=== PATIENT | female | born 1975 | race Caucasian/White ===

== ENCOUNTER → 2017-05-22 13:21 | Outpatient (CLI) | payer SELFPAY | PROVIDERS: Visit Provider Obstetrics & Gynecology | DX: N91.2 Amenorrhea, unspecified (principal) ==

== ENCOUNTER → 2018-07-11 13:57 | Outpatient (CLI) | payer BC, SELFPAY ==
[2018-07-16 12:19] LABS: HPV Reflexed? NOT INDICATED
== END ==
PROVIDERS: Visit Provider Obstetrics & Gynecology
DX: Z12.4 Encounter for screening for malignant neoplasm of cervix (principal)
CPT/HCPCS: 88175; G0145

== ENCOUNTER → 2019-11-27 14:37 | Outpatient (CLI) | payer OTHER, SELFPAY ==
[2019-09-09 10:29] VITALS: BMI 19.8
[2019-11-27 17:20] LABS: T4 Free Direct 0.91 ng/dL (0.76-1.46); Thyroid Stim Hormone (TSH) 1.92 uIU/mL (0.358-3.74)
[2019-12-02 16:33] LABS: HPV APTIMA, High Risk Negative (Negative); HPV Reflexed? YES, CHARGE PATIENT
== END ==
PROVIDERS: Visit Provider Student in an Organized Health Care Education/Training Program
DX: Z12.4 Encounter for screening for malignant neoplasm of cervix (principal); N95.1 Menopausal and female climacteric states
CPT/HCPCS: 36415; 84439; 84443; 87624; 88175; G0145

== ENCOUNTER → 2019-12-18 13:49 | Outpatient (CLI) | payer BC, SELFPAY ==
[2019-09-09 10:29] VITALS: BMI 19.8
--- NOTE | 2019-12-18 14:02 | BI_ITS ---
MAMMOGRAPHY - BILATERAL SCREENING REASON FOR EXAM: Female, 44 years old. Routine annual screening examination. PERTINENT HISTORY: Mother with breast cancer. Grandmother with breast cancer. TECHNIQUE: Digital bilateral breast yosvany (3D mammographic acquisition) in the CC and MLO projections. 2-D mediolateral oblique (MLO) and craniocaudad (CC) views of both breasts were obtained. CAD: Full Field Digital Mammography with Computer Added Detection was performed. COMPARISON: Comparison is made with prior study dated 12/17/2016. FINDINGS: Breast Composition: The breasts are heterogeneously dense, which may obscure small masses. There are no dominant masses or suspicious calcifications. No other significant abnormalities are identified. There has been no significant change since the prior study. BI/SCREEN MAMM (CAD) W/YOSVANY BILAT IMPRESSION: Stable bilateral screening mammogram. Yearly follow-up mammogram recommended. (A) ASSESSMENT CATEGORY: BIRADS Category 1: Negative. A letter regarding these results will be sent to the patient by the facility within 30 days. Approximately 10% of breast cancers are not detected by mammography. A normal mammogram should not delay biopsy of a clinically suspicious abnormality. [id number] Electronically Signed: Anurag Vazquez, at 14:54 EDT , Service support ,
== END ==
PROVIDERS: PCP Family Medicine; Referring Provider Student in an Organized Health Care Education/Training Program; Visit Provider Student in an Organized Health Care Education/Training Program
DX: Z12.31 Encounter for screening mammogram for malignant neoplasm of breast (principal)
CPT/HCPCS: 77063; 77067

== ENCOUNTER 2020-05-20 12:30 | Outpatient (RCR) | payer OTHER, SELFPAY ==
[2019-09-09 10:29] VITALS: BMI 19.8
== END 2020-08-02 23:59 ==
LOC: IMMUN 12:30
PROVIDERS: PCP Family Medicine; Visit Provider Family Medicine
DX: Z23 Encounter for immunization (principal)
CPT/HCPCS: 0001A; 0002A; 91300

== ENCOUNTER → 2020-06-24 09:20 | Outpatient (CLI) | payer OTHER, SELFPAY ==
[2020-06-24 08:57] VITALS: BMI 22.4
[2020-06-24 12:38] LABS: Absolute Lymphocyte Count 1.26 X10^3/uL (0.83-4.51); Absolute Neutrophil Count 2.6 X10^3/uL (2.0-7.7); Basophil# 0.03 X10^3/uL; Basophil% 0.7 % (0-1); Eosinophils% 2.3 % (0-5); Hematocrit 44.7 % (37-47); Hemoglobin 13.7 g/dL (12.0-15.0); Lymphocyte # 1.26 X10^3/ul (0.83-4.51); Lymphocyte % 29.2 % (19-41); Mean Corp Hgb Conc 30.6 g/dL (32-36); Mean Corpuscular Hgb 26.9 pg (27.0-32.0); Mean Corpuscular Volume 87.8 fL (81-99); Mean Platelet Vol. 10.2 fl (6.2-12.0); Monocyte# 0.33 X10^3/uL; Monocyte% 7.7 % (0-10); NRBC Flagged by Analyzer 0 % (0-5); Neutrophil # 2.57 X10^3/uL (2.7-7.7); Neutrophil % 59.6 % (47-70); Platelet Count 311 K/mm3 (150-450); RBC Distribution Width CV 13.1 % (11.6-14.6); RBC Distribution Width SD 42.1 fl (35.1-43.9); Red Blood Count 5.09 M/mm3 (4.2-5.4); White Blood Count 4.3 K/mm3 (4.4-11.0)
[2020-06-24 12:42] LABS: ALB/GLOB Ratio 1.1 RATIO (0.9-2.4); AST(SGOT) 15 U/L (15-37); Alanine Aminotransfer ALT/SGPT 21 U/L (13-56); Alkaline Phosphatase 84 U/L (45-117); Anion Gap 1 (5-15); BUN 20 mg/dL (7-18); Calcium,Total 9.3 mg/dL (8.5-10.1); Chloride 108 mmol/L (98-107); Creatinine, Serum 0.77 mg/dL (0.55-1.02); EST Glomerular Filtration Rate 86 mL/min (>60); Est Glom Filt Rate - Afr Amer 104 mL/min (>60); Globulin 3.5 g/dL (2.2-4.2); Glucose 80 mg/dL (74-106); Potassium 4.3 mmol/L (3.5-5.1); Protein, Total 7.5 g/dL (6.4-8.2); Sodium Level 140 mmol/L (136-145)
[2020-06-24 12:47] LABS: Vitamin D,25 Hydroxy 30.8 ng/mL
== END ==
PROVIDERS: PCP Internal Medicine; Referring Provider Internal Medicine; Visit Provider Internal Medicine
DX: E73.9 Lactose intolerance, unspecified (principal); K90.9 Intestinal malabsorption, unspecified
CPT/HCPCS: 36415; 80053; 82306; 85025

== ENCOUNTER → 2020-10-21 14:43 | Outpatient (CLI) | payer OTHER, SELFPAY ==
[2020-10-21 17:27] LABS: Cholesterol 189 mg/dL (200); High Density Lipoprotein 64 mg/dL; T4 Free Direct 0.89 ng/dL (0.76-1.46); Thyroid Stim Hormone (TSH) 1.38 uIU/mL (0.358-3.74); Triglycerides 87 mg/dL; Very Low Density Lipoprotein 17 mg/dL (5-40)
== END ==
PROVIDERS: PCP Internal Medicine; Referring Provider Internal Medicine; Visit Provider Internal Medicine
DX: Z00.00 Encounter for general adult medical examination without abnormal findings (principal); N93.9 Abnormal uterine and vaginal bleeding, unspecified
CPT/HCPCS: 36415; 80061; 84439; 84443

== ENCOUNTER → 2020-10-24 09:32 | Outpatient (CLI) | payer OTHER, SELFPAY ==
--- NOTE | 2020-10-24 09:35 | BI_ITS ---
MAMMOGRAPHY - BILATERAL DIAGNOSTIC REASON FOR EXAM: Female, 45 years old. Breast Pain. Family Hx of Breast Ca PERTINENT HISTORY: Non-contributory. TECHNIQUE: Digital examination. Mediolateral oblique (MLO) and craniocaudad (CC) views of both breasts were obtained. CAD: CAD was performed on this study. COMPARISON: 12/18/2019 FINDINGS: Breast Composition: The breasts are heterogeneously dense, which may obscure small masses. There are no dominant masses or suspicious calcifications. No other significant abnormalities are identified. BI/DIAG MAMM W/CAD, BILAT IMPRESSION: Stable bilateral diagnostic mammogram. ASSESSMENT CATEGORY: BIRADS Category 1: Negative. A letter regarding these results will be sent to the patient by the facility within 30 days. FOLLOW UP RECOMMENDATION: Yearly follow up mammogram recommended. (A) Approximately 10% of breast cancers are not detected by mammography. A normal mammogram should not delay biopsy of a clinically suspicious abnormality. Electronically Signed: Tejas Wang MD at 10:19 EDT Tel , Service support ,
== END ==
PROVIDERS: PCP Internal Medicine; Visit Provider Internal Medicine
DX: N64.4 Mastodynia (principal)
CPT/HCPCS: 77062; 77066; G0279

== ENCOUNTER → 2020-11-23 14:38 | Outpatient (CLI) | payer OTHER, SELFPAY ==
[2020-11-23 15:50] LABS: Follicle Stimulating Hormone 103.3 mIU/mL
== END ==
PROVIDERS: PCP Internal Medicine; Visit Provider Obstetrics & Gynecology
DX: N91.2 Amenorrhea, unspecified (principal); Z78.0 Asymptomatic menopausal state
CPT/HCPCS: 36415; 83001

== ENCOUNTER → 2021-01-17 10:52 | Outpatient (CLI) | payer OTHER, SELFPAY ==
--- NOTE | 2021-01-17 | EMB_PTH ---
PATIENT: DIANA FELIX LOC: [facility] #:[id number] AGE/SX: 49/F ROOM: RE01/17/[address]: Dr. Daniella Gonzalez MD : 1975 BED: DIS: SPEC #: [id number] RECD: 01/17/21 11:47 STATUS: MABEL CAMARA #: [id number] PRISCILLA: 01/17/21 00:[address]: Daniella Neely DEPT: SURGICAL PATHOLOGY RECD BY: Timmy Whitt ENTERED: 01/17/21 11:47 SP TYPE: ENDOM BX/C JANETTE DR: Dr. Bob Tristan MD Tissues: Endometrium, NOS Procedures: Surgery Specimen Level IV HEADER OPERATION: Endometrial biopsy PRE-OP DIAGNOSIS: Postmenopausal bleeding TISSUE SUBMITTED: Endometrial biopsy MICROSCOPIC DIAGNOSIS Endometrial biopsy: Strips of benign endometrial epithelium and scant fragments of superficial benign endometrial tissue, consistent with atrophic endometrium. Benign endocervical epithelial cells, blood and mucous. SJ 01/18/21 MICROSCOPIC DESCRIPTION Slides are reviewed. GROSS DESCRIPTION Received is one container labeled with the patient's name and not further designated. The specimen consists of multiple fragments of fontaine hemorrhagic soft tissue that in aggregate measure 1.5 x 0.1 x 0.1 cm. The specimen is totally submitted in one cassette. / PHU:marcelle 01/17/2021 TC:4 CPT: 64726
== END ==
PROVIDERS: PCP Internal Medicine; Visit Provider Obstetrics & Gynecology
DX: N95.0 Postmenopausal bleeding (principal)
CPT/HCPCS: 88305

== ENCOUNTER → 2021-09-22 | Outpatient (CLI) | payer OTHER, SELFPAY ==
[2021-09-22 14:50] LABS: Absolute Neutrophil Count 2.5 X10^3/uL (2.0-7.7); Basophil# 0.03 X10^3/uL; Basophil% 0.6 % (0-1); Eosinophil# 0.16 X10^3/uL; Eosinophils% 3.3 % (0-5); Hematocrit 43.9 % (37-47); Hemoglobin 13.5 g/dL (12.0-15.0); Lymphocyte % 33.4 % (19-41); Mean Corp Hgb Conc 30.8 g/dL (32-36); Mean Corpuscular Hgb 26.6 pg (27.0-32.0); Mean Corpuscular Volume 86.4 fL (81-99); Mean Platelet Vol. 9.5 fl (6.2-12.0); Monocyte# 0.46 X10^3/uL; Monocyte% 9.6 % (0-10); NRBC Flagged by Analyzer 0 % (0-5); Neutrophil # 2.52 X10^3/uL (2.7-7.7); Neutrophil % 52.7 % (47-70); Platelet Count 260 K/mm3 (150-450); RBC Distribution Width SD 40.7 fl (35.1-43.9); Red Blood Count 5.08 M/mm3 (4.2-5.4); White Blood Count 4.8 K/mm3 (4.4-11.0)
[2021-09-22 15:25] LABS: ALB/GLOB Ratio 1.2 RATIO (0.9-2.4); AST(SGOT) 19 U/L (15-37); Alanine Aminotransfer ALT/SGPT 32 U/L (13-56); Albumin, Serum 3.8 g/dL (3.2-5.0); Alkaline Phosphatase 90 U/L (45-117); Amylase 66 U/L (25-115); Anion Gap 2 (5-15); BUN 14 mg/dL (7-18); BUN/Creat Ratio 15.6 RATIO (10-20); Calcium,Total 9.1 mg/dL (8.5-10.1); Chloride 107 mmol/L (98-107); Cholesterol 198 mg/dL (200); EST Glomerular Filtration Rate 72 mL/min (>60); Est Glom Filt Rate - Afr Amer 87 mL/min (>60); Globulin 3.3 g/dL (2.2-4.2); Glucose 72 mg/dL (74-106); High Density Lipoprotein 46 mg/dL; Lipase 169 U/L (73-393); Potassium 4.1 mmol/L (3.5-5.1); Protein, Total 7.1 g/dL (6.4-8.2); Sodium Level 140 mmol/L (136-145); Triglycerides 82 mg/dL; Very Low Density Lipoprotein 16 mg/dL (5-40)
== END | disposition home or self-care (01) ==
LOC: LAB 13:47
PROVIDERS: PCP Internal Medicine; Visit Provider Physician Assistant
DX: R10.9 Unspecified abdominal pain (principal); M54.9 Dorsalgia, unspecified; E73.9 Lactose intolerance, unspecified
CPT/HCPCS: 36415; 80053; 80061; 82150; 83690; 84443; 85025

== ENCOUNTER → 2021-12-05 | Outpatient (CLI) | payer OTHER, SELFPAY ==
--- NOTE | 2021-12-05 16:17 | BI_ITS ---
MAMMOGRAPHY - BILATERAL SCREENING REASON FOR EXAM: Female, 46 years old. Routine annual screening examination. PERTINENT HISTORY: Mother with breast cancer. Grandmother with breast cancer. TECHNIQUE: Digital bilateral breast yosvany (3D mammographic acquisition) in the CC and MLO projections. 2-D mediolateral oblique (MLO) and craniocaudad (CC) views of both breasts were obtained. CAD: Full Field Digital Mammography with Computer Added Detection was performed. COMPARISON: Comparison is made with prior study 10/24/2020 and 12/18/2019. FINDINGS: Breast Composition: The breasts are heterogeneously dense, which may obscure small masses. There are no dominant masses or suspicious calcifications. No other significant abnormalities are identified. There has been no significant change since the prior study. BI/SCRN MAMM (CAD)W/YOSVANY BILAT IMPRESSION: Stable bilateral screening mammogram. Yearly follow-up mammogram recommended. (A) ASSESSMENT CATEGORY: BIRADS Category 1: Negative. A letter regarding these results will be sent to the patient by the facility within 30 days. Approximately 10% of breast cancers are not detected by mammography. A normal mammogram should not delay biopsy of a clinically suspicious abnormality. [id number] Electronically Signed: Anurag Vazquez MD at 8:45 EDT ,
== END | disposition home or self-care (01) ==
LOC: OPBI 16:24
PROVIDERS: PCP Internal Medicine; Visit Provider Internal Medicine
DX: Z12.31 Encounter for screening mammogram for malignant neoplasm of breast (principal); Z80.3 Family history of malignant neoplasm of breast
CPT/HCPCS: 77063; 77067

== ENCOUNTER → 2022-02-15 | Outpatient (CLI) | payer MEDICAID, SELFPAY ==
--- NOTE | 2022-02-15 07:56 | CT_ITS ---
STUDY: CT ABDOMEN AND PELVIS WITH CONTRAST REASON FOR EXAM: Female, 46 years old. LEFT LOWER ABDOMINAL MASS. Abdominal tenderness. RADIATION DOSAGE (If Supplied By Facility): CTDIvol = ( 12.89 ) mGy, DLP = ( 594.72 ) mGycm TECHNIQUE: Transaxial images were obtained from the dome of the diaphragm to the symphysis pubis with oral contrast. Oral and amp; IV Readi-CAT and amp; 100mL Isovue-370 was administered. Sagittal and coronal images were reconstructed. Individualized dose optimization techniques were used for this CT. COMPARISON: None. FINDINGS: The visualized lung bases are unremarkable. The visualized portions of the heart are within normal limits. Normal liver. Normal gallbladder and extrahepatic biliary system. Normal spleen. Normal pancreas. Normal bilateral adrenal glands. Normal right kidney. Normal left kidney. There is a small hiatal hernia. Normal small intestine. Normal colon. There are surgical clips in the region of the appendix consistent with a prior appendectomy. Normal abdominal aorta. Normal inferior vena cava. There is extensive retroperitoneal lymphadenopathy with enlarged nodes greater than 10-15mm in the short axis. Marked degree of lymphadenopathy is seen in the peripancreatic region as well as in the root of the mesentery. This extends down into the lower abdomen. Mild degree of pelvic lymphadenopathy. Normal urinary bladder. Small amount of free fluid is seen in the cul-de-sac. Normal abdominal wall. Normal osseous structures. CT/Abdomen/Pelvis WITH Contrast IMPRESSION: Extensive retroperitoneal and mesenteric lymphadenopathy. Lymphadenopathy is also seen in the peripancreatic and periportal region. Small amount of free fluid is seen in the cul-de-sac. Electronically Signed: Anurag Vazquez MD at 8:49 EST ,
== END | disposition home or self-care (01) ==
PROVIDERS: PCP Internal Medicine; Referring Provider Nurse Practitioner Family; Visit Provider Nurse Practitioner Family
DX: R19.00 Intra-abdominal and pelvic swelling, mass and lump, unspecified site (principal)
CPT/HCPCS: 74177; Q9967

== ENCOUNTER → 2022-02-16 | Outpatient (CLI) | payer MEDICAID, SELFPAY ==
[2022-02-16 13:00] LABS: Bacteria 0 SEEN /hpf (None Seen); Mucous, Urine 0 SEEN /hpf (<or=2+); Red Blood Cells-Urine 0 SEEN /hpf (0-5)
[2022-02-16 14:22] LABS: Color, Urine Yellow (Yellow); Glucose, Dipstick Normal (Normal); Ketone-Dipstick Negative (Negative); Leukocyte Esterase-Dipstick 100 /ul (Negative); Nitrite-Dipstick Negative (Negative); Occult Blood-Urine Negative /ul (Negative); Protein-Dipstick 15 mg/dl (Negative); Specific Gravity, Urine 1.015 (1.002-1.030); Urine Bilirubin Dipstick Negative (Negative); Urine Clarity Sl. Cloudy (Clear); Urine Urobilinogen Normal (Normal)
[2022-02-16 14:28] LABS: Erythrocyte Sedimentation Rate 4 mm/hr (0-30)
[2022-02-16 14:29] LABS: Squamous Epithelial Cells - UA 0-5 SEEN /hpf (5-10); White Blood Cells 10-25 SEEN /hpf (0-5)
[2022-02-16 14:30] LABS: Absolute Lymphocyte Count 1.22 X10^3/uL (0.83-4.51); Absolute Neutrophil Count 3.3 X10^3/uL (2.0-7.7); Basophil# 0.04 X10^3/uL; Basophil% 0.8 % (0-1); Eosinophil# 0.21 X10^3/uL; Hematocrit 46.1 % (37-47); Hemoglobin 14.3 g/dL (12.0-15.0); Lymphocyte # 1.22 X10^3/ul (0.83-4.51); Lymphocyte % 23.2 % (19-41); Mean Corpuscular Hgb 26.9 pg (27.0-32.0); Mean Corpuscular Volume 86.7 fL (81-99); Mean Platelet Vol. 10.1 fl (6.2-12.0); Monocyte# 0.44 X10^3/uL; Monocyte% 8.4 % (0-10); NRBC Flagged by Analyzer 0 % (0-5); Neutrophil # 3.33 X10^3/uL (2.7-7.7); Neutrophil % 63.2 % (47-70); Platelet Count 296 K/mm3 (150-450); RBC Distribution Width CV 13.4 % (11.6-14.6); RBC Distribution Width SD 42.3 fl (35.1-43.9); Red Blood Count 5.32 M/mm3 (4.2-5.4); White Blood Count 5.3 K/mm3 (4.4-11.0)
[2022-02-16 15:44] LABS: ALB/GLOB Ratio 1.3 RATIO (0.9-2.4); AST(SGOT) 18 U/L (15-37); Alanine Aminotransfer ALT/SGPT 26 U/L (13-56); Albumin, Serum 4.1 g/dL (3.2-5.0); Alkaline Phosphatase 91 U/L (45-117); Amylase 66 U/L (25-115); Anion Gap 1 (5-15); BUN 15 mg/dL (7-18); BUN/Creat Ratio 16.8 RATIO (10-20); CRP < 2.90 mg/L (0.0-3.0); Calcium,Total 9.4 mg/dL (8.5-10.1); Chloride 108 mmol/L (98-107); Creatinine, Serum 0.89 mg/dL (0.55-1.02); EST Glomerular Filtration Rate 72 mL/min (>60); Est Glom Filt Rate - Afr Amer 87 mL/min (>60); Globulin 3.1 g/dL (2.2-4.2); Glucose 81 mg/dL (74-106); LDH 208 U/L (84-246); Lipase 189 U/L (73-393); Potassium 4.2 mmol/L (3.5-5.1); Protein, Total 7.2 g/dL (6.4-8.2); Sodium Level 143 mmol/L (136-145)
== END | disposition home or self-care (01) ==
PROVIDERS: PCP Internal Medicine; Referring Provider Nurse Practitioner Family; Visit Provider Nurse Practitioner Family
DX: R59.0 Localized enlarged lymph nodes (principal); R19.00 Intra-abdominal and pelvic swelling, mass and lump, unspecified site
CPT/HCPCS: 36415; 80053; 81001; 82150; 83615; 83690; 85025; 85652; 86140

== ENCOUNTER 2022-03-08 08:45 | Outpatient (CLI) | payer MEDICAID, SELFPAY ==
[2022-03-08] VITALS (9 sets, daily range): BP systolic 96–108; BP diastolic 55–76; PULSE 62–80; RESP 14–30; TEMP 37.2; O2SAT 91–100; BMI 23.3
--- NOTE | 2022-03-08 | IMM_PTH ---
PATIENT: DIANA FELIX LOC: CT U#:[id number] AGE/SX: 46/F ROOM: RE03/08/[address]: Dr. West Christy MD : 1975 BED: DIS: 03/08/2022 SPEC #: [id number] RECD: 03/08/22 14:08 STATUS: MABEL REQ #: [id number] PRISCILLA: 03/08/22 00:[address]: West Christy DEPT: IMMUNOHISTOCHEMISTRY RECD BY: Mary Stinson ENTERED: 03/08/22 14:10 SP TYPE: IMMUNO OTHR DR: Dr. Bob Tristan MD Tissues: Abdomen, NOS Procedures: BCL-2 (add) BCL-6 (add) CD10 (add) CD20 (add) CD23 (add) CD3 (add) CD43 (add) CD45 (add) CD5 (add) CD79A (add) CK8 (add) CYCLIN (add) KI-67 (add) MUM1 (add) C-MYC (add) Pankeratin (initial) PHYSICIAN & [place] [id number] SPECIMEN INFORMATION: Tissue Source: Abdominal mass Clinical Info: Abdominal mass Specimen Number: [id number] CPT code: 19902, 41450 x15 METHODOLOGY: Deparaffinized sections of prefer/formalin-fixed tissue or PAP/DQ stained slides are incubated with monoclonal/polyclonal antibodies/oligonucleotide probes. Localization is made via biotin free immunoperoxidase method. Appropriate controls are performed and reacted as expected. Results on target cell population are indicated in the following table: RESULTS: ANTIBODY / CLONE RESULT AE1-3 (AE1/AE3/PCK26) negative CD3 (PS1) negative CD5 (SP10) negative CD10 (56C6) positive CD20 (L26) positive CD23 (1B12) negative CD43 (L60) negative CD45 (RP2/18) positive CD79a (11E3) positive BCL-2 (bcl-2/100/D5) positive BCL-6 (IB293T/A8) positive Cyclin D1/BCL-1 (SP4) negative MUM1 (MRQ-43) negative C-MYC (Y69) negative CK8 (45mrzhX48) negative Ki-67 (30-9) positive, low These tests were developed and their performance characteristics determined by [facility]. They may not have been cleared or approved by the U.S. Food and Drug Administration. The FDA has determined that such clearance or approval is not necessary. The above immunohistochemical/dualISH markers are ordered and reviewed by the Pathologist. INTERPRETATION: Abdominal mass, CT-guided core biopsy: Consistent with involvement by non-Hodgkin B-cell lymphoma, favor follicular lymphoma.
--- NOTE | 2022-03-08 | ASPIGT_PTH ---
PATIENT: DIANA FELIX LOC: [place] U#:[id number] AGE/SX: 46/F ROOM: RE03/08/[address]: Dr. West Christy MD : 1975 BED: DIS: 03/08/2022 SPEC #: [id number] RECD: 03/08/22 12:27 STATUS: MABEL REAmy #: [id number] PRISCILLA: 03/08/22 00:[address]: West Christy DEPT: SURGICAL PATHOLOGY RECD BY: Timmy Whitt ENTERED: 03/08/22 12:28 SP TYPE: ASP RAD OTHR DR: Dr. Bob Tristan MD Tissues: Abdomen, NOS Procedures: FNA Specimen Adequacy Special Stain Group II Surgery Specimen Level IV Imprint (control) HEADER OPERATION: CT-guided abdominal biopsy PRE-OP DIAGNOSIS: Abdominal mass TISSUE SUBMITTED: Anterior abdominal mass 18-gauge x5 MICROSCOPIC DIAGNOSIS Anterior abdominal mass, CT-guided core biopsy: Consistent with involvement by non-Hodgkin B-cell lymphoma, follicular lymphoma with predominantly diffuse pattern, grade 1/3. See microscopic description and comment. SJ:rg 03/12/2022 COMMENT The specimen is evaluated at the time of biopsy by Dr. Fu. Immediate Evaluation = Numerous lymphocytes are noted. Adequate for evaluation. The specimen predominantly is of diffuse pattern. Flow cytometry study from [facility] shows B-cell lymphoma, CD10 positive (the immunophenotype suggests B-cell lymphoma of follicle center cell origin). The complete report is viewable in patient?s EMR. Immunohistochemistry ([id number]) supports the above diagnosis. MICROSCOPIC DESCRIPTION Slides are reviewed. The specimen shows lymph node tissue with distortion of normal architecture into diffuse infiltration with small lymphocytes. Significant increased number of large lymphocytes are not seen. Follicular formation is also not seen. No evidence of necrosis or fibrosis. GROSS DESCRIPTION Received is one container labeled with the patient's name and not further designated. The specimen consists of multiple irregular and elongated fragments of fontaine tissue that in aggregate measure 2.2 x 0.5 x 0.1 cm. The specimen is totally submitted in one cassette. / AM:marcelle 03/08/2022 TC:0 CPT: 15741, 60072
--- NOTE | 2022-03-08 08:55 | CT_ITS ---
PROCEDURE: CT GUIDED biopsy of the left abdominal mass. DATE: 03/08/2022. INDICATION: Female, 46 years old. Abdominal and retroperitoneal lymphadenopathy. PHYSICIAN: Anurag Vazquez M.D. RADIATION DOSAGE (If Supplied By Facility): CTDIvol = ( 17 ) mGy, DLP = ( 279.89 ) mGycm. Individualized dose optimization techniques were utilized. PROCEDURE: The risks, benefits, and alternatives to the procedure were explained to the patient. The specific risk of hemorrhage requiring further treatment or intervention was detailed and accepted. Follow-up instructions were discussed with the patient as well. Written informed consent was obtained. The patient was brought into the CT suite and placed in the supine position. . An appropriate entry site was identified. The overlying skin was prepped and draped in the usual sterile fashion. 1% lidocaine was administered subcutaneously for local anesthesia. Conscious sedation was performed. The patient received 2 mg of VERSED and 75 mcg of FENTANYL intravenously. Conscious sedation was started at 10:00 AM and terminated at 10:20 AM. The patient was monitored independently by the department nurse. Under CT guidance, a total of 5 passes were performed utilizing an 18-gauge core biopsy needle system. The specimens were then placed in the appropriate fluid and transported to the laboratory for analysis. Hemostasis was obtained. The patient tolerated the procedure well without immediate complications. CT/Biopsy/Inj or Needle Placement IMPRESSION: Successful CT guided biopsy of the left abdominal mass utilizing an 18-gauge core biopsy needle system, as described above. Conscious sedation protocol was followed. Electronically Signed: Anurag Vazquez MD at 10:56 EST ,
[2022-03-08 09:00] LABS: Absolute Lymphocyte Count 1.13 X10^3/uL (0.83-4.51); Absolute Neutrophil Count 2.7 X10^3/uL (2.0-7.7); Basophil# 0.03 X10^3/uL; Basophil% 0.7 % (0-1); Eosinophil# 0.18 X10^3/uL; Eosinophils% 4.1 % (0-5); Hematocrit 43.1 % (37-47); Hemoglobin 13.8 g/dL (12.0-15.0); Lymphocyte # 1.13 X10^3/ul (0.83-4.51); Lymphocyte % 25.6 % (19-41); Mean Corpuscular Hgb 27.3 pg (27.0-32.0); Mean Corpuscular Volume 85.2 fL (81-99); Mean Platelet Vol. 9.2 fl (6.2-12.0); Monocyte# 0.34 X10^3/uL; Monocyte% 7.7 % (0-10); NRBC Flagged by Analyzer 0 % (0-5); Neutrophil # 2.72 X10^3/uL (2.7-7.7); Neutrophil % 61.4 % (47-70); Platelet Count 250 K/mm3 (150-450); RBC Distribution Width CV 13.2 % (11.6-14.6); RBC Distribution Width SD 40.6 fl (35.1-43.9); Red Blood Count 5.06 M/mm3 (4.2-5.4); White Blood Count 4.4 K/mm3 (4.4-11.0)
[2022-03-08 09:08] LABS: Prothrombin Time (Protime)PT. 12.8 SECONDS (11.7-14.9)
[2022-03-08 09:09] LABS: Partial Thromboplast Time 24.4 Seconds (24.1-36.2)
[2022-03-08] MEDS: Midazolam 2 MG/2 ML Syringe IV (10:00)
[2022-03-08] MEDS: fentaNYL 100 MCG/2 ML Ampul IV ×2 (10:03→10:16)
[2022-03-08] MEDS: Lidocaine 2% (5ml sdv) 5 ML VIAL.MPF INFILT (10:13)
== END 2022-03-08 23:59 | disposition home or self-care (01) ==
PROVIDERS: PCP Internal Medicine; Referring Provider Internal Medicine Hematology & Oncology; Visit Provider Internal Medicine Hematology & Oncology
DX: Z01.812 Encounter for preprocedural laboratory examination (principal); R59.0 Localized enlarged lymph nodes
CPT/HCPCS: 10009; 36415; 77012; 85025; 85610; 85730; 88172; 88305; 88313; 88341; 88342; 99156; J7050; A4216

== ENCOUNTER → 2022-03-21 | Outpatient (CLI) | payer MEDICAID, SELFPAY ==
[2022-03-21] MEDS: Pentamidine Isethionate 300 MG, Water For Injection,Sterile 6 ML INHALATION (10:29)
== END | disposition home or self-care (01) ==
PROVIDERS: PCP Internal Medicine; Referring Provider Nurse Practitioner Family; Visit Provider Nurse Practitioner Family
DX: C82.93 Follicular lymphoma, unspecified, intra-abdominal lymph nodes (principal)
CPT/HCPCS: 94642

== ENCOUNTER 2022-03-23 09:39 | Day surgery (SDC) | payer MEDICAID, SELFPAY ==
[2022-03-23] VITALS (8 sets, daily range): BP systolic 85–101; BP diastolic 51–71; PULSE 72–97; RESP 16–17; TEMP 36.2–36.7; O2SAT 95–99; BMI 22.3
--- NOTE | 2022-03-23 09:53 | PCM.HP.BLA ---
History and Physical Date of Admission: 03/23/22 Intake Vital Signs ? 03/14/2308:02 Height 5 ft 4 in Weight: 136 lb 2 oz BMI 23.3 BP 96/62 Blood Pressure Location Rt brachial Position Sitting Respiration 16 Pulse 76 Pulse Source Monitor Temp 97.3 F L Temp Source Temporal Pulse Oximetry (%) 98 Oxygen Delivery Method room air Intake Visit Reasons:?PORT PLACEMENT Chief Complaint: Port placement conslt Is patient in pain?: No Allergies Sulfa (Sulfonamide Antibiotics) Allergy (Verified 03/14/22 09:03) Unknownomeprazole Adverse Reaction (Intermediate, Verified 03/14/22 09:03) VOMITING Medications multivitamin 1 tab PO DAILY 06/24/20 [History Confirmed 03/14/22] vitamin B complex (B Complex-Vitamin B12 tablet) 1 tab PO DAILY 01/26/22 [History Confirmed 03/14/22] allopurinol 300 mg tablet 300 mg PO DAILY 14 days #14 tabs 03/13/22 [Rx Confirmed 03/14/22] PFSH Medical History?(Updated 03/14/22 @ 10:[address] Carlos Kolb MD) Abdominal lymphadenopathy Abnormal uterine bleeding Breast pain, left Encounter for adjustment and management of vascular access device Encounter for screening for COVID-19 Follicular lymphoma Generalized anxiety disorder Insomnia Lactose intolerance Malabsorption Preventative health care Surgical History? History of appendectomy History of wisdom tooth extraction Family History? Father Hypertension Skin cancerMother Breast cancer Social History? Smoking Status:? Never smoker alcohol intake:? never substance use type:? does not use what type of physical activity do you participate in:? running and yoga frequency:? 3-4 times per week HPI HPI HPI: Patient is a 46-year-old female here for port placement for lymphoma. ROS General General: Yes weight change and fatigue; No appetite, colon cancer, breast cancer or weakness HEENT HEENT: No difficulty swallowing, eye injury, eye surgery, swollen glands or hoarseness Endo Endocrine: No thyroid disease, diabetes mellitus, thyroid cancer, Hair loss, heat intolerance or cold intolerance Skin Skin: No rash or changing moles Breast Breast: No left breast lump, right breast lump, nipple discharge, breast pain, abnormal mammogram, abnormal US or breast enlargement Musc Musculoskeletal: No back problems, arthritis, rheumatoid arthritis, gout or joint pain Cardio Cardiovascular: No murmur, pacemaker, heart disease, atrial fibrillation, high blood pressure, heart attack, heart stent, palpitations, shortness of breat with exertion or chest pain Psych Psychiatric: No depression, anxiety or hearing voices Resp Respiratory: No shortness of breath, No sleep apnea, No cough, No COPD, No asthma, No emphysema and No wheezing Gastro Gastrointestinal: Yes abdominal pain, No nausea or vomiting, No diarrhea, No constipation, No blood in stool, No acid reflux, No hemorrhoids, No ulcers, No gallbladder problem and No black,tarry stools Cameron Hematologic: No blood thinners, No blood disorders, No bleeding, No anemia and No blood clots Neuro Neurologic: No system reviewed and no additional complaints, except as documented, No as per HPI, No abnormal gait, No abnormal hearing, No abnormal movements, No abnormal speech, No behavioral changes, No burning sensations, No confusion, No convulsions, No disequilibrium, No dizziness, No localized weakness, No frequent falls, No headache(s), No lack of coordination, No loss of vision, No memory loss, No numbness, No other visual disturbances, No radicular pain, No restless legs, No sensory deficit, No syncope, No tingling, No tremor(s), No weakness and No other Exam Const General: cooperative Orientation: alert and oriented x3 HENMT Head: normal to inspection Neck Neck: normal visual inspection and full ROM Chest Chest palpation & inspection: normal inspection of the chest Resp Effort & Inspection: normal respiratory effort Auscultation: clear to auscultation bilaterally Cardio Rate: regular rate Rhythm: regular rhythm GI Inspection: non-distended Palpation: soft and nontender Skin General: no rashes or lesions noted Neuro General: patient alert and patient oriented x3 Extrem General: full ROM Psych Appearance: grossly normal Mental Status: mental status grossly normal Assessment and Plan Assessment and Plan (1) Encounter for adjustment and management of vascular access device: ?Status:?Acute (2) Follicular lymphoma: ?Status:?Acute Plan Has lymphoma and requires port for treatment.? I discussed right chest port placement with the patient in detail.? I discussed the procedure as well as the risks including but not limited to bleeding, infection, pneumothorax or line infection or DVT.? Patient understands all the risks and is willing to proceed. Carlos Kolb MD Pager: [facility] [address] [place] [address], [address] [place] [address] Office: I have examined the patient and the H&P has been reviewed. There are no clinical changes since date of exam.
[2022-03-23] MEDS: Lactated Ringers 1,000 ML 15 ML IV (10:13)
[2022-03-23] MEDS: Bupiv/Epi 0.5% Mpf 30 ML Vial (10:45)
[2022-03-23] MEDS: Cefazolin 2 GM in 0.9% Normal Saline 100 ML IV (11:13)
--- NOTE | 2022-03-23 12:01 | RAD_ITS ---
STUDY: X-RAY CHEST REASON FOR EXAM: Female, 46 years old. Port placement TECHNIQUE: Single AP portable view of the chest. COMPARISON: None. FINDINGS: A right-sided port catheter has been placed. The tip is at the junction of the superior vena cava and right atrium. The lungs are clear and expanded. There is no demonstrated pleural abnormality. Normal size heart. Normal mediastinum and veronique. Normal visualized pulmonary arteries. Normal visualized aortic arch and descending thoracic aorta. Normal visualized thoracic spine. Normal visualized ribs, clavicles, and shoulders. There is no demonstrated abnormality of the visualized soft tissue structures of the upper abdomen. RAD/Chest 1 View (Portable) IMPRESSION: The tip of the right vijay catheter is at the junction of the superior vena cava and right atrium. Electronically Signed: Anurag Vazquez MD at 12:18 EST ,
--- NOTE | 2022-03-23 12:30 | OP.PCM_ITS ---
Report of Operation Date of Procedure: 03/23/22 Pre-Operative Diagnosis: Lymphoma need for vascular access for chemotherapy Post-Operative Diagnosis: Same Surgery/Procedure Performed:: Ultrasound and fluoroscopy guided right chest port placement utilizing right IJ Description of Procedure: After obtaining informed consent patient was brought back to the operating room MAC anesthesia was induced and the right chest and neck were prepped in normal sterile fashion. Ultrasound was used to evaluate both IJs and the right IJ was selected. Next, using a needle, the right IJ was accessed and a guidewire was passed on into the superior vena cava under fluoroscopy guidance. A small incision was made over the puncture site and the dilator introducer was placed over the guidewire. Next this was capped and the pocket was made for the port. 1% lidocaine with epinephrine was injected in the proposed port site. An incision was made with scalpel. Electrocautery was used to make a pocket under the skin and subcutaneous tissue. Hemostasis was obtained. Next, the catheter was tunneled up to the neck incision site and placed through the introducer. The peel-away introducer was removed and the position of the catheter was confirmed on fluoroscopy. Next, the catheter was trimmed and attached to the port with the locking device. Interrupted 2-0 Vicryl sutures were used to anchor the port to the chest wall and then the port was placed inside the pocket. The pocket was then flushed with saline and the port irrigated with saline. There was good blood return and the port flushed easily. Next, heparin was injected into the port. The skin was closed with subcutaneous interrupted 3-0 Vicryl sutures. A single 3-0 Vicryl sutures placed under the skin at the neck incision site. Steri-Strips were placed as well as op sites. Patient tolerated procedure well, was taken to PACU in stable condition. Chest x-ray will be obtained. Grafts/Implants Used: 8 [place] PowerPort Admit VTE Documentation VTE Mechan Device Prophylaxis: SCD's
--- NOTE | 2022-03-23 12:36 | DCINST_ITS ---
Discharge Instructions Procedure Gallbladder Diet Discharge Diet: Light diet - advance as tolerated Activity Discharge Activity: May Not Drive (for 2-3 days or while taking narcotic pain medications.) and - (Do not drive, work heavy equipment or sign legal documents for 24 hours.) May shower in (days): 1 Lifting Restrictions: 20 lbs for 2 weeks Additional Activity Instructions:: Pain medication may cause nausea. You should typically eat light foods as you take your pain medications. Pain medication may also cause constipation. If this is a problem for you, please discuss with your doctor. Dressing / Incision Call your doctor if your incision/area has: Continuous Slow Oozing, Sudden Increased Bleeding, Increased Pain/ Swelling, Increased Redness and Foul Smelling Discharge Call your doctor if you observe: Fever of 101 or Higher Suture Line Care: Avoid Pulling/Pushing and Avoid Pinching/Bending Remove Dressing in: 2 days Additional Dressing/Incision Instructions:: Leave operative bandaids on for 2 days. When you remove dressing, leave Steri-Strips on until your follow-up appointment, or until the Steri-Strips fall off on their own. Follow Up Care Please Follow Up With: Carlos Kolb MD When: Please call to schedule 2 week follow up appointment. [phone] Test Results: Test results from this visit will be discussed in further detail at your follow- up appointment, if applicable. Discharge Plan Admission Attending Provider: Carlos Kolb Primary Care Provider: Bob Tristan Instructions Additional Instructions / Restrictions: Alternating ibuprofen and Tylenol for pain control Discharge Orders/Prescriptions Prescriptions: No Action multivitamin Tablet 1 tab PO DAILY vitamin B complex [B Complex-Vitamin B12] Tablet 1 tab PO DAILY lidocaine-prilocaine 2.5-2.5 % cream 1 applic topical ONCE PRN (Reason: port acces) 30 Days Qty: 30 2RF ondansetron 8 mg tablet,disintegrating 8 mg PO Q8H PRN (Reason: nausea and vomiting) Qty: 30 2RF pentamidine 300 mg recon soln 300 mg inhalation Q4W 360 Days Qty: 1 11RF allopurinol 300 mg tablet 300 mg PO DAILY 14 Days Qty: 14 0RF Rx Instructions: Start within 1 week of scheduled chemotherapy Referrals / Follow Up: Bob Tristan MD [Primary Care Provider] - Disposition Disposition (needs filled in before D/C Order can be placed): Home, Self Care
== END 2022-03-23 13:13 | disposition home or self-care (01) ==
LOC: SDC 09:40 → AC 09:42
PROVIDERS: PCP Internal Medicine; Referring Provider Surgery; Visit Provider Surgery
PROC: (CPT 36561; principal; 2022-03-23 11:55)
DX: Z45.2 Encounter for adjustment and management of vascular access device (principal); C82.90 Follicular lymphoma, unspecified, unspecified site
CPT/HCPCS: 36561; 00532; 71045; 77001; J7120; C1788; J2405

== ENCOUNTER 2022-04-04 17:13 | Emergency (ER) | payer MEDICAID, SELFPAY ==
[2022-04-04 17:15] VITALS: BP 102/69; PULSE 92; RESP 15; TEMP 37.3; O2SAT 97; BMI 23.1
--- NOTE | 2022-04-04 17:32 | EX.ED.DYSGE1 ---
HPI History of Present Illness Chief Complaint: Fever Narrative Narrative: 46-year-old female, recently diagnosed with non-Hodgkin lymphoma, had chemotherapy and Saturday and of last week, approximately 7 and 8 days ago, presents with fever. She states over the last few days she has had runny nose and fatigue, not feeling well. She noticed a fever of 100.8 today. She was told to come to the emergency department by her oncologist, Dr. Christy. She denies any nausea or vomiting. No productive cough, no other symptoms. She has not taken Tylenol or an antipyretic as of yet. No dysuria or other symptoms. No nausea or vomiting. [facility] Medical History Abnormal uterine bleeding Anemia Anxiety Breast pain, left Cancer Dietary restriction Encounter for adjustment and management of vascular access device Encounter for education Encounter for screening for COVID-19 Follicular lymphoma Gastric reflux Generalized anxiety disorder Insomnia Lactose intolerance Malabsorption Non-smoker Preventative health residential Medications multivitamin 1 tab PO DAILY 06/24/20 [History Last Taken Unknown] vitamin B complex (B Complex-Vitamin B12 tablet) 1 tab PO DAILY 01/26/22 [History Last Taken Unknown] allopurinol 300 mg tablet 300 mg PO DAILY 14 days #14 tabs 03/14/22 [Rx Last Taken Unknown] lidocaine-prilocaine 2.5 %-2.5 % topical cream 1 applic topical ONCE PRN port acces 30 days #30 grams 03/15/22 [Rx Last Taken Unknown] ondansetron 8 mg disintegrating tablet 8 mg PO Q8H PRN nausea and vomiting #30 tabs 03/15/22 [Rx Last Taken Unknown] pentamidine 300 mg solution for inhalation 300 mg inhalation Q4W pcp prophylaxis 12 months #1 ea 03/19/22 [Rx Last Taken Unknown] valacyclovir 500 mg tablet 500 mg PO BID 30 days #60 tabs 03/27/22 [Rx Last Taken Unknown] levofloxacin 750 mg tablet 750 mg PO DAILY #7 tabs 04/04/22 [Rx Last Taken Unknown] Allergy/AdvReac Type Severity Reaction Status Date / Time Sulfa (Sulfonamide Allergy Unknown Verified 03/27/22 09:10 Antibiotics) omeprazole AdvReac Intermediate VOMITING Verified 03/27/22 09:10 Family History Father Hypertension Skin cancer Mother Breast cancer Surgical History History of appendectomy History of wisdom tooth extraction Social History Smoking Status: Never smoker alcohol intake: never substance use type: does not use what type of physical activity do you participate in: running and yoga frequency: 3-4 times per week ROS ROS ED ROS Narrative Constitutional: +100.8 ?F fever, no chills. Delays and fatigue. HEENT: No sore throat. No neck pain. No loss of vision. Positive rhinorrhea. Cardiovascular: No chest pain. No palpitations. No pedal edema. Respiratory: No cough, no shortness of breath. Abdominal: No abdominal pain. No nausea. No vomiting. Genitourinary: No dysuria. No hematuria. Musculoskeletal: No myalgias. No arthralgias. Neurologic: No headaches. No dizziness. No lightheadedness. Skin: No rash. No change in color. Psychiatric: No depression. No anxiety. EXAM Physical Exam Narrative Exam Narrative: Afebrile. Vital signs noted. Nontoxic-appearing. HEENT: Normocephalic. Atraumatic. PERRL, EOMI. Neck soft and supple. No point tenderness or step off. Cardiovascular: Regular rate and rhythm. No murmurs, rubs, or gallops appreciated. Respiratory: No tachypnea. Lungs clear to auscultation bilaterally. Gastrointestinal: Abdomen soft, nontender, with normoactive bowel sounds. No rebound or guarding. Neurological: Awake. Alert. Nonfocal, nonlateralizing. Skin: No rash. Normal color. No pallor. Musculoskeletal: No pedal edema. Full range of motion extremities. Const Vital Signs: 04/04/22 17:15 04/04/22 18:04 Temperature 99.1 F Temperature Source Temporal Pulse Rate 92 Respiratory Rate 15 Respiratory Effort Normal Non-Labored Respiratory Pattern Normal Blood Pressure 102/69 Blood Pressure Mean 80 Pulse Ox 97 Oxygen Delivery Method Room Air MDM MDM MDM Narrative Medical decision making narrative: Neutropenic fever work-up was obtained. I will obtain basic laboratory work including CBC, electrolyte panel, and lactic acid. She does have a medical port. She will be given IV fluids. Additionally, she was swabbed for COVID and influenza. She is afebrile here currently with a temperature of 99.1 degrees. I will also obtain a chest x-ray. I reviewed her laboratory work. She does not have neutropenia, but rather a leukocytosis of 30.4. Hemoglobin normal at 12.2, hematocrit 38.5. Platelet count normal at 193. Electrolyte panel is grossly unremarkable with normal sodium of 136 and sodium normal at 3.8. LFTs are normal at 17 and 15. Urinalysis is negative for infection after review. Chest x-ray interpreted by myself shows no evidence of pneumonia. Lactic acid normal at 0.8. I reviewed her respiratory swabs and she is negative for COVID and influenza. She had me look at her right eye because there is a gritty feeling in it she thinks she has pinkeye. She is not losing vision, but there is no evidence of exudate and she has minimal conjunctival injection if any. I do not feel that ophthalmic antibiotics are indicated. She will apply warm compress to her right eye as needed. I discussed the patient with Dr. Sutton with oncology. He states that the patient most likely receive growth factor which could cause a leukocytosis and febrile illness. Once again, she did not have a fever here and did not take any antipyretics. He stated that she could do nothing more she could be covered with empiric antibiotics in the form of Levaquin. Through shared decision making, patient will perform [id number] for her antibiotics. She was written a prescription for Levaquin, but she will call her oncologist tomorrow to see if she should start it or if she is feeling worse she will start it. She has a follow-up appointment next week. I feel she can be discharged safely home with follow-up. Return instructions to the emergency department were reviewed. Patient and her are agreeable to the plan. Disposition is discharged home in stable condition. Lab Data Attestation: I reviewed the patient's lab results. Labs: Laboratory Results - last 24 hr 04/04/22 04/04/22 04/04/22 17:50 18:05 18:05 WBC 30.4 H* RBC 4.51 Hgb 12.2 Hct 38.5 MCV 85.4 MCH 27.1 MCHC 31.7 L RDW Std Deviation 42.3 RDW Coeff of Francisco Javier 13.7 Plt Count 193 MPV 10.1 Neut % (Auto) Not Reportable Absolute Neuts (auto) 24.9 H Absolute Lymphs (auto) 2.43 Total Counted 100 Neutrophils % (Manual) 75 H Band Neutrophils % 7 H Lymphocytes % (Manual) 8 L Monocytes % (Manual) 6 Eosinophils % (Manual) 4 Diff Path Review May foll Sodium 136 Potassium 3.8 Chloride 102 Carbon Dioxide 28.0 Anion Gap 6 BUN 10 Creatinine 0.62 Estim Creat Clear Calc 96.86 Est GFR (MDRD) Af Amer 132 Est GFR (MDRD) Non-Af 109 BUN/Creatinine Ratio 16.1 Glucose 89 Lactic Acid Calcium 8.7 Total Bilirubin 0.30 AST 17 ALT 15 Alkaline Phosphatase 164 H Total Protein 6.8 Albumin 3.6 Globulin 3.2 Albumin/Globulin Ratio 1.1 Urine Color Yellow Urine Clarity Clear Urine pH 7.0 Ur Specific Moro 1.005 Urine Protein Negative Urine Glucose (UA) Normal Urine Ketones Negative Urine Occult Blood Negative Urine Nitrite Negative Urine Bilirubin Negative Urine Urobilinogen Normal Ur Leukocyte Esterase 25 H Urine RBC 0 SEEN Urine WBC 0-5 SEEN Ur Squamous Epith Cells 0-5 SEEN Urine Bacteria 0 SEEN Urine Mucus 0 SEEN 04/04/22 18:05 WBC RBC Hgb Hct MCV MCH MCHC RDW Std Deviation RDW Coeff of Francisco Javier Plt Count MPV Neut % (Auto) Absolute Neuts (auto) Absolute Lymphs (auto) Total Counted Neutrophils % (Manual) Band Neutrophils % Lymphocytes % (Manual) Monocytes % (Manual) Eosinophils % (Manual) Diff Path Review Sodium Potassium Chloride Carbon Dioxide Anion Gap BUN Creatinine Estim Creat Clear Calc Est GFR (MDRD) Af Amer Est GFR (MDRD) Non-Af BUN/Creatinine Ratio Glucose Lactic Acid 0.8 Calcium Total Bilirubin AST ALT Alkaline Phosphatase Total Protein Albumin Globulin Albumin/Globulin Ratio Urine Color Urine Clarity Urine pH Ur Specific Moro Urine Protein Urine Glucose (UA) Urine Ketones Urine Occult Blood Urine Nitrite Urine Bilirubin Urine Urobilinogen Ur Leukocyte Esterase Urine RBC Urine WBC Ur Squamous Epith Cells Urine Bacteria Urine Mucus Discharge Plan Triage Chief Complaint: Fever ED Provider: Ricardo Hernandez Dx/Rx/DC Orders Clinical Impression: Fever, Leukocytosis, Non-Hodgkin lymphoma, URI (upper respiratory infection), Conjunctivitis Instructions: ED Upper Resp Infec Abx Tx, ED Conjunctivitis, Viral, ED Fever Control (Adult) Prescriptions: New levofloxacin 750 mg tablet 750 mg PO DAILY Qty: 7 0RF No Action multivitamin Tablet 1 tab PO DAILY vitamin B complex [B Complex-Vitamin B12] Tablet 1 tab PO DAILY lidocaine-prilocaine 2.5-2.5 % cream 1 applic topical ONCE PRN (Reason: port acces) 30 Days Qty: 30 2RF ondansetron 8 mg tablet,disintegrating 8 mg PO Q8H PRN (Reason: nausea and vomiting) Qty: 30 2RF pentamidine 300 mg recon soln 300 mg inhalation Q4W 360 Days Qty: 1 11RF allopurinol 300 mg tablet 300 mg PO DAILY 14 Days Qty: 14 0RF Rx Instructions: Start within 1 week of scheduled chemotherapy valacyclovir 500 mg Tablet 500 mg PO BID 30 Days Qty: 60 12RF Primary Care Provider: Bob Tristan Referrals: Bob Tristan MD [Primary Care Provider] - [place] Christy MD [Med Staff - Active Staff] - 1-2 Days if not improving Activity Restrictions/Additional Instructions: Call your oncologist tomorrow to see if they want you to start the antibiotic. Return with sustained high fever, new or worsening symptoms. Disposition Disposition: Home, Self Care
[2022-04-04 17:57] LABS: Bacteria 0 SEEN /hpf (None Seen); Mucous, Urine 0 SEEN /hpf (<or=2+); Red Blood Cells-Urine 0 SEEN /hpf (0-5)
[2022-04-04 18:09] LABS: Color, Urine Yellow (Yellow); Glucose, Dipstick Normal (Normal); Ketone-Dipstick Negative (Negative); Leukocyte Esterase-Dipstick 25 /ul (Negative); Nitrite-Dipstick Negative (Negative); Occult Blood-Urine Negative /ul (Negative); Protein-Dipstick Negative (Negative); Specific Gravity, Urine 1.005 (1.002-1.030); Urine Bilirubin Dipstick Negative (Negative); Urine Clarity Clear (Clear); Urine Urobilinogen Normal (Normal)
--- NOTE | 2022-04-04 18:12 | RAD_ITS ---
INDICATION: Neutropenic Fever EXAMINATION/TECHNIQUE: X-RAY - XR Chest 1 View COMPARISON: 03/23/2022. FINDINGS: The lungs are clear. The cardiomediastinal silhouette is unremarkable. Right-sided chest port. No pleural effusion or pneumothorax. No acute osseous abnormalities. RAD/Chest 1 View (Portable) IMPRESSION: No acute radiographic abnormalities. Electronically Signed: Prabhu Caldera MD at 19:46 EST ,
[2022-04-04 18:15] LABS: Squamous Epithelial Cells - UA 0-5 SEEN /hpf (5-10); White Blood Cells 0-5 SEEN /hpf (0-5)
[2022-04-04 18:31] LABS: Hematocrit 38.5 % (37-47); Hemoglobin 12.2 g/dL (12.0-15.0); Mean Corp Hgb Conc 31.7 g/dL (32-36); Mean Corpuscular Hgb 27.1 pg (27.0-32.0); Mean Corpuscular Volume 85.4 fL (81-99); Mean Platelet Vol. 10.1 fl (6.2-12.0); POSITIVE COUNT YES; POSITIVE DIFFERENTIAL YES; POSITIVE MORPHOLOGY YES; Platelet Count 193 K/mm3 (150-450); RBC Distribution Width CV 13.7 % (11.6-14.6); RBC Distribution Width SD 42.3 fl (35.1-43.9); Red Blood Count 4.51 M/mm3 (4.2-5.4)
[2022-04-04 18:36] LABS: ALB/GLOB Ratio 1.1 RATIO (0.9-2.4); AST(SGOT) 17 U/L (15-37); Alanine Aminotransfer ALT/SGPT 15 U/L (13-56); Albumin, Serum 3.6 g/dL (3.2-5.0); Alkaline Phosphatase 164 U/L (45-117); Anion Gap 6 (5-15); BUN 10 mg/dL (7-18); BUN/Creat Ratio 16.1 RATIO (10-20); Calcium,Total 8.7 mg/dL (8.5-10.1); Chloride 102 mmol/L (98-107); Creatinine, Serum 0.62 mg/dL (0.55-1.02); EST Glomerular Filtration Rate 109 mL/min (>60); Est Glom Filt Rate - Afr Amer 132 mL/min (>60); Estimated Creatinine Clearance 96.86 ml/min; Globulin 3.2 g/dL (2.2-4.2); Glucose 89 mg/dL (74-106); Potassium 3.8 mmol/L (3.5-5.1); Protein, Total 6.8 g/dL (6.4-8.2); Sodium Level 136 mmol/L (136-145)
[2022-04-04 18:47] LABS: Differential Indicated MANUAL DIFF; Lactic Acid 0.8 mmol/L (0.4-1.9); White Blood Count 30.4 K/mm3 (4.4-11.0)
[2022-04-04 19:13] LABS: Eosinophil 4 % (0-5); Lymphocyte 8 % (19-41); Monocyte 6 % (0-10); Neutrophil-Band 7 % (0-5); Neutrophil-Segmented 75 % (47-70); Total Cells Counted 100 (MANUAL DIFF)
[2022-04-04 19:15] LABS: Absolute Lymphocyte Count 2.43 X10^3/uL (0.83-4.51); Absolute Neutrophil Count 24.9 X10^3/uL (2.0-7.7)
[2022-04-04] MEDS: 0.9% Normal Saline 1,000 ML 150 ML IV (19:18)
[2022-04-05 00:17] LABS: Platelet Estimate ADEQUATE (ADEQ); Red Cell Morphology NORM C+C NORMAL (NORM C&C)
[2022-04-05 14:08] LABS: Pathologist Review Reviewed
== END 2022-04-04 20:27 | disposition home or self-care (01) ==
PROVIDERS: Emergency Provider Emergency Medicine; PCP Internal Medicine; Visit Provider Emergency Medicine
DX: C85.90 Non-Hodgkin lymphoma, unspecified, unspecified site (principal); J06.9 Acute upper respiratory infection, unspecified; H10.9 Unspecified conjunctivitis; R50.9 Fever, unspecified
CPT/HCPCS: 36591; 71045; 80053; 81001; 83605; 85025; 87040; 87428; 99285; J7030; A4216

== ENCOUNTER 2022-04-18 08:10 | Outpatient (CLI) | payer MEDICAID, SELFPAY ==
[2022-04-18] MEDS: Pentamidine Isethionate 300 MG, Water For Injection,Sterile 6 ML INHALATION (08:42)
== END 2022-04-18 23:59 | disposition home or self-care (01) ==
PROVIDERS: PCP Internal Medicine; Visit Provider Nurse Practitioner Family
DX: C82.90 Follicular lymphoma, unspecified, unspecified site (principal)
CPT/HCPCS: 94642

== ENCOUNTER → 2022-05-16 | Outpatient (CLI) | payer MEDICAID, SELFPAY ==
[2022-05-16] MEDS: Pentamidine Isethionate 300 MG, Water For Injection,Sterile 6 ML INHALATION (07:34)
== END | disposition home or self-care (01) ==
LOC: PSN 07:10
PROVIDERS: PCP Internal Medicine; Referring Provider Internal Medicine Medical Oncology; Visit Provider Internal Medicine Medical Oncology
DX: C82.90 Follicular lymphoma, unspecified, unspecified site (principal)
CPT/HCPCS: 94642

== ENCOUNTER → 2022-06-13 | Outpatient (CLI) | payer MEDICAID, SELFPAY ==
--- NOTE | 2022-06-13 08:03 | CT_ITS ---
STUDY: CT CHEST, ABDOMEN T PELVIS WITH CONTRAST REASON FOR EXAM: Female, 46 years old. Assess response to treatment; IV contrast only. Non-Hodgkin''s lymphoma. RADIATION DOSAGE (If Supplied By Facility): CTDIvol = ( 10.84 ) mGy, DLP = ( 1090.59 ) mGycm TECHNIQUE: Transaxial imaging was performed following intravenous administration of IV 100mL Isovue-300. Multiplanar coronal and sagittal images were reformatted. Individualized dose optimization techniques were used for this CT. COMPARISON: Comparison is made with prior study dated February 15, 2022. FINDINGS: CHEST A right-sided vijay catheter seen with the tip in the superior vena cava. The lungs are normal. There is no demonstrated pleural abnormality. Normal heart and pericardium. Normal mediastinum. Normal hilar regions. Normal unenhanced pulmonary arteries. Normal aorta arch and descending thoracic aorta. Normal osseous structures. There is no demonstrated abnormality of the visualized upper abdomen. ABDOMEN The visualized lung bases are unremarkable. The visualized portions of the heart are within normal limits. Normal liver. Normal gallbladder and extrahepatic biliary system. Normal spleen. Normal pancreas. Normal bilateral adrenal glands. Normal right kidney. Normal left kidney. Normal visualized stomach. Normal small intestine. Normal colon. The appendix is visualized and appears normal. Surgical clips are seen in the right lower quadrant. Normal abdominal aorta. Normal inferior vena cava. Since prior study, there is mild residual soft tissue density in the root of the mesenteric fat. This has markedly improved as compared to prior study. Normal abdominal wall. Normal osseous structures. PELVIS Normal urinary bladder. Normal visualized small intestine. Normal visualized colon. There is no pelvic fluid. There is no pelvic lymphadenopathy or mass lesion. Normal visualized pelvic arteries. Normal abdominal wall. Normal osseous structures. CT/CT Chest, Abd, Pel w/Contrast IMPRESSION: Marked degree of improvement of the previously seen extensive retroperitoneal lymphadenopathy as well as lymphadenopathy in the peripancreatic region as well as in the root of the mesentery. Residual soft tissue density is seen and within the mesentery. Electronically Signed: Anurag Vazquez MD at 14:52 EDT ,
--- NOTE | 2022-06-13 08:03 | CT_ITS ---
STUDY: CT SOFT TISSUE NECK WITH CONTRAST REASON FOR EXAM: Female, 46 years old. Assess response to treatment. History of non-Hodgkin''s lymphoma. RADIATION DOSAGE (If Supplied By Facility): CTDIvol = ( 10.84 ) mGy, DLP = ( 1090.59 ) mGycm TECHNIQUE: The patient was scanned in a multi-detector CT scanner. High resolution transaxial imaging was performed following intravenous administration of IV 100mL Isovue-300. Sagittal and coronal images were reconstructed. Individualized dose optimization techniques were used for this CT. COMPARISON: None. FINDINGS: A right-sided vijay catheter is seen with the tip in the superior vena cava. Normal bilateral parotid glands. Normal bilateral customer relations specialist spaces. Normal bilateral parapharyngeal spaces. Normal bilateral carotid spaces. Normal bilateral sublingual and submandibular glands and spaces. Normal visualized nasopharynx. Normal retropharyngeal space. Normal perivertebral space. Normal visualized bilateral faucial tonsils. The visualized tongue, tongue base and oropharynx are normal. The visualized cervical lymph nodes (levels I-) are within normal size limits, and maintain normal morphology. There is no demonstrated solid or cystic mass lesion. There is no abnormal contrast enhancement. Normal epiglottis, bilateral vallecula and hypopharynx. The pre-epiglottic and paraglottic adipose spaces are normal. Normal visualized bilateral piriform sinuses, aryepiglottic folds, vocal cords, and arytenoid-cricoid articulations. Normal subglottic trachea. Normal bilateral lobes of the thyroid gland. Normal visualized pulmonary apices. Normal visualized paranasal sinuses. Normal visualized cervical spine. CT/Soft Tissue Neck WITH Contrast IMPRESSION: Normal enhanced CT examination of the soft tissues of the neck. Electronically Signed: Anurag Vazquez MD at 14:48 EDT ,
[2022-06-13] MEDS: 0.9 % NaCl (Sterile) Posiflush 10 mL IV ×2 (08:05→08:18)
== END | disposition home or self-care (01) ==
LOC: CT 08:01
PROVIDERS: PCP Internal Medicine; Visit Provider Internal Medicine Hematology & Oncology
DX: C82.90 Follicular lymphoma, unspecified, unspecified site (principal)
CPT/HCPCS: 70491; 71260; 74177; Q9967; A4216

== ENCOUNTER → 2022-06-14 | Outpatient (CLI) | payer MEDICAID, SELFPAY ==
[2022-06-14] MEDS: Pentamidine Isethionate 300 MG, Water For Injection,Sterile 6 ML INHALATION (07:15)
== END | disposition home or self-care (01) ==
PROVIDERS: PCP Internal Medicine; Referring Provider Internal Medicine Medical Oncology; Visit Provider Internal Medicine Medical Oncology
DX: Z79.899 Other long term (current) drug therapy (principal)
CPT/HCPCS: 94642

== ENCOUNTER → 2022-07-11 | Outpatient (CLI) | payer MEDICAID, SELFPAY ==
[2022-07-11] MEDS: Pentamidine Isethionate 300 MG, Water For Injection,Sterile 6 ML INHALATION (07:24)
== END | disposition home or self-care (01) ==
LOC: PSN 06:59
PROVIDERS: PCP Internal Medicine; Visit Provider Internal Medicine Medical Oncology
DX: Z79.899 Other long term (current) drug therapy (principal)
CPT/HCPCS: 94642

== ENCOUNTER → 2022-08-09 | Outpatient (CLI) | payer MEDICAID, SELFPAY ==
[2022-08-09] MEDS: Pentamidine Isethionate 300 MG, Water For Injection,Sterile 6 ML INHALATION (08:36)
== END | disposition home or self-care (01) ==
PROVIDERS: PCP Internal Medicine; Referring Provider Nurse Practitioner Family; Visit Provider Nurse Practitioner Family
DX: C82.90 Follicular lymphoma, unspecified, unspecified site (principal)
CPT/HCPCS: 94642

== ENCOUNTER → 2022-09-05 | Outpatient (CLI) | payer MEDICAID, SELFPAY ==
[2022-09-05] MEDS: Pentamidine Isethionate 300 MG, Water For Injection,Sterile 6 ML INHALATION (07:18)
== END | disposition home or self-care (01) ==
LOC: PSN 06:58
PROVIDERS: PCP Internal Medicine; Referring Provider Internal Medicine Medical Oncology; Visit Provider Internal Medicine Medical Oncology
DX: C82.90 Follicular lymphoma, unspecified, unspecified site (principal)
CPT/HCPCS: 94642

== ENCOUNTER 2022-10-01 08:47 | Day surgery (SDC) | payer MEDICAID, SELFPAY ==
[2022-10-01] VITALS (7 sets, daily range): BP systolic 77–106; BP diastolic 47–78; PULSE 75–86; RESP 16; TEMP 36.4–37.1; O2SAT 95–100; BMI 22.6
--- NOTE | 2022-10-01 09:16 | H&P.OPEN ---
[facility] - General General Date of Service: 10/01/22 HPI Narrative DIANA FELIX, is a 47 F who presents for once for colonoscopy. Patient had previous colonoscopy [address] Will noted poor prep recommended to do a prep prior to the next 1 however no polyps. Patient [place] any family history of colon cancer. Patient is currently scheduled for maintenance therapy for non-Hodgkin's lymphoma and just finished chemotherapy in July of this year. Patient denies any chronic abdominal pain nausea or vomiting. Patient does have reflux was on omeprazole states she is allergic to get nausea vomiting diarrhea she does take Pepcid AC during chemo as needed does not take it regularly currently but does complain of some abdominal bloating. [facility] Medical History (Updated 09/27/22 @ 08:47 by Natalee Krueger) Abnormal uterine bleeding Anemia Anxiety Breast pain, left Cancer Dietary restriction Encounter for adjustment and management of vascular access device Encounter for chemotherapy management Encounter for education Encounter for screening for COVID-19 Follicular lymphoma Gastric reflux Generalized anxiety disorder Headache Hemorrhoid History of chemotherapy Insomnia Lactose intolerance Malabsorption Non-smoker Pharyngitis Post-menopausal Preventative health shelter Medications pentamidine 300 mg solution for inhalation 300 mg inhalation Q4W pcp prophylaxis 12 months #1 ea 03/19/22 [Rx Last Taken Unknown] Allergy/AdvReac Type Severity Reaction Status Date / Time Sulfa (Sulfonamide Allergy Hives Verified 10/01/22 09:14 Antibiotics) omeprazole AdvReac Intermediate VOMITING Verified 10/01/22 09:14 Family History Father Hypertension Skin cancer Mother Breast cancer Surgical History History of appendectomy History of wisdom tooth extraction Hx of colonoscopy Social History Smoking Status: Never smoker alcohol intake: never substance use type: does not use what type of physical activity do you participate in: running and yoga frequency: 3-4 times per week Past Medical/Surgical History Planned Operation Planned Operative Procedure/s: CSCOPE Previous Hospitalizations/Surgeries HX Hospitalizations: No Any Problems With Anesthesia: No You/Your Family Experience Fever (Hyperthermia) With Anes: No Cholinesterase deficiency: No Cardiovascular Hx Hypertension: No Respiratory Hx Sleep Apnea: No Hx Respiratory Tract Infection/Cold (presently): No Do You Snore Loudly (louder than talking or can be heard): No Do You Often Feel Tired/ Fatigued/ Sleepy Dring Daytime?: No Has Anyone Observed You Stop Breathing During Sleep?: No Result (for STOP score): Negative Smoking Status: Never smoker Neurological Does patient have nerve stimulator: No Reproduction : No Psycho/Social Hx Substance Use: No Miscellaneous Recent Exposure to Contagious Disease: No Allergies Sulfa (Sulfonamide Antibiotics) Allergy (Verified 10/01/22 09:14) Hives omeprazole Adverse Reaction (Intermediate, Verified 10/01/22 09:14) VOMITING Discharge Is Pt Admitted From a Jail, or a Intermediate: No After D/C, Where Do you Plan to Go: Return Home Physical Exam Const alert, oriented x3 and no apparent distress HEENT normocephalic and head/scalp atraumatic Resp normal respiratory effort Cardio regular rate GI soft to palpation and non-tender; Negative for non-distended Palpation: Negative for guarding Extremity no clubbing, cyanosis or edema Neuro CN's II-XII intact bilaterally Psych mental status grossly normal Assessment & Plan Assessment/Plan (1) Encounter for screening for malignant neoplasm of colon: (2) Follicular lymphoma: Surgery Risks - Colonoscopy I discussed with the patient the risks of the procedure: Yes Risks Include but are not Limited To: Risks include but are not limited to: Bleeding, perforation requiring further surgery, inability to complete colonoscopy requiring barium enema.
[2022-10-01] MEDS: Lactated Ringers 1,000 ML 15 ML IV (09:22)
--- NOTE | 2022-10-01 10:09 | OP.COLON_ITS ---
Patient Name: Ruthy Grimes Procedure Date: 10/01/2022 9:09 AM Date of : 1975 Age: 47 Procedure: Colonoscopy Indications: Screening for colorectal malignant neoplasm Providers: Irma Boggs MD Referring MD: Irma Bgogs MD Medicines: Monitored Anesthesia Care Patient Profile: This is a 47 year old female. Last Colonoscopy: 8 years ago. Complications: No immediate complications. Procedure: Pre-Anesthesia Assessment: - Prior to the procedure, a History and Physical was performed, and patient medications and allergies were reviewed. The patient's tolerance of previous anesthesia was also reviewed. The risks and benefits of the procedure and the sedation options and risks were discussed with the patient. All questions were answered, and informed consent was obtained. Prior Anticoagulants: The patient has taken no previous anticoagulant or antiplatelet agents. ASA Grade Assessment: Per anesthesia. After reviewing the risks and benefits, the patient was deemed in satisfactory condition to undergo the procedure. After I obtained informed consent, the scope was passed under direct vision. Throughout the procedure, the patient's blood pressure, pulse, and oxygen saturations were monitored continuously. The Colonoscope was introduced through the anus and advanced to the cecum, identified by appendiceal orifice and ileocecal valve. The colonoscopy was performed without difficulty. The patient tolerated the procedure well. The quality of the bowel preparation was good. Scope In: 9:39:10 AM Scope Withdrawal Time 0 hours 9 minutes 49 seconds Scope Out: 9:58:22 AM Total Procedure Duration Time 0 hours 19 minutes 12 seconds Findings: Hemorrhoids were found on perianal exam. Non-bleeding internal hemorrhoids were found. The hemorrhoids were Grade I (internal hemorrhoids that do not prolapse). The entire examined colon appeared normal. Impression: - Hemorrhoids found on perianal exam. - Non-bleeding internal hemorrhoids. - The entire examined colon is normal. - No specimens collected. Recommendation: - Discharge patient to home. - Resume previous diet. - Continue present medications. - Repeat colonoscopy in 10 years for screening purposes. Procedure Code(s): --- Professional --- G0121, PT, Colorectal cancer screening; colonoscopy on individual not meeting criteria for high risk Diagnosis Code(s): --- Professional --- Z12.11, Encounter for screening for malignant neoplasm of colon K64.0, First degree hemorrhoids CPT copyright 2017 [employer]. All rights reserved. The codes documented in this report are preliminary and upon ice skating instructor review may be revised to meet current compliance requirements. MD Irma Arnold MD 10/01/2022 10:08:49 AM This report has been signed electronically. Number of Addenda: 0 Note Initiated On: 10/01/2022 9:09 AM
--- NOTE | 2022-10-01 10:09 | OP.CCLET_ITS ---
10/01/2022 Bob Tristan MD [address] [place] [address] [place] [address] Re : Colonoscopy procedure for Ruthy Grimes Dear Dr. Tristan This procedure was performed on Saturday, October 01, 2022. My impressions and recommendations are as follows: Impressions : - Hemorrhoids found on perianal exam. - Non-bleeding internal hemorrhoids. - The entire examined colon is normal. - No specimens collected. Recommendations : - Discharge patient to home. - Resume previous diet. - Continue present medications. - Repeat colonoscopy in 10 years for screening purposes. My findings are described in the full procedure note, which is enclosed. If I can be of further assistance, please feel free to contact me at Doctor phone number(s): , Work: . Sincerely, MD Irma Arnold MD 10/01/2022 10:08:49 AM This report has been signed electronically.
[2022-10-01] MEDS: 0.9 % NaCl (Sterile) Posiflush 10 mL IV (10:49)
== END 2022-10-01 11:00 | disposition home or self-care (01) ==
LOC: EN 08:48 → AC 08:49
PROVIDERS: PCP Internal Medicine; Referring Provider Surgery; Visit Provider Surgery
PROC: 0DJD8ZZ Inspection of Lower Intestinal Tract, Via Natural or Artificial Opening Endoscopic (ICD-10-PCS; CPT 45378; principal; 2022-10-01 10:10)
DX: Z12.11 Encounter for screening for malignant neoplasm of colon (principal); C82.90 Follicular lymphoma, unspecified, unspecified site; K64.0 First degree hemorrhoids
CPT/HCPCS: 45378; J7120; A4216; J2405

== ENCOUNTER → 2022-10-03 | Outpatient (CLI) | payer MEDICAID, SELFPAY ==
[2022-10-03] MEDS: Pentamidine Isethionate 300 MG, Water For Injection,Sterile 6 ML INHALATION (07:12)
== END | disposition home or self-care (01) ==
LOC: PSN 07:04
PROVIDERS: PCP Internal Medicine; Referring Provider Internal Medicine Medical Oncology; Visit Provider Internal Medicine Medical Oncology
DX: C82.90 Follicular lymphoma, unspecified, unspecified site (principal)
CPT/HCPCS: 94642

== ENCOUNTER → 2022-11-09 | Outpatient (CLI) | payer MEDICAID, SELFPAY ==
[2022-11-09] MEDS: Pentamidine Isethionate 300 MG, Water For Injection,Sterile 6 ML INHALATION (08:27)
== END | disposition home or self-care (01) ==
LOC: PSN 08:12
PROVIDERS: PCP Internal Medicine; Referring Provider Internal Medicine Medical Oncology; Visit Provider Internal Medicine Medical Oncology
DX: C82.90 Follicular lymphoma, unspecified, unspecified site (principal)
CPT/HCPCS: 94642

== ENCOUNTER → 2022-12-12 | Outpatient (CLI) | payer MEDICAID, SELFPAY ==
[2022-12-12] MEDS: Pentamidine Isethionate 300 MG, Water For Injection,Sterile 6 ML INHALATION (07:14)
== END | disposition home or self-care (01) ==
LOC: PSN 07:02
PROVIDERS: PCP Internal Medicine; Referring Provider Internal Medicine Medical Oncology; Visit Provider Internal Medicine Medical Oncology
DX: C82.90 Follicular lymphoma, unspecified, unspecified site (principal)
CPT/HCPCS: 94642

== ENCOUNTER → 2022-12-14 | Outpatient (CLI) | payer MEDICAID, SELFPAY ==
--- NOTE | 2022-12-14 09:10 | BI_ITS ---
MAMMOGRAPHY - BILATERAL SCREENING REASON FOR EXAM: Female, 47 years old. Routine annual screening examination. PERTINENT HISTORY: Mother with breast cancer. Grandmother with breast cancer. Personal history of recent diagnosis of non-Hodgkin''s lymphoma. TECHNIQUE: Digital bilateral breast yosvany (3D mammographic acquisition) in the CC and MLO projections. 2-D mediolateral oblique (MLO) and craniocaudad (CC) views of both breasts were obtained. CAD: Full Field Digital Mammography with Computer Added Detection was performed. COMPARISON: Comparison is made with prior examination December 05, 2021 and October 24, 2020. FINDINGS: Breast Composition: The breasts are heterogeneously dense, which may obscure small masses. There are no dominant masses or suspicious calcifications. No other significant abnormalities are identified. There has been no significant change since the prior study. BI/SCRN MAMM (CAD)W/YOSVANY BILAT IMPRESSION: Stable bilateral screening mammogram. Yearly follow-up mammogram recommended. (A) ASSESSMENT CATEGORY: BIRADS Category 1: Negative. A letter regarding these results will be sent to the patient by the facility within 30 days. Approximately 10% of breast cancers are not detected by mammography. A normal mammogram should not delay biopsy of a clinically suspicious abnormality. [id number] Electronically Signed: Anurag Vazquez MD at 10:54 EDT ,
== END | disposition home or self-care (01) ==
LOC: OPBI 09:10
PROVIDERS: PCP Internal Medicine; Referring Provider Internal Medicine Hematology & Oncology; Visit Provider Internal Medicine Hematology & Oncology
DX: Z12.31 Encounter for screening mammogram for malignant neoplasm of breast (principal)
CPT/HCPCS: 77063; 77067

== ENCOUNTER → 2023-01-09 | Outpatient (CLI) | payer MEDICAID, SELFPAY ==
[2023-01-09] MEDS: Pentamidine Isethionate 300 MG, Water For Injection,Sterile 6 ML INHALATION (07:21)
== END | disposition home or self-care (01) ==
LOC: PSN 07:06
PROVIDERS: PCP Internal Medicine; Referring Provider Internal Medicine Medical Oncology; Visit Provider Internal Medicine Medical Oncology
DX: C82.90 Follicular lymphoma, unspecified, unspecified site (principal)
CPT/HCPCS: 94642

== ENCOUNTER → 2023-01-10 | Outpatient (CLI) | payer MEDICAID, SELFPAY ==
--- NOTE | 2023-01-10 16:00 | RAD_ITS ---
STUDY: X-RAY CHEST REASON FOR EXAM: Female, 47 years old. Cough, rib pain TECHNIQUE: PA and lateral views of the chest. COMPARISON: Comparison is made with prior study of March 2022. FINDINGS: A right-sided Port-A-Cath is seen with the tip at the junction of the superior vena cava and right atrium. The lungs are clear and expanded. There is no demonstrated pleural abnormality. Normal size heart. Normal mediastinum and veronique. Normal visualized pulmonary arteries. Normal visualized aortic arch and descending thoracic aorta. Normal visualized thoracic spine. Normal visualized ribs, clavicles, and shoulders. There is no demonstrated abnormality of the visualized soft tissue structures of the upper abdomen. RAD/Chest PA and Lateral IMPRESSION: Normal x-ray examination of the chest. Electronically Signed: Anurag Vazquez MD at 9:21 EST ,
== END | disposition home or self-care (01) ==
LOC: RAD 15:56
PROVIDERS: PCP Internal Medicine; Referring Provider Nurse Practitioner Family; Visit Provider Nurse Practitioner Family
DX: R07.81 Pleurodynia (principal); R05.9 Cough, unspecified
CPT/HCPCS: 71046

== ENCOUNTER → 2023-04-03 | Outpatient (CLI) | payer MEDICAID, SELFPAY ==
--- OUTSIDE RECORDS SUMMARY | 2023-04-03 07:05 | XMS RPT_ITS | CCD ---
Author Name Unknown Address [address] [place] [address] Organization [facility] Results Test Name Value Interpretation Reference Range Facil ity Clinical Note 02-01-2021 Note Date & Type Note Facility 02-01-2021 Note Patient Outreach ([facility]) DIANA FELIX ([id number]) 1975 F Date Time Provider Department 02/01/21 JAKE SIMMS During your visit today, we recorded the following information about you: Allergies As of Date: 02/01/2021 Noted Allergy Reaction NORETHINDRONE-E.ESTRADIOL-IRON 09/24/2017 5 - Intolerance Comments: Abdominal discomfort, possible issues with sleeping. SULFA (SULFONAMIDE ANTIBIOTICS) 04/13/2010 4 - Hives Comments: fever Date Reviewed: 06/04/2018 Reviewed by: Isabelle Seals Ma - Fully Assessed Visit Diagnosis:Encounter for screening mammogram for breast cancer [Z12.31] Order(s):[facility] SCREENING [[id number]] Order #: [id number] FUTURE Prescriptions as of 02/06/2021 - FLUoxetine (PROZAC) 10 mg capsule Take 1 capsule by mouth once daily. - Biotin 800 mcg tab Take 1 tablet by mouth once daily. - multivitamin (DAILY MULTI-VITAMIN) tablet Take 1 tablet by mouth once daily. Meds Comments as of 09/24/2017: Local Pharmacy - [facility]. Problem List As Of Date: 02/01/2021 (None) Encounter Status:Closed by MANA ROJAS on 02/06/21 [facility] Summary Purpose Family History No Family History Records FoundNo Family History Records Found Advance Directives No Advanced Directives Records FoundNo Advanced Directives Records Found Additional Source Comments INFORMATION SOURCE (unrecogn ized section and content) DATE CREATED AUTHOR AUTHOR'S ORGANIZ ATION 03/15/2021 [facility] FOR RECORDS PERTAINING TO PATIENTS WHO ARE OR HAVE BEEN ENROLLED IN A CHEMICAL DEPENDENCY/SUBSTANCEABUSE PROGRAM, SOME INFORMATION MAY BE OMITTED. This clinical summary was aggregated from multiple sources. Caution should be exercised in using it in the provision of clinical care. This summary normalizes information from multiple sources, and as a consequence, information in this document may materially change the coding, format and clinical context of patient data. In addition, data may be omitted in some cases. CLINICAL DECISIONS SHOULD BE BASED ON THE PRIMARY CLINICAL RECORDS. [employer] [facility]. provides no warranty or guarantee of the accuracy or completeness of information in this document.
[2023-04-03] MEDS: Pentamidine Isethionate 300 MG, Water For Injection,Sterile 6 ML INHALATION (07:31)
== END | disposition home or self-care (01) ==
LOC: PSN 07:03
PROVIDERS: PCP Internal Medicine; Referring Provider Nurse Practitioner Family; Visit Provider Nurse Practitioner Family
DX: Z79.899 Other long term (current) drug therapy (principal)
CPT/HCPCS: 94642

== ENCOUNTER → 2023-04-12 | Outpatient (CLI) | payer MEDICAID, SELFPAY ==
--- NOTE | 2023-04-12 08:25 | CT_ITS ---
STUDY: CT CHEST, ABDOMEN T PELVIS WITH CONTRAST REASON FOR EXAM: Female, 47 years old. Follicular lymphoma surveillance RADIATION DOSAGE (If Supplied By Facility): CTDIvol = ( 11.61 ) mGy, DLP = ( 869.16 ) mGy TECHNIQUE: Transaxial imaging was performed following intravenous administration of IV 100mL Isovue-370. Multiplanar coronal and sagittal images were reformatted. Individualized dose optimization techniques were used for this CT. COMPARISON: Comparison is made with prior study dated June 13, 2022. FINDINGS: CHEST A right-sided vijay catheter seen with the tip in the superior vena cava. Minimal scarring at the right lung apex. There is no demonstrated pleural abnormality. Normal heart and pericardium. Normal mediastinum. Normal hilar regions. Normal unenhanced pulmonary arteries. Normal aorta arch and descending thoracic aorta. Normal osseous structures. There is no demonstrated abnormality of the visualized upper abdomen. ABDOMEN The visualized lung bases are unremarkable. The visualized portions of the heart are within normal limits. Normal liver. Normal gallbladder and extrahepatic biliary system. Normal spleen. Normal pancreas. Normal bilateral adrenal glands. Normal right kidney. Normal left kidney. Normal visualized stomach. Normal small intestine. Normal colon. There are surgical clips in the region of the appendix consistent with a prior appendectomy. Normal abdominal aorta. Normal inferior vena cava. There is a small retroperitoneal lymphadenopathy with enlarged nodes no greater than 10mm in the short axis diameter. Stable mild residual soft tissue density in the root of the stent. Normal abdominal wall. Normal osseous structures. PELVIS Normal urinary bladder. Normal visualized small intestine. Normal visualized colon. There is no pelvic fluid. There is no pelvic lymphadenopathy or mass lesion. Normal visualized pelvic arteries. Normal abdominal wall. Normal osseous structures. CT/CT Chest, Abd, Pel w/Contrast IMPRESSION: Stable examination. Electronically Signed: Anurag Vazquez MD at 13:46 EST ,
[2023-04-12] MEDS: 0.9% Saline Lock 10 ML Syringe IV (08:58)
== END | disposition home or self-care (01) ==
LOC: CT 08:23
PROVIDERS: PCP Internal Medicine; Referring Provider Nurse Practitioner Family; Visit Provider Nurse Practitioner Family
DX: C82.90 Follicular lymphoma, unspecified, unspecified site (principal)
CPT/HCPCS: 71260; 74177; Q9967; A4216

== ENCOUNTER → 2023-06-05 | Outpatient (CLI) | payer MEDICAID, SELFPAY | END | disposition home or self-care (01) | LOC: PSN 06:57 | PROVIDERS: PCP Internal Medicine; Referring Provider Nurse Practitioner Family; Visit Provider Nurse Practitioner Family | DX: Z79.899 Other long term (current) drug therapy (principal) | CPT/HCPCS: 94642 ==

== ENCOUNTER 2023-07-03 06:54 | Outpatient (CLI) | payer MEDICAID, SELFPAY | END 2023-07-03 23:59 | disposition home or self-care (01) | LOC: PSN 06:55 | PROVIDERS: PCP Internal Medicine; Referring Provider Nurse Practitioner Family; Visit Provider Nurse Practitioner Family | DX: C82.90 Follicular lymphoma, unspecified, unspecified site (principal) | CPT/HCPCS: 94642 ==

== ENCOUNTER → 2023-07-12 | Outpatient (CLI) | payer MEDICAID, SELFPAY ==
[2023-07-12 15:35] LABS: Erythrocyte Sedimentation Rate 4 mm/hr (0-30)
[2023-07-12 15:37] LABS: Absolute Lymphocyte Count 0.74 X10^3/uL (0.83-4.51); Absolute Neutrophil Count 2.4 X10^3/uL (2.0-7.7); Basophil# 0.04 X10^3/uL; Basophil% 1.1 % (0-1); Eosinophils% 2.8 % (0-5); Hematocrit 43.9 % (37-47); Hemoglobin 14.2 g/dL (12.0-15.0); Lymphocyte # 0.74 X10^3/ul (0.83-4.51); Lymphocyte % 20.5 % (19-41); Mean Corp Hgb Conc 32.3 g/dL (32-36); Mean Corpuscular Hgb 28.5 pg (27.0-32.0); Mean Platelet Vol. 9.5 fl (6.2-12.0); Monocyte# 0.34 X10^3/uL; Monocyte% 9.4 % (0-10); NRBC Flagged by Analyzer 0 % (0-5); Neutrophil # 2.38 X10^3/uL (2.7-7.7); Neutrophil % 65.9 % (47-70); Platelet Count 254 K/mm3 (150-450); RBC Distribution Width CV 13.3 % (11.6-14.6); RBC Distribution Width SD 43.6 fl (35.1-43.9); Red Blood Count 4.99 M/mm3 (4.2-5.4); White Blood Count 3.6 K/mm3 (4.4-11.0)
[2023-07-12 15:45] LABS: ALB/GLOB Ratio 1.3 RATIO (0.9-2.4); AST(SGOT) 19 U/L (15-37); Alanine Aminotransfer ALT/SGPT 24 U/L (13-56); Albumin, Serum 4.2 g/dL (3.2-5.0); Alkaline Phosphatase 91 U/L (45-117); Anion Gap 6 (5-15); BUN 12 mg/dL (7-18); BUN/Creat Ratio 15.3 RATIO (10-20); Calcium,Total 9.6 mg/dL (8.5-10.1); Chloride 106 mmol/L (98-107); Creatinine, Serum 0.79 mg/dL (0.55-1.02); EST Glomerular Filtration Rate 83 mL/min (>60); Est Glom Filt Rate - Afr Amer 100 mL/min (>60); Globulin 3.3 g/dL (2.2-4.2); Glucose 84 mg/dL (74-106); Magnesium 2.5 mg/dL (1.6-2.6); Protein, Total 7.5 g/dL (6.4-8.2); Sodium Level 140 mmol/L (136-145)
[2023-07-12 15:49] LABS: Vitamin B12 316 pg/mL (211-911); Vitamin D,25 Hydroxy 27.9 ng/mL
== END | disposition home or self-care (01) ==
LOC: BIMLAB 13:46
PROVIDERS: PCP Internal Medicine; Visit Provider Physician Assistant
DX: R42 Dizziness and giddiness (principal)
CPT/HCPCS: 36415; 80053; 82306; 82607; 83735; 85025; 85652

== ENCOUNTER → 2023-12-27 | Outpatient (CLI) | payer MEDICAID, SELFPAY ==
--- NOTE | 2023-12-27 09:05 | BI_ITS ---
MAMMOGRAPHY - BILATERAL DIAGNOSTIC REASON FOR EXAM: Female, 48 years old. 2 week history of left breast lump. PERTINENT HISTORY: Mother with breast cancer. Grandmother with breast cancer. History of non-Hodgkin''s lymphoma. TECHNIQUE: Digital bilateral breast jason (3D mammographic acquisition) in the CC and MLO projections. 2-D mediolateral oblique (MLO) and craniocaudad (CC) views of both breasts were obtained. CAD: Full Field Digital Mammography with Computer Added Detection was performed. COMPARISON: Comparison is made with prior study December 14, 2022 and December 05, 2021. FINDINGS: Breast Composition: The breasts are heterogeneously dense, which may obscure small masses. There are no dominant masses or suspicious calcifications. No other significant abnormalities are identified. There has been no significant change since the prior study. BI/DIAG MAMM W/CAD, BILAT IMPRESSION: Stable bilateral diagnostic mammogram. With the patient''s history of a left breast lump, correlation with targeted ultrasound is recommended. ASSESSMENT CATEGORY: BIRADS Category 0: Incomplete. Need additional imaging evaluation. A letter regarding these results will be sent to the patient by the facility within 30 days. Approximately 10% of breast cancers are not detected by mammography. A normal mammogram should not delay biopsy of a clinically suspicious abnormality. Electronically Signed: Anurag Vazquez MD at 9:46 EDT ,
--- NOTE | 2023-12-27 09:07 | US_ITS ---
STUDY: ULTRASOUND BREAST - LEFT REASON FOR EXAM: Female, 48 years old. Recently palpable left breast lump. TECHNIQUE: Axial and longitudinal images of the LEFT breast were performed with a high resolution ultrasound transducer. # OF IMAGES: [id number] COMPARISON: Comparison is made with prior mammogram done earlier today. FINDINGS: LEFT Breast: The lower outer quadrant of the left breast was examined with ultrasound. There is heterogeneous fibroglandular tissue. No sonographic abnormality is seen. US/Breast Limited Unilateral IMPRESSION: No sonographic abnormality is seen. Routine annual mammographic follow-up recommended. ASSESSMENT CATEGORY: BIRADS Category 2: Benign. A letter regarding these results will be sent to the patient by the facility within 30 days. Electronically Signed: Anurag Vazquez MD at 13:02 EDT ,
== END | disposition home or self-care (01) ==
LOC: OPBI 08:58
PROVIDERS: PCP Internal Medicine
DX: N63.10 Unspecified lump in the right breast, unspecified quadrant (principal); N64.4 Mastodynia; R92.30 Dense breasts, unspecified; Z85.3 Personal history of malignant neoplasm of breast
CPT/HCPCS: 76641; 76642; 77062; 77066; G0279

== ENCOUNTER → 2024-01-01 | Outpatient (CLI) | payer MEDICAID, SELFPAY | END | disposition home or self-care (01) | LOC: PSN 07:07 | PROVIDERS: PCP Internal Medicine; Referring Provider Nurse Practitioner Family; Visit Provider Nurse Practitioner Family | DX: C82.90 Follicular lymphoma, unspecified, unspecified site (principal) | CPT/HCPCS: 94642 ==

== ENCOUNTER → 2024-05-08 | Outpatient (CLI) | payer MEDICAID, SELFPAY ==
--- NOTE | 2024-05-08 08:08 | CT_ITS ---
PROCEDURE: SOFT TISSUE NECK WITH CONTRAST REASON FOR EXAM: F/U LYMPHOMA TECHNIQUE: CT of the soft tissues of the neck from the orbits to the upper mediastinum with intravenous contrast. CONTRAST: 96 cc of Isovue 370. COMPARISON: Comparison is made with prior study dated June 13, 2022. FINDINGS: A right-sided port a catheter is seen with the tip in the superior vena cava. Airway: Midline and patent. Salivary glands: Unremarkable. Lymph nodes: No cervical lymphadenopathy. Thyroid: Unremarkable. Vasculature: Carotid arteries and internal jugular veins are unremarkable. Orbits: Unremarkable at visualized levels. Paranasal sinuses and mastoids: Grossly clear at visualized levels. Lung apices: Clear. Upper mediastinum: Visualized mediastinum is unremarkable. Bones: Unremarkable. CT/Soft Tissue Neck WITH Contrast IMPRESSION: NO ACUTE FINDINGS. Stable examination. One or more dose reduction techniques were used (e.g., Automated exposure contr ol, adjustment of the mA and/or kV according to patient size, use of iterative reconstruction technique). Reading Location: [place] [id number]
--- NOTE | 2024-05-08 08:20 | CT_ITS ---
PROCEDURE: CT CHEST, ABD, PEL W/CONTRAST REASON FOR EXAM: F/U NHL TECHNIQUE: Chest, abdomen and pelvis CT with intravenous contrast. No oral contrast. CONTRAST: 100 cc of Isovue-300. COMPARISON: Comparison is made with prior study dated April 12, 2023. FINDINGS: CT CHEST: Hardware: A right-sided port a catheter is seen with the tip in the superior vena cava. Lymph nodes: No mediastinal hilar or axillary lymphadenopathy. Heart and Vasculature: Normal heart size. No pericardial effusion. Thoracic aorta and pulmonary arteries are unremarkable. Lungs and Airways: The lungs are normally expanded and clear. Pleura: No pleural effusion. No pneumothorax. Bones: Unremarkable. CT ABDOMEN/PELVIS: Liver: Unremarkable. Gallbladder: Unremarkable. Spleen: Unremarkable. Pancreas: Unremarkable. Adrenals: Unremarkable. Kidneys: Unremarkable. Bladder: Unremarkable. Reproductive Organs: Small follicles are seen in the left ovary. Minimal amount of free fluid is seen in the cul-de-sac most likely related to the patient's menstrual cycle. Bowel: Unremarkable. Appendix: Status post appendectomy. Lymph nodes: No suspicious lymph node enlargement. Vasculature: Major vascular structures are unremarkable. Peritoneum / Retroperitoneum: No ascites. No free air. Bones: Unremarkable. CT/CT Chest, Abd, Pel w/Contrast IMPRESSION: Stable examination. No acute abnormality is seen. One or more dose reduction techniques were used (e.g., Automated exposure contr ol, adjustment of the mA and/or kV according to patient size, use of iterative reconstruction technique). Reading Location: [place] [id number]
[2024-05-08] MEDS: 0.9% Saline Lock 10 ML Syringe IV (08:32)
== END | disposition home or self-care (01) ==
PROVIDERS: PCP Internal Medicine; Referring Provider Internal Medicine Hematology & Oncology; Visit Provider Internal Medicine Hematology & Oncology
DX: C82.08 Follicular lymphoma grade I, lymph nodes of multiple sites (principal)
CPT/HCPCS: 70491; 71260; 74177; Q9967

== ENCOUNTER → 2024-08-12 | Outpatient (CLI) | payer MEDICAID, SELFPAY ==
[2024-08-12 16:36] LABS: ALB/GLOB Ratio 1.9 RATIO (0.9-2.4); AST(SGOT) 25 U/L (<=31); Alanine Aminotransfer ALT/SGPT 24 U/L (<=34); Albumin, Serum 4.7 g/dL (3.5-5.0); Alkaline Phosphatase 102 U/L (35-104); Anion Gap 12 (5-15); BUN 15 mg/dL (4-19); BUN/Creat Ratio 18.2 RATIO (10-20); Calcium,Total 10.2 mg/dL (7.6-11.0); Chloride 104 mmol/L (98-108); Cholesterol 226 mg/dL (<=200); EST Glomerular Filtration Rate 89 (>60); Globulin 2.4 g/dL (2.2-4.2); Glucose 87 mg/dL (70-99); High Density Lipoprotein 74 mg/dL; Low Density Lipoprotein Calc. 135 mg/dL; Protein, Total 7.1 g/dL (5.9-8.4); Sodium Level 141 mmol/L (133-145); Total Bilirubin 0.29 mg/dL (0.00-1.30); Triglycerides 83 mg/dL; Very Low Density Lipoprotein 17 mg/dL (5-40); cholesterol:hdl ratio screen 3.06
[2024-08-12 16:50] LABS: Amphetamine Urine NEGATIVE (<1000 ng/mL); Barbiturate Urine NEGATIVE (< 200 ng/mL); Benzodiazepine Urine NEGATIVE (< 200 ng/mL); Buprenorphine Urine NEGATIVE (< 200 ng/mL); Cocaine Urine NEGATIVE (< 300 ng/mL); Fentanyl, Urine NEGATIVE; Methadone Urine NEGATIVE (< 300 ng/mL); Opiates Urine NEGATIVE (< 300 ng/mL); Oxycodone, Urine NEGATIVE (< 100 ng/mL); PCP Urine NEGATIVE (< 25 ng/mL); THC Urine NEGATIVE (< 50 ng/mL)
== END | disposition home or self-care (01) ==
LOC: BIMLAB 13:57
PROVIDERS: PCP Internal Medicine; Referring Provider Internal Medicine; Visit Provider Internal Medicine
DX: Z00.00 Encounter for general adult medical examination without abnormal findings (principal); Z51.81 Encounter for therapeutic drug level monitoring
CPT/HCPCS: 36415; 80053; 80061; 80307

== ENCOUNTER → 2025-01-01 | Outpatient (CLI) | payer OTHER, SELFPAY ==
--- NOTE | 2025-01-01 07:15 | BI_ITS ---
EXAM: SCRN MAMM (CAD)W/YOSVANY BILAT DATE: 01/01/2025 CLINICAL HISTORY: F, Age 49 y/o , ANNUAL SCREENING TECHNIQUE: Procedure Code: [id number] Modality: MG Procedure: SCRN MAMM (CAD)W/YOSVANY BILAT COMPARISON: Prior exam(s) dated 12/27/2023, 12/14/2022, 12/05/2021. FINDINGS: TISSUE DENSITY: There are scattered areas of fibroglandular density. Bilateral Breast Mammographic Findings: No significant masses, calcifications or other abnormalities are identified. BI/SCRN MAMM (CAD)W/YOSVANY BILAT IMPRESSION: There is no mammographic evidence of malignancy. OVERALL FINAL ASSESSMENT BI-RADS 1: NEGATIVE. RECOMMENDATION: Routine annual follow-up in 1 Year Additional Recommendation none A letter with findings and recommendations will be mailed to the patient. Reading Location: [id number]
--- OUTSIDE RECORDS SUMMARY | 2025-01-01 07:34 | XMS RPT_ITS | CCD ---
Author Organization [facility] Care Team Providers Care Body Maker Name Role Phone Dr. Bob Tristan Primary Care Provider [phone] Dr. Bob Tristan Referring Provider [phone] JOANIE Bruce Attending Provider [facility] Dr. Bob Aldana Primary Care Provider [phone] Dr. Bob Tristan Referring Provider [phone] Monreal HOOP FLARING MACHINE OPERATOR HELPER, HOOP FLARING MACHINE OPERATOR HELPER-C Jake Attending Provider [phone] Dr. West Christy Attending Provider Monreal HOOP FLARING MACHINE OPERATOR HELPER, HOOP FLARING MACHINE OPERATOR HELPER-C Jake Referring Provider [phone] Dr. Carlos Kolb Attending Provider Gayle HOOP FLARING MACHINE OPERATOR HELPER, HOOP FLARING MACHINE OPERATOR HELPER-C Zuly Attending Provider Dr. Carlos Kolb Referring Provider Dr. Carlos Kolb Other Provider Dr. Bob Tristan Primary Care Provider [phone] Dr. West Christy Attending Provider Monreal HOOP FLARING MACHINE OPERATOR HELPER, HOOP FLARING MACHINE OPERATOR HELPER-C Jake Referring Provider [phone] Dr. Bob Tristan Referring Provider [phone] Dr. Carlos Kolb Attending Provider Gayle HOOP FLARING MACHINE OPERATOR HELPER, HOOP FLARING MACHINE OPERATOR HELPER-C Zuly Attending Provider Dr. Carlos Kolb Referring Provider Dr. Carlos Kolb Other Provider Dr. Bob Tristan Primary Care Provider [phone] Dr. Bob Tristan Referring Provider [phone] Dr. West Christy Attending Provider Gayle HOOP FLARING MACHINE OPERATOR HELPER, HOOP FLARING MACHINE OPERATOR HELPER-C Zuly Attending Provider Dr. Bob Tristan Primary Care Provider Dr. Bob Tristan Referring Provider Dr. West Christy Attending Provider Gayle HOOP FLARING MACHINE OPERATOR HELPER, HOOP FLARING MACHINE OPERATOR HELPER-C Zuly Attending Provider Mag Aldridge Attending Provider Unavailable Dr. Bob Tristan Primary Care Provider [phone] Dr. Bob Tristan Referring Provider [phone] Dr. West Christy Attending Provider Dr. Irma Boggs Attending Provider Dr. Irma Boggs Referring Provider [phone] Dr. Irma Boggs Other Provider Dr. Bob Tristan Primary Care Provider [phone] Dr. Bob Tristan Referring Provider [phone] Dr. Bob Tristan Primary Care Provider [phone] Dr. Irma Boggs Attending Provider Dr. Irma Boggs Referring Provider Dr. Irma Boggs Other Provider Dr. Bob Tristan Referring Provider [phone] West Christy Attending Provider Dr. West Christy Referring Provider Gayle HOOP FLARING MACHINE OPERATOR HELPER, HOOP FLARING MACHINE OPERATOR HELPER-C Zuly Attending Provider Dr. Bob Tristan Primary Care Provider Dr. West Christy Attending Provider Dr. Bob Tristan Referring Provider [phone] [facility] HOOP FLARING MACHINE OPERATOR HELPER, HOOP FLARING MACHINE OPERATOR HELPER-C Malik Clifford Attending Provider Dr. Bob Tristan Primary Care Provider Dr. Bob Tristan Referring Provider [phone] Gayle HOOP FLARING MACHINE OPERATOR HELPER, HOOP FLARING MACHINE OPERATOR HELPER-Jacqueline Caruso Attending Provider Dr. West Christy Attending Provider Azalea BAEZA, Dr. Rojas Primary Care Provider Azalea BAEZA, Dr. Rojas Referring Provider Blade Rowland Attending Provider Westley BAEZA, Dr. Dodson Attending Provider Dr. West Christy MD Referring Provider Azalea BAEZA, Dr. Rojas Primary Care Provider Azalea BAEZA, Dr. Rojas Referring Provider Dr. West Christy MD Referring Provider Azalea BAEAZ, Dr. Rojas Primary Care Provider Dr. West Christy MD Attending Provider Azalea BAEZA, Dr. Rojas Referring Provider Azalea BAEZA, Dr. Rojas Attending Provider West Christy Attending Unavailable Oleghe, Efewongbe Referring Unavailable Oleghe, Efewongbe Primary Care Unavailable Oleghe, Efewongbe Primary Care Unavailable HAYDEN HOLLY Attending Unavailable HAYDEN HOLLY Referring Unavailable Oleghe, Efewongbe Primary Care Unavailable Gayle HOOP FLARING MACHINE OPERATOR HELPER, Zuly Attending Unavailable Gayle HOOP FLARING MACHINE OPERATOR HELPER, Zuly Referring Unavailable IsckarWest curry Attending Unavailable Isckarus, Mansour Referring Unavailable Oleghe, Efewongbe Primary Care Unavailable Gayle HOOP FLARING MACHINE OPERATOR HELPER, Zuly Attending Unavailable Gayle HOOP FLARING MACHINE OPERATOR HELPER, Zuly Referring Unavailable Oleghe, Efewongbe Primary Care Unavailable Isckarus, Bladeour Attending Unavailable Isckarus, Mansour Referring Unavailable Oleghe, Efewongbe Primary Care Unavailable Oleghe, Efewongbe Attending Unavailable Oleghe, Efewongbe Referring Unavailable Oleghe, Efewongbe Primary Care Unavailable Oleghe, Efewongbe Attending Unavailable Oleghe, Efewongbe Referring Unavailable Oleghe, Efewongbe Primary Care Unavailable Oleghe, Efewongbe Primary Care Unavailable Gayle HOOP FLARING MACHINE OPERATOR HELPER, Zuly Attending Unavailable Gayle HOOP FLARING MACHINE OPERATOR HELPER, Zuly Referring Unavailable Blade Rowland Attending Unavailable Oleghe, Efewongbe Referring Unavailable Oleghe, Efewongbe Primary Care Unavailable Isckarus, Bladeour Attending Unavailable Oleghe, Efewongbe Referring Unavailable Oleghe, Efewongbe Primary Care Unavailable IsckarusWest Attending Unavailable Oleghe, Efewongbe Referring Unavailable Oleghe, Efewongbe Primary Care Unavailable Allergies Allergy Classification Reported Allergen(s) Allergy Type Date of Onset Reaction(s) Facility (20 sources) Sulfonamides (Antibiotic) [facility] ([facility] sources) Omeprazole Drug Allergy 2 [facility] (1 source) Omeprazole Drug Allergy [address] [place] [address] Repository (1 source) Sulfonamides (Antibiotic) Drug allergy (disorder) 5 [facility] Repository Medications Current Medications Medication Drug Class(es) Dates Sig (Normalized) Sig (Original) famotidine 20 mg oral tablet (1 source) Histamine-2 Receptor Antagonist Start: 08-21-2022 take 1 tablet by mouth once daily before mealtime Famotidine (Pepcid Ac) 20 mg tablet Active 20 MG PO DAILY August 21, 2022 12:00am ferrous sulfate 325 mg oral tablet (2 sources) Start: 01-26-2022 take 1 tablet by mouth once daily Ferrous Sulfate (Feosol) 325 mg (65 mg iron) tablet Active 325 MG PO DAILY January 26, 2022 12:00am lidocaine 25 mg/ml / prilocaine 25 mg/ml topical cream (8 sources) Antiarrhythmic, Amide Local Anesthetic Start: 03-15-2022 Lidocaine-Prilocain e Active 1 APPLIC TOPICAL ONCE 30 March 15, 2022 1:00am Magic Mouth Wash (Bmx) (3 sources) Start: 04-26-2022 Magic Mouth Wash (Bmx) Active 15 ML PO .Q6HR 180 April 26, 2022 1:00am diphenhydramine 12.5 mg/5 mL oral liquid 60 mL; aluminum-mag hydroxide-simethico ne 400 mg-400 mg-40 mg/5 mL oral susp 60 mL; Lidocaine Viscous 2 % mucosal solution 60 mL; Per 180 mL [place] (Nk) (1 source) Start: 07-13-2024 [place] (Nk) Active July 13, 2024 12:00am ondansetron 8 mg disintegrating oral tablet (8 sources) Serotonin-3 Receptor Antagonist Start: 03-15-2022 take 8 mg by mouth every eight hours Ondansetron Active 8 MG PO Q8H March 15, 2022 1:00am phentermine hydrochloride 37.5 mg oral tablet (1 source) Sympathomimetic Amine Anorectic Start: 08-12-2024 Phentermine (Adipex-P) 37.5 mg tablet Active 18.75 mg PO daily August 12, 2024 12:00am must administer 30 minutes before or 1-2 hours after breakfast traZODone hydrochloride 50 mg oral tablet (2 sources) Serotonin Reuptake Inhibitor Start: 08-12-2024 take 1 tablet by mouth at bedtime as needed Trazodone 50 mg tablet Active 50 mg PO AT BEDTIME as needed for insomnia August 12, 2024 12:00am valACYclovir 500 mg oral tablet (6 sources) Herpesvirus Nucleoside Analog DNA Polymerase Inhibitor, Herpes Simplex Virus Nucleoside Analog DNA Polymerase Inhibitor, Herpes Zoster Virus Nucleoside Analog DNA Polymerase Inhibitor Start: 03-27-2022 take 500 mg by mouth twice daily Valacyclovir Active 500 MG PO TWICE A DAY 60 March 27, 2022 1:00am Completed/Discontinued Medications Medication Drug Class(es) Dates Sig (Normalized) Sig (Original) allopurinol 300 mg oral tablet (20 sources) Xanthine Oxidase Inhibitor Start: 03-13-2022 End: 06-19-2022 take 1 tablet by mouth once daily Allopurinol 300 mg tablet Discontinued 300 mg PO DAILY March 14, 2022 1:00am June 19, 2022 9:03am Start within 1 week of scheduled chemotherapy amoxicillin 500 mg oral capsule (20 sources) Penicillin-class Antibacterial Start: 05-11-2021 End: 05-21-2021 take 1 capsule by mouth three times daily Amoxicillin 500 mg capsule Discontinued 500 mg PO THREE TIMES A DAY 24 12May 11, 2021 12:00am May 20, 2021 12:00am May 21, 2021 12:04am amoxicillin 875 mg / clavulanate 125 mg oral tablet (20 sources) Penicillin-class Antibacterial Start: 01-16-2023 End: 02-14-2023 Amoxicillin-Pot Clavulanate 875-125 mg tablet Discontinued 1 {tbl} PO TWICE A DAY January 16, 2023 9:36am February 14, 2023 2:00pm Start: 01-16-2023 End: 02-14-2023 take 1 tablet by mouth twice daily Amoxicillin-Pot Clavulanate Discontinued 1 TABLET PO TWICE A DAY January 16, 2023 9:36am February 14, 2023 2:00pm Start: 02-20-2022 take 1 tablet by bautista th twice daily Amoxicillin-Pot Clavulanate Active 1 TABLET PO TWICE A DAY February 20, 2022 12:00am Start: 09-09-2019 End: 06-24-2020 Amoxicillin-Pot Clavulanate 875-125 mg tablet Discontinued 1 {tbl} PO TWICE A DAY September 09, 2019 12:00am June 24, 2020 8:48am Start: 09-09-2019 End: 06-24-2020 take 1 tablet by mouth twice daily Amoxicillin-Pot Clavulanate Discontinued 1 TABLET PO TWICE A DAY September 09, 2019 12:00am June 24, 2020 8:48am azithromycin 250 mg oral tablet (20 sources) Macrolide Antimicrobial Start: 04-17-2019 End: 05-04-2019 take 2-5 tablets by mouth once daily Azithromycin 250 mg tablet Discontinued 0 PO .COMPLEX 6 April 17, 2019 1:00am May 04, 2019 5:44pm take 500 mg today (day 1), then 250 mg for 4 days (days 2-5) PO benzonatate 200 mg oral capsule (4 sources) Non-narcotic Antitussive Start: 03-02-2024 End: 03-16-2024 take 1 capsule by mouth three times daily as needed for cough Benzonatate 200 mg capsule Discontinued 200 mg PO THREE TIMES A DAY as needed for cough March 02, 2024 1:00am March 16, 2024 10:00am FLUoxetine 10 mg oral capsule (20 sources) Serotonin Reuptake Inhibitor Start: 04-17-2019 End: 06-24-2020 take 1 capsule by mouth once daily Fluoxetine 10 mg capsule Discontinued 10 mg PO DAILY April 17, 2019 1:00am June 24, 2020 8:48am levoFLOXacin 750 mg oral tablet (17 sources) Quinolone Antimicrobial Start: 04-04-2022 End: 04-10-2022 take 1 tablet by mouth once daily Levofloxacin 750 mg tablet Discontinued 750 mg PO DAILY April 04, 2022 1:00am April 10, 2022 9:27am meclizine hydrochloride 25 mg oral tablet (4 sources) Antiemetic Start: 07-12-2023 End: 03-16-2024 take 1 tablet by mouth three times daily Meclizine 25 mg tablet Discontinued 25 mg PO THREE TIMES A DAY July 12, 2023 12:00am March 16, 2024 10:00am methylPREDNISolone 4 mg oral tablet (20 sources) Corticosteroid Start: 03-02-2024 End: 03-16-2024 take 1 tablet by mouth once Methylprednisolone (Medrol (Nathanael)) 4 mg tablets,dose pack Discontinued 0 PO per package directions March 02, 2024 1:00am March 16, 2024 10:00am PO PER PKG DIR Start: 05-04-2019 End: 09-09-2019 Methylprednisolone 4 mg tabl ets,dose pack Discontinued 0 PO per package directions May 04, 2019 12:00am September 09, 2019 10:29am PO PER PKG DIR Start: 05-04-2019 End: 09-09-2019 Methylprednisolone Discontin ued 0 PO per package directions May 03, 2019 11:00pm September 09, 2019 9:29am PO PER PKG DIR Start: 05-04-2019 End: 09-09-2019 Methylprednisolone Discontin ued 0 PO per package directions May 04, 2019 12:00am September 09, 2019 10:29am PO PER PKG DIR Multivitamin preparation (19 sources) Start: 06-24-2020 End: 06-19-2022 take 1 tablet by mouth once daily Multivitamin Discontinued 1 TABLET PO DAILY June 23, 2020 11:00pm June 19, 2022 8:03am Start: 06-24-2020 End: 06-19-2022 take 1 tablet by mouth once daily Multivitamin Discontinued 1 TABLET PO DAILY June 24, 2020 12:00am June 19, 2022 9:03am Start: 06-24-2020 take 1 tablet by bautista th once daily Multivitamin Active 1 TABLET PO DAILY June 23, 2020 11:00pm Start: 06-24-2020 take 1 tablet by bautista th once daily Multivitamin Active 1 TABLET PO DAILY June 24, 2020 12:00am Multivitamin tablet (4 sources) Start: 06-24-2020 End: 06-19-2022 Multivitamin tablet Discontinued 1 {tbl} PO DAILY June 24, 2020 12:00am June 19, 2022 9:03am omeprazole 20 mg delayed release oral capsule (20 sources) Proton Pump Inhibitor Start: 09-22-2021 End: 01-26-2022 take 1 capsule by mouth once daily Omeprazole 20 mg capsule,delayed release(DR/EC) Discontinued 20 mg PO DAILY September 22, 2021 12:00am January 26, 2022 4:36pm pentamidine isethionate 50 mg/ml inhalation solution (20 sources) Antiprotozoal Start: 03-15-2022 End: 05-18-2024 Pentamidine 300 mg recon soln Discontinued 300 mg INHALATION every 4 weeks 1 360 November 13, 2023 1:32pm May 18, 2024 1:02pm Vitamin B Complex (B Complex-Vitamin B12) tablet (20 sources) Start: 01-26-2022 End: 08-30-2022 Vitamin B Complex (B Complex-Vitamin B12) tablet Discontinued 1 {tbl} PO DAILY January 26, 2022 1:00am August 30, 2022 9:10am Start: 01-26-2022 End: 08-30-2022 take 1 tablet by mouth once daily Vitamin B Complex (B Complex-Vitamin B12) tablet Discontinued 1 TABLET PO DAILY January 26, 2022 12:00am August 30, 2022 8:10am Start: 01-26-2022 End: 08-30-2022 take 1 tablet by mouth once daily Vitamin B Complex (B Complex-Vitamin B12) tablet Discontinued 1 TABLET PO DAILY January 26, 2022 1:00am August 30, 2022 9:10am Start: 01-26-2022 take 1 tablet by bautista th once daily Vitamin B Complex (B Complex-Vitamin B12) tablet Active 1 TABLET PO DAILY January 26, 2022 1:00am Start: 01-26-2022 take 1 tablet by bautista th once daily Vitamin B Complex (B Complex-Vitamin B12) tablet Active 1 TABLET PO DAILY January 26, 2022 12:00am Problems Active Problems Problem Classification Problem Date Documented Da te Episodic/Chronic Abdominal pain (1 source) Unspecified abdominal pain; Translations: [Abdominal pain, unspecified site] Episodic Acute bronchitis (20 sources) Acute bronchitis; Translations: [Acute bronchitis, unspecified] 04-17-2019 Episodic Administrative/social admission (6 sources) Counseling, unspecified; Translations: [Counseling NOS] 03-15-2022 Episodic Anxiety disorders (20 sources) Generalized anxiety disorder; Translations: [Generalized anxiety disorder] 06-24-2020 Chronic Conditions associated with dizziness or vertigo (4 sources) Dizziness; Translations: [Dizziness and giddiness] 07-12-2023 Episodic Diseases of white blood cells (17 sources) Leukocytosis; Translations: [Elevated white blood cell count, unspecified] 04-04-2022 Chronic Fever of unknown origin (17 sources) Fever; Translations: [Fever, unspecified] 04-04-2022 Episodic Headache; including migraine (20 sources) Headache; Translations: [Headache] 04-10-2022 Episodic Hemorrhoids (18 sources) Hemorrhoids; Translations: [Unspecified hemorrhoids] 04-10-2022 Episodic Inflammation; infection of eye (except that caused by tuberculosis or sexually transmitteddisease) (17 sources) Conjunctivitis; Translations: [Unspecified conjunctivitis] 04-04-2022 Episodic Lymphadenitis (10 sources) Mesenteric lymphadenopathy; Translations: [Localized enlarged lymph nodes] 02-28-2022 Episodic Maintenance chemotherapy; radiotherapy (20 sources) Patient encounter status; Translations: [Encounter for antineoplastic chemotherapy] 06-19-2022 Chronic Non-Hodgkin`s lymphoma (20 sources) Follicular non-Hodgkin's lymphoma; Translations: [Follicular lymphoma, unspecified, unspecified site] Onset: 05-29-2023 03-13-2022 Chronic Nonspecific chest pain (1 source) Chest pain, unspecified; Translations: [Chest pain, unspecified] Episodic Other aftercare (6 sources) Encounter for adjustment and management of vascular access device; Translations: [Fitting and adjustment, other device] 03-14-2022 Episodic Other bone disease and musculoskeletal deformities (9 sources) Costal chondritis; Translations: [Chondrocostal junction syndrome [Tietze]] 01-10-2023 Episodic Other bone disease and musculoskeletal deformities (4 sources) Chondrocostal junction syndrome [Tietze]; Translations: [Tietze's disease] 01-10-2023 Episodic Other female genital disorders (20 sources) Abnormal uterine bleeding; Translations: [Abnormal uterine and vaginal bleeding, unspecified] 10-21-2020 Chronic Other gastrointestinal disorders (20 sources) Intestinal malabsorption; Translations: [Intestinal malabsorption, unspecified] 06-24-2020 Chronic Other gastrointestinal disorders (2 sources) Abdominal mass; Translations: [Intra-abdominal and pelvic swelling, mass and lump, unspecified site] Episodic Other gastrointestinal disorders (2 sources) Intra-abdominal and pelvic swelling, mass and lump, unspecified site; Translations: [Abdominal or pelvic swelling, mass, or lump, unspecified site] Episodic Other gastrointestinal disorders (4 sources) Abdominal bloating; Translations: [Abdominal distension (gaseous)] 07-12-2023 Episodic Other gastrointestinal disorders (4 sources) Constipation; Translations: [Constipation, unspecified] 07-12-2023 Episodic Other lower respiratory disease (9 sources) Cough; Translations: [Cough] 01-10-2023 Episodic Other lower respiratory disease (9 sources) Rib pain; Translations: [Pleurodynia] 01-10-2023 Episodic Other nutritional; endocrine; and metabolic disorders (20 sources) Intolerance to lactose; Translations: [Lactose intolerance, unspecified] 06-24-2020 Chronic Other nutritional; endocrine; and metabolic disorders (2 sources) Body mass index 25-29 - overweight; Translations: [Overweight] 08-12-2024 Episodic Other skin disorders (20 sources) Sebaceous cyst of skin; Translations: [Sebaceous cyst] 09-09-2019 Episodic Other upper respiratory infections (20 sources) Acute maxillary sinusitis; Translations: [Acute maxillary sinusitis, unspecified] 09-09-2019 Episodic Residual codes; unclassified (20 sources) Insomnia; Translations: [Insomnia, unspecified] 06-24-2020 Episodic Past or Other Problems Problem Classification Problem Date Documented Da te Episodic/Chronic Immunizations and screening for infectious disease (20 sources) Patient encounter status; Translations: [Encounter for screening for COVID-19] Onset: 02-03-2024 05-11-2021 Episodic Malaise and fatigue (1 source) Other fatigue; Translations: [Other fatigue] Onset: 05-29-2023 Episodic Nonmalignant breast conditions (20 sources) Mastodynia; Translations: [Pain of left breast] Onset: 01-16-2024 10-21-2020 Episodic Other aftercare (1 source) Encounter for therapeutic drug level monitoring; Translations: [Encounter for therapeutic drug level monitoring] Onset: 08-12-2024 Episodic Other screening for suspected conditions (not mental disorders or infectious disease) (6 sources) Encounter for screening for malignant neoplasm of colon; Translations: [Special screening for malignant neoplasms of colon] Onset: 07-13-2024 10-01-2022 Episodic Results Test Name Value Interpretation Reference Range Facility Amphetamine detection with 1 000 ng/mL as cutoffOrdered By: Bob Tristan on 08-12-2024 Amphetamines Screen method >1000 ng/mL Ql (U) Negative < 200 ng/mL [facility] Anion gap in Serum or Plasma Ordered By: Bob Tristan on 08-12-2024 Anion gap [Moles/Vol] 12 mmol/L 07-09 [facility] BUN/creatinine ratioOrdered By: Bob Tristan on 08-12-2024 Urea nitrogen/Creatinine [Mass ratio] 18.2 mg/mg 12-14 [facility] Bilirubin, totalOrdered By: Bob Tristan on 08-12-2024 Bilirubin [Mass/Vol] 0.29 mg/dL 0.00-1.30 [facility] Calculated very low density lipoprotein (VLDL) cholesterol measurementOrdered By: Bob Tristan on 08-12-2024 Calculated very low density lipoprotein (VLDL) cholesterol measurement 17 mg/dL 5-40 [facility] Carbon dioxide, total [Moles /volume] in Central venous bloodOrdered By: Bob Tristan on 08-12-2024 CO2 [Moles/Vol] 24.0 mmol/L 21.0-32.0 [facility] Chloride assayOrdered By: Ef olvin Tristan on 08-12-2024 Chloride [Moles/Vol] 104 mmol/L 98-108 [facility] Comprehensive Metabolic Prof ilon 08-12-2024 Albumin [Mass/Vol] 4.7 g/dL Normal 3.5-5.0 [facility] Comment on above: Performed By: #### L 500.4050, L500.4100 ####[facility] [address] [place], [address] Albumin/Globulin [Mass ratio] 1.9 {ratio} Normal 0.9-2.4 [facility] Comment on above: Performed By: #### L [id number], L500.4100 ####[facility] [address] [place], [address] ALK PHOS 102 U/L Normal 35-104 [facility] Comment on above: Performed By: #### L [id number], [id number] ####[facility] [address] [place], [address] ALT [Catalytic activity/Vol] 24 U/L Normal <=34 [facility] Comment on above: Performed By: #### L 500.4050, L500.4100 ####[facility] [address] [place], [address] AST [Catalytic activity/Vol] 25 U/L Normal <=31 [facility] Comment on above: Performed By: #### L [id number], [id number] ####[facility] [address] [place], [address] Bilirubin [Mass/Vol] 0.29 mg/dL Normal 0.00-1.30 [facility] Comment on above: Performed By: #### L [id number], [id number] ####[facility] [address] [place], [address] BUN/CRE 18.2 RATIO Normal 10-20 [facility] Comment on above: Performed By: #### L [id number], [id number] ####[facility] [address] [place], [address] Calcium [Mass/Vol] 10.2 mg/dL Normal 7.6-11.0 [facility] Comment on above: Performed By: #### L [id number], [id number] ####[facility] [address] [place], [address] Chloride [Moles/Vol] 104 mmol/L Normal 98-108 [facility] Comment on above: Performed By: #### L [id number], [id number] ####[facility] [address] [place], [address] CO2 [Moles/Vol] 24.0 mmol/L Normal 21.0-32.0 [facility] Comment on above: Performed By: #### L [id number], [id number] ####[facility] [address] [place], [address] Creatinine [Mass/Vol] 0.80 mg/dL Normal 0.70-1.20 [facility] Comment on above: Performed By: #### L 500.4050, [id number] ####[facility] [address] [place], [address] GAP 12 Normal 5-15 [facility] Comment on above: Performed By: #### L 500.4050, [id number] ####[facility] [address] [place], [address] GFR/1.73 sq M.predicted among non-blacks MDRD (S/P/Bld) [Vol rate/Area] 89 mL/min/{1.73_m2} Normal >60 [facility] Comment on above: Result Comment: mL/m in/1.73m2 CKD-EPI Creatinine Equation (2020) Performed By: #### L 500.4050, [id number] ####[facility] [address] [place], [address] Globulin (S) [Mass/Vol] 2.4 g/dL Normal 2.2-4.2 [facility] Comment on above: Performed By: #### L [id number], [id number] ####[facility] [address] [place], [address] Glucose [Mass/Vol] 87 mg/dL Normal 70-99 [facility] Comment on above: Performed By: #### L 500.4050, [id number] ####[facility] [address] [place], [address] Potassium [Moles/Vol] 4.0 mmol/L Normal 3.3-5.1 [facility] Comment on above: Performed By: #### L [id number], [id number] ####[facility] [address] [place], [address] Sodium [Moles/Vol] 141 mmol/L Normal 133-145 [facility] Comment on above: Performed By: #### L 500.4050, [id number] ####[facility] [address] [place], [address] T PROT 7.1 g/dL Normal 5.9-8.4 [facility] Comment on above: Performed By: #### L 500.4050, L500.4100 ####[facility] [address] [place], [place], [address] Urea nitrogen [Mass/Vol] 15 mg/dL Normal 4-19 [facility] Comment on above: Performed By: #### L 500.4050, L500.4100 ####[facility] [address] [place], [place], [address] Glomerular filtration rate ( GFR) estimation/1.73 sq m using serum, plasma, or whole bOrdered By: Bob Tristan on 08-12-2024 GFR/1.73 sq M.predicted among non-blacks MDRD (S/P/Bld) [Vol rate/Area] 89 mL/min/{1.73_m2} >60 [facility] Comment on above: mL/min/1.73m2 CKD-EP I Creatinine Equation (2020) Internal Medicine Office Vis itomoiz 08-12-2024 Internal Medicine Office Visit [facility] [address] [place], [place] [address] OFFICE VISIT Date of Service: 08/12/24 MR#: [id number] Acct: [id number] Name: RUTHY FELIX Rep #: [id number] : 1975 Provider: Dr. Bob ulloa MD Age/Sex: 49/F Location: [facility] Status: Signed Intake Vital Signs 05/18/24 13:02 07/13/24 13:29 08/12/24 13:09 Height 5 ft 4 in 5 ft 4 in 5 ft 4 in Weight: 150 lb 8 oz BMI 25.8 BP 105/71 98/68 Blood Pressure Location Rt brachial Rt brachial Position Sitting Sitting Respiration 16 16 Pulse 68 83 Pulse Source Monitor Monitor Temp 97.5 F L 97.8 F Temp Source Temporal Pulse Oximetry (%) 99 95 Oxygen Delivery Method room air room air Intake Visit Reasons: YEARLY Chief Complaint: yearly Leacher Required: No Accompanied by: Self Is patient in pain?: No Allergies Sulfa (Sulfonamide Antibiotics) Allergy (Verified 08/12/24 13:05) Hives omeprazole Adverse Reaction (Intermediate, Verified 08/12/24 13:05) VOMITING Medications ???Medication ???Instructions ???Recorded ???Confirmed ???Type phentermine 37.5 mg tablet 18.75 mg (1/2 x 37.5 mg) PO QDAY 0 08/12/24 Rx (Adipex-P) #30 tabs trazodone 50 mg tablet 50 mg PO QHS PRN insomnia #30 tabs 08/12/24 08/12/24 Rx Nurse's Note: weight gain and not sleeping well PFSH Medical History (Updated 08/12/24 @ 20:[address] Bob Tristan MD) Overweight (BMI 25.0-29.9) Medication monitoring encounter Encounter for immunotherapy Costochondritis Cough Rib pain Post-menopausal History of chemotherapy Encounter for chemotherapy management Pharyngitis Hemorrhoid Headache Encounter for education Cancer Anxiety Anemia Dietary restriction Gastric reflux Non-smoker Encounter for adjustment and management of vascular access device Follicular lymphoma Encounter for screening for COVID-19 Abnormal uterine bleeding Breast pain, left Preventative health care Generalized anxiety disorder Insomnia Malabsorption Lactose intolerance Surgical History Hx of colonoscopy History of wisdom tooth extraction History of appendectomy Family History Father Hypertension Skin cancer Mother Breast cancer Social History Smoking Status: Never smoker alcohol intake: never substance use type: does not use what type of physical activity do you participate in: running and yoga frequency: 3-4 times per week HPI HPI Chief Complaint: yearly Details: Ruthy Sanchez is a 49-year-old female presenting for her yearly visit with concerns about weight gain. The weight gain has been gradual over the past two years despite maintaining a healthy diet and regular physical activity, including walking and running. The patient has attempted calorie restriction to 1500 calories per day without success in losing weight. She also reports sleep disturbances, for which she has tried magnesium, melatonin, and occasionally NyQuil, with varying success. The patient has not been formally diagnosed with anxiety but acknowledges experiencing some anxiety symptoms. History of non-Hodgkin's lymphoma, continues to follow-up closely with oncology. No new concerns in that regard. Other chronic medical conditions are stable. Attestation: Documentation on this patient encounter was supported using ambient scribe technology/ voice AI technology. The patient consented to recording for the purpose of documenting the encounter. Provider reviewed content of the generated note prior to signature. ROS Const Constitutional: No body ache, excessive sweating, fatigue, fever(s), frequent falls, headache(s), snoring, weakness, weight change, sleep problems or change in appetite Eyes Eyes: No blurry vision, change in vision, eye pain or Light sensitivity ENT ENT: No abnormal hearing, ear or mastoid pain, tinnitus, dizziness/vertigo, nasal congestion, headache(s), neck pain or sore throat Resp Respiratory: No cough, excessive phlegm production, hemoptysis, shortness of breath, snoring or wheezing Cardio Cardiology: No chest pain at rest, chest pain with exertion, excessive sweating, shortness of breath, dyspnea on exertion, lightheadedness, orthopnea or palpitations Gastro GI: No abdominal pain, change in bowel habits, constipation, cramping, diarrhea, nausea/dyspepsia or vomiting Genitourinary-Female: No burning urination, painful urination, urinary incontinence, urinary frequency, blood in urine, abnormal periods or pelvic pain Musc Musculoskeletal: No abnormal gait, joint pain, back pain, limited range of motion, neck pain, numbness, stiffness, tingling or Arthritis Ski (more content not included)... Normal [facility] LDL calc ser/plasOrdered By: Bob Tristan on 08-12-2024 Cholesterol in LDL [Mass/Vol] 135 mg/dL [facility] Comment on above: Dwrclppkky=515-677 m g/dL & Higher Ktmo=260 mg/dL or greater Laboratory - Chemistry and C hemistry - challengeOrdered By: Bob Tristan on 08-12-2024 AST [Catalytic activity/Vol] 25 U/L <32 [facility] Lipid Profileon 08-12-2024 CHOL:HDL 3.06 Normal [facility] Comment on above: Performed By: #### L 500.4050, L500.4100 ####[facility] [address] [place], [place], [address] Cholesterol [Mass/Vol] 226 mg/dL High <=200 [facility] Comment on above: Result Comment: Chol esterol level, Desirable <200 mg/dL Borderline high cholesterol 200-239 mg/dL High cholesterol >=240 mg/dL Recommendations of the NCEP Adult Treatment Panel for the following risk-cutoff thresholds for the [place] population. Performed By: #### L 500.4050, L500.4100 ####[facility] [address] [place], [address] Cholesterol in HDL [Mass/Vol] 74 mg/dL Normal [facility] Comment on above: Result Comment: Shaunna onal Cholesterol Education Program (NCEP) guidelines: <40 mg/dL: Low HDL-cholesterol (major risk factor for CHD) >= 60 mg/dL: High HDL-cholesterol (negative risk factor for CHD) HDL-cholesterol is affected by a number of factors, e.g. smoking, exercise, hormones, sex and age. Performed By: #### L 500.4050, L500.4100 ####[facility] [address] [place], [address] Cholesterol in LDL [Mass/Vol] 135 mg/dL Normal [facility] Comment on above: Result Comment: Bord hbyftw=202-228 mg/dL Higher Cesp=616 mg/dL or greater Performed By: #### L 500.4050, L500.4100 ####[facility] [address] [place], [address] Cholesterol in VLDL [Mass/Vol] 17 mg/dL Normal 5-40 [facility] Comment on above: Performed By: #### L 500.4050, L500.4100 ####[facility] [address] [place], [address] Triglyceride [Mass/Vol] 83 mg/dL Normal [facility] Comment on above: Result Comment: The drugs N-Acetylcysteine and Metamizole may falsely depress this assay. Normal range: <150 mg/dL Borderline High: 150-199 mg/dL High: 200-499 mg/dL Very High: >500 mg/dL Performed By: #### L 500.4050, L500.4100 ####[facility] [address] [place], [address] No Panel InformationOrdered By: Bob Tristan on 08-12-2024 Urine Buprenorphine Qualitative Negative < 200 ng/mL [facility] Urine Oxycodone Screen Negative < 100 ng/mL [facility] Potassium measurement (mass/ volume)Ordered By: Bob Tristan on 08-12-2024 Potassium (Unsp spec) [Mass/Vol] 4.0 mmol/L 3.3-5.1 [facility] Quantitative urine opiates m easurementOrdered By: Bob Tristan on 08-12-2024 Opiates Ql (U) Negative < 300 ng/mL [facility] Screening total cholesterol/ high density lipoprotein (HDL) cholesterol ratioOrdered By: Bob Tristan on 08-12-2024 Cholesterol.total/Choles terol in HDL [Mass ratio] 3.06 {ratio} [facility] Screening urine fentanyl indigo surementOrdered By: Bob Tristan on 08-12-2024 fentaNYL Screen Ql (U) Negative [facility] Serum creatinine measurement (mass/volume)Ordered By: Bob Tristan on 08-12-2024 Creatinine [Mass/Vol] 0.80 mg/dL 0.70-1.20 [facility] Serum globulin measurementOr dered By: Bob Tristan on 08-12-2024 Globulin (S) [Mass/Vol] 2.4 g/dL 2.2-4.2 [facility] Serum glucose measurement (m ass/volume)Ordered By: Bob Tristan on 08-12-2024 Glucose [Mass/Vol] 87 mg/dL 70-99 [facility] Serum or plasma alanine brunner otransferase (ALT) measurementOrdered By: Bob Tristan on 08-12-2024 ALT [Catalytic activity/Vol] 24 U/L <35 [facility] Serum or plasma albumin elaina urement (mass/volume)Ordered By: Bob Tristan on 08-12-2024 Albumin [Mass/Vol] 4.7 g/dL 3.5-5.0 [facility] Serum or plasma albumin/glob ulin mass ratioOrdered By: Bob Tristan on 08-12-2024 Albumin/Globulin [Mass ratio] 1.9 {ratio} 0.9-2.4 [facility] Serum or plasma alkaline mouna sphatase measurementOrdered By: olvin Tristan 08-12-2024 ALP [Catalytic activity/Vol] 102 U/L 35-104 [facility] Serum or plasma calcium elaina urement (mass/volume)Ordered By: Bob Tristan 08-12-2024 Calcium [Mass/Vol] 10.2 mg/dL 7.6-11.0 [facility] Serum or plasma cholesterol in HDL measurement (mass/volume)Ordered By: Bob Tristan 08-12-2024 Cholesterol in HDL [Mass/Vol] 74 mg/dL >40 [facility] Comment on above: National Cholesterol Education Program (NCEP) guidelines:<40 mg/dL: Low HDL-cholesterol (major risk factor for CHD)>= 60 mg/dL: High HDL-cholesterol (negative risk factor for CHD)HDL-cholesterol is affected by a number of factors, e.g. smoking, exercise, hormones, sex and age. Serum or plasma cholesterol measurement (mass/volume)Ordered By: Bob Tristan 08-12-2024 Cholesterol [Mass/Vol] 226 mg/dL High <201 [facility] Comment on above: Cholesterol level, D esirable <200 mg/dLBorderline high cholesterol 200-239 mg/dLHigh cholesterol >=240 mg/dLRecommendations of the NCEP Adult Treatment Panel for the following risk-cutoff thresholds for the [place] population. Serum or plasma urea nitroge n measurement (mass/volume)Ordered By: Bob Tristan 08-12-2024 Urea nitrogen [Mass/Vol] 15 mg/dL 4-19 [facility] Sodium levelOrdered By: Marbella cruzheydi Azalea 08-12-2024 Sodium [Moles/Vol] 141 mmol/L 133-145 [facility] Total proteinOrdered By: Meir valentinjune Tristan 08-12-2024 Protein [Mass/Vol] 7.1 g/dL 5.9-8.4 [facility] Triglycerides measurementOrd ered By: Anabelajune Tristan on 08-12-2024 Triglyceride [Mass/Vol] 83 mg/dL <199 [facility] Comment on above: The drugs N-Acetylcy steine and Metamizole may falsely depress this assay. Normal range: <150 mg/dLBorderline High: 150-199 mg/dLHigh: 200-499 mg/dLVery High: >500 mg/dL Urine Drug Screen (VISTA)on 08-12-2024 AMPHETAMINES Negative Normal <1000 ng/mL [facility] Comment on above: Order Comment: UNK Performed By: #### L 505.5000 ####[facility] [address] [place] [address] BARBITIURATES Negative Normal < 200 ng/mL [facility] Comment on above: Order Comment: UNK Performed By: #### L 505.5000 ####[facility] [address] [place] [address] BENZODIAZIPINE Negative Normal < 200 ng/mL [facility] Comment on above: Order Comment: UNK Performed By: #### L 505.5000 ####[facility] [address] [place] [address] BUP Ur Drug Scr Negative Normal < 200 ng/mL [facility] Comment on above: Order Comment: UNK Performed By: #### L 505.5000 ####[facility] [address] [place] [address] COCAINE Negative Normal < 300 ng/mL [facility] Comment on above: Order Comment: UNK Performed By: #### L 505.5000 ####[facility] [address] [place] [address] Fentanyl Negative Normal [facility] Comment on above: Order Comment: UNK Performed By: #### L 505.5000 ####[facility] [address] [place] [address] METHADONE Negative Normal < 300 ng/mL [facility] Comment on above: Order Comment: UNK Performed By: #### L 505.5000 ####[facility] [address] [place] [address] OPIATES Negative Normal < 300 ng/mL [facility] Comment on above: Order Comment: UNK Performed By: #### L 505.5000 ####[facility] [address] [place] [address] OXYCODONE Negative Normal < 100 ng/mL [facility] Comment on above: Order Comment: UNK Performed By: #### L 505.5000 ####[facility] [address] [place] [address] PCP Negative Normal < 25 ng/mL [facility] Comment on above: Order Comment: UNK Performed By: #### L 505.5000 ####[facility] [address] [place] [address] THC Negative Normal < 50 ng/mL [facility] Comment on above: Order Comment: UNK Performed By: #### L 505.5000 ####[facility] [address] [place], [place], [phone] Urine benzodiazepine levelOr dered By: Efewongbe Loksehe on 08-12-2024 Benzodiazepines Ql (U) Negative < 200 ng/mL [facility] Urine cocaine levelOrdered B y: Efewongbe Oleghe on 08-12-2024 Cocaine Ql (U) Negative < 300 ng/mL [facility] Urine qqckv-0-bmdtdqaebhqovs abinol (THC) measurementOrdered By: Efewongbe Azalea on 08-12-2024 Cannabinoids Screen Ql (U) Negative < 50 ng/mL [facility] Urine phencyclidine (PCP) de tectionOrdered By: Efewongbe Oleghe on 08-12-2024 Phencyclidine Ql (U) Negative < 25 ng/mL [facility] Absolute lymphocyte countOrd ered By: West Christy on 07-13-2024 Lymphocytes Auto (Unsp spec) [#/Vol] 1.12 10*3/uL 0.83-4.51 [facility] Absolute neutrophil countOrd ered By: West Westley on 07-13-2024 Neutrophils (Bld) [#/Vol] 4.4 10*3/uL 2.0-7.7 [facility] Anion gap in Serum or Plasma Ordered By: West Christy on 07-13-2024 Anion gap [Moles/Vol] 11 mmol/L 5- [facility] Automated lymphocyte count a s percentage of total leukocytesOrdered By: [facility] on 07-13-2024 Lymphocytes/100 WBC Auto (Unsp spec) 18.5 % Low [facility] BUN/creatinine ratioOrdered By: [facility] Christ[facility] on 07-13-2024 Urea nitrogen/Creatinine [Mass ratio] 17.2 mg/mg - [facility] Basophil percentageOrdered B y: West Christy on 07-13-2024 Basophils/100 WBC (Bld) 0.7 % 0-1 [facility] Bilirubin, totalOrdered By: Bladeligia Christy on 07-13-2024 Bilirubin [Mass/Vol] 0.28 mg/dL 0.00-1.30 [facility] CBC W/Diff, Automatedon 06-25 Absolute Lymph 1.12 X10 3/uL Normal 0.83-4.51 [facility] Comment on above: Performed By: #### L 100.0100, L500.4050, L504.2610 ####[facility] [address] [place], [address] Absolute Neut 4.4 X10 3/uL Normal 2.0-7.7 [facility] Comment on above: Performed By: #### L 100.0100, L500.4050, L504.2610 ####[facility] [address] [place], [address] Basophils/100 WBC (Bld) 0.7 % Normal 0-1 [facility] Comment on above: Performed By: #### L 100.0100, L500.4050, L504.2610 ####[facility] [address] [place], [address] Eosinophils/100 WBC (Bld) 1.0 % Normal 0-5 [facility] Comment on above: Performed By: #### L 100.0100, L500.4050, L504.2610 ####[facility] [address] [place], [address] Erythrocyte distribution width (RBC) [Ratio] 13.3 % Normal 11.6-14.6 [facility] Comment on above: Performed By: #### L 100.0100, L500.4050, L504.2610 ####[facility] [address] [place], [address] Hematocrit (Bld) [Volume fraction] 40.5 % Normal 37-47 [facility] Comment on above: Performed By: #### L 100.0100, L500.4050, L504.2610 ####[facility] [address] [place], [address] Hemoglobin (Bld) [Mass/Vol] 13.5 g/dL Normal 12.0-15.0 [facility] Comment on above: Performed By: #### L 100.0100, L500.4050, L504.2610 ####[facility] [address] [place], [address] IG% 0.300 Normal 0.0-0.9 [facility] Comment on above: Result Comment: IG% - Immature Granulocytes (promyelocytes, myelocytes and metamyelocytes) > 1% indicates that a LEFT SHIFT is Present. Performed By: #### L 100.0100, L500.4050, L504.2610 ####[facility] [address] [place], [address] Lymphocytes/100 WBC (Bld) 18.5 % Low 19-41 [facility] Comment on above: Performed By: #### L 100.0100, L500.4050, L504.2610 ####[facility] [address] [place], [address] MCH (RBC) [Entitic mass] 28.8 pg Normal 27.0-32.0 [facility] Comment on above: Performed By: #### L 100.0100, L500.4050, L504.2610 ####[facility] [address] [place], [address] MCHC (RBC) [Mass/Vol] 33.3 g/dL Normal 32-36 [facility] Comment on above: Performed By: #### L 100.0100, L500.4050, L504.2610 ####[facility] [address] [place], [address] MCV (RBC) [Entitic vol] 86.4 fL Normal 81-99 [facility] Comment on above: Performed By: #### L 100.0100, L500.4050, L504.2610 ####[facility] [address] [place], [address] Monocytes/100 WBC (Bld) 6.8 % Normal 0-10 [facility] Comment on above: Performed By: #### L 100.0100, L500.4050, L504.2610 ####[facility] [address] [place], [address] Neutrophils/100 WBC (Bld) 72.7 % High 47-70 [facility] Comment on above: Performed By: #### L 100.0100, L500.4050, L504.2610 ####[facility] [address] [place], [address] Nucleated RBC (Bld) [#/Vol] 0 10*3/uL Normal 0-5 [facility] Comment on above: Performed By: #### L 100.0100, L500.4050, L504.2610 ####[facility] [address] [place], [address] Platelet mean volume (Bld) [Entitic vol] 9.2 fL Normal 6.2-12.0 [facility] Comment on above: Performed By: #### L 100.0100, L500.4050, L504.2610 ####[facility] [address] [place], [address] Platelets (Bld) [#/Vol] 246 10*3/uL Normal 150-450 [facility] Comment on above: Performed By: #### L 100.0100, L500.4050, L504.2610 ####[facility] [address] [place], [address] RBC (Bld) [#/Vol] 4.69 10*6/uL Normal 4.2-5.4 [facility] Comment on above: Performed By: #### L 100.0100, L500.4050, L504.2610 ####[facility] [address] [place], [address] RDW SD 41.6 fl Normal 35.1-43.9 [facility] Comment on above: Performed By: #### L 100.0100, L500.4050, L504.2610 ####[facility] [address] [place], [address] WBC (Bld) [#/Vol] 6.0 10*3/uL Normal 4.4-11.0 [facility] Comment on above: Performed By: #### L 100.0100, L500.4050, L504.2610 ####[facility] [address] [place], [address] Carbon dioxide, total [Moles /volume] in Central venous bloodOrdered By: Bladeligia Christy on 07-13-2024 CO2 [Moles/Vol] 23.3 mmol/L 21.0-32.0 [facility] Chloride assayOrdered By: Rima amelie Westley on 07-13-2024 Chloride [Moles/Vol] 106 mmol/L 98-108 [facility] Comprehensive Metabolic Prof ilon 07-13-2024 Albumin [Mass/Vol] 4.5 g/dL Normal 3.5-5.0 [facility] Comment on above: Performed By: #### L 100.0100, L500.4050, L504.2610 ####[facility] [address] [place], [address] Albumin/Globulin [Mass ratio] 2.0 {ratio} Normal 0.9-2.4 [facility] Comment on above: Performed By: #### L 100.0100, L500.4050, L504.2610 ####[facility] [address] [place], [address] ALK PHOS 97 U/L Normal 35-104 [facility] Comment on above: Performed By: #### L 100.0100, L500.4050, L504.2610 ####[facility] [address] [place], [address] ALT [Catalytic activity/Vol] 22 U/L Normal <=34 [facility] Comment on above: Performed By: #### L 100.0100, L500.4050, L504.2610 ####[facility] [address] [place], [address] AST [Catalytic activity/Vol] 24 U/L Normal <=31 [facility] Comment on above: Performed By: #### L 100.0100, L500.4050, L504.2610 ####[facility] [address] [place], [address] Bilirubin [Mass/Vol] 0.28 mg/dL Normal 0.00-1.30 [facility] Comment on above: Performed By: #### L 100.0100, L500.4050, L504.2610 ####[facility] [address] [place], [address] BUN/CRE 17.2 RATIO Normal 10-20 [facility] Comment on above: Performed By: #### L 100.0100, L500.4050, L504.2610 ####[facility] [address] [place], [address] Calcium [Mass/Vol] 9.3 mg/dL Normal 7.6-11.0 [facility] Comment on above: Performed By: #### L 100.0100, L500.4050, L504.2610 ####[facility] [address] [place], [address] Chloride [Moles/Vol] 106 mmol/L Normal 98-108 [facility] Comment on above: Performed By: #### L 100.0100, L500.4050, L504.2610 ####[facility] [address] [place], [address] CO2 [Moles/Vol] 23.3 mmol/L Normal 21.0-32.0 [facility] Comment on above: Performed By: #### L 100.0100, L500.4050, L504.2610 ####[facility] [address] [place], [address] Creatinine [Mass/Vol] 0.67 mg/dL Low 0.70-1.20 [facility] Comment on above: Performed By: #### L 100.0100, L500.4050, L504.2610 ####[facility] [address] [place], [address] ECRCL 95.79 ml/min Normal 50-250 [facility] Comment on above: Performed By: #### L 100.0100, L500.4050, L504.2610 ####[facility] [address] [place], [address] GAP 11 Normal 5-15 [facility] Comment on above: Performed By: #### L 100.0100, L500.4050, L504.2610 ####[facility] [address] [place], [address] GFR/1.73 sq M.predicted among non-blacks MDRD (S/P/Bld) [Vol rate/Area] 107 mL/min/{1.73_m2} Normal >60 [facility] Comment on above: Result Comment: mL/m in/1.73m2 CKD-EPI Creatinine Equation (2020) Performed By: #### L 100.0100, L500.4050, L504.2610 ####[facility] [address] [place], [address] Globulin (S) [Mass/Vol] 2.3 g/dL Normal 2.2-4.2 [facility] Comment on above: Performed By: #### L 100.0100, L500.4050, L504.2610 ####[facility] [address] [place], [address] Glucose [Mass/Vol] 90 mg/dL Normal 70-99 [facility] Comment on above: Performed By: #### L 100.0100, L500.4050, L504.2610 ####[facility] [address] [place], [address] Potassium [Moles/Vol] 4.2 mmol/L Normal 3.3-5.1 [facility] Comment on above: Performed By: #### L 100.0100, L500.4050, L504.2610 ####[facility] [address] [place], [address] Sodium [Moles/Vol] 140 mmol/L Normal 133-145 [facility] Comment on above: Performed By: #### L 100.0100, L500.4050, L504.2610 ####[facility] [address] [place], [address] T PROT 6.8 g/dL Normal 5.9-8.4 [facility] Comment on above: Performed By: #### L 100.0100, L500.4050, L504.2610 ####[facility] [address] [place], [address] Urea nitrogen [Mass/Vol] 12 mg/dL Normal 4-19 [facility] Comment on above: Performed By: #### L 100.0100, L500.4050, L504.2610 ####[facility] [address] [place], [address] Eosinophil percentageOrdered By: West Christy on 07-13-2024 Eosinophils/100 WBC (Bld) 1.0 % 0-5 [facility] Erythrocyte distribution wid th ratioOrdered By: [facility] on 07-13-2024 Erythrocyte distribution width (RBC) [Ratio] 13.3 % 11.6-14.6 [facility] Erythrocyte distribution wid th standard deviationOrdered By: [facility] on 07-13-2024 Erythrocyte distribution width (RBC) [Ratio] 41.6 fl 35.1-43.9 [facility] Glomerular filtration rate ( GFR) estimation/1.73 sq m using serum, plasma, or whole bOrdered By: West Christy on 07-13-2024 GFR/1.73 sq M.predicted among non-blacks MDRD (S/P/Bld) [Vol rate/Area] 107 mL/min/{1.73_m2} >60 [facility] Comment on above: mL/min/1.73m2 CKD-EP I Creatinine Equation (2020) Hematocrit Auto (Bld) [Volum e fraction]Ordered By: West Christy on 07-13-2024 Hematocrit (Bld) [Volume fraction] 40.5 % 37-47 [facility] Hemoglobin measurementOrdere d By: West Christy on 07-13-2024 Hemoglobin (Bld) [Mass/Vol] 13.5 g/dL 12.0-15.0 [facility] Immature granulocytes/100 WB C Auto (Bld)Ordered By: West Christy on 07-13-2024 Immature granulocytes/100 WBC (Bld) 0.300 % 0.0-0.9 [facility] Comment on above: IG% - Immature Granu locytes (promyelocytes, myelocytes and metamyelocytes) > 1% indicates that a LEFT SHIFT is Present. LDHon 07-13-2024 LDH 187 U/L Normal 84-246 [facility] Comment on above: Order Comment: 1 Performed By: #### L 100.0100, L500.4050, L504.2610 ####[facility] [address] [place], [address] Laboratory - Chemistry and C hemistry - challengeOrdered By: West Christy on 07-13-2024 AST [Catalytic activity/Vol] 24 U/L <32 [facility] Lactate dehydrogenase (LDH) measurementOrdered By: West Christy on 07-13-2024 LDH [Catalytic activity/Vol] 187 U/L 84-246 [facility] MCV (mean corpuscular volume ) determinationOrdered By: West Christy on 07-13-2024 MCV (RBC) [Entitic vol] 86.4 fL 81-99 [facility] Mean corpuscular hemoglobin (MCH) determinationOrdered By: West Christy on 07-13-2024 MCH (RBC) [Entitic mass] 28.8 pg 27.0-32.0 [facility] Mean corpuscular hemoglobin concentration (MCHC) determinationOrdered By: West Christy on 07-13-2024 MCHC (RBC) [Mass/Vol] 33.3 g/dL 32-36 [facility] Mean platelet volume determi nationOrdered By: West Christy on 07-13-2024 Platelet mean volume (Bld) [Entitic vol] 9.2 fL 6.2-12.0 [facility] Monocyte percentageOrdered B y: West Christy on 07-13-2024 Monocytes/100 WBC (Bld) 6.8 % 0-10 [facility] Neutrophil percentageOrdered By: West Christy on 07-13-2024 Neutrophils/100 WBC (Bld) 72.7 % High 47-70 [facility] Nucleated red blood cell per centageOrdered By: West Christy on 07-13-2024 Nucleated RBC/100 WBC (Bld) [Ratio] 0 % 0-5 [facility] Oncology Visit Reporton 06-25 Oncology Visit Report [facility] [place] [facility] [address] [place] [address] OFFICE VISIT Date of Service: 07/13/24 1325 MR#: [id number] Acct: [id number] Name: RUTHY FELIX Rep #: [id number] : 1975 From: West Christy MD Age/Sex: 48/F Location: [facility] [place] Status: Signed HPI Subjective Date of Service 07/13/24 Chief Complaint Lymphoma on treatment History of Present Illness 47-year-old female postmenopausal who self palpated a left-sided abdominal mass, painless but with a sense of bloating. February 15, 2022 CT abdomen and pelvis: IMPRESSION: Extensive retroperitoneal and mesenteric lymphadenopathy.??? Lymphadenopathy is also seen in the peripancreatic and periportal region. Small amount of free fluid is seen in the cul-de-sac. March 08, 2022 Anterior abdominal mass, CT-guided core biopsy: Consistent with involvement by non-Hodgkin B-cell lymphoma, follicular lymphoma with predominantly diffuse pattern, grade 1/3. ANTIBODY / CLONE RESULT AE1-3 (AE1/AE3/PCK26) negative CD3 (PS1) negative CD5 (SP10) negative CD10 (56C6) positive CD20 (L26) positive CD23 (1B12) negative CD43 (L60) negative CD45 (RP2/18) positive CD79a (11E3) positive BCL-2 (bcl-2/100/D5) positive BCL-6 (PR998W/A8) positive Cyclin D1/BCL-1 (SP4) negative MUM1 (MRQ-43) negative C-MYC (Y69) negative CK8 ([id number]) negative Ki-67 (30-9) positive, low PET/CT March 21, 2022 initial staging: IMPRESSION: 1. ABNORMAL EXAMINATION INDICATIVE OF MALIGNANT-VIABLE NEOPLASM. 2. Increased radiopharmaceutical concentration defined in the anterior mediastinum fulfill quantitative criteria for viable neoplasm. 3. The increase in tracer uptake noted in the right anterior neck involving Level and bilateral axilla soft tissue primarily without fatty hilus formation fulfills quantitative criteria for malignant transformation. 4. Abdominal and pelvic retroperitoneal and mesenteric mass formation, nodular foci demonstrated in the right retrocrural, cardiophrenic border and right external iliac lymph node basins fulfill quantitative criteria for viable neoplasm. 5.??? There is visualized in the thoracic infiltration noted in a normal sized spleen. October 16, 2022 PET/CT restaging at the conclusion of treatment: IMPRESSION: 1. NEGATIVE EXAMINATION. There is no definitive quantitative scintigraphic evidence of recurrent/viable neoplasm. 2. There is interim metabolic resolution of all prior defined quantitatively significant hypermetabolic foci. 3. Overall, compared to the prior FDG PET study dated 03/21/22, there is current absence of defined viable neoplastic disease. April 12, 2023 CT chest abdomen and pelvis: IMPRESSION: Stable examination. May 08, 2024 CT chest abdomen and pelvis: IMPRESSION: Stable examination. No acute abnormality is seen. Treatment summary and response: Bendamustine Rituxan March 27-August 21, 2022 (6 cycles). CR Rituxan 2 years maintenance September 2022???June 2024 (12 cycles) [facility] Medical History Encounter for immunotherapy Costochondritis Cough Rib pain Post-menopausal History of chemotherapy Encounter for chemotherapy management Pharyngitis Hemorrhoid Headache Encounter for education Cancer Anxiety Anemia Dietary restriction Gastric reflux Non-smoker Encounter for adjustment and management of vascular access device Follicular lymphoma Encounter for screening for COVID-19 Abnormal uterine bleeding Breast pain, left Preventative health care Generalized anxiety disorder Insomnia Malabsorption Lactose intolerance Surgical History Hx of colonoscopy History of wisdom tooth extraction History of appendectomy Family History Father Hypertension Skin cancer Mother Breast cancer Social History Smoking Status: Never smoker alcohol intake: never substance use type: does not use what type of physical activity do you participate in: running and yoga frequency: 3-4 times per week ROS Constitutional Constitutional: Reports systems reviewed and no addt'l complaints, except as documented; Denies fatigue, fever(s), night sweats or weight loss Eyes Eyes: Reports systems reviewed and no addt'l complaints, except as documented ENT HEENT: Reports systems reviewed and no addt'l complaints, except as documented Cardiovascular Cardiovascular: Reports systems reviewed and no addt'l complaints, except as documented; Denies chest pain with activity or edema Respiratory/Chest Respiratory/Chest: Reports systems reviewed and no addt'l complaints, except as documented; Denies cough or dyspnea on exertion Gastrointestinal (more content not included)... Normal [facility] Platelet countOrdered By: Rima Christy on 07-13-2024 Platelets (Bld) [#/Vol] 246 10*3/uL 150-450 [facility] Potassium measurement (mass/ volume)Ordered By: West Christy on 07-13-2024 Potassium (Unsp spec) [Mass/Vol] 4.2 mmol/L 3.3-5.1 [facility] RBC Auto (Bld) [#/Vol]Ordere d By: West Christy on 07-13-2024 RBC (Bld) [#/Vol] 4.69 10*6/uL 4.2-5.4 [facility] Serum creatinine measurement (mass/volume)Ordered By: West Christy on 07-13-2024 Creatinine [Mass/Vol] 0.67 mg/dL Low 0.70-1.20 [facility] Serum globulin measurementOr dered By: West Christy on 07-13-2024 Globulin (S) [Mass/Vol] 2.3 g/dL 2.2-4.2 [facility] Serum glucose measurement (m ass/volume)Ordered By: West Christy on 07-13-2024 Glucose [Mass/Vol] 90 mg/dL 70-99 [facility] Serum or plasma alanine brunner otransferase (ALT) measurementOrdered By: West Christy on 07-13-2024 ALT [Catalytic activity/Vol] 22 U/L <35 [facility] Serum or plasma albumin elaina urement (mass/volume)Ordered By: West Christy on 07-13-2024 Albumin [Mass/Vol] 4.5 g/dL 3.5-5.0 [facility] Serum or plasma albumin/glob ulin mass ratioOrdered By: West Christy on 07-13-2024 Albumin/Globulin [Mass ratio] 2.0 {ratio} 0.9-2.4 [facility] Serum or plasma alkaline mouna sphatase measurementOrdered By: West Christy on 07-13-2024 ALP [Catalytic activity/Vol] 97 U/L 35-104 [facility] Serum or plasma calcium elaina urement (mass/volume)Ordered By: West Christy on 07-13-2024 Calcium [Mass/Vol] 9.3 mg/dL 7.6-11.0 [facility] Serum or plasma urea nitroge n measurement (mass/volume)Ordered By: West Christy on 07-13-2024 Urea nitrogen [Mass/Vol] 12 mg/dL - [facility] Sodium levelOrdered By: Blade Christy on 07-13-2024 Sodium [Moles/Vol] 140 mmol/L 133-145 [facility] Total proteinOrdered By: Mushtaq Christy on 07-13-2024 Protein [Mass/Vol] 6.8 g/dL 5.9-8.4 [facility] White blood cell (WBC) count Ordered By: West Christy on 07-13-2024 WBC (Bld) [#/Vol] 6.0 10*3/uL 4.4-11.0 [facility] CBC W/Diff, Automatedon 03-2 Absolute Lymph 1.12 X10 3/uL Normal 0.83-4.51 [facility] Comment on above: Performed By: #### L 500.4050, L504.2610, L100.0100 #### [facility] [address] [place], [place] [address], [address] Absolute Neut 2.7 X10 3/uL Normal 2.0-7.7 [facility] Comment on above: Performed By: #### L 500.4050, L504.2610, L100.0100 #### [facility] [address] [place], [address] Basophils/100 WBC (Bld) 0.9 % Normal 0-1 [facility] Comment on above: Performed By: #### L 500.4050, L504.2610, L100.0100 #### [facility] [address] [place], [address] Eosinophils/100 WBC (Bld) 2.3 % Normal 0-5 [facility] Comment on above: Performed By: #### L 500.4050, L504.2610, L100.0100 #### [facility] [address] [place], [address] Erythrocyte distribution width (RBC) [Ratio] 13.4 % Normal 11.6-14.6 [facility] Comment on above: Performed By: #### L 500.4050, L504.2610, L100.0100 #### [facility] [address] [place], [address] Hematocrit (Bld) [Volume fraction] 40.8 % Normal 37-47 [facility] Comment on above: Performed By: #### L 500.4050, L504.2610, L100.0100 #### [facility] [address] [place], [address] Hemoglobin (Bld) [Mass/Vol] 13.2 g/dL Normal 12.0-15.0 [facility] Comment on above: Performed By: #### L 500.4050, L504.2610, L100.0100 #### [facility] [address] [place], [address] IG% 0.200 Normal 0.0-0.9 [facility] Comment on above: Result Comment: IG% - Immature Granulocytes (promyelocytes, myelocytes and metamyelocytes) > 1% indicates that a LEFT SHIFT is Present. Performed By: #### L 500.4050, L504.2610, L100.0100 #### [facility] [address] [place], [address] Lymphocytes/100 WBC (Bld) 25.9 % Normal 19-41 [facility] Comment on above: Performed By: #### L 500.4050, L504.2610, L100.0100 #### [facility] [address] [place], [address] MCH (RBC) [Entitic mass] 28.6 pg Normal 27.0-32.0 [facility] Comment on above: Performed By: #### L 500.4050, L504.2610, L100.0100 #### [facility] [address] [place], [address] MCHC (RBC) [Mass/Vol] 32.4 g/dL Normal 32-36 [facility] Comment on above: Performed By: #### L 500.4050, L504.2610, L100.0100 #### [facility] [address] [place], [address] MCV (RBC) [Entitic vol] 88.5 fL Normal 81-99 [facility] Comment on above: Performed By: #### L 500.4050, L504.2610, L100.0100 #### [facility] [address] [place], [address] Monocytes/100 WBC (Bld) 8.6 % Normal 0-10 [facility] Comment on above: Performed By: #### L 500.4050, L504.2610, L100.0100 #### [facility] [address] [place], [address] Neutrophils/100 WBC (Bld) 62.1 % Normal 47-70 [facility] Comment on above: Performed By: #### L 500.4050, L504.2610, L100.0100 #### [facility] [address] [place], [address] Nucleated RBC (Bld) [#/Vol] 0 10*3/uL Normal 0-5 [facility] Comment on above: Performed By: #### L 500.4050, L504.2610, L100.0100 #### [facility] [address] [place], [address] Platelet mean volume (Bld) [Entitic vol] 9.0 fL Normal 6.2-12.0 [facility] Comment on above: Performed By: #### L 500.4050, L504.2610, L100.0100 #### [facility] [address] [place], [address] Platelets (Bld) [#/Vol] 265 10*3/uL Normal 150-450 [facility] Comment on above: Performed By: #### L 500.4050, L504.2610, L100.0100 #### [facility] [address] [place], [address] RBC (Bld) [#/Vol] 4.61 10*6/uL Normal 4.2-5.4 [facility] Comment on above: Performed By: #### L 500.4050, L504.2610, L100.0100 #### [facility] [address] [place], [address] RDW SD 43.8 fl Normal 35.1-43.9 [facility] Comment on above: Performed By: #### L 500.4050, L504.2610, L100.0100 #### [facility] [address] [place], [address] WBC (Bld) [#/Vol] 4.3 10*3/uL Low 4.4-11.0 [facility] Comment on above: Performed By: #### L 500.4050, L504.2610, L100.0100 #### [facility] [address] [place], [address] Comprehensive Metabolic Prof ilon 05-18-2024 Albumin [Mass/Vol] 4.4 g/dL Normal 3.5-5.0 [facility] Comment on above: Performed By: #### L 500.4050, L504.2610, L100.0100 ####[facility] [address] [place], [address] Albumin/Globulin [Mass ratio] 1.9 {ratio} Normal 0.9-2.4 [facility] Comment on above: Performed By: #### L 500.4050, L504.2610, L100.0100 ####[facility] [address] [place], [address] ALK PHOS 93 U/L Normal 35-104 [facility] Comment on above: Performed By: #### L 500.4050, L504.2610, L100.0100 ####[facility] [address] [place], [address] ALT [Catalytic activity/Vol] 19 U/L Normal <=34 [facility] Comment on above: Performed By: #### L 500.4050, L504.2610, L100.0100 ####[facility] [address] [place], [address] AST [Catalytic activity/Vol] 20 U/L Normal <=31 [facility] Comment on above: Performed By: #### L 500.4050, L504.2610, L100.0100 ####[facility] [address] [place], [address] Bilirubin [Mass/Vol] 0.20 mg/dL Normal 0.00-1.30 [facility] Comment on above: Performed By: #### L 500.4050, L504.2610, L100.0100 ####[facility] [address] [place], [address] BUN/CRE 20.4 RATIO High 10-20 [facility] Comment on above: Performed By: #### L 500.4050, L504.2610, L100.0100 ####[facility] [address] [place], [address] Calcium [Mass/Vol] 9.3 mg/dL Normal 7.6-11.0 [facility] Comment on above: Performed By: #### L 500.4050, L504.2610, L100.0100 ####[facility] [address] [place], [address] Chloride [Moles/Vol] 106 mmol/L Normal 98-108 [facility] Comment on above: Performed By: #### L 500.4050, L504.2610, L100.0100 ####[facility] [address] [place], [address] CO2 [Moles/Vol] 25.3 mmol/L Normal 21.0-32.0 [facility] Comment on above: Performed By: #### L 500.4050, L504.2610, L100.0100 ####[facility] [address] [place], [address] Creatinine [Mass/Vol] 0.71 mg/dL Normal 0.70-1.20 [facility] Comment on above: Performed By: #### L 500.4050, L504.2610, L100.0100 ####[facility] [address] [place], [address] ECRCL 90.39 ml/min Normal 50-250 [facility] Comment on above: Performed By: #### L 500.4050, L504.2610, L100.0100 ####[facility] [address] [place], [address] GAP 10 Normal 5-15 [facility] Comment on above: Performed By: #### L 500.4050, L504.2610, L100.0100 ####[facility] [address] [place], [address] GFR/1.73 sq M.predicted among non-blacks MDRD (S/P/Bld) [Vol rate/Area] 105 mL/min/{1.73_m2} Normal >60 [facility] Comment on above: Result Comment: mL/m in/1.73m2 CKD-EPI Creatinine Equation (2020) Performed By: #### L 500.4050, L504.2610, L100.0100 ####[facility] [address] [place], [address] Globulin (S) [Mass/Vol] 2.3 g/dL Normal 2.2-4.2 [facility] Comment on above: Performed By: #### L 500.4050, L504.2610, L100.0100 ####[facility] [address] [place], [address] Glucose [Mass/Vol] 94 mg/dL Normal 70-99 [facility] Comment on above: Performed By: #### L 500.4050, L504.2610, L100.0100 ####[facility] [address] [place], [address] Potassium [Moles/Vol] 4.1 mmol/L Normal 3.3-5.1 [facility] Comment on above: Performed By: #### L 500.4050, L504.2610, L100.0100 ####[facility] [address] [place], [address] Sodium [Moles/Vol] 141 mmol/L Normal 133-145 [facility] Comment on above: Performed By: #### L 500.4050, L504.2610, L100.0100 ####[facility] [address] [place], [address] T PROT 6.7 g/dL Normal 5.9-8.4 [facility] Comment on above: Performed By: #### L 500.4050, L504.2610, L100.0100 ####[facility] [address] [place], [address] Urea nitrogen [Mass/Vol] 14 mg/dL Normal 4-19 [facility] Comment on above: Performed By: #### L 500.4050, L504.2610, L100.0100 ####[facility] [address] [place], [address] LDHon 05-18-2024 LDH 170 U/L Normal 84-246 [facility] Comment on above: Order Comment: 1 Performed By: #### L 500.4050, L504.2610, L100.0100 #### [facility] [address] [place], [address] Oncology Visit Reporton 04-26 Oncology Visit Report [facility] [place] [facility] [address] [place] [address] OFFICE VISIT Date of Service: 05/18/24 1259 MR#: [id number] Acct: [id number] Name: ELVIRARUTHY Rep #: [id number] : 1975 From: West Christy MD Age/Sex: 48/F [place] [facility] [place]: Signed HPI Subjective Date of Service 05/18/24 Chief Complaint Lymphoma on treatment History of Present Illness 47-year-old female postmenopausal who self palpated a left-sided abdominal mass, painless but with a sense of bloating. February 15, 2022 CT abdomen and pelvis: IMPRESSION: Extensive retroperitoneal and mesenteric lymphadenopathy.??? Lymphadenopathy is also seen in the peripancreatic and periportal region. Small amount of free fluid is seen in the cul-de-sac. March 08, 2022 Anterior abdominal mass, CT-guided core biopsy: Consistent with involvement by non-Hodgkin B-cell lymphoma, follicular lymphoma with predominantly diffuse pattern, grade 1/3. ANTIBODY / CLONE RESULT AE1-3 (AE1/AE3/PCK26) negative CD3 (PS1) negative CD5 (SP10) negative CD10 (56C6) positive CD20 (L26) positive CD23 (1B12) negative CD43 (L60) negative CD45 (RP2/18) positive CD79a (11E3) positive BCL-2 (bcl-2/100/D5) positive BCL-6 (QN907G/A8) positive Cyclin D1/BCL-1 (SP4) negative MUM1 (MRQ-43) negative C-MYC (Y69) negative CK8 (19nvtpM82) negative Ki-67 (30-9) positive, low PET/CT March 21, 2022 initial staging: IMPRESSION: 1. ABNORMAL EXAMINATION INDICATIVE OF MALIGNANT-VIABLE NEOPLASM. 2. Increased radiopharmaceutical concentration defined in the anterior mediastinum fulfill quantitative criteria for viable neoplasm. 3. The increase in tracer uptake noted in the right anterior neck involving Level and bilateral axilla soft tissue primarily without fatty hilus formation fulfills quantitative criteria for malignant transformation. 4. Abdominal and pelvic retroperitoneal and mesenteric mass formation, nodular foci demonstrated in the right retrocrural, cardiophrenic border and right external iliac lymph node basins fulfill quantitative criteria for viable neoplasm. 5.??? There is visualized in the thoracic infiltration noted in a normal sized spleen. October 16, 2022 PET/CT restaging at the conclusion of treatment: IMPRESSION: 1. NEGATIVE EXAMINATION. There is no definitive quantitative scintigraphic evidence of recurrent/viable neoplasm. 2. There is interim metabolic resolution of all prior defined quantitatively significant hypermetabolic foci. 3. Overall, compared to the prior FDG PET study dated 03/21/22, there is current absence of defined viable neoplastic disease. April 12, 2023 CT chest abdomen and pelvis: IMPRESSION: Stable examination. May 08, 2024 CT chest abdomen and pelvis: IMPRESSION: Stable examination. No acute abnormality is seen. Treatment summary and response: Bendamustine Rituxan March 27-August 21, 2022 (6 cycles). CR Rituxan 2 years maintenance September 2022??? PFSH Medical History Encounter for immunotherapy Costochondritis Cough Rib pain Post-menopausal History of chemotherapy Encounter for chemotherapy management Pharyngitis Hemorrhoid Headache Encounter for education Cancer Anxiety Anemia Dietary restriction Gastric reflux Non-smoker Encounter for adjustment and management of vascular access device Follicular lymphoma Encounter for screening for COVID-19 Abnormal uterine bleeding Breast pain, left Preventative health care Generalized anxiety disorder Insomnia Malabsorption Lactose intolerance Surgical History Hx of colonoscopy History of wisdom tooth extraction History of appendectomy Family History Father Hypertension Skin cancer Mother Breast cancer Social History Smoking Status: Never smoker alcohol intake: never substance use type: does not use what type of physical activity do you participate in: running and yoga frequency: 3-4 times per week ROS Constitutional Constitutional: Reports systems reviewed and no addt'l complaints, except as documented; Denies fatigue, fever(s), night sweats or weight loss Eyes Eyes: Reports systems reviewed and no addt'l complaints, except as documented ENT HEENT: Reports systems reviewed and no addt'l complaints, except as documented Cardiovascular Cardiovascular: Reports systems reviewed and no addt'l complaints, except as documented; Denies chest pain with activity or edema Respiratory/Chest Respiratory/Chest: Reports systems reviewed and no addt'l complaints, except as documented; Denies cough or dyspnea on exertion Gastrointestinal Gastrointestinal: (more content not included)... Normal [facility] CT Chest, Abd, Pel w/Contras ton 05-08-2024 CT Chest, Abd, Pel w/Contrast [facility] Imaging Services [address] [address] CT Chest, Abd, Pel w/Contrast MR#: [id number] Acct: [id number] Name: RUTHY FELIX Rep #: [id number] : 1975 F 48 From: Anurag huggins MD PCP: Dr. Bob Tristan MD Status: REG CLI Study: CT Chest, Abd, Pel w/Contrast Date of Exam: Exam# [id number] Ordering Dr: West Christy MD PROCEDURE: CT CHEST, ABD, PEL W/CONTRAST REASON FOR EXAM: F/U NHL TECHNIQUE: Chest, abdomen and pelvis CT with intravenous contrast. No oral contrast. CONTRAST: 100 cc of Isovue-300. COMPARISON: Comparison is made with prior study dated April 12, 2023. FINDINGS: CT CHEST: Hardware: A right-sided port a catheter is seen with the tip in the superior vena cava. Lymph nodes: No mediastinal hilar or axillary lymphadenopathy. Heart and Vasculature: Normal heart size. No pericardial effusion. Thoracic aorta and pulmonary arteries are unremarkable. Lungs and Airways: The lungs are normally expanded and clear. Pleura: No pleural effusion. No pneumothorax. Bones: Unremarkable. CT ABDOMEN/PELVIS: Liver: Unremarkable. Gallbladder: Unremarkable. Spleen: Unremarkable. Pancreas: Unremarkable. Adrenals: Unremarkable. Kidneys: Unremarkable. Bladder: Unremarkable. Reproductive Organs: Small follicles are seen in the left ovary. Minimal amount of free fluid is seen in the cul-de-sac most likely related to the patient's menstrual cycle. Bowel: Unremarkable. Appendix: Status post appendectomy. Lymph nodes: No suspicious lymph node enlargement. Vasculature: Major vascular structures are unremarkable. Peritoneum / Retroperitoneum: No ascites. No free air. Bones: Unremarkable. CT/CT Chest, Abd, Pel w/Contrast IMPRESSION: Stable examination. No acute abnormality is seen. One or more dose reduction techniques were used (e.g., Automated exposure control, adjustment of the mA and/or kV according to patient size, use of iterative reconstruction technique). Reading Location: [facility] CC: Dr. Bob Tristan MD; Dr. West Christy MD Telecommunications Repairer: Signed Normal [facility] Soft Tissue Neck WITH Contra ston 05-08-2024 Soft Tissue Neck WITH Contrast [facility] Imaging Services [address] [place] [id number] Soft Tissue Neck WITH Contrast MR#: [id number] Acct: [id number] Name: RUTHY FELIX Rep #: [id number] : 1975 F 48 From: Anurag huggins MD PCP: Dr. Bob Tristan MD Status: REG CLI Study: Soft Tissue Neck WITH Contrast Date of Exam: 0 05/08/24 Exam# [id number] Ordering Dr: West Christy MD PROCEDURE: SOFT TISSUE NECK WITH CONTRAST REASON FOR EXAM: F/U LYMPHOMA TECHNIQUE: CT of the soft tissues of the neck from the orbits to the upper mediastinum with intravenous contrast. CONTRAST: 96 cc of Isovue 370. COMPARISON: Comparison is made with prior study dated June 13, 2022. FINDINGS: A right-sided port a catheter is seen with the tip in the superior vena cava. Airway: Midline and patent. Salivary glands: Unremarkable. Lymph nodes: No cervical lymphadenopathy. Thyroid: Unremarkable. Vasculature: Carotid arteries and internal jugular veins are unremarkable. Orbits: Unremarkable at visualized levels. Paranasal sinuses and mastoids: Grossly clear at visualized levels. Lung apices: Clear. Upper mediastinum: Visualized mediastinum is unremarkable. Bones: Unremarkable. CT/Soft Tissue Neck WITH Contrast IMPRESSION: NO ACUTE FINDINGS. Stable examination. One or more dose reduction techniques were used (e.g., Automated exposure control, adjustment of the mA and/or kV according to patient size, use of iterative reconstruction technique). Reading Location: [place] [address] CC: Dr. Bob Tristan MD; Dr. West Christy MD Telecommunications Repairer: Signed Normal [facility] Absolute neutrophil countOrd ered By: West Christy on 03-16-2024 Neutrophils (Bld) [#/Vol] 2.2 10*3/uL 2.0-7.7 [facility] Albumin to globulin ratioOrd ered By: West Christy on 03-16-2024 Albumin/Globulin [Mass ratio] 1.2 {ratio} 0.9-2.4 [facility] Basophil percentageOrdered B y: West [place] on 03-16-2024 Basophils/100 WBC (Bld) 0.8 % 0-1 [facility] Bilirubin, totalOrdered By: West Brownlibertad on 03-16-2024 Bilirubin [Mass/Vol] 0.40 mg/dL 0.20-1.00 [facility] Comment on above: For patients on eltr ombopag therapy, use of Dimension Orwell TBIL is not recommended. Blood urea nitrogen (BUN)/cr eatinine ratioOrdered By: West [place]ley on 03-16-2024 Urea nitrogen/Creatinine [Mass ratio] 12.6 mg/mg - [facility] CBC W/Diff, Automatedon 02-26 Absolute Lymph 0.89 X10 3/uL Normal 0.83-4.51 [facility] Comment on above: Performed By: #### L 500.4050, L504.2610, L100.0100 #### [facility] [address] [place], [address] Absolute Neut 2.2 X10 3/uL Normal 2.0-7.7 [facility] Comment on above: Performed By: #### L 500.4050, L504.2610, L100.0100 #### [facility] [address] [place], [address] Basophils/100 WBC (Bld) 0.8 % Normal 0-1 [facility] Comment on above: Performed By: #### L 500.4050, L504.2610, L100.0100 #### [facility] [address] [place], [address] Eosinophils/100 WBC (Bld) 2.0 % Normal 0-5 [facility] Comment on above: Performed By: #### L 500.4050, L504.2610, L100.0100 #### [facility] [address] [place], [address] Erythrocyte distribution width (RBC) [Ratio] 13.2 % Normal 11.6-14.6 [facility] Comment on above: Performed By: #### L 500.4050, L504.2610, L100.0100 #### [facility] [address] [place], [address] Hematocrit (Bld) [Volume fraction] 41.0 % Normal 37-47 [facility] Comment on above: Performed By: #### L 500.4050, L504.2610, L100.0100 #### [facility] [address] [place], [address] Hemoglobin (Bld) [Mass/Vol] 13.3 g/dL Normal 12.0-15.0 [facility] Comment on above: Performed By: #### L 500.4050, L504.2610, L100.0100 #### [facility] [address] [place], [address] IG% 0.300 Normal 0.0-0.9 [facility] Comment on above: Result Comment: IG% - Immature Granulocytes (promyelocytes, myelocytes and metamyelocytes) > 1% indicates that a LEFT SHIFT is Present. Performed By: #### L 500.4050, L504.2610, L100.0100 #### [facility] [address] [place], [address] Lymphocytes/100 WBC (Bld) 25.2 % Normal 19-41 [facility] Comment on above: Performed By: #### L 500.4050, L504.2610, L100.0100 #### [facility] [address] [place], [address] MCH (RBC) [Entitic mass] 28.2 pg Normal 27.0-32.0 [facility] Comment on above: Performed By: #### L 500.4050, L504.2610, L100.0100 #### [facility] [address] [place], [address] MCHC (RBC) [Mass/Vol] 32.4 g/dL Normal 32-36 [facility] Comment on above: Performed By: #### L 500.4050, L504.2610, L100.0100 #### [facility] [address] [place], [address] MCV (RBC) [Entitic vol] 86.9 fL Normal 81-99 [facility] Comment on above: Performed By: #### L 500.4050, L504.2610, L100.0100 #### [facility] [address] [place], [address] Monocytes/100 WBC (Bld) 8.2 % Normal 0-10 [facility] Comment on above: Performed By: #### L 500.4050, L504.2610, L100.0100 #### [facility] [address] [place], [address] Neutrophils/100 WBC (Bld) 63.5 % Normal 47-70 [facility] Comment on above: Performed By: #### L 500.4050, L504.2610, L100.0100 #### [facility] [address] [place], [address] Nucleated RBC (Bld) [#/Vol] 0 10*3/uL Normal 0-5 [facility] Comment on above: Performed By: #### L 500.4050, L504.2610, L100.0100 #### [facility] [address] [place], [address] Platelet mean volume (Bld) [Entitic vol] 9.3 fL Normal 6.2-12.0 [facility] Comment on above: Performed By: #### L 500.4050, L504.2610, L100.0100 #### [facility] [address] [place], [address] Platelets (Bld) [#/Vol] 269 10*3/uL Normal 150-450 [facility] Comment on above: Performed By: #### L 500.4050, L504.2610, L100.0100 #### [facility] [address] [place], [address] RBC (Bld) [#/Vol] 4.72 10*6/uL Normal 4.2-5.4 [facility] Comment on above: Performed By: #### L 500.4050, L504.2610, L100.0100 #### [facility] [address] [place], [address] RDW SD 41.6 fl Normal 35.1-43.9 [facility] Comment on above: Performed By: #### L 500.4050, L504.2610, L100.0100 #### [facility] [address] [place], [address] WBC (Bld) [#/Vol] 3.5 10*3/uL Low 4.4-11.0 [facility] Comment on above: Performed By: #### L 500.4050, L504.2610, L100.0100 #### [facility] [address] [place], [address] Carbon dioxide measurementOr dered By: West Christy on 03-16-2024 CO2 [Moles/Vol] 30.0 mmol/L 21.0-32.0 [facility] Chloride measurementOrdered By: West Christy on 03-16-2024 Chloride [Moles/Vol] 111 mmol/L High 98-107 [facility] Comprehensive Metabolic Prof ilon 03-16-2024 Albumin [Mass/Vol] 3.7 g/dL Normal 3.2-5.0 [facility] Comment on above: Order Comment: 1 Performed By: #### L 500.4050, L504.2610, L100.0100 #### [facility] [address] [place], [address] Albumin/Globulin [Mass ratio] 1.2 {ratio} Normal 0.9-2.4 [facility] Comment on above: Order Comment: 1 Performed By: #### L 500.4050, L504.2610, L100.0100 #### [facility] [address] [place], [address] ALK P 99 U/L Normal 45-117 [facility] Comment on above: Order Comment: 1 Performed By: #### L 500.4050, L504.2610, L100.0100 #### [facility] [address] [place], [address] ALT [Catalytic activity/Vol] 24 U/L Normal 13-56 [facility] Comment on above: Order Comment: 1 Performed By: #### L 500.4050, L504.2610, L100.0100 #### [facility] [address] [place], [address] AST [Catalytic activity/Vol] 16 U/L Normal 15-37 [facility] Comment on above: Order Comment: 1 Performed By: #### L 500.4050, L504.2610, L100.0100 #### [facility] [address] [place], [address] Bilirubin [Mass/Vol] 0.40 mg/dL Normal 0.20-1.00 [facility] Comment on above: Order Comment: 1 Result Comment: For patients on eltrombopag therapy, use of Dimension Orwell TBIL is not recommended. Performed By: #### L 500.4050, L504.2610, L100.0100 #### [facility] [address] [place], [address] BUN/CRE 12.6 RATIO Normal 10-20 [facility] Comment on above: Order Comment: 1 Performed By: #### L 500.4050, L504.2610, L100.0100 #### [facility] [address] [place], [address] CA,Total 9.4 mg/dL Normal 8.5-10.1 [facility] Comment on above: Order Comment: 1 Performed By: #### L 500.4050, L504.2610, L100.0100 #### [facility] [address] [place], [address] Chloride [Moles/Vol] 111 mmol/L High 98-107 [facility] Comment on above: Order Comment: 1 Performed By: #### L 500.4050, L504.2610, L100.0100 #### [facility] [address] [place], [address] CO2 [Moles/Vol] 30.0 mmol/L Normal 21.0-32.0 [facility] Comment on above: Order Comment: 1 Performed By: #### L 500.4050, L504.2610, L100.0100 #### [facility] [address] [place], [address] Creatinine [Mass/Vol] 0.72 mg/dL Normal 0.55-1.02 [facility] Comment on above: Order Comment: 1 Result Comment: The validity of the calculated GFR GFRAA in patients over 70 years has not been determined. Clinical correlation is essential. Performed By: #### L 500.4050, L504.2610, L100.0100 #### [facility] [address] [place], [address] ECRCL 89.58 ml/min Normal [facility] Comment on above: Order Comment: 1 Performed By: #### L 500.4050, L504.2610, L100.0100 #### [facility] [address] [place], [address] EST GFR - AA 111 mL/min Normal >60 [facility] Comment on above: Order Comment: 1 Result Comment: Afri can Peruvian GFR Calc Performed By: #### L 500.4050, L504.2610, L100.0100 #### [facility] [address] [place], [address] GAP 3 Low 5-15 [facility] Comment on above: Order Comment: 1 Performed By: #### L 500.4050, L504.2610, L100.0100 #### [facility] [address] [place], [address] GFR/1.73 sq M.predicted among non-blacks MDRD (S/P/Bld) [Vol rate/Area] 92 mL/min/{1.73_m2} Normal >60 [facility] Comment on above: Order Comment: 1 Result Comment: Non- GFR Calc Performed By: #### L 500.4050, L504.2610, L100.0100 #### [facility] [address] [place], [address] Globulin (S) [Mass/Vol] 3.2 g/dL Normal 2.2-4.2 [facility] Comment on above: Order Comment: 1 Performed By: #### L 500.4050, L504.2610, L100.0100 #### [facility] [address] [place], [address] Glucose [Mass/Vol] 87 mg/dL Normal 74-106 [facility] Comment on above: Order Comment: 1 Performed By: #### L 500.4050, L504.2610, L100.0100 #### [facility] [address] [place], [address] Potassium [Moles/Vol] 3.9 mmol/L Normal 3.5-5.1 [facility] Comment on above: Order Comment: 1 Performed By: #### L 500.4050, L504.2610, L100.0100 #### [facility] [address] [place], [address] Sodium [Moles/Vol] 143 mmol/L Normal 136-145 [facility] Comment on above: Order Comment: 1 Performed By: #### L 500.4050, L504.2610, L100.0100 #### [facility] [address] [place], [address] T PROT 6.9 g/dL Normal 6.4-8.2 [facility] Comment on above: Order Comment: 1 Performed By: #### L 500.4050, L504.2610, L100.0100 #### [facility] [address] [place], [address] Urea nitrogen [Mass/Vol] 9 mg/dL Normal 7-18 [facility] Comment on above: Order Comment: 1 Performed By: #### L 500.4050, L504.2610, L100.0100 #### [facility] [address] [place], [address] Eosinophil percentageOrdered By: West Christy on 03-16-2024 Eosinophils/100 WBC (Bld) 2.0 % 0-5 [facility] Erythrocyte distribution wid th ratioOrdered By: West Christy on 03-16-2024 Erythrocyte distribution width (RBC) [Ratio] 13.2 % 11.6-14.6 [facility] Erythrocyte distribution wid th standard deviationOrdered By: West Christy on 03-16-2024 Erythrocyte distribution width (RBC) [Entitic vol] 41.6 fL 35.1-43.9 [facility] Estimated glomerular filtrat ion rate (GFR) AmericanOrdered By: West Christy on 03-16-2024 Estimated GFR (MDRD) Amer 111 mL/min >60 [facility] Comment on above: GFR Calc Estimation of creatinine kathia aranceOrdered By: West Christy on 03-16-2024 Estimated Creatinine Clearance Calc 89.58 ml/min [facility] Glomerular filtration rate ( GFR) estimationOrdered By: West Christy on 03-16-2024 Estimated GFR (MDRD) Non-Af Amer 92 mL/min >60 [facility] Comment on above: Non- GFR Calc Glucose measurementOrdered B y: West Christy on 03-16-2024 Glucose [Mass/Vol] 87 mg/dL 74-106 [facility] Hematocrit Auto (Bld) [Volum e fraction]Ordered By: West Christy on 03-16-2024 Hematocrit (Bld) [Volume fraction] 41.0 % 37-47 [facility] Hemoglobin measurementOrdere d By: West Christy on 03-16-2024 Hemoglobin (Bld) [Mass/Vol] 13.3 g/dL 12.0-15.0 [facility] Immature granulocytes/100 WB C Auto (Bld)Ordered [facility]: [facility] on 03-16-2024 Immature granulocytes/100 WBC (Bld) 0.300 % 0.0-0.9 [facility] Comment on above: IG% - Immature Granu locytes (promyelocytes, myelocytes and metamyelocytes) > 1% indicates that a LEFT SHIFT is Present. LDHon 03-16-2024 LDH 158 U/L Normal 84-246 [facility] Comment on above: Order Comment: 1 Performed By: #### L 500.4050, L504.2610, L100.0100 #### [facility] [address] [place] [address], [address] Laboratory - Chemistry and C hemistry - challengeOrdered By: West Christy on 03-16-2024 AST [Catalytic activity/Vol] 16 U/L 15-37 [facility] Lactate dehydrogenase (LDH) measurementOrdered By: [facility] on 03-16-2024 LDH [Catalytic activity/Vol] 158 U/L 84-246 [facility] Lymphocytes Auto (Unsp spec) [#/Vol]Ordered By: West Christy on 03-16-2024 Lymphocytes (Bld) [#/Vol] 0.89 10*3/uL 0.83-4.51 [facility] Lymphocytes/100 WBC Auto (Un sp spec)Ordered By: West Christy on 03-16-2024 Lymphocytes/100 WBC (Bld) 25.2 % 19-41 [facility] MCV (mean corpuscular volume ) determinationOrdered By: West Christy on 03-16-2024 MCV (RBC) [Entitic vol] 86.9 fL 81-99 [facility] Mean corpuscular hemoglobin (MCH) determinationOrdered By: West Christy on 03-16-2024 MCH (RBC) [Entitic mass] 28.2 pg 27.0-32.0 [facility] Mean corpuscular hemoglobin concentration (MCHC) determinationOrdered By: West Christy on 03-16-2024 MCHC (RBC) [Mass/Vol] 32.4 g/dL 32-36 [facility] Mean platelet volume determi nationOrdered By: West Christy on 03-16-2024 Platelet mean volume (Bld) [Entitic vol] 9.3 fL 6.2-12.0 [facility] Monocyte percentageOrdered B y: West Christy on 03-16-2024 Monocytes/100 WBC (Bld) 8.2 % 0-10 [facility] Neutrophil percentageOrdered By: West Christy on 03-16-2024 Neutrophils/100 WBC (Bld) 63.5 % 47-70 [facility] Nucleated red blood cell per centageOrdered By: West Christy on 03-16-2024 Nucleated RBC/100 WBC (Bld) [Ratio] 0 % 0-5 [facility] Oncology Visit Reporton 02-26 Oncology Visit Report [facility] [place] [facility] [address] [place] [address] OFFICE VISIT Date of Service: 03/16/24 0856 MR#: [id number] Acct: [id number] Name: RUTHY FELIX Pili Rep #: [id number] : 1975 From: West Christy MD Age/Sex: 48/F [place] [facility] [place]: Signed HPI Subjective Date of Service 03/16/24 Chief Complaint Lymphoma on treatment History of Present Illness 47-year-old female postmenopausal who self palpated a left-sided abdominal mass, painless but with a sense of bloating. February 15, 2022 CT abdomen and pelvis: IMPRESSION: Extensive retroperitoneal and mesenteric lymphadenopathy.??? Lymphadenopathy is also seen in the peripancreatic and periportal region. Small amount of free fluid is seen in the cul-de-sac. March 08, 2022 Anterior abdominal mass, CT-guided core biopsy: Consistent with involvement by non-Hodgkin B-cell lymphoma, follicular lymphoma with predominantly diffuse pattern, grade 1/3. ANTIBODY / CLONE RESULT AE1-3 (AE1/AE3/PCK26) negative CD3 (PS1) negative CD5 (SP10) negative CD10 (56C6) positive CD20 (L26) positive CD23 (1B12) negative CD43 (L60) negative CD45 (RP2/18) positive CD79a (11E3) positive BCL-2 (bcl-2/100/D5) positive BCL-6 (QW039A/A8) positive Cyclin D1/BCL-1 (SP4) negative MUM1 (MRQ-43) negative C-MYC (Y69) negative CK8 (47spbbC81) negative Ki-67 (30-9) positive, low PET/CT March 21, 2022 initial staging: IMPRESSION: 1. ABNORMAL EXAMINATION INDICATIVE OF MALIGNANT-VIABLE NEOPLASM. 2. Increased radiopharmaceutical concentration defined in the anterior mediastinum fulfill quantitative criteria for viable neoplasm. 3. The increase in tracer uptake noted in the right anterior neck involving Level and bilateral axilla soft tissue primarily without fatty hilus formation fulfills quantitative criteria for malignant transformation. 4. Abdominal and pelvic retroperitoneal and mesenteric mass formation, nodular foci demonstrated in the right retrocrural, cardiophrenic border and right external iliac lymph node basins fulfill quantitative criteria for viable neoplasm. 5.??? There is visualized in the thoracic infiltration noted in a normal sized spleen. October 16, 2022 PET/CT restaging at the conclusion of treatment: IMPRESSION: 1. NEGATIVE EXAMINATION. There is no definitive quantitative scintigraphic evidence of recurrent/viable neoplasm. 2. There is interim metabolic resolution of all prior defined quantitatively significant hypermetabolic foci. 3. Overall, compared to the prior FDG PET study dated 03/21/22, there is current absence of defined viable neoplastic disease. April 12, 2023 CT chest abdomen and pelvis: IMPRESSION: Stable examination. Treatment summary and response: Bendamustine Rituxan March 27-August 21, 2022 (6 cycles). CR Rituxan 2 years maintenance September 2022??? PFSH Medical History Encounter for immunotherapy Costochondritis Cough Rib pain Post-menopausal History of chemotherapy Encounter for chemotherapy management Pharyngitis Hemorrhoid Headache Encounter for education Cancer Anxiety Anemia Dietary restriction Gastric reflux Non-smoker Encounter for adjustment and management of vascular access device Follicular lymphoma Encounter for screening for COVID-19 Abnormal uterine bleeding Breast pain, left Preventative health care Generalized anxiety disorder Insomnia Malabsorption Lactose intolerance Surgical History Hx of colonoscopy History of wisdom tooth extraction History of appendectomy Family History Father Hypertension Skin cancer Mother Breast cancer Social History Smoking Status: Never smoker alcohol intake: never substance use type: does not use what type of physical activity do you participate in: running and yoga frequency: 3-4 times per week ROS Constitutional Constitutional: Reports systems reviewed and no addt'l complaints, except as documented; Denies fatigue, fever(s), night sweats or weight loss Eyes Eyes: Reports systems reviewed and no addt'l complaints, except as documented ENT HEENT: Reports systems reviewed and no addt'l complaints, except as documented Cardiovascular Cardiovascular: Reports systems reviewed and no addt'l complaints, except as documented; Denies chest pain with activity or edema Respiratory/Chest Respiratory/Chest: Reports systems reviewed and no addt'l complaints, except as documented; Denies cough or dyspnea on exertion Gastrointestinal Gastrointestinal: Reports systems reviewed and no addt'l complaints, except as documented; Denies abdominal pain, bloating, change i (more content not included)... Normal [facility] Platelet countOrdered By: Rima Christy on 03-16-2024 Platelets (Bld) [#/Vol] 269 10*3/uL 150-450 [facility] Potassium measurementOrdered By: West Christy on 03-16-2024 Potassium [Moles/Vol] 3.9 mmol/L 3.5-5.1 [facility] RBC Auto (Bld) [#/Vol]Ordere d By: West Christy on 03-16-2024 RBC (Bld) [#/Vol] 4.72 10*6/uL 4.2-5.4 [facility] Serum anion gap measurementO rdered By: West Christy on 03-16-2024 Anion gap [Moles/Vol] 3 mmol/L Low 5-15 [facility] Serum globulin measurementOr dered By: West Christy on 03-16-2024 Globulin (S) [Mass/Vol] 3.2 g/dL 2.2-4.2 [facility] Serum or plasma alanine brunner otransferase (ALT) measurementOrdered By: West Christy on 03-16-2024 ALT [Catalytic activity/Vol] 24 U/L 13-56 [facility] Serum or plasma albumin elaina urement (mass/volume)Ordered By: West Christy on 03-16-2024 Albumin [Mass/Vol] 3.7 g/dL 3.2-5.0 [facility] Serum or plasma alkaline mouna sphatase measurementOrdered By: West Christy on 03-16-2024 ALP [Catalytic activity/Vol] 99 U/L 45-117 [facility] Serum or plasma calcium elaina urement (mass/volume)Ordered By: West Christy on 03-16-2024 Calcium [Mass/Vol] 9.4 mg/dL 8.5-10.1 [facility] Serum or plasma creatinine m easurement (mass/volume)Ordered By: West Christy on 03-16-2024 Creatinine [Mass/Vol] 0.72 mg/dL 0.55-1.02 [facility] Comment on above: The validity of the calculated GFR & GFRAA in patients over 70 years has not been determined. Clinical correlation is essential. Serum or plasma urea nitroge n measurement (mass/volume)Ordered By: West Christy on 03-16-2024 Urea nitrogen [Mass/Vol] 9 mg/dL 7-18 [facility] Sodium levelOrdered By: Blade Christy on 03-16-2024 Sodium [Moles/Vol] 143 mmol/L 136-145 [facility] Total proteinOrdered By: Mushtaq Christy on 03-16-2024 Protein [Mass/Vol] 6.9 g/dL 6.4-8.2 [facility] White blood cell (WBC) count Ordered By: West Christy on 03-16-2024 WBC (Bld) [#/Vol] 3.5 10*3/uL Low 4.4-11.0 [facility] S. pyogenes Ag IA.rapid Ql ( Throat)on 03-02-2024 S. pyogenes Ag IA Ql (Unsp spec) Negative [facility] Urgent Care Visit Reporton 0 03-02-2024 Urgent Care Visit Report [facility] [address], [address] [place] [address] OFFICE VISIT Date of Service: 03/02/24 MR#: [id number] Acct: [id number] Name: RTUHY FELIX Pili Rep #: [id number] : 1975 Provider: JOANIE Nichole Age/Sex: 48/F Location: [facility] Status: Signed Intake Vital Signs 01/15/24 13:08 03/02/24 10:24 Height 5 ft 4 in Weight: 150 lb BMI 25.7 BP 106/72 112/72 Blood Pressure Location Rt brachial Lt brachial Position Sitting Sitting Respiration 18 12 Pulse 80 82 Pulse Source Monitor NIBP Temp 97.7 F L 98.4 F Temp Source Oral Pulse Oximetry (%) 98 96 Oxygen Delivery Method room air room air Intake Visit Reasons: ST, LISA. Chief Complaint: st, congestion, runny nose x4 days Leacher Required: No Is patient in pain?: No Allergies Sulfa (Sulfonamide Antibiotics) Allergy (Verified 03/02/24 10:25) Hives omeprazole Adverse Reaction (Intermediate, Verified 03/02/24 10:25) VOMITING Medications ???Medication ???Instructions ???Recorded ???Confirmed ???Type meclizine 25 mg tablet 25 mg PO TID #30 tabs 07/12/23 03/02/24 Rx pentamidine 300 mg solution for 300 mg inhalation Q4W pcp 11/13/23 03/02/24 Rx inhalation prophylaxis 12 months #1 ea benzonatate 200 mg capsule 200 mg PO TID PRN cough #20 caps 03/02/24 03/02/24 Rx methylprednisolone 4 mg tablets in See Rx Instructions PO PER PKG DIR 03/02/24 03/02/24 Rx a dose pack (Medrol (Nathanael)) #21 tabs Is last menstrual period known: No Post menopausal: No Patient : No Have you fallen in the past year?: No Nurse's Note: patient here for ST, Congestion, runny nose x4 days. [facility] Medical History Encounter for immunotherapy Costochondritis Cough Rib pain Post-menopausal History of chemotherapy Encounter for chemotherapy management Pharyngitis Hemorrhoid Headache Encounter for education Cancer Anxiety Anemia Dietary restriction Gastric reflux Non-smoker Encounter for adjustment and management of vascular access device Follicular lymphoma Encounter for screening for COVID-19 Abnormal uterine bleeding Breast pain, left Preventative health care Generalized anxiety disorder Insomnia Malabsorption Lactose intolerance Surgical History Hx of colonoscopy History of wisdom tooth extraction History of appendectomy Family History Father Hypertension Skin cancer Mother Breast cancer Social History Smoking Status: Never smoker alcohol intake: never substance use type: does not use what type of physical activity do you participate in: running and yoga frequency: 3-4 times per week HPI HPI Chief Complaint: st, congestion, runny nose x4 days Details: RUTHY FELIX, is a 48 F who presents to the office today for [facility] for approximately 4 day history of persistent sore throat, cough, congestion/ runny nose. Patient notes no complaints of chest pain or shortness of breath or dyspnea on exertion. Several close contacts recently dx???d w/ similar URI complaints. Home COVID-19 test last evening was negative; requesting streptococcal pharyngitis screening today. No [id number] taken to assist. No other associated symptoms and no other alleviating/aggravatin g factors. ROS Const Constitutional: No other (As above) Exam Const General: cooperative, healthy appearing and no acute distress Orientation: alert, awake and oriented x3 HENMT Head: normal to inspection Ears: hearing grossly normal bilaterally, external ears normal, TM's normal bilaterally and EAC's normal Nose: external nose normal, nares normal, septum normal and clear nasal discharge Face and sinus: normal facial exam, sinuses nontender and face symmetric Mouth: oral mucosae normal, lip normal, tongue normal and oropharynx normal Throat: posterior oropharynx normal, tonsils erythematous without exudate or hypertrophy, uvula midline and no postnasal drainage Eyes General: appearance normal, both eyes and all related structures Neck Neck: normal visual inspection, full ROM, no lymphadenopathy, no meningeal signs and supple Neck mass: No Thyroid: thyroid normal Lymphatic: no lymphadenopathy noted Chest Chest palpation inspection: normal inspection of the chest Resp Effort Inspection: normal respiratory effort, able to speak in complete sentences and cough Quality of cough: wet (nonproductive in office today) Auscultation: Bilateral: Clear to Auscultation Cardio Palpation: normal PMI Rate: tachycardic Rhythm: regular rhythm Heart Sounds: S1 normal, S2 normal, no gallops, no mur (more content not included)... Normal [facility] CBC W/Diff, Automatedon 11-2 0-2023 Absolute Lymph 0.91 X10 3/uL Normal 0.83-4.51 [facility] Comment on above: Performed By: #### L 100.0100, L504.2610, L500.4050 #### [facility] [address] [place], [address] Absolute Neut 3.0 X10 3/uL Normal 2.0-7.7 [facility] Comment on above: Performed By: #### L 100.0100, L504.2610, [id number] #### [facility] [address] [place], [address] Basophils/100 WBC (Bld) 1.1 % High 0-1 [facility] Comment on above: Performed By: #### L 100.0100, L504.2610, [id number] #### [facility] [address] [place], [address] Eosinophils/100 WBC (Bld) 2.3 % Normal 0-5 [facility] Comment on above: Performed By: #### L 100.0100, L504.2610, [id number] #### [facility] [address] [place], [address] Erythrocyte distribution width (RBC) [Ratio] 13.2 % Normal 11.6-14.6 [facility] Comment on above: Performed By: #### L 100.0100, L504.2610, [id number] #### [facility] [address] [place], [address] Hematocrit (Bld) [Volume fraction] 41.2 % Normal 37-47 [facility] Comment on above: Performed By: #### L 100.0100, L504.2610, [id number] #### [facility] [address] [place], [address] Hemoglobin (Bld) [Mass/Vol] 13.6 g/dL Normal 12.0-15.0 [facility] Comment on above: Performed By: #### L 100.0100, L504.2610, L500.4050 #### [facility] [address] [place], [address] IG% 0.200 Normal 0.0-0.9 [facility] Comment on above: Result Comment: IG% - Immature Granulocytes (promyelocytes, myelocytes and metamyelocytes) > 1% indicates that a LEFT SHIFT is Present. Performed By: #### L 100.0100, L504.2610, L500.4050 #### [facility] [address] [place], [address] Lymphocytes/100 WBC (Bld) 20.6 % Normal 19-41 [facility] Comment on above: Performed By: #### L 100.0100, L504.2610, [id number] #### [facility] [address] [place], [address] MCH (RBC) [Entitic mass] 28.5 pg Normal 27.0-32.0 [facility] Comment on above: Performed By: #### L 100.0100, L504.2610, L500.4050 #### [facility] [address] [place], [address] MCHC (RBC) [Mass/Vol] 33.0 g/dL Normal 32-36 [facility] Comment on above: Performed By: #### L 100.0100, L504.2610, [id number] #### [facility] [address] [place], [address] MCV (RBC) [Entitic vol] 86.4 fL Normal 81-99 [facility] Comment on above: Performed By: #### L 100.0100, L504.2610, [id number] #### [facility] [address] [place], [address] Monocytes/100 WBC (Bld) 8.4 % Normal 0-10 [facility] Comment on above: Performed By: #### L 100.0100, L504.2610, [id number] #### [facility] [address] [place], [address] Neutrophils/100 WBC (Bld) 67.4 % Normal 47-70 [facility] Comment on above: Performed By: #### L 100.0100, L504.2610, [id number] #### [facility] [address] [place], [address] Nucleated RBC (Bld) [#/Vol] 0 10*3/uL Normal 0-5 [facility] Comment on above: Performed By: #### L 100.0100, L504.2610, [id number] #### [facility] [address] [place], [address] Platelet mean volume (Bld) [Entitic vol] 9.6 fL Normal 6.2-12.0 [facility] Comment on above: Performed By: #### L 100.0100, L504.2610, L500.4050 #### [facility] [address] [place], [address] Platelets (Bld) [#/Vol] 230 10*3/uL Normal 150-450 [facility] Comment on above: Performed By: #### L 100.0100, L504.2610, [id number] #### [facility] [address] [place], [address] RBC (Bld) [#/Vol] 4.77 10*6/uL Normal 4.2-5.4 [facility] Comment on above: Performed By: #### L 100.0100, L504.2610, [id number] #### [facility] [address] [place], [address] RDW SD 41.3 fl Normal 35.1-43.9 [facility] Comment on above: Performed By: #### L 100.0100, L504.2610, [id number] #### [facility] [address] [place], [address] WBC (Bld) [#/Vol] 4.4 10*3/uL Normal 4.4-11.0 [facility] Comment on above: Performed By: #### L 100.0100, L504.2610, L500.4050 #### [facility] [address] [place], [address] Comprehensive Metabolic Prof ilon 01-15-2024 Albumin [Mass/Vol] 4.0 g/dL Normal 3.2-5.0 [facility] Comment on above: Order Comment: 1 Performed By: #### L 100.0100, L504.2610, [id number] #### [facility] [address] [place], [address] Albumin/Globulin [Mass ratio] 1.3 {ratio} Normal 0.9-2.4 [facility] Comment on above: Order Comment: 1 Performed By: #### L 100.0100, L504.2610, L500.4050 #### [facility] [address] [place], [address] ALK P 94 U/L Normal 45-117 [facility] Comment on above: Order Comment: 1 Performed By: #### L 100.0100, L504.2610, [id number] #### [facility] [address] [place], [address] ALT [Catalytic activity/Vol] 24 U/L Normal 13-56 [facility] Comment on above: Order Comment: 1 Performed By: #### L 100.0100, L504.2610, [id number] #### [facility] [address] [place], [address] AST [Catalytic activity/Vol] 20 U/L Normal 15-37 [facility] Comment on above: Order Comment: 1 Performed By: #### L 100.0100, L504.2610, [id number] #### [facility] [address] [place], [address] Bilirubin [Mass/Vol] 0.60 mg/dL Normal 0.20-1.00 [facility] Comment on above: Order Comment: 1 Result Comment: For patients on eltrombopag therapy, use of Dimension Orwell TBIL is not recommended. Performed By: #### L 100.0100, L504.2610, L500.4050 #### [facility] [address] [place], [address] BUN/CRE 15.6 RATIO Normal 10-20 [facility] Comment on above: Order Comment: 1 Performed By: #### L 100.0100, L504.2610, L500.4050 #### [facility] [address] [place], [address] CA,Total 9.3 mg/dL Normal 8.5-10.1 [facility] Comment on above: Order Comment: 1 Performed By: #### L 100.0100, L504.2610, L500.4050 #### [facility] [address] [place], [address] Chloride [Moles/Vol] 109 mmol/L High 98-107 [facility] Comment on above: Order Comment: 1 Performed By: #### L 100.0100, L504.2610, L500.4050 #### [facility] [address] [place], [address] CO2 [Moles/Vol] 27.0 mmol/L Normal 21.0-32.0 [facility] Comment on above: Order Comment: 1 Performed By: #### L 100.0100, L504.2610, L500.4050 #### [facility] [address] [place], [address] Creatinine [Mass/Vol] 0.77 mg/dL Normal 0.55-1.02 [facility] Comment on above: Order Comment: 1 Result Comment: The validity of the calculated GFR GFRAA in patients over 70 years has not been determined. Clinical correlation is essential. Performed By: #### L 100.0100, L504.2610, L500.4050 #### [facility] [address] [place], [address] ECRCL 84.13 ml/min Normal [facility] Comment on above: Order Comment: 1 Performed By: #### L 100.0100, L504.2610, L500.4050 #### [facility] [address] [place], [address] EST GFR - AA 102 mL/min Normal >60 [facility] Comment on above: Order Comment: 1 Result Comment: Afri can Peruvian GFR Calc Performed By: #### L 100.0100, L504.2610, L500.4050 #### [facility] [address] [place], [address] GAP 5 Normal 5-15 [facility] Comment on above: Order Comment: 1 Performed By: #### L 100.0100, L504.2610, L500.4050 #### [facility] [address] [place], [address] GFR/1.73 sq M.predicted among non-blacks MDRD (S/P/Bld) [Vol rate/Area] 85 mL/min/{1.73_m2} Normal >60 [facility] Comment on above: Order Comment: 1 Result Comment: Non- GFR Calc Performed By: #### L 100.0100, L504.2610, L500.4050 #### [facility] [address] [place], [address] Globulin (S) [Mass/Vol] 3.1 g/dL Normal 2.2-4.2 [facility] Comment on above: Order Comment: 1 Performed By: #### L 100.0100, L504.2610, L500.4050 #### [facility] [address] [place], [address] Glucose [Mass/Vol] 127 mg/dL High 74-106 [facility] Comment on above: Order Comment: 1 Result Comment: Fast ing Glucose result greater than or equal to 126 mg/dL suggests DIABETES MELLITUS per A.D.A. criteria. Performed By: #### L 100.0100, L504.2610, L500.4050 #### [facility] [address] [place], [address] Potassium [Moles/Vol] 3.6 mmol/L Normal 3.5-5.1 [facility] Comment on above: Order Comment: 1 Performed By: #### L 100.0100, L504.2610, L500.4050 #### [facility] [address] [place], [address] Sodium [Moles/Vol] 141 mmol/L Normal 136-145 [facility] Comment on above: Order Comment: 1 Performed By: #### L 100.0100, L504.2610, L500.4050 #### [facility] [address] [place], [address] T PROT 7.1 g/dL Normal 6.4-8.2 [facility] Comment on above: Order Comment: 1 Performed By: #### L 100.0100, L504.2610, L500.4050 #### [facility] [address] [place], [address] Urea nitrogen [Mass/Vol] 12 mg/dL Normal 7-18 [facility] Comment on above: Order Comment: 1 Performed By: #### L 100.0100, L504.2610, L500.4050 #### [facility] [address] [place], [address] LDHon 01-15-2024 LDH 167 U/L Normal 84-246 [facility] Comment on above: Order Comment: 1 Performed By: #### L 100.0100, L504.2610, L500.4050 #### [facility] [address] [place], [address] Oncology Visit Reporton 12-27 Oncology Visit Report [facility] [address] [place] [address] OFFICE VISIT Date of Service: 01/15/24 1302 MR#: [id number] Acct: [id number] Name: RUTHY FELIX Rep #: [id number] : 1975 From: Zuly Cruz Age/Sex: 48/F Location: [facility] Status: Signed with Addenda ADDENDUM by Mague Melgoza on 01/15/24 at 1349 Office Procedure Documentation entered by Mague Melgoza 01/15/24 13:49: Immunizations Flucelvax Triv [id number] (PF) 45 mcg (15 mcg x 3)/0.5 mL IM syringe Performing Provider: TROY Arguelles NP Performing Location: [place] [facility] Administered by: Mague Melgoza on 01/15/24 13:48 Dose Route Admin Location Dispensed Lot Number Expiration Date [facility] Man ufacturer 0.5 mL IM Right Deltoid 0.5 mL [id number] 07/22/24 88519-229-64 [employer]. VIS Given Date VIS Provided VIS Publication Date 01/15/24 Single Vaccine 20 Eligibility Eligibility Date Funding Source Not Applicable Date cc: * Signed HPI Subjective Date of Service 01/15/24 Chief Complaint Lymphoma on treatment History of Present Illness 48-year-old female postmenopausal who self palpated a left-sided abdominal mass, painless but with a sense of bloating. February 15, 2022 CT abdomen and pelvis: IMPRESSION: Extensive retroperitoneal and mesenteric lymphadenopathy.??? Lymphadenopathy is also seen in the peripancreatic and periportal region. Small amount of free fluid is seen in the cul-de-sac. March 08, 2022 Anterior abdominal mass, CT-guided core biopsy: Consistent with involvement by non-Hodgkin B-cell lymphoma, follicular lymphoma with predominantly diffuse pattern, grade 1/3. ANTIBODY / CLONE RESULT AE1-3 (AE1/AE3/PCK26) negative CD3 (PS1) negative CD5 (SP10) negative CD10 (56C6) positive CD20 (L26) positive CD23 (1B12) negative CD43 (L60) negative CD45 (RP2/18) positive CD79a (11E3) positive BCL-2 (bcl-2/100/D5) positive BCL-6 ([id number]/A8) positive Cyclin D1/BCL-1 (SP4) negative MUM1 (MRQ-43) negative C-MYC (Y69) negative CK8 (60vkayL52) negative Ki-67 (30-9) positive, low PET/CT March 21, 2022 initial staging: IMPRESSION: 1. ABNORMAL EXAMINATION INDICATIVE OF MALIGNANT-VIABLE NEOPLASM. 2. Increased radiopharmaceutical concentration defined in the anterior mediastinum fulfill quantitative criteria for viable neoplasm. 3. The increase in tracer uptake noted in the right anterior neck involving Level and bilateral axilla soft tissue primarily without fatty hilus formation fulfills quantitative criteria for malignant transformation. 4. Abdominal and pelvic retroperitoneal and mesenteric mass formation, nodular foci demonstrated in the right retrocrural, cardiophrenic border and right external iliac lymph node basins fulfill quantitative criteria for viable neoplasm. 5.??? There is visualized in the thoracic infiltration noted in a normal sized spleen. October 16, 2022 PET/CT restaging at the conclusion of treatment: IMPRESSION: 1. NEGATIVE EXAMINATION. There is no definitive quantitative scintigraphic evidence of recurrent/viable neoplasm. 2. There is interim metabolic resolution of all prior defined quantitatively significant hypermetabolic foci. 3. Overall, compared to the prior FDG PET study dated 03/21/22, there is current absence of defined viable neoplastic disease. April 12, 2023 CT chest abdomen and pelvis: IMPRESSION: Stable examination. Treatment summary and response: Bendamustine Rituxan March 27-August 21, 2022 (6 cycles). CR Rituxan 2 years maintenance September 2022??? Interval History The patient is presenting to clinic for an evaluation anticipating she received cycle 9 maintenance rituximab. C/o bilat low back pain x 1 week. Unable to recall a time of injury. Pain achy, tight. No urinary complaints. Yoga/stretching alleviates pain. Otherwise she denies any concerns related to today's visit. Specifically denies fever/chills, night sweats, headaches, weight loss, dysphagia, abd pain nausea, enlarged lymph nodes and swelling or pain of her extremities. [facility] Medical History Encounter for immunotherapy Costochondritis Cough Rib pain Post-menopausal History of chemotherapy Encounter for chemotherapy management Pharyngitis Hemorrhoid Headache Encounter for education Cancer Anxiety Anemia Dietary restriction Gastric reflux Non-smoker Encounter for adjustment and management of vascular access device Follicular lymphoma Encounter for screening for COVID-19 Abnormal uterine bleeding Breast pain, left Preventative health care Generalized anxiety disorder Insomnia Malabsorption Lactose intolerance Surgical History (Reviewed 01/15/24 (more content not included)... Normal [facility] Breast Limited Unilateralon 12-27-2023 Breast Limited Unilateral [facility] Services [address] [place], [place] [address] Breast Limited Unilateral MR#: [id number] Acct: [id number] Name: RUTHY FELIX Rep #: [id number] : 1975 F 48 From: Anurag huggins MD PCP: Dr. Bob Tristan MD Status: REG CLI Study: Breast Limited Unilateral Date of Exam: Exam# [id number] Ordering Dr: MARCOS ENGLAND [id number] STUDY: ULTRASOUND BREAST - LEFT REASON FOR EXAM: Female, 48 years old. Recently palpable left breast lump. TECHNIQUE: Axial and longitudinal images of the LEFT breast were performed with a high resolution ultrasound transducer. # OF IMAGES: [id number] COMPARISON: Comparison is made with prior mammogram done earlier today. FINDINGS: LEFT Breast: The lower outer quadrant of the left breast was examined with ultrasound. There is heterogeneous fibroglandular tissue. No sonographic abnormality is seen. US/Breast Limited Unilateral IMPRESSION: No sonographic abnormality is seen. Routine annual mammographic follow-up recommended. ASSESSMENT CATEGORY: BIRADS Category 2: Benign. A letter regarding these results will be sent to the patient by the facility within 30 days. Electronically Signed: Anurag Vaqzuez MD at 13:02 EDT , CC: Dr. Bob Tristan MD; MARC[facility] [place] Telecommunications Repairer: Signed Normal [facility] DIAG MAMM W/CAD, BILATon DIAG MAMM W/CAD, BILAT [facility] Imaging Services [address] [place] [address] DIAG MAMM W/CAD, BILAT MR#: [id number] Acct: [id number] Name: RUTHY FELIX Rep #: [id number] : 1975 F 48 From: Anurag huggins MD PCP: Dr. Bob Tristan MD Status: REG CLI Study: DIAG MAMM W/CAD, BILAT Date of Exam: 12/27/23 Exam# [id number] Ordering Dr: MARCOS ENGLAND [id number] MAMMOGRAPHY - BILATERAL DIAGNOSTIC REASON FOR EXAM: Female, 48 years old. 2 week history of left breast lump. PERTINENT HISTORY: Mother with breast cancer. Grandmother with breast cancer. History of non-Hodgkin''s lymphoma. TECHNIQUE: Digital bilateral breast jason (3D mammographic acquisition) in the CC and MLO projections. 2-D mediolateral oblique (MLO) and craniocaudad (CC) views of both breasts were obtained. CAD: Full Field Digital Mammography with Computer Added Detection was performed. COMPARISON: Comparison is made with prior study December 14, 2022 and December 05, 2021. FINDINGS: Breast Composition: The breasts are heterogeneously dense, which may obscure small masses. There are no dominant masses or suspicious calcifications. No other significant abnormalities are identified. There has been no significant change since the prior study. BI/DIAG MAMM W/CAD, BILAT IMPRESSION: Stable bilateral diagnostic mammogram. With the patient''s history of a left breast lump, correlation with targeted ultrasound is recommended. ASSESSMENT CATEGORY: BIRADS Category 0: Incomplete. Need additional imaging evaluation. A letter regarding these results will be sent to the patient by the facility within 30 days. Approximately 10% of breast cancers are not detected by mammography. A normal mammogram should not delay biopsy of a clinically suspicious abnormality. Electronically Signed: Anurag Vazquez MD at 9:46 EDT Reading Location ID and State: [facility] / [place] , Service support , CC: Dr. Bob Tristan MD; [facility] Telecommunications Repairer: Signed Normal [facility] Blood manual differential co mment interpretation (narrative result)Ordered By: West Christy on 07-24-2023 Manual differential comment David (Bld) [Interp] SCANNED [facility] Manual differential comment David (Bld) [Interp]Ordered By: West Christy on 07-24-2023 Differential Comment SCANNED [facility] Pathologist review David (Unsp spec) [Interp]Ordered By: West Christy on 07-24-2023 Differential Pathologist's Review Reviewed [facility] Comment on above: Previous reported re sult: May foll Edited by: STEPHEN on 07/25/23:09MILD LEUKOPENIAClinical correlation suggested.Henri Gallagher D.O. 07/25/23 AMENDED REPORT 07/25/23917 PATH REV previously reported as: Mindy silva Review by pathologistOrdered By: West Christy on 07-24-2023 Pathologist review David (Unsp spec) [Interp] Reviewed [facility] Comment on above: Previous reported re sult: May foll Edited by: STEPHEN on 07/25/23:0918MILD LEUKOPENIAClinical correlation suggested.Henri Gallagher D.O. 07/25/23 AMENDED REPORT 07/25/23 0918 PATH REV previously reported as: June Absolute lymphocyte countOrd ered By: Bladeligia Christy on 05-29-2023 Lymphocytes Auto (Unsp spec) [#/Vol] 0.68 10*3/uL 0.83-4.51 [facility] Automated lymphocyte count a s percentage of total leukocytesOrdered By: West Christy on 05-29-2023 Lymphocytes/100 WBC Auto (Unsp spec) 15.5 % 19-41 [facility] Basophil percentageOrdered B y: West Christy on 05-29-2023 Basophils/100 WBC (Bld) 0.7 % 0-1 [facility] Bilirubin [Mass/Vol] 0.30 mg/dL 0.20-1.00 [facility] Comment on above: For patients on eltr ombopag therapy, use of Dimension [place] TBIL is not recommended. Chloride [Moles/Vol] 109 mmol/L 98-107 [facility] Eosinophils/100 WBC (Bld) 2.7 % 0-5 [facility] Glucose [Mass/Vol] 99 mg/dL 74-106 [facility] Hemoglobin (Bld) [Mass/Vol] 13.3 g/dL 12.0-15.0 [facility] LDH [Catalytic activity/Vol] 175 U/L 84-246 [facility] Monocytes/100 WBC (Bld) 10.2 % 0-10 [facility] Neutrophils (Bld) [#/Vol] 3.1 10*3/uL 2.0-7.7 [facility] Neutrophils/100 WBC (Bld) 70.7 % 47-70 [facility] Potassium [Moles/Vol] 4.2 mmol/L 3.5-5.1 [facility] Protein [Mass/Vol] 7.1 g/dL 6.4-8.2 [facility] Sodium [Moles/Vol] 142 mmol/L 136-145 [facility] WBC (Bld) [#/Vol] 4.4 10*3/uL 4.4-11.0 [facility] Determination of erythrocyte mean corpuscular volume (MCV)Ordered By: West Christy on 05-29-2023 MCV (RBC) [Entitic vol] 86.7 fL 81-99 [facility] Erythrocyte distribution wid th ratioOrdered By: West Christy on 05-29-2023 Erythrocyte distribution width (RBC) [Ratio] 13.1 % 11.6-14.6 [facility] Erythrocyte distribution wid th standard deviationOrdered By: West Christy on 05-29-2023 Erythrocyte distribution width (RBC) [Entitic vol] 40.9 fL 35.1-43.9 [facility] Hematocrit Auto (Bld) [Volum e fraction]Ordered By: [facility] on 05-29-2023 Hematocrit (Bld) [Volume fraction] 41.2 % 37-47 [facility] Immature granulocytes/100 WB C Auto (Bld)Ordered By: [facility] on 05-29-2023 Immature granulocytes/100 WBC (Bld) 0.200 % 0.0-0.9 [facility] Comment on above: IG% - Immature Granu locytes (promyelocytes, myelocytes and metamyelocytes) > 1% indicates that a LEFT SHIFT is Present. Laboratory - Chemistry and C hemistry - challengeOrdered By: [facility] on 05-29-2023 Albumin/Globulin [Mass ratio] 1.2 {ratio} 0.9-2.4 [facility] ALP [Catalytic activity/Vol] 92 U/L 45-117 [facility] ALT [Catalytic activity/Vol] 29 U/L 13-56 [facility] CO2 [Moles/Vol] 30.0 mmol/L 21.0-32.0 [facility] Globulin (S) [Mass/Vol] 3.3 g/dL 2.2-4.2 [facility] Urea nitrogen/Creatinine [Mass ratio] 19.1 mg/mg 10-20 [facility] Laboratory - Hematology and Cell countsOrdered By: West Christy on 05-29-2023 MCH (RBC) [Entitic mass] 28.0 pg 27.0-32.0 [facility] MCHC (RBC) [Mass/Vol] 32.3 g/dL 32-36 [facility] Nucleated RBC/100 WBC (Bld) [Ratio] 0 % 0-5 [facility] Platelet mean volume (Bld) [Entitic vol] 9.5 fL 6.2-12.0 [facility] Platelets (Bld) [#/Vol] 216 10*3/uL 150-450 [facility] No Panel InformationOrdered By: West Christy on 05-29-2023 Estimated Creatinine Clearance Calc 83.60 ml/min [facility] Estimated GFR (MDRD) Amer 100 mL/min >60 [facility] Comment on above: GFR Calc Estimated GFR (MDRD) Non-Af Amer 83 mL/min >60 [facility] Comment on above: Non- GFR Calc RBC Auto (Bld) [#/Vol]Ordere d By: West Christy on 05-29-2023 RBC (Bld) [#/Vol] 4.75 10*6/uL 4.2-5.4 [facility] Serum or plasma calcium elaina urement (mass/volume)Ordered By: West Christy on 05-29-2023 Calcium [Mass/Vol] 9.3 mg/dL 8.5-10.1 [facility] Serum or plasma creatinine m easurement (mass/volume)Ordered By: West Christy on 05-29-2023 Creatinine [Mass/Vol] 0.78 mg/dL 0.55-1.02 [facility] Comment on above: The validity of the calculated GFR & GFRAA in patients over 70 years has not been determined. Clinical correlation is essential. Serum or plasma urea nitroge n measurement (mass/volume)Ordered By: West Christy on 05-29-2023 Urea nitrogen [Mass/Vol] 15 mg/dL 7-18 [facility] Thin prep Papanicolaou smear with manual screeningOrdered By: West Christy on 05-29-2023 Thin prep Papanicolaou smear with manual screening 3.8 g/dL 3.2-5.0 [facility] Thin prep Papanicolaou smear with manual screening 22 U/L 15-37 [facility] Thin prep Papanicolaou smear with manual screening 3 5-15 [facility] Absolute lymphocyte countOrd ered By: West Christy on 04-11-2023 Lymphocytes Auto (Unsp spec) [#/Vol] 0.48 10*3/uL 0.83-4.51 [facility] Automated lymphocyte count a s percentage of total leukocytesOrdered By: West Christy on 04-11-2023 Lymphocytes/100 WBC Auto (Unsp spec) 14.0 % 19-41 [facility] Basophil percentageOrdered B y: West Christy on 04-11-2023 Basophils/100 WBC (Bld) 1.2 % 0-1 [facility] Bilirubin [Mass/Vol] 0.50 mg/dL 0.20-1.00 [facility] Comment on above: For patients on eltr ombopag therapy, use of Dimension [place] TBIL is not recommended. Chloride [Moles/Vol] 110 mmol/L 98-107 [facility] Eosinophils/100 WBC (Bld) 2.3 % 0-5 [facility] Glucose [Mass/Vol] 112 mg/dL 74-106 [facility] Comment on above: Fasting Glucose resu lt from 100 to 125 mg/dL suggests IMPAIRED HOMEOSTASIS per A.D.A. criteria. Hemoglobin (Bld) [Mass/Vol] 13.2 g/dL 12.0-15.0 [facility] LDH [Catalytic activity/Vol] 174 U/L 84-246 [facility] Monocytes/100 WBC (Bld) 9.4 % 0-10 [facility] Neutrophils (Bld) [#/Vol] 2.5 10*3/uL 2.0-7.7 [facility] Neutrophils/100 WBC (Bld) 72.5 % 47-70 [facility] Potassium [Moles/Vol] 3.9 mmol/L 3.5-5.1 [facility] Protein [Mass/Vol] 7.0 g/dL 6.4-8.2 [facility] Sodium [Moles/Vol] 141 mmol/L 136-145 [facility] WBC (Bld) [#/Vol] 3.4 10*3/uL 4.4-11.0 [facility] Determination of erythrocyte mean corpuscular volume (MCV)Ordered By: West Christy on 04-11-2023 MCV (RBC) [Entitic vol] 87.6 fL 81-99 [facility] Erythrocyte distribution wid th ratioOrdered By: West Christy on 04-11-2023 Erythrocyte distribution width (RBC) [Ratio] 12.9 % 11.6-14.6 [facility] Erythrocyte distribution wid th standard deviationOrdered By: [facility] on 04-11-2023 Erythrocyte distribution width (RBC) [Entitic vol] 41.3 fL 35.1-43.9 [facility] [employer] mix RAST testO rdered By: West Christy on 04-11-2023 Free T4 [Mass/Vol] 0.85 ng/dL 0.76-1.46 [facility] Hematocrit Auto (Bld) [Volum e fraction][facility] 04-11-[facility]23 Hematocrit (Bld) [Volume fraction] 41.5 % 37-47 [facility] Immature granulocytes/100 WB C Auto (Bld)Ordered By: [facility] on 04-11-2023 Immature granulocytes/100 WBC (Bld) 0.600 % 0.0-0.9 [facility] Comment on above: IG% - Immature Granu locytes (promyelocytes, myelocytes and metamyelocytes) > 1% indicates that a LEFT SHIFT is Present. Laboratory - Chemistry and C hemistry - challengeOrdered By: [facility] on 04-11-2023 Albumin/Globulin [Mass ratio] 1.3 {ratio} 0.9-2.4 [facility] ALP [Catalytic activity/Vol] 94 U/L 45-117 [facility] ALT [Catalytic activity/Vol] 25 U/L 13-56 [facility] CO2 [Moles/Vol] 28.0 mmol/L 21.0-32.0 [facility] Globulin (S) [Mass/Vol] 3.1 g/dL 2.2-4.2 [facility] Urea nitrogen/Creatinine [Mass ratio] 15.9 mg/mg 10-20 [facility] Laboratory - Hematology and Cell countsOrdered By: [facility] on 04-11-2023 MCH (RBC) [Entitic mass] 27.8 pg 27.0-32.0 [facility] MCHC (RBC) [Mass/Vol] 31.8 g/dL 32-36 [facility] Nucleated RBC/100 WBC (Bld) [Ratio] 0 % 0-5 [facility] Platelet mean volume (Bld) [Entitic vol] 9.4 fL 6.2-12.0 [facility] Platelets (Bld) [#/Vol] 212 10*3/uL 150-450 [facility] No Panel InformationOrdered By: West Christy on 04-11-2023 Estimated Creatinine Clearance Calc 85.28 ml/min [facility] Estimated GFR (MDRD) Amer 105 mL/min >60 [facility] Comment on above: GFR Calc Estimated GFR (MDRD) Non-Af Amer 87 mL/min >60 [facility] Comment on above: Non- GFR Calc RBC Auto (Bld) [#/Vol]Ordere d By: West Christy on 04-11-2023 RBC (Bld) [#/Vol] 4.74 10*6/uL 4.2-5.4 [facility] Serum or plasma calcium elaina urement (mass/volume)Ordered By: West Christy on 04-11-2023 Calcium [Mass/Vol] 9.8 mg/dL 8.5-10.1 [facility] Serum or plasma creatinine m easurement (mass/volume)Ordered By: West Christy on 04-11-2023 Creatinine [Mass/Vol] 0.76 mg/dL 0.55-1.02 [facility] Comment on above: The validity of the calculated GFR & GFRAA in patients over 70 years has not been determined. Clinical correlation is essential. Serum or plasma thyroid stim ulating hormone (TSH) measurement (units/volume)Ordered By: West Christy on 04-11-2023 TSH Qn 1.60 uIU/mL 0.358-3.74 [facility] Serum or plasma urea nitroge n measurement (mass/volume)Ordered By: West Christy on 04-11-2023 Urea nitrogen [Mass/Vol] 12 mg/dL 7-18 [facility] TSH QnOrdered By: West kruger on 04-11-2023 Thyroid Stimulating Hormone (TSH) 1.60 uIU/mL 0.358-3.74 [facility] Thin prep Papanicolaou smear with manual screeningOrdered By: West Brownnabor on 04-11-2023 Thin prep Papanicolaou smear with manual screening 3.9 g/dL 3.2-5.0 [facility] Thin prep Papanicolaou smear with manual screening 18 U/L 15-37 [facility] Thin prep Papanicolaou smear with manual screening 3 5-15 [facility] Thin prep Papanicolaou smear with manual screening 0.85 ng/dL 0.76-1.46 [facility] Absolute lymphocyte countOrd ered By: West Brownlibertad on 02-14-2023 Lymphocytes Auto (Unsp spec) [#/Vol] 0.32 10*3/uL 0.83-4.51 [facility] Basophil percentageOrdered B y: West Brownlibertad on 02-14-2023 Basophils/100 WBC (Bld) 1.0 % 0-1 [facility] Bilirubin [Mass/Vol] 0.40 mg/dL 0.20-1.00 [facility] Comment on above: For patients on eltr ombopag therapy, use of Dimension [place] TBIL is not recommended. Chloride [Moles/Vol] 108 mmol/L 98-107 [facility] Eosinophils/100 WBC (Bld) 3.4 % 0-5 [facility] Glucose [Mass/Vol] 112 mg/dL 74-106 [facility] Comment on above: Fasting Glucose resu lt from 100 to 125 mg/dL suggests IMPAIRED HOMEOSTASIS per A.D.A. criteria. LDH [Catalytic activity/Vol] 163 U/L 84-246 [facility] Neutrophils (Bld) [#/Vol] 2.2 10*3/uL 2.0-7.7 [facility] Neutrophils/100 WBC (Bld) 74.3 % 47-70 [facility] Potassium [Moles/Vol] 3.7 mmol/L 3.5-5.1 [facility] Protein [Mass/Vol] 6.7 g/dL 6.4-8.2 [facility] Sodium [Moles/Vol] 142 mmol/L 136-145 [facility] WBC (Bld) [#/Vol] 2.9 10*3/uL 4.4-11.0 [facility] Blood erythrocytes count (nu mber/volume)Ordered By: West Christy on 02-14-2023 RBC (Bld) [#/Vol] 4.39 10*6/uL 4.2-5.4 [facility] Blood hemoglobin measurement (mass/volume)Ordered By: West Christy on 02-14-2023 Hemoglobin (Bld) [Mass/Vol] 12.5 g/dL 12.0-15.0 [facility] Blood lymphocytes/100 leukoc ytesOrdered By: West Christy on 02-14-2023 Lymphocytes/100 WBC (Bld) 11.0 % 19-41 [facility] Blood manual differential co mment interpretation (narrative result)Ordered By: West Christy on 02-14-2023 Manual differential comment David (Bld) [Interp] SCANNED [facility] Blood monocytes/100 leukocyt esOrdered By: [facility] on 02-14-2023 Monocytes/100 WBC (Bld) 9.3 % 0-10 [facility] Blood platelet mean volumeOr dered By: [facility] on 02-14-2023 Platelet mean volume (Bld) [Entitic vol] 9.3 fL 6.2-12.0 [facility] Determination of erythrocyte mean corpuscular volume (MCV)Ordered By: West Christy on 02-14-2023 MCV (RBC) [Entitic vol] 88.2 fL 81-99 [facility] Hematocrit Auto (Bld) [Volum e fraction]Ordered By: West Christy on 02-14-2023 Hematocrit (Bld) [Volume fraction] 38.7 % 37-47 [facility] Laboratory - Chemistry and C hemistry - challengeOrdered By: [facility] on 02-14-2023 ALP [Catalytic activity/Vol] 94 U/L 45-117 [facility] ALT [Catalytic activity/Vol] 27 U/L 13-56 [facility] CO2 [Moles/Vol] 26.0 mmol/L 21.0-32.0 [facility] Globulin (S) [Mass/Vol] 3.1 g/dL 2.2-4.2 [facility] Urea nitrogen/Creatinine [Mass ratio] 16.4 mg/mg 10-20 [facility] Laboratory - Hematology and Cell countsOrdered By: West Christy on 02-14-2023 Erythrocyte distribution width (RBC) [Entitic vol] 41.7 fL 35.1-43.9 [facility] Erythrocyte distribution width (RBC) [Ratio] 12.8 % 11.6-14.6 [facility] Immature granulocytes/100 WBC (Bld) 1.000 % 0.0-0.9 [facility] Comment on above: IG% - Immature Granu locytes (promyelocytes, myelocytes and metamyelocytes) > 1% indicates that a LEFT SHIFT is Present. MCH (RBC) [Entitic mass] 28.5 pg 27.0-32.0 [facility] Nucleated RBC/100 WBC (Bld) [Ratio] 0 % 0-5 [facility] MCHC Auto (RBC) [Mass/Vol]Or dered By: West Christy on 02-14-2023 MCHC (RBC) [Mass/Vol] 32.3 g/dL 32-36 [facility] No Panel InformationOrdered By: West Christy on 02-14-2023 Estimated Creatinine Clearance Calc 81.38 ml/min [facility] Estimated GFR (MDRD) Amer 109 mL/min >60 [facility] Comment on above: GFR Calc Estimated GFR (MDRD) Non-Af Amer 90 mL/min >60 [facility] Comment on above: Non- GFR Calc Platelets bldOrdered By: Mushtaq Christy on 02-14-2023 Platelets (Bld) [#/Vol] 218 10*3/uL 150-450 [facility] Review by pathologistOrdered By: West Christy on 02-14-2023 Pathologist review David (Unsp spec) [Interp] Reviewed [facility] Comment on above: Previous reported re sult: Mindy silva Edited by: THA on 02/15/23:1315Leukopenia.Clinical correlation necessary.Wai Fu M.D. 02/15/23 AMENDED REPORT 02/15/23 1315 PATH REV previously reported as: Mindy silva Serum or plasma albumin elaina urement (mass/volume)Ordered By: West Christy on 02-14-2023 Albumin [Mass/Vol] 3.6 g/dL 3.2-5.0 [facility] Serum or plasma albumin/glob ulin mass ratioOrdered By: [facility] on 02-14-2023 Albumin/Globulin [Mass ratio] 1.2 {ratio} 0.9-2.4 [facility] Serum or plasma calcium elaina urement (mass/volume)Ordered By: West Christy on 02-14-2023 Calcium [Mass/Vol] 9.1 mg/dL 8.5-10.1 [facility] Serum or plasma creatinine m easurement (mass/volume)Ordered By: [facility] on 02-14-2023 Creatinine [Mass/Vol] 0.73 mg/dL 0.55-1.02 [facility] Comment on above: The validity of the calculated GFR & GFRAA in patients over 70 years has not been determined. Clinical correlation is essential. Serum or plasma urea nitroge n measurement (mass/volume)Ordered By: [facility] on 02-14-2023 Urea nitrogen [Mass/Vol] 12 mg/dL 7-18 [facility] Thin prep Papanicolaou smear with manual screeningOrdered By: [facility] on 02-14-2023 Thin prep Papanicolaou smear with manual screening 22 U/L 15-37 [facility] Thin prep Papanicolaou smear with manual screening 8 5-15 [facility] Laboratory - Microbiology an d Antimicrobial susceptibilityon 01-16-2023 SARS-CoV-2 (COVID-19) RNA KRYS+probe Ql (Unsp spec) Not detected [facility] S. pyogenes Ag IA Ql (Unsp spec) Negative [facility] No Panel Informationon 01-16 Influenza Types A,B Rapid (Clinic) Not detected [facility] Absolute lymphocyte countOrd ered By: West Christy on 12-18-2022 Lymphocytes Auto (Unsp spec) [#/Vol] 0.26 10*3/uL 0.83-4.51 [facility] Basophil percentageOrdered B y: West Christy on 12-18-2022 Basophils/100 WBC (Bld) 1.2 % 0-1 [facility] Bilirubin [Mass/Vol] 0.30 mg/dL 0.20-1.00 [facility] Comment on above: For patients on eltr ombopag therapy, use of Dimension [place] TBIL is not recommended. Chloride [Moles/Vol] 108 mmol/L 98-107 [facility] Eosinophils/100 WBC (Bld) 3.9 % 0-5 [facility] Glucose [Mass/Vol] 108 mg/dL 74-106 [facility] Comment on above: Fasting Glucose resu lt from 100 to 125 mg/dL suggests IMPAIRED HOMEOSTASIS per A.D.A. criteria. LDH [Catalytic activity/Vol] 170 U/L 84-246 [facility] Neutrophils (Bld) [#/Vol] 1.9 10*3/uL 2.0-7.7 [facility] Neutrophils/100 WBC (Bld) 73.3 % 47-70 [facility] Potassium [Moles/Vol] 3.5 mmol/L 3.5-5.1 [facility] Protein [Mass/Vol] 6.8 g/dL 6.4-8.2 [facility] Sodium [Moles/Vol] 140 mmol/L 136-145 [facility] WBC (Bld) [#/Vol] 2.6 10*3/uL 4.4-11.0 [facility] Blood erythrocytes count (nu mber/volume)Ordered By: West Christy on 12-18-2022 RBC (Bld) [#/Vol] 4.21 10*6/uL 4.2-5.4 [facility] Blood hemoglobin measurement (mass/volume)Ordered By: West Christy on 12-18-2022 Hemoglobin (Bld) [Mass/Vol] 12.1 g/dL 12.0-15.0 [facility] Blood lymphocytes/100 leukoc ytesOrdered By: West Christy on 12-18-2022 Lymphocytes/100 WBC (Bld) 10.0 % 19-41 [facility] Blood manual differential co mment interpretation (narrative result)Ordered By: West Christy on 12-18-2022 Manual differential comment David (Bld) [Interp] SCANNED [facility] Blood monocytes/100 leukocyt esOrdered By: West Christy on 12-18-2022 Monocytes/100 WBC (Bld) 11.2 % 0-10 [facility] Blood platelet mean volumeOr dered By: West Christy on 12-18-2022 Platelet mean volume (Bld) [Entitic vol] 8.9 fL 6.2-12.0 [facility] Determination of erythrocyte mean corpuscular volume (MCV)Ordered By: West Christy on 12-18-2022 MCV (RBC) [Entitic vol] 88.6 fL 81-99 [facility] Hematocrit Auto (Bld) [Volum e fraction]Ordered By: West Christy on 12-18-2022 Hematocrit (Bld) [Volume fraction] 37.3 % 37-47 [facility] Laboratory - Chemistry and C hemistry - challengeOrdered By: West Christy on 12-18-2022 ALP [Catalytic activity/Vol] 98 U/L 45-117 [facility] ALT [Catalytic activity/Vol] 36 U/L 13-56 [facility] CO2 [Moles/Vol] 28.0 mmol/L 21.0-32.0 [facility] Globulin (S) [Mass/Vol] 3.3 g/dL 2.2-4.2 [facility] Urea nitrogen/Creatinine [Mass ratio] 21.3 mg/mg 10-20 [facility] Laboratory - Hematology and Cell countsOrdered By: West Christy on 12-18-2022 Erythrocyte distribution width (RBC) [Entitic vol] 41.5 fL 35.1-43.9 [facility] Erythrocyte distribution width (RBC) [Ratio] 12.8 % 11.6-14.6 [facility] Immature granulocytes/100 WBC (Bld) 0.400 % 0.0-0.9 [facility] Comment on above: IG% - Immature Granu locytes (promyelocytes, myelocytes and metamyelocytes) > 1% indicates that a LEFT SHIFT is Present. MCH (RBC) [Entitic mass] 28.7 pg 27.0-32.0 [facility] Nucleated RBC/100 WBC (Bld) [Ratio] 0 % 0-5 [facility] MCHC Auto (RBC) [Mass/Vol]Or dered By: West Christy on 12-18-2022 MCHC (RBC) [Mass/Vol] 32.4 g/dL 32-36 [facility] No Panel InformationOrdered By: West Christy on 12-18-2022 Estimated Creatinine Clearance Calc 79.21 ml/min [facility] Estimated GFR (MDRD) Amer 106 mL/min >60 [facility] Comment on above: GFR Calc Estimated GFR (MDRD) Non-Af Amer 87 mL/min >60 [facility] Comment on above: Non- GFR Calc Platelets bldOrdered By: Mushtaq Christy on 12-18-2022 Platelets (Bld) [#/Vol] 219 10*3/uL 150-450 [facility] Review by pathologistOrdered By: West Christy on 12-18-2022 Pathologist review David (Unsp spec) [Interp] Mindy silva [facility] Pathologist review David (Unsp spec) [Interp] Reviewed [facility] Comment on above: Previous reported re sult: Mindy silva Edited by: RGOLEONARDO on 12/20/22:0921Leukopenia and neutropenia.Clinical correlation necessary.Wai Fu M.D. 12/20/22 AMENDED REPORT 12/20/22 0921 PATH REV previously reported as: Mindy silva Serum or plasma albumin elaina urement (mass/volume)Ordered By: West Christy on 12-18-2022 Albumin [Mass/Vol] 3.5 g/dL 3.2-5.0 [facility] Serum or plasma albumin/glob ulin mass ratioOrdered By: West Christy on 12-18-2022 Albumin/Globulin [Mass ratio] 1.1 {ratio} 0.9-2.4 [facility] Serum or plasma calcium elaina urement (mass/volume)Ordered By: West Christy on 12-18-2022 Calcium [Mass/Vol] 9.0 mg/dL 8.5-10.1 [facility] Serum or plasma creatinine m easurement (mass/volume)Ordered By: West Christy on 12-18-2022 Creatinine [Mass/Vol] 0.75 mg/dL 0.55-1.02 [facility] Comment on above: The validity of the calculated GFR & GFRAA in patients over 70 years has not been determined. Clinical correlation is essential. Serum or plasma urea nitroge n measurement (mass/volume)Ordered By: West Christy on 12-18-2022 Urea nitrogen [Mass/Vol] 16 mg/dL 7-18 [facility] Thin prep Papanicolaou smear with manual screeningOrdered By: West Christy on 12-18-2022 Thin prep Papanicolaou smear with manual screening 20 U/L 15-37 [facility] Thin prep Papanicolaou smear with manual screening 4 5-15 [facility] Absolute lymphocyte countOrd ered By: West Christy on 10-23-2022 Lymphocytes Auto (Unsp spec) [#/Vol] 0.17 10*3/uL 0.83-4.51 [facility] Basophil percentageOrdered B y: West Christy on 10-23-2022 Basophils/100 WBC (Bld) 1.2 % 0-1 [facility] Bilirubin [Mass/Vol] 0.50 mg/dL 0.20-1.00 [facility] Comment on above: For patients on eltr ombopag therapy, use of Dimension [place] TBIL is not recommended. Chloride [Moles/Vol] 106 mmol/L 98-107 [facility] Eosinophils/100 WBC (Bld) 1.2 % 0-5 [facility] Glucose [Mass/Vol] 93 mg/dL 74-106 [facility] LDH [Catalytic activity/Vol] 182 U/L 84-246 [facility] Neutrophils (Bld) [#/Vol] 2.0 10*3/uL 2.0-7.7 [facility] Neutrophils/100 WBC (Bld) 79.5 % 47-70 [facility] Potassium [Moles/Vol] 4.2 mmol/L 3.5-5.1 [facility] Protein [Mass/Vol] 7.2 g/dL 6.4-8.2 [facility] Sodium [Moles/Vol] 141 mmol/L 136-145 [facility] WBC (Bld) [#/Vol] 2.6 10*3/uL 4.4-11.0 [facility] Blood erythrocytes count (nu mber/volume)Ordered By: West Christy on 10-23-2022 RBC (Bld) [#/Vol] 4.60 10*6/uL 4.2-5.4 [facility] Blood hemoglobin measurement (mass/volume)Ordered By: West Christy on 10-23-2022 Hemoglobin (Bld) [Mass/Vol] 13.4 g/dL 12.0-15.0 [facility] Blood lymphocytes/100 leukoc ytesOrdered By: [facility] on 10-23-2022 Lymphocytes/100 WBC (Bld) 6.7 % 19-41 [facility] Blood manual differential co mment interpretation (narrative result)Or[facility] By: [facility] on 10-23-2022 Manual differential comment David (Bld) [Interp] COMMENT [facility] Comment on above: LYMPHOPENIA. Blood monocytes/100 leukocyt esOrdered By: [facility] on 10-23-2022 Monocytes/100 WBC (Bld) 11.0 % 0-10 [facility] Blood platelet mean volumeOr dered By: [facility] on 10-23-2022 Platelet mean volume (Bld) [Entitic vol] 9.1 fL 6.2-12.0 [facility] Determination of erythrocyte mean corpuscular volume (MCV)Ordered By: [facility] on 10-23-2022 MCV (RBC) [Entitic vol] 90.2 fL 81-99 [facility] Hematocrit Auto (Bld) [Volum e fraction]Ordered By: [facility] on 10-23-2022 Hematocrit (Bld) [Volume fraction] 41.5 % 37-47 [facility] Laboratory - Chemistry and C hemistry - challengeOrdered By: [facility] on 10-23-2022 ALP [Catalytic activity/Vol] 112 U/L 45-117 [facility] ALT [Catalytic activity/Vol] 38 U/L 13-56 [facility] CO2 [Moles/Vol] 27.0 mmol/L 21.0-32.0 [facility] Globulin (S) [Mass/Vol] 3.3 g/dL 2.2-4.2 [facility] Urea nitrogen/Creatinine [Mass ratio] 16.6 mg/mg 10-20 [facility] Laboratory - Hematology and Cell countsOrdered By: West Christy on 10-23-2022 Erythrocyte distribution width (RBC) [Entitic vol] 40.8 fL 35.1-43.9 [facility] Erythrocyte distribution width (RBC) [Ratio] 12.5 % 11.6-14.6 [facility] Immature granulocytes/100 WBC (Bld) 0.400 % 0.0-0.9 [facility] Comment on above: IG% - Immature Granu locytes (promyelocytes, myelocytes and metamyelocytes) > 1% indicates that a LEFT SHIFT is Present. MCH (RBC) [Entitic mass] 29.1 pg 27.0-32.0 [facility] Nucleated RBC/100 WBC (Bld) [Ratio] 0 % 0-5 [facility] MCHC Auto (RBC) [Mass/Vol]Or dered By: West Christy on 10-23-2022 MCHC (RBC) [Mass/Vol] 32.3 g/dL 32-36 [facility] No Panel InformationOrdered By: West Christy on 10-23-2022 Estimated Creatinine Clearance Calc 70.73 ml/min [facility] Estimated GFR (MDRD) Amer 93 mL/min >60 [facility] Comment on above: GFR Calc Estimated GFR (MDRD) Non-Af Amer 76 mL/min >60 [facility] Comment on above: Non- GFR Calc Platelets bldOrdered By: Mushtaq Christy on 10-23-2022 Platelets (Bld) [#/Vol] 208 10*3/uL 150-450 [facility] Review by pathologistOrdered By: West Christy on 10-23-2022 Pathologist review David (Unsp spec) [Interp] Reviewed [facility] Comment on above: Previous reported re sult: Mindy silva Edited by: THA on 10/24/22:1249LeukopeniaClinical correlation necessary.Wai Fu M.D. 10/24/22 AMENDED REPORT 10/24/22 1249 PATH REV previously reported as: Mindy silva Serum or plasma albumin elaina urement (mass/volume)Ordered By: West Christy on 10-23-2022 Albumin [Mass/Vol] 3.9 g/dL 3.2-5.0 [facility] Serum or plasma albumin/glob ulin mass ratioOrdered By: West Christy on 10-23-2022 Albumin/Globulin [Mass ratio] 1.2 {ratio} 0.9-2.4 [facility] Serum or plasma calcium elaina urement (mass/volume)Ordered By: West Christy on 10-23-2022 Calcium [Mass/Vol] 9.4 mg/dL 8.5-10.1 [facility] Serum or plasma creatinine m easurement (mass/volume)Ordered By: [facility] on 10-23-2022 Creatinine [Mass/Vol] 0.84 mg/dL 0.55-1.02 [facility] Comment on above: The validity of the calculated GFR & GFRAA in patients over 70 years has not been determined. Clinical correlation is essential. Serum or plasma urea nitroge n measurement (mass/volume)Ordered By: West Christy on 10-23-2022 Urea nitrogen [Mass/Vol] 14 mg/dL 7-18 [facility] Thin prep Papanicolaou smear with manual screeningOrdered By: [facility] on 10-23-2022 Thin prep Papanicolaou smear with manual screening 24 U/L 15-37 [facility] Thin prep Papanicolaou smear with manual screening 8 5-15 [facility] Absolute lymphocyte countOrd ered By: [facility] on 08-21-2022 Lymphocytes Auto (Unsp spec) [#/Vol] 0.14 10*3/uL 0.83-4.51 [facility] Basophil percentageOrdered B y: [facility] on 08-21-2022 Basophils/100 WBC (Bld) 0.9 % 0-1 [facility] Bilirubin [Mass/Vol] 0.30 mg/dL 0.20-1.00 [facility] Comment on above: For patients on eltr ombopag therapy, use of Dimension [place] TBIL is not recommended. Chloride [Moles/Vol] 110 mmol/L 98-107 [facility] Eosinophils/100 WBC (Bld) 2.8 % 0-5 [facility] Glucose [Mass/Vol] 84 mg/dL 74-106 [facility] LDH [Catalytic activity/Vol] 147 U/L 84-246 [facility] Neutrophils (Bld) [#/Vol] 1.6 10*3/uL 2.0-7.7 [facility] Neutrophils/100 WBC (Bld) 75.2 % 47-70 [facility] Potassium [Moles/Vol] 3.9 mmol/L 3.5-5.1 [facility] Protein [Mass/Vol] 6.6 g/dL 6.4-8.2 [facility] Sodium [Moles/Vol] 141 mmol/L 136-145 [facility] WBC (Bld) [#/Vol] 2.2 10*3/uL 4.4-11.0 [facility] Blood erythrocytes count (nu mber/volume)Ordered By: West Christy on 08-21-2022 RBC (Bld) [#/Vol] 4.48 10*6/uL 4.2-5.4 [facility] Blood hemoglobin measurement (mass/volume)Ordered By: West Christy on 08-21-2022 Hemoglobin (Bld) [Mass/Vol] 13.2 g/dL 12.0-15.0 [facility] Blood lymphocytes/100 leukoc ytesOrdered By: West Christy on 08-21-2022 Lymphocytes/100 WBC (Bld) 6.4 % 19-41 [facility] Blood monocytes/100 leukocyt esOrdered By: West Christy on 08-21-2022 Monocytes/100 WBC (Bld) 14.7 % 0-10 [facility] Blood platelet mean volumeOr dered By: West Christy on 08-21-2022 Platelet mean volume (Bld) [Entitic vol] 8.9 fL 6.2-12.0 [facility] Determination of erythrocyte mean corpuscular volume (MCV)Ordered By: West Christy on 08-21-2022 MCV (RBC) [Entitic vol] 89.7 fL 81-99 [facility] Hematocrit Auto (Bld) [Volum e fraction]Ordered By: West Christy on 08-21-2022 Hematocrit (Bld) [Volume fraction] 40.2 % 37-47 [facility] Laboratory - Chemistry and C hemistry - challengeOrdered By: West Christy on 08-21-2022 ALP [Catalytic activity/Vol] 105 U/L 45-117 [facility] ALT [Catalytic activity/Vol] 55 U/L 13-56 [facility] CO2 [Moles/Vol] 28.0 mmol/L 21.0-32.0 [facility] Globulin (S) [Mass/Vol] 3.0 g/dL 2.2-4.2 [facility] Urea nitrogen/Creatinine [Mass ratio] 24.8 mg/mg 10-20 [facility] Laboratory - Hematology and Cell countsOrdered By: West Christy on 08-21-2022 Erythrocyte distribution width (RBC) [Entitic vol] 41.3 fL 35.1-43.9 [facility] Erythrocyte distribution width (RBC) [Ratio] 12.5 % 11.6-14.6 [facility] Immature granulocytes/100 WBC (Bld) 0.000 % 0.0-0.9 [facility] Comment on above: IG% - Immature Granu locytes (promyelocytes, myelocytes and metamyelocytes) > 1% indicates that a LEFT SHIFT is Present. MCH (RBC) [Entitic mass] 29.5 pg 27.0-32.0 [facility] Nucleated RBC/100 WBC (Bld) [Ratio] 0 % 0-5 [facility] MCHC Auto (RBC) [Mass/Vol]Or dered By: West Christy on 08-21-2022 MCHC (RBC) [Mass/Vol] 32.8 g/dL 32-36 [facility] No Panel InformationOrdered By: West Christy on 08-21-2022 Estimated Creatinine Clearance Calc 92.83 ml/min [facility] Estimated GFR (MDRD) Amer 126 mL/min >60 [facility] Comment on above: GFR Calc Estimated GFR (MDRD) Non-Af Amer 104 mL/min >60 [facility] Comment on above: Non- GFR Calc Platelets bldOrdered By: Mushtaq Chritsy on 08-21-2022 Platelets (Bld) [#/Vol] 198 10*3/uL 150-450 [facility] Review by pathologistOrdered By: West Christy on 08-21-2022 Pathologist review David (Unsp spec) [Interp] Reviewed [facility] Comment on above: Previous reported re sult: Mindy silva Edited by: RGOLEONARDO on 08/23/22:822Leukopenia and neutropenia. Clinical correlation necessary.Wai Fu M.D. 08/23/22 AMENDED REPORT 08/23/22822 PATH REV previously reported as: Mindy silva Serum or plasma albumin elaina urement (mass/volume)Ordered By: West Christy on 08-21-2022 Albumin [Mass/Vol] 3.6 g/dL 3.2-5.0 [facility] Serum or plasma albumin/glob ulin mass ratioOrdered By: West Christy on 08-21-2022 Albumin/Globulin [Mass ratio] 1.2 {ratio} 0.9-2.4 [facility] Serum or plasma calcium elaina urement (mass/volume)Ordered By: West Christy on 08-21-2022 Calcium [Mass/Vol] 9.1 mg/dL 8.5-10.1 [facility] Serum or plasma creatinine m easurement (mass/volume)Ordered By: West Christy on 08-21-2022 Creatinine [Mass/Vol] 0.64 mg/dL 0.55-1.02 [facility] Comment on above: The validity of the calculated GFR & GFRAA in patients over 70 years has not been determined. Clinical correlation is essential. Serum or plasma urea nitroge n measurement (mass/volume)Ordered By: West Christy on 08-21-2022 Urea nitrogen [Mass/Vol] 16 mg/dL 7-18 [facility] Thin prep Papanicolaou smear with manual screeningOrdered By: West Christy on 08-21-2022 Thin prep Papanicolaou smear with manual screening 30 U/L 15-37 [facility] Thin prep Papanicolaou smear with manual screening 3 5-15 [facility] Absolute lymphocyte countOrd ered By: Dr. Christy on 07-24-2022 Lymphocytes Auto (Unsp spec) [#/Vol] 0.12 10*3/uL 0.83-4.51 [facility] Basophil percentageOrdered B y: Dr. Christy on 07-24-2022 Basophils/100 WBC (Bld) 0.9 % 0-1 [facility] Bilirubin [Mass/Vol] 0.30 mg/dL 0.20-1.00 [facility] Comment on above: For patients on eltr ombopag therapy, use of Dimension [place] TBIL is not recommended. Chloride [Moles/Vol] 108 mmol/L 98-107 [facility] Eosinophils/100 WBC (Bld) 2.8 % 0-5 [facility] Glucose [Mass/Vol] 79 mg/dL 74-106 [facility] LDH [Catalytic activity/Vol] 153 U/L 84-246 [facility] Neutrophils (Bld) [#/Vol] 1.7 10*3/uL 2.0-7.7 [facility] Neutrophils/100 WBC (Bld) 77.5 % 47-70 [facility] Potassium [Moles/Vol] 3.8 mmol/L 3.5-5.1 [facility] Protein [Mass/Vol] 6.7 g/dL 6.4-8.2 [facility] Sodium [Moles/Vol] 141 mmol/L 136-145 [facility] WBC (Bld) [#/Vol] 2.2 10*3/uL 4.4-11.0 [facility] Blood erythrocytes count (nu mber/volume)Ordered By: Dr. Christy on 07-24-2022 RBC (Bld) [#/Vol] 4.31 10*6/uL 4.2-5.4 [facility] Blood hemoglobin measurement (mass/volume)Ordered By: Dr. Christy on 07-24-2022 Hemoglobin (Bld) [Mass/Vol] 12.5 g/dL 12.0-15.0 [facility] Blood lymphocytes/100 leukoc ytesOrdered By: Dr. Christy on 07-24-2022 Lymphocytes/100 WBC (Bld) 5.5 % 19-41 [facility] Blood manual differential co mment interpretation (narrative result)Ordered By: Dr. Christy on 07-24-2022 Manual differential comment David (Bld) [Interp] SCANNED [facility] Blood monocytes/100 leukocyt esOrdered By: Dr. Christy on 07-24-2022 Monocytes/100 WBC (Bld) 12.8 % 0-10 [facility] Blood platelet mean volumeOr dered By: Dr. Christy on 07-24-2022 Platelet mean volume (Bld) [Entitic vol] 9.1 fL 6.2-12.0 [facility] Determination of erythrocyte mean corpuscular volume (MCV)Ordered By: Dr. Christy on 07-24-2022 MCV (RBC) [Entitic vol] 91.9 fL 81-99 [facility] Hematocrit Auto (Bld) [Volum e fraction]Ordered By: Dr. Christy on 07-24-2022 Hematocrit (Bld) [Volume fraction] 39.6 % 37-47 [facility] Laboratory - Chemistry and C hemistry - challengeOrdered By: Dr. Christy on 07-24-2022 ALP [Catalytic activity/Vol] 96 U/L 45-117 [facility] ALT [Catalytic activity/Vol] 38 U/L 13-56 [facility] CO2 [Moles/Vol] 28.0 mmol/L 21.0-32.0 [facility] Globulin (S) [Mass/Vol] 3.0 g/dL 2.2-4.2 [facility] Urea nitrogen/Creatinine [Mass ratio] 23.5 mg/mg 10-20 [facility] Laboratory - Hematology and Cell countsOrdered By: Dr. Christy on 07-24-2022 Erythrocyte distribution width (RBC) [Entitic vol] 42.9 fL 35.1-43.9 [facility] Erythrocyte distribution width (RBC) [Ratio] 12.7 % 11.6-14.6 [facility] Immature granulocytes/100 WBC (Bld) 0.500 % 0.0-0.9 [facility] Comment on above: IG% - Immature Granu locytes (promyelocytes, myelocytes and metamyelocytes) > 1% indicates that a LEFT SHIFT is Present. MCH (RBC) [Entitic mass] 29.0 pg 27.0-32.0 [facility] Nucleated RBC/100 [facility] (Bld) [[facility]] 0 % [facility] [[facility]/Vol]Or dered By: Dr. Christy on 07-24-2022 MCHC (RBC) [Mass/Vol] 31.6 g/dL 32-36 [facility] No Panel InformationOrdered By: Dr. Christy on 07-24-2022 Estimated Creatinine Clearance Calc 93.84 ml/min [facility] Estimated GFR (MDRD) Amer 128 mL/min >60 [facility] Comment on above: GFR Calc Estimated GFR (MDRD) Non-Af Amer 106 mL/min >60 [facility] Comment on above: Non- GFR Calc Platelets bldOrdered By: Dr. Christy on 07-24-2022 Platelets (Bld) [#/Vol] 208 10*3/uL 150-450 [facility] Review by pathologistOrdered By: Dr. Christy on 07-24-2022 Pathologist review David (Unsp spec) [Interp] Reviewed [facility] Comment on above: Previous reported re sult: Mindy silva Edited by: RGOOD on 07/24/22:1427LeukopeniaClinical correlation suggested.Henri Gallagher D.O. 07/24/22 AMENDED REPORT 07/24/22 1427 PATH REV previously reported as: Mindy silva Serum or plasma albumin elaina urement (mass/volume)Ordered By: Dr. Christy on 07-24-2022 Albumin [Mass/Vol] 3.7 g/dL 3.2-5.0 [facility] Serum or plasma albumin/glob ulin mass ratioOrdered By: Dr. Christy on 07-24-2022 Albumin/Globulin [Mass ratio] 1.2 {ratio} 0.9-2.4 [facility] Serum or plasma calcium elaina urement (mass/volume)Ordered By: Dr. Christy on 07-24-2022 Calcium [Mass/Vol] 9.1 mg/dL 8.5-10.1 [facility] Serum or plasma creatinine m easurement (mass/volume)Ordered By: Dr. Christy on 07-24-2022 Creatinine [Mass/Vol] 0.64 mg/dL 0.55-1.02 [facility] Comment on above: The validity of the calculated GFR & GFRAA in patients over 70 years has not been determined. Clinical correlation is essential. Serum or plasma urea nitroge n measurement (mass/volume)Ordered By: Dr. Christy on 07-24-2022 Urea nitrogen [Mass/Vol] 15 mg/dL 7-18 [facility] Thin prep Papanicolaou smear with manual screeningOrdered By: Dr. Christy on 07-24-2022 Thin prep Papanicolaou smear with manual screening 20 U/L 15-37 [facility] Thin prep Papanicolaou smear with manual screening 5 5-15 [facility] Absolute lymphocyte countOrd ered By: Dr. Christy on 06-19-2022 Lymphocytes Auto (Unsp spec) [#/Vol] 0.16 10*3/uL 0.83-4.51 [facility] Basophil percentageOrdered B y: Dr. Christy on 06-19-2022 Basophils/100 WBC (Bld) 1.0 % 0-1 [facility] Bilirubin [Mass/Vol] 0.30 mg/dL 0.20-1.00 [facility] Comment on above: For patients on eltr ombopag therapy, use of Dimension [place] TBIL is not recommended. Chloride [Moles/Vol] 109 mmol/L 98-107 [facility] Eosinophils/100 WBC (Bld) 3.0 % 0-5 [facility] Glucose [Mass/Vol] 87 mg/dL 74-106 [facility] LDH [Catalytic activity/Vol] 150 U/L 84-246 [facility] Neutrophils (Bld) [#/Vol] 1.5 10*3/uL 2.0-7.7 [facility] Neutrophils/100 WBC (Bld) 73.9 % 47-70 [facility] Potassium [Moles/Vol] 3.8 mmol/L 3.5-5.1 [facility] Protein [Mass/Vol] 6.7 g/dL 6.4-8.2 [facility] Sodium [Moles/Vol] 138 mmol/L 136-145 [facility] WBC (Bld) [#/Vol] 2.0 10*3/uL 4.4-11.0 [facility] Blood erythrocytes count (nu mber/volume)Ordered By: Dr. Christy on 06-19-2022 RBC (Bld) [#/Vol] 4.47 10*6/uL 4.2-5.4 [facility] Blood hemoglobin measurement (mass/volume)Ordered By: Dr. Christy on 06-19-2022 Hemoglobin (Bld) [Mass/Vol] 12.8 g/dL 12.0-15.0 [facility] Blood lymphocytes/100 leukoc ytesOrdered By: Dr. Christy on 06-19-2022 Lymphocytes/100 WBC (Bld) 8.0 % 19-41 [facility] Blood manual differential co mment interpretation (narrative result)Ordered By: Dr. Christy on 06-19-2022 Manual differential comment David (Bld) [Interp] SCANNED [facility] Blood monocytes/100 leukocyt esOrdered By: Dr. Christy on 06-19-2022 Monocytes/100 WBC (Bld) 13.6 % 0-10 [facility] Blood platelet adequacy dete ction by light microscopyOrdered By: Dr. Christy on 06-19-2022 Platelets LM Ql (Bld) ADEQUATE ADEQ [facility] Blood platelet mean volumeOr dered By: Dr. Christy on 06-19-2022 Platelet mean volume (Bld) [Entitic vol] 9.5 fL 6.2-12.0 [facility] Determination of erythrocyte mean corpuscular volume (MCV)Ordered By: Dr. Christy on 06-19-2022 MCV (RBC) [Entitic vol] 91.3 fL 81-99 [facility] Hematocrit Auto (Bld) [Volum e fraction]Ordered By: Dr. Christy on 06-19-2022 Hematocrit (Bld) [Volume fraction] 40.8 % 37-47 [facility] Laboratory - Chemistry and C hemistry - challengeOrdered By: Dr. Christy on 06-19-2022 ALP [Catalytic activity/Vol] 89 U/L 45-117 [facility] ALT [Catalytic activity/Vol] 40 U/L 13-56 [facility] CO2 [Moles/Vol] 26.0 mmol/L 21.0-32.0 [facility] Globulin (S) [Mass/Vol] 2.9 g/dL 2.2-4.2 [facility] Urea nitrogen/Creatinine [Mass ratio] 18.0 mg/mg 10-20 [facility] Laboratory - Hematology and Cell countsOrdered By: Dr. Christy on 06-19-2022 Erythrocyte distribution width (RBC) [Entitic vol] 49.3 fL 35.1-43.9 [facility] Erythrocyte distribution width (RBC) [Ratio] 14.7 % 11.6-14.6 [facility] Immature granulocytes/100 WBC (Bld) 0.500 % 0.0-0.9 [facility] Comment on above: IG% - Immature Granu locytes (promyelocytes, myelocytes and metamyelocytes) > 1% indicates that a LEFT SHIFT is Present. MCH (RBC) [Entitic mass] 28.6 pg 27.0-32.0 [facility] Nucleated RBC/100 WBC (Bld) [Ratio] 0 % 0-5 [facility] MCHC Auto (RBC) [Mass/Vol]Or dered By: Dr. Christy on 06-19-2022 MCHC (RBC) [Mass/Vol] 31.4 g/dL 32-36 [facility] No Panel InformationOrdered By: Dr. Christy on 06-19-2022 Estimated Creatinine Clearance Calc 107.24 ml/min [facility] Estimated GFR (MDRD) Amer 150 mL/min >60 [facility] Comment on above: GFR Calc Estimated GFR (MDRD) Non-Af Amer 124 mL/min >60 [facility] Comment on above: Non- GFR Calc Platelets LM Ql (Bld)Ordered By: [place] Christy on 06-19-2022 Platelet Estimate ADEQUATE ADEQ [facility] Platelets bldOrdered By: Dr. Christy on 06-19-2022 Platelets (Bld) [#/Vol] 167 10*3/uL 150-450 [facility] Review by pathologistOrdered By: Dr. Christy on 06-19-2022 Pathologist review David (Unsp spec) [Interp] May foll [facility] Serum or plasma albumin elaina urement (mass/volume)Ordered By: Dr. Christy on 06-19-2022 Albumin [Mass/Vol] 3.8 g/dL 3.2-5.0 [facility] Serum or plasma albumin/glob ulin mass ratioOrdered By: Dr. Christy on 06-19-2022 Albumin/Globulin [Mass ratio] 1.3 {ratio} 0.9-2.4 [facility] Serum or plasma calcium elaina urement (mass/volume)Ordered By: Dr. Christy on 06-19-2022 Calcium [Mass/Vol] 9.1 mg/dL 8.5-10.1 [facility] Serum or plasma creatinine m easurement (mass/volume)Ordered By: Dr. Christy on 06-19-2022 Creatinine [Mass/Vol] 0.56 mg/dL 0.55-1.02 [facility] Comment on above: The validity of the calculated GFR & GFRAA in patients over 70 years has not been determined. Clinical correlation is essential. Serum or plasma urea nitroge n measurement (mass/volume)Ordered By: Dr. Christy on 06-19-2022 Urea nitrogen [Mass/Vol] 10 mg/dL 7-18 [facility] Thin prep Papanicolaou smear with manual screeningOrdered By: Dr. hCristy on 06-19-2022 Thin prep Papanicolaou smear with manual screening 21 U/L 15-37 [facility] Thin prep Papanicolaou smear with manual screening 3 5-15 [facility] Absolute lymphocyte countOrd ered By: Dr. Christy on 04-24-2022 Lymphocytes Auto (Unsp spec) [#/Vol] 1.29 10*3/uL 0.83-4.51 [facility] Basophil percentageOrdered B y: Dr. Christy on 04-24-2022 Basophils/100 WBC (Bld) 2.0 % 0-1 [facility] Bilirubin [Mass/Vol] 0.50 mg/dL 0.20-1.00 [facility] Comment on above: For patients on eltr ombopag therapy, use of Dimension [place] TBIL is not recommended. Chloride [Moles/Vol] 108 mmol/L 98-107 [facility] Eosinophils/100 WBC (Bld) 4.5 % 0-5 [facility] Glucose [Mass/Vol] 86 mg/dL 74-106 [facility] LDH [Catalytic activity/Vol] 180 U/L 84-246 [facility] Neutrophils (Bld) [#/Vol] 2.0 10*3/uL 2.0-7.7 [facility] Neutrophils/100 WBC (Bld) 50.7 % 47-70 [facility] Potassium [Moles/Vol] 3.9 mmol/L 3.5-5.1 [facility] Protein [Mass/Vol] 6.8 g/dL 6.4-8.2 [facility] Sodium [Moles/Vol] 142 mmol/L 136-145 [facility] WBC (Bld) [#/Vol] 4.0 10*3/uL 4.4-11.0 [facility] Blood erythrocytes count (nu mber/volume)Ordered By: Dr. Christy on 04-24-2022 RBC (Bld) [#/Vol] 4.72 10*6/uL 4.2-5.4 [facility] Blood hemoglobin measurement (mass/volume)Ordered By: Dr. Christy on 04-24-2022 Hemoglobin (Bld) [Mass/Vol] 12.8 g/dL 12.0-15.0 [facility] Blood lymphocytes/100 leukoc ytesOrdered By: Dr. Christy on 04-24-2022 Lymphocytes/100 WBC (Bld) 32.5 % 19-41 [facility] Blood monocytes/100 leukocyt esOrdered By: Dr. Christy on 04-24-2022 Monocytes/100 WBC (Bld) 9.8 % 0-10 [facility] Blood platelet mean volumeOr dered By: Dr. Christy on 04-24-2022 Platelet mean volume (Bld) [Entitic vol] 9.8 fL 6.2-12.0 [facility] Determination of erythrocyte mean corpuscular volume (MCV)Ordered By: Dr. Christy on 04-24-2022 MCV (RBC) [Entitic vol] 86.4 fL 81-99 [facility] Hematocrit Auto (Bld) [Volum e fraction]Ordered By: Dr. Christy on 04-24-2022 Hematocrit (Bld) [Volume fraction] 40.8 % 37-47 [facility] Laboratory - Chemistry and C hemistry - challengeOrdered By: Dr. Christy on 04-24-2022 ALP [Catalytic activity/Vol] 66 U/L 45-117 [facility] ALT [Catalytic activity/Vol] 47 U/L 13-56 [facility] CO2 [Moles/Vol] 28.0 mmol/L 21.0-32.0 [facility] Globulin (S) [Mass/Vol] 3.0 g/dL 2.2-4.2 [facility] Urea nitrogen/Creatinine [Mass ratio] 23.9 mg/mg 10-20 [facility] Laboratory - Hematology and Cell countsOrdered By: Dr. Christy on 04-24-2022 Erythrocyte distribution width (RBC) [Entitic vol] 45.3 fL 35.1-43.9 [facility] Erythrocyte distribution width (RBC) [Ratio] 14.6 % 11.6-14.6 [facility] Immature granulocytes/100 WBC (Bld) 0.500 % 0.0-0.9 [facility] Comment on above: IG% - Immature Granu locytes (promyelocytes, myelocytes and metamyelocytes) > 1% indicates that a LEFT SHIFT is Present. MCH (RBC) [Entitic mass] 27.1 pg 27.0-32.0 [facility] Nucleated RBC/100 WBC (Bld) [Ratio] 0 % 0-5 [facility] MCHC Auto (RBC) [Mass/Vol]Or dered By: Dr. Christy on 04-24-2022 MCHC (RBC) [Mass/Vol] 31.4 g/dL 32-36 [facility] No Panel InformationOrdered By: Dr. Christy on 04-24-2022 Estimated Creatinine Clearance Calc 95.33 ml/min [facility] Estimated GFR (MDRD) Amer 131 mL/min >60 [facility] Comment on above: GFR Calc Estimated GFR (MDRD) Non-Af Amer 108 mL/min >60 [facility] Comment on above: Non- GFR Calc Platelets bldOrdered By: Dr. Christy on 04-24-2022 Platelets (Bld) [#/Vol] 183 10*3/uL 150-450 [facility] Serum or plasma albumin elaina urement (mass/volume)Ordered By: Dr. Christy on 04-24-2022 Albumin [Mass/Vol] 3.8 g/dL 3.2-5.0 [facility] Serum or plasma albumin/glob ulin mass ratioOrdered By: Dr. Christy on 04-24-2022 Albumin/Globulin [Mass ratio] 1.3 {ratio} 0.9-2.4 [facility] Serum or plasma calcium elaina urement (mass/volume)Ordered By: Dr. Christy on 04-24-2022 Calcium [Mass/Vol] 9.2 mg/dL 8.5-10.1 [facility] Serum or plasma creatinine m easurement (mass/volume)Ordered By: Dr. Christy on 04-24-2022 Creatinine [Mass/Vol] 0.63 mg/dL 0.55-1.02 [facility] Comment on above: The validity of the calculated GFR & GFRAA in patients over 70 years has not been determined. Clinical correlation is essential. Serum or plasma urea nitroge n measurement (mass/volume)Ordered By: Dr. Christy on 04-24-2022 Urea nitrogen [Mass/Vol] 15 mg/dL 7-18 [facility] Thin prep Papanicolaou smear with manual screeningOrdered By: Dr. Christy on 04-24-2022 Thin prep Papanicolaou smear with manual screening 29 U/L 15-37 [facility] Thin prep Papanicolaou smear with manual screening 6 5-15 [facility] Laboratory - Microbiology an d Antimicrobial susceptibilityOrdered By: Dr. Hernandez on 04-10-2022 Bacteria identified Cx Nom (Bld) No growth in 5 days. [facility] Absolute lymphocyte countOrd ered By: Dr. Hernandez on 04-04-2022 Lymphocytes Auto (Unsp spec) [#/Vol] 2.43 10*3/uL 0.83-4.51 [facility] Basophil percentageOrdered B y: Dr. Hernandez on 04-04-2022 Basophil percentage Not Reportable [facility] Bilirubin [Mass/Vol] 0.30 mg/dL 0.20-1.00 [facility] Comment on above: For patients on eltr ombopag therapy, use of Dimension [place] TBIL is not recommended. Chloride [Moles/Vol] 102 mmol/L 98-107 [facility] Glucose [Mass/Vol] 89 mg/dL 74-106 [facility] Lactate [Moles/Vol] 0.8 mmol/L 0.4-2.0 [facility] Neutrophils (Bld) [#/Vol] 24.9 10*3/uL 2.0-7.7 [facility] Potassium [Moles/Vol] 3.8 mmol/L 3.5-5.1 [facility] Protein [Mass/Vol] 6.8 g/dL 6.4-8.2 [facility] Sodium [Moles/Vol] 136 mmol/L 136-145 [facility] WBC (Bld) [#/Vol] 30.4 10*3/uL 4.4-11.0 [facility] Comment on above: CRITICAL VALUE VERIF IED. CALLED TO [id number] Masha Watkins.RESULTS READ BACK BY SAME . Basophil percentage 0-5 SEEN /hpf 0-5 [facility] Bilirubin Test strip Ql (U)O rdered By: Dr. Hernandez on 04-04-2022 Bilirubin Ql (U) Negative Negative [facility] Blood band neutrophil count as percentage of total leukocytesOrdered By: Dr. Hernandez on 04-04-2022 Band form neutrophils/100 WBC (Bld) 7 % 0-5 [facility] Blood eosinophils/100 leukoc ytesOrdered By: Dr. Hernandez on 04-04-2022 Eosinophils/100 WBC (Bld) 4 % 0-5 [facility] Blood erythrocytes count (nu mber/volume)Ordered By: Dr. Hernandez on 04-04-2022 RBC (Bld) [#/Vol] 4.51 10*6/uL 4.2-5.4 [facility] Blood hemoglobin measurement (mass/volume)Ordered By: Dr. Hernandez on 04-04-2022 Hemoglobin (Bld) [Mass/Vol] 12.2 g/dL 12.0-15.0 [facility] Blood lymphocytes/100 leukoc ytesOrdered By: Dr. Hernandez on 04-04-2022 Lymphocytes/100 WBC (Bld) 8 % 19-41 [facility] Blood monocytes/100 leukocyt esOrdered By: Dr. Hernandez on 04-04-2022 Monocytes/100 WBC (Bld) 6 % 0-10 [facility] Blood platelet adequacy dete ction by light microscopyOrdered By: Dr. Hernandez on 04-04-2022 Platelets LM Ql (Bld) ADEQUATE ADEQ [facility] Blood platelet mean volumeOr dered By: Dr. Hernandez on 04-04-2022 Platelet mean volume (Bld) [Entitic vol] 10.1 fL 6.2-12.0 [facility] Blood segmented neutrophils/ [address]: [address] Hernandez on 04-04-2022 Segmented neutrophils/100 WBC (Bld) 75 % 47-70 [facility] Determination of erythrocyte mean corpuscular volume (MCV)Ordered By: Dr. Hernandez on 04-04-2022 MCV (RBC) [Entitic vol] 85.4 fL 81-99 [facility] Hematocrit Auto (Bld) [Volum e fraction]Ordered By: Dr. Hernandez on 04-04-2022 Hematocrit (Bld) [Volume fraction] 38.5 % 37-47 [facility] Influenza virus A and B and SARS-CoV-2 (COVID-19) Ag panel - Upper respiratory specimOrdered By: Dr. Hernandez on 04-04-2022 SARS-CoV-2 (COVID-19) RNA KRYS+probe Ql (Resp) [facility] Ketones Test strip Ql (U)Ord ered By: Dr. Hernandez on 04-04-2022 Ketones Ql (U) Negative Negative [facility] Laboratory - Chemistry and C hemistry - challengeOrdered By: Dr. Hernandez on 04-04-2022 ALP [Catalytic activity/Vol] 164 U/L 45-117 [facility] ALT [Catalytic activity/Vol] 15 U/L 13-56 [facility] CO2 [Moles/Vol] 28.0 mmol/L 21.0-32.0 [facility] Globulin (S) [Mass/Vol] 3.2 g/dL 2.2-4.2 [facility] Urea nitrogen/Creatinine [Mass ratio] 16.1 mg/mg 10-20 [facility] Laboratory - Hematology and Cell countsOrdered By: Dr. Hernandez on 04-04-2022 Erythrocyte distribution width (RBC) [Entitic vol] 42.3 fL 35.1-43.9 [facility] Erythrocyte distribution width (RBC) [Ratio] 13.7 % 11.6-14.6 [facility] MCH (RBC) [Entitic mass] 27.1 pg 27.0-32.0 [facility] MCHC Auto (RBC) [Mass/Vol]Or dered By: Dr. Hernandez on 04-04-2022 MCHC (RBC) [Mass/Vol] 31.7 g/dL 32-36 [facility] Mucus LM Ql (Urine sed)Order ed By: Dr. Hernandez on 04-04-2022 Mucus Ql (Urine sed) 0 SEEN /hpf [facility] Nitrite Test strip Ql (U)Ord ered By: Dr. Hernandez on 04-04-2022 Nitrite Ql (U) Negative Negative [facility] No Panel InformationOrdered By: Dr. Hernandez on 04-04-2022 Estimated Creatinine Clearance Calc 96.86 ml/min [facility] Estimated GFR (MDRD) Amer 132 mL/min >60 [facility] Comment on above: GFR Calc Estimated GFR (MDRD) Non-Af Amer 109 mL/min >60 [facility] Comment on above: Non- GFR Calc Platelets bldOrdered By: Dr. Hernandez on 04-04-2022 Platelets (Bld) [#/Vol] 193 10*3/uL 150-450 [facility] Protein Test strip Ql (U)Ord ered By: Dr. Hernandez on 04-04-2022 Protein Ql (U) Negative Negative [facility] RBC morphologyOrdered By: Dr Alex Hernandez on 04-04-2022 RBC morphology finding Nom (Bld) NORM C+C NORMAL NORM C&C [facility] Review by pathologistOrdered By: Dr. Hernandez on 04-04-2022 Pathologist review David (Unsp spec) [Interp] May foll [facility] Pathologist review David (Unsp spec) [Interp] Reviewed [facility] Comment on above: Previous reported re sult: June ricardo Edited by: RGOLEONARDO on 04/05/22:1408Neutrophilic leukocytosis with left shift. Clinical correlation necessary.Wai Fu M.D. 04/05/22 AMENDED REPORT 04/05/22 1408 PATH REV previously reported as: June ricardo Serum or plasma albumin elaina urement (mass/volume)Ordered By: Dr. Hernandez on 04-04-2022 Albumin [Mass/Vol] 3.6 g/dL 3.2-5.0 [facility] Serum or plasma albumin/glob ulin mass ratioOrdered By: Dr. Hernandez on 04-04-2022 Albumin/Globulin [Mass ratio] 1.1 {ratio} 0.9-2.4 [facility] Serum or plasma calcium elaina urement (mass/volume)Ordered By: Dr. Hernandez on 04-04-2022 Calcium [Mass/Vol] 8.7 mg/dL 8.5-10.1 [facility] Serum or plasma creatinine m easurement (mass/volume)Ordered By: Dr. Hernandez on 04-04-2022 Creatinine [Mass/Vol] 0.62 mg/dL 0.55-1.02 [facility] Comment on above: The validity of the calculated GFR & GFRAA in patients over 70 years has not been determined. Clinical correlation is essential. Serum or plasma urea nitroge n measurement (mass/volume)Ordered By: Dr. Hernandez on 04-04-2022 Urea nitrogen [Mass/Vol] 10 mg/dL 7-18 [facility] Squamous epithelial cells de tection in urine sediment by light microscopyOrdered By: Dr. Hernandez on 04-04-2022 Epithelial cells.squamous LM Ql (Urine sed) 0-5 SEEN /hpf 5-10 [facility] Thin prep Papanicolaou smear with manual screeningOrdered By: Dr. Hernandez on 04-04-2022 Thin prep Papanicolaou smear with manual screening 17 U/L 15-37 [facility] Thin prep Papanicolaou smear with manual screening 6 5-15 [facility] Total cell countOrdered By: Dr. Hernandez on 04-04-2022 Cells counted Molgen (Bld/Tiss) [#] 100 MANUAL DIFF [facility] Urine blood detectionOrdered By: Dr. Hernandez on 04-04-2022 RBC Ql (U) Negative Negative [facility] RBC Ql (U) 0 SEEN /hpf 0-5 [facility] Urine clarityOrdered By: Dr. Hernandez on 04-04-2022 Clarity (U) Clear Clear [facility] Urine color determinationOrd ered By: Dr. Hernandez on 04-04-2022 Color (U) Yellow Yellow [facility] Urine glucose detectionOrder ed By: Dr. Hernandez on 04-04-2022 Glucose Ql (U) Normal mg/dl Normal [facility] Urine leukocyte esterase det ection by dipstickOrdered By: Dr. Hernandez on 04-04-2022 Leukocyte esterase Test strip Ql (U) 25 /ul Negative [facility] Urine pHOrdered By: Dr. Renny phillpis on 04-04-2022 pH (U) 7.0 [pH] 5.0 - 8.0 [facility] Urine sediment bacteria coun t by microscopy (number/high power field)Ordered By: Dr. Hernandez on 04-04-2022 Bacteria LM.HPF (Urine sed) [#/Area] 0 /[HPF] None Seen [facility] Urine specific gravity measu rementOrdered By: Dr. Hernandez on 04-04-2022 Specific gravity (U) [Rel density] 1.005 1.002-1.030 [facility] Urobilinogen Auto test strip Ql (U)Ordered By: Dr. Hernandez on 04-04-2022 Urobilinogen Ql (U) Normal mg/dl Normal [facility] Absolute lymphocyte countOrd ered By: Dr. Christy on 03-27-2022 Lymphocytes Auto (Unsp spec) [#/Vol] 1.00 10*3/uL 0.83-4.51 [facility] Basophil percentageOrdered B y: Dr. Christy on 03-27-2022 Basophils/100 WBC (Bld) 0.7 % 0-1 [facility] Bilirubin [Mass/Vol] 0.20 mg/dL 0.20-1.00 [facility] Comment on above: For patients on eltr ombopag therapy, use of Dimension [place] TBIL is not recommended. Chloride [Moles/Vol] 110 mmol/L 98-107 [facility] Eosinophils/100 WBC (Bld) 4.9 % 0-5 [facility] Glucose [Mass/Vol] 104 mg/dL 74-106 [facility] Comment on above: Fasting Glucose resu lt from 100 to 125 mg/dL suggests IMPAIRED HOMEOSTASIS per A.D.A. criteria. LDH [Catalytic activity/Vol] 211 U/L 84-246 [facility] Neutrophils (Bld) [#/Vol] 2.5 10*3/uL 2.0-7.7 [facility] Neutrophils/100 WBC (Bld) 60.8 % 47-70 [facility] Potassium [Moles/Vol] 4.0 mmol/L 3.5-5.1 [facility] Protein [Mass/Vol] 6.8 g/dL 6.4-8.2 [facility] Sodium [Moles/Vol] 144 mmol/L 136-145 [facility] WBC (Bld) [#/Vol] 4.1 10*3/uL 4.4-11.0 [facility] Blood erythrocytes count (nu mber/volume)Ordered By: Dr. Christy on 03-27-2022 RBC (Bld) [#/Vol] 4.68 10*6/uL 4.2-5.4 [facility] Blood hemoglobin measurement (mass/volume)Ordered By: Dr. Christy on 03-27-2022 Hemoglobin (Bld) [Mass/Vol] 12.6 g/dL 12.0-15.0 [facility] Blood lymphocytes/100 leukoc ytesOrdered By: Dr. Christy on 03-27-2022 Lymphocytes/100 WBC (Bld) 24.3 % 19-41 [facility] Blood monocytes/100 leukocyt esOrdered By: Dr. Christy on 03-27-2022 Monocytes/100 WBC (Bld) 8.8 % 0-10 [facility] Blood platelet mean volumeOr dered By: Dr. Christy on 03-27-2022 Platelet mean volume (Bld) [Entitic vol] 9.1 fL 6.2-12.0 [facility] Determination of erythrocyte mean corpuscular volume (MCV)Ordered By: Dr. Christy on 03-27-2022 MCV (RBC) [Entitic vol] 84.4 fL 81-99 [facility] Hematocrit Auto (Bld) [Volum e fraction]Ordered By: Dr. Christy on 03-27-2022 Hematocrit (Bld) [Volume fraction] 39.5 % 37-47 [facility] Laboratory - Chemistry and C hemistry - challengeOrdered By: Dr. Christy on 03-27-2022 ALP [Catalytic activity/Vol] 79 U/L 45-117 [facility] ALT [Catalytic activity/Vol] 27 U/L 13-56 [facility] CO2 [Moles/Vol] 26.0 mmol/L 21.0-32.0 [facility] Globulin (S) [Mass/Vol] 3.2 g/dL 2.2-4.2 [facility] Urea nitrogen/Creatinine [Mass ratio] 17.5 mg/mg 10-20 [facility] Laboratory - Hematology and Cell countsOrdered By: Dr. Christy on 03-27-2022 Erythrocyte distribution width (RBC) [Entitic vol] 41.8 fL 35.1-43.9 [facility] Erythrocyte distribution width (RBC) [Ratio] 13.6 % 11.6-14.6 [facility] Immature granulocytes/100 WBC (Bld) 0.500 % 0.0-0.9 [facility] Comment on above: IG% - Immature Granu locytes (promyelocytes, myelocytes and metamyelocytes) > 1% indicates that a LEFT SHIFT is Present. MCH (RBC) [Entitic mass] 26.9 pg 27.0-32.0 [facility] Nucleated RBC/100 WBC (Bld) [Ratio] 0 % 0-5 [facility] MCHC Auto (RBC) [Mass/Vol]Or dered By: Dr. Christy on 03-27-2022 MCHC (RBC) [Mass/Vol] 31.9 g/dL 32-36 [facility] No Panel InformationOrdered By: Dr. Christy on 03-27-2022 Estimated GFR (MDRD) Amer 118 mL/min >60 [facility] Comment on above: GFR Calc Estimated GFR (MDRD) Non-Af Amer 98 mL/min >60 [facility] Comment on above: Non- GFR Calc Platelets bldOrdered By: Dr. Christy on 03-27-2022 Platelets (Bld) [#/Vol] 196 10*3/uL 150-450 [facility] Serum or plasma albumin elaina urement (mass/volume)Ordered By: Dr. Christy on 03-27-2022 Albumin [Mass/Vol] 3.6 g/dL 3.2-5.0 [facility] Serum or plasma albumin/glob ulin mass ratioOrdered By: Dr. Christy on 03-27-2022 Albumin/Globulin [Mass ratio] 1.1 {ratio} 0.9-2.4 [facility] Serum or plasma calcium elaina urement (mass/volume)Ordered By: Dr. Christy on 03-27-2022 Calcium [Mass/Vol] 9.0 mg/dL 8.5-10.1 [facility] Serum or plasma creatinine m easurement (mass/volume)Ordered By: Dr. Christy on 03-27-2022 Creatinine [Mass/Vol] 0.68 mg/dL 0.55-1.02 [facility] Comment on above: The validity of the calculated GFR & GFRAA in patients over 70 years has not been determined. Clinical correlation is essential. Serum or plasma urea nitroge n measurement (mass/volume)Ordered By: Dr. Christy on 03-27-2022 Urea nitrogen [Mass/Vol] 12 mg/dL 7-18 [facility] Serum or plasma uric acid me asurement (mass/volume)Ordered By: Dr. Christy on 03-27-2022 Urate [Mass/Vol] 2.8 mg/dL 2.6-6.0 [facility] Comment on above: The drugs N-Acetylcy steine and Metamizole may falsely depress this assay. Thin prep Papanicolaou smear with manual screeningOrdered By: Dr. Christy on 03-27-2022 Thin prep Papanicolaou smear with manual screening 30 U/L 15-37 [facility] Thin prep Papanicolaou smear with manual screening 8 5-15 [facility] Absolute lymphocyte countOrd ered By: Dr. Christy on 03-08-2022 Lymphocytes Auto (Unsp spec) [#/Vol] 1.13 10*3/uL 0.83-4.51 [facility] Basophil percentageOrdered B y: Dr. Christy on 03-08-2022 Basophils/100 WBC (Bld) 0.7 % 0-1 [facility] Eosinophils/100 WBC (Bld) 4.1 % 0-5 [facility] Neutrophils (Bld) [#/Vol] 2.7 10*3/uL 2.0-7.7 [facility] Neutrophils/100 WBC (Bld) 61.4 % 47-70 [facility] WBC (Bld) [#/Vol] 4.4 10*3/uL 4.4-11.0 [facility] Blood erythrocytes count (nu mber/volume)Ordered By: Dr. Christy on 03-08-2022 RBC (Bld) [#/Vol] 5.06 10*6/uL 4.2-5.4 [facility] Blood hemoglobin measurement (mass/volume)Ordered By: Dr. Christy on 03-08-2022 Hemoglobin (Bld) [Mass/Vol] 13.8 g/dL 12.0-15.0 [facility] Blood lymphocytes/100 leukoc ytesOrdered By: Dr. Christy on 03-08-2022 Lymphocytes/100 WBC (Bld) 25.6 % 19-41 [facility] Blood monocytes/100 leukocyt esOrdered By: Dr. Christy on 03-08-2022 Monocytes/100 WBC (Bld) 7.7 % 0-10 [facility] Blood platelet mean volumeOr dered By: Dr. Christy on 03-08-2022 Platelet mean volume (Bld) [Entitic vol] 9.2 fL 6.2-12.0 [facility] Determination of erythrocyte mean corpuscular volume (MCV)Ordered By: Dr. Christy on 03-08-2022 MCV (RBC) [Entitic vol] 85.2 fL 81-99 [facility] Hematocrit Auto (Bld) [Volum e fraction]Ordered By: Dr. Christy on 03-08-2022 Hematocrit (Bld) [Volume fraction] 43.1 % 37-47 [facility] INR in Blood by Coagulation assayOrdered By: Dr. Christy on 03-08-2022 INR Coag (Bld) [Relative time] 1.0 {INR} [facility] Laboratory - CoagulationOrde red By: Dr. Christy on 03-08-2022 aPTT Coag (Bld) [Time] 24.4 s 24.1-36.2 [facility] PT Coag (PPP) [Time] 12.8 s 11.7-14.9 [facility] Laboratory - Hematology and Cell countsOrdered By: Dr. Christy on 03-08-2022 Erythrocyte distribution width (RBC) [Entitic vol] 40.6 fL 35.1-43.9 [facility] Erythrocyte distribution width (RBC) [Ratio] 13.2 % 11.6-14.6 [facility] Immature granulocytes/100 WBC (Bld) 0.500 % 0.0-0.9 [facility] Comment on above: IG% - Immature Granu locytes (promyelocytes, myelocytes and metamyelocytes) > 1% indicates that a LEFT SHIFT is Present. MCH (RBC) [Entitic mass] 27.3 pg 27.0-32.0 [facility] Nucleated RBC/100 WBC (Bld) [Ratio] 0 % 0-5 [facility] MCHC Auto (RBC) [Mass/Vol]Or dered By: Dr. Christy on 03-08-2022 MCHC (RBC) [Mass/Vol] 32.0 g/dL 32-36 [facility] Platelets bldOrdered By: Dr. Christy on 03-08-2022 Platelets (Bld) [#/Vol] 250 10*3/uL 150-450 [facility] Absolute lymphocyte countOrd ered By: Dr. Christy on 02-28-2022 Lymphocytes Auto (Unsp spec) [#/Vol] 1.07 10*3/uL 0.83-4.51 [facility] Basophil percentageOrdered B y: Dr. Christy on 02-28-2022 Basophils/100 WBC (Bld) 0.6 % 0-1 [facility] Bilirubin [Mass/Vol] 0.50 mg/dL 0.20-1.00 [facility] Comment on above: For patients on eltr ombopag therapy, use of Dimension [place] TBIL is not recommended. Chloride [Moles/Vol] 107 mmol/L 98-107 [facility] Eosinophils/100 WBC (Bld) 4.2 % 0-5 [facility] Glucose [Mass/Vol] 85 mg/dL 74-106 [facility] LDH [Catalytic activity/Vol] 209 U/L 84-246 [facility] Neutrophils (Bld) [#/Vol] 3.3 10*3/uL 2.0-7.7 [facility] Neutrophils/100 WBC (Bld) 65.3 % 47-70 [facility] Potassium [Moles/Vol] 3.9 mmol/L 3.5-5.1 [facility] Protein [Mass/Vol] 7.1 g/dL 6.4-8.2 [facility] Sodium [Moles/Vol] 140 mmol/L 136-145 [facility] WBC (Bld) [#/Vol] 5.0 10*3/uL 4.4-11.0 [facility] Blood erythrocytes count (nu mber/volume)Ordered By: Dr. Christy on 02-28-2022 RBC (Bld) [#/Vol] 4.86 10*6/uL 4.2-5.4 [facility] Blood hemoglobin measurement (mass/volume)Ordered By: Dr. Christy on 02-28-2022 Hemoglobin (Bld) [Mass/Vol] 13.1 g/dL 12.0-15.0 [facility] Blood lymphocytes/100 leukoc ytesOrdered By: Dr. Christy on 02-28-2022 Lymphocytes/100 WBC (Bld) 21.3 % 19-41 [facility] Blood monocytes/100 leukocyt esOrdered By: Dr. Christy on 02-28-2022 Monocytes/100 WBC (Bld) 8.2 % 0-10 [facility] Blood platelet mean volumeOr dered By: Dr. Christy on 02-28-2022 Platelet mean volume (Bld) [Entitic vol] 9.2 fL 6.2-12.0 [facility] Determination of erythrocyte mean corpuscular volume (MCV)Ordered By: Dr. Christy on 02-28-2022 MCV (RBC) [Entitic vol] 85.0 fL 81-99 [facility] HBV core Ab Ql (S)Ordered By : [place] Christy on 02-28-2022 Hepatitis B Core Total Antibody Negative Negative [facility] HBV surface Ag IA QlOrdered By: [place] Christy on 02-28-2022 Hepatitis B Surface Antigen Negative Negative [facility] Hematocrit Auto (Bld) [Volum e fraction]Ordered By: Dr. Christy on 02-28-2022 Hematocrit (Bld) [Volume fraction] 41.3 % 37-47 [facility] Iron (Unsp spec) [Mass/Mass] Ordered By: [place] Christy on 02-28-2022 Iron [Mass/Vol] 76 ug/dL 50-170 [facility] Iron measurement (mass/mass) Ordered By: Dr. Christy on 02-28-2022 Iron (Unsp spec) [Mass/Mass] 76 ug/dL 50-170 [facility] Iron saturation [Mass fracti on]Ordered By: [place] Christy on 02-28-2022 Iron Saturation 23.0 % 15.0-55.0 [facility] Laboratory - Chemistry and C hemistry - challengeOrdered By: Dr. Christy on 02-28-2022 ALP [Catalytic activity/Vol] 87 U/L 45-117 [facility] ALT [Catalytic activity/Vol] 33 U/L 13-56 [facility] CO2 [Moles/Vol] 26.0 mmol/L 21.0-32.0 [facility] Globulin (S) [Mass/Vol] 3.2 g/dL 2.2-4.2 [facility] Urea nitrogen/Creatinine [Mass ratio] 18.8 mg/mg 10-20 [facility] Laboratory - Hematology and Cell countsOrdered By: Dr. Christy on 02-28-2022 Erythrocyte distribution width (RBC) [Entitic vol] 40.6 fL 35.1-43.9 [facility] Erythrocyte distribution width (RBC) [Ratio] 13.2 % 11.6-14.6 [facility] Immature granulocytes/100 WBC (Bld) 0.400 % 0.0-0.9 [facility] Comment on above: IG% - Immature Granu locytes (promyelocytes, myelocytes and metamyelocytes) > 1% indicates that a LEFT SHIFT is Present. MCH (RBC) [Entitic mass] 27.0 pg 27.0-32.0 [facility] Nucleated RBC/100 WBC (Bld) [Ratio] 0 % 0-5 [facility] MCHC Auto (RBC) [Mass/Vol]Or dered By: Dr. Christy on 02-28-2022 MCHC (RBC) [Mass/Vol] 31.7 g/dL 32-36 [facility] No Panel InformationOrdered By: Dr. Christy on 02-28-2022 Estimated GFR (MDRD) Amer 116 mL/min >60 [facility] Comment on above: GFR Calc Estimated GFR (MDRD) Non-Af Amer 96 mL/min >60 [facility] Comment on above: Non- GFR Calc Hepatitis B Surface Antibody Non-Reactive . [facility] Comment on above: Non Reactive: Incons istent with immunity, less than 10 mIU/mL Reactive: Consistent with immunity, greater than 9.9 mIU/mL Hepatitis C Antibody <0.1 s/co ratio 0.0-0.9 [facility] Hepatitis C Antibody Comment Comment . [facility] Comment on above: NegativeNot infected with HCV, unless recent infection issuspected or other evidence exists to indicate HCVinfection.Performed at: [facility] [address] [id number] Director: Jian Gill PhD, Phone: [phone] Total Iron Binding Capacity 331 ug/dL 250-450 [facility] Platelets bldOrdered By: Dr. Christy on 02-28-2022 Platelets (Bld) [#/Vol] 247 10*3/uL 150-450 [facility] Serum hepatitis B virus core antibody detectionOrdered By: Dr. Crhisty on 02-28-2022 HBV core Ab Ql (S) Negative Negative [facility] Serum or plasma albumin elaina urement (mass/volume)Ordered By: Dr. Christy on 02-28-2022 Albumin [Mass/Vol] 3.9 g/dL 3.2-5.0 [facility] Serum or plasma albumin/glob ulin mass ratioOrdered By: Dr. Christy on 02-28-2022 Albumin/Globulin [Mass ratio] 1.2 {ratio} 0.9-2.4 [facility] Serum or plasma calcium elaina urement (mass/volume)Ordered By: Dr. Christy on 02-28-2022 Calcium [Mass/Vol] 9.1 mg/dL 8.5-10.1 [facility] Serum or plasma creatinine m easurement (mass/volume)Ordered By: Dr. Christy on 02-28-2022 Creatinine [Mass/Vol] 0.69 mg/dL 0.55-1.02 [facility] Comment on above: The validity of the calculated GFR & GFRAA in patients over 70 years has not been determined. Clinical correlation is essential. Serum or plasma ferritin indigo surement (mass/volume)Ordered By: Dr. Christy on 02-28-2022 Ferritin [Mass/Vol] 45 ng/mL 8-252 [facility] Serum or plasma hepatitis B virus surface antigen detection by immunoassayOrdered By: Dr. Christy on 02-28-2022 HBV surface Ag IA Ql Negative Negative [facility] Serum or plasma iron saturat ion measurement (mass fraction)Ordered By: Dr. Christy on 02-28-2022 Iron saturation [Mass fraction] 23.0 % 15.0-55.0 [facility] Serum or plasma urea nitroge n measurement (mass/volume)Ordered By: Dr. Christy on 02-28-2022 Urea nitrogen [Mass/Vol] 13 mg/dL 7-18 [facility] Serum or plasma uric acid me asurement (mass/volume)Ordered By: Dr. Christy on 02-28-2022 Urate [Mass/Vol] 6.4 mg/dL 2.6-6.0 [facility] Comment on above: The drugs N-Acetylcy steine and Metamizole may falsely depress this assay. Thin prep Papanicolaou smear with manual screeningOrdered By: Dr. Christy on 02-28-2022 Thin prep Papanicolaou smear with manual screening 24 U/L 15-37 [facility] Thin prep Papanicolaou smear with manual screening 7 5-15 [facility] Absolute lymphocyte countOrd ered By: Jake Jocelin on 02-16-2022 Lymphocytes Auto (Unsp spec) [#/Vol] 1.22 10*3/uL 0.83-4.51 [facility] Basophil percentageOrdered B y: Jake Monreal on 02-16-2022 Amylase [Catalytic activity/Vol] 66 U/L 25-115 [facility] Basophil percentage 10-25 SEEN /hpf 0-5 [facility] Basophils/100 WBC (Bld) 0.8 % 0-1 [facility] Bilirubin [Mass/Vol] 0.40 mg/dL 0.20-1.00 [facility] Comment on above: For patients on eltr ombopag therapy, use of Dimension [place] TBIL is not recommended. Chloride [Moles/Vol] 108 mmol/L 98-107 [facility] Eosinophils/100 WBC (Bld) 4.0 % 0-5 [facility] Glucose [Mass/Vol] 81 mg/dL 74-106 [facility] Neutrophils (Bld) [#/Vol] 3.3 10*3/uL 2.0-7.7 [facility] Neutrophils/100 WBC (Bld) 63.2 % 47-70 [facility] Potassium [Moles/Vol] 4.2 mmol/L 3.5-5.1 [facility] Protein [Mass/Vol] 7.2 g/dL 6.4-8.2 [facility] Sodium [Moles/Vol] 143 mmol/L 136-145 [facility] WBC (Bld) [#/Vol] 5.3 10*3/uL 4.4-11.0 [facility] Bilirubin Test strip Ql (U)O rdered By: Jake Monreal on 02-16-2022 Bilirubin Ql (U) Negative Negative [facility] Blood erythrocytes count (nu mber/volume)Ordered By: Jake Monreal on 02-16-2022 RBC (Bld) [#/Vol] 5.32 10*6/uL 4.2-5.4 [facility] Blood hemoglobin measurement (mass/volume)Ordered By: Jake Monreal on 02-16-2022 Hemoglobin (Bld) [Mass/Vol] 14.3 g/dL 12.0-15.0 [facility] Blood lymphocytes/100 leukoc ytesOrdered By: Jake Monreal on 02-16-2022 Lymphocytes/100 WBC (Bld) 23.2 % 19-41 [facility] Blood monocytes/100 leukocyt esOrdered By: Jake Monreal on 02-16-2022 Monocytes/100 WBC (Bld) 8.4 % 0-10 [facility] Blood platelet mean volumeOr dered By: aJke Monreal on 02-16-2022 Platelet mean volume (Bld) [Entitic vol] 10.1 fL 6.2-12.0 [facility] Determination of erythrocyte mean corpuscular volume (MCV)Ordered By: Jake Monreal on 02-16-2022 MCV (RBC) [Entitic vol] 86.7 fL 81-99 [facility] Erythrocyte sedimentation ra teOrdered By: Jake Monreal on 02-16-2022 ESR (Bld) [Velocity] 4 mm/h 0-30 [facility] Hematocrit Auto (Bld) [Volum e fraction]Ordered By: Jake Monreal on 02-16-2022 Hematocrit (Bld) [Volume fraction] 46.1 % 37-47 [facility] Ketones Test strip Ql (U)Ord ered By: Jake Monreal on 02-16-2022 Ketones Ql (U) Negative Negative [facility] Laboratory - Chemistry and C hemistry - challengeOrdered By: Jake Monreal on 02-16-2022 ALP [Catalytic activity/Vol] 91 U/L 45-117 [facility] ALT [Catalytic activity/Vol] 26 U/L 13-56 [facility] CO2 [Moles/Vol] 34.0 mmol/L 21.0-32.0 [facility] Globulin (S) [Mass/Vol] 3.1 g/dL 2.2-4.2 [facility] Lipase [Catalytic activity/Vol] 189 U/L 73-393 [facility] Urea nitrogen/Creatinine [Mass ratio] 16.8 mg/mg 10-20 [facility] Laboratory - Hematology and Cell countsOrdered By: Jake Monreal on 02-16-2022 Erythrocyte distribution width (RBC) [Entitic vol] 42.3 fL 35.1-43.9 [facility] Erythrocyte distribution width (RBC) [Ratio] 13.4 % 11.6-14.6 [facility] Immature granulocytes/100 WBC (Bld) 0.400 % 0.0-0.9 [facility] Comment on above: IG% - Immature Granu locytes (promyelocytes, myelocytes and metamyelocytes) > 1% indicates that a LEFT SHIFT is Present. MCH (RBC) [Entitic mass] 26.9 pg 27.0-32.0 [facility] Nucleated RBC/100 WBC (Bld) [Ratio] 0 % 0-5 [facility] MCHC Auto (RBC) [Mass/Vol]Or dered By: Jake Monreal on 02-16-2022 MCHC (RBC) [Mass/Vol] 31.0 g/dL 32-36 [facility] Mucus LM Ql (Urine sed)Order ed By: Jake Monreal on 02-16-2022 Mucus Ql (Urine sed) 0 SEEN /hpf [facility] Nitrite Test strip Ql (U)Ord ered By: Jake Monreal on 02-16-2022 Nitrite Ql (U) Negative Negative [facility] No Panel InformationOrdered By: Jake Monreal on 02-16-2022 Estimated GFR (MDRD) Amer 87 mL/min >60 [facility] Comment on above: GFR Calc Estimated GFR (MDRD) Non-Af Amer 72 mL/min >60 [facility] Comment on above: Non- GFR Calc Platelets bldOrdered By: Marcia Monreal on 02-16-2022 Platelets (Bld) [#/Vol] 296 10*3/uL 150-450 [facility] Protein Test strip Ql (U)Ord ered By: Jake Monreal on 02-16-2022 Protein Ql (U) 15 mg/dl Negative [facility] Serum or plasma C reactive p rotein measurement (mass/volume)Ordered By: Jake Monreal on 02-16-2022 CRP [Mass/Vol] mg/L 0.0-3.0 [facility] Comment on above: C-Reactive Protein ( CRP) provides useful information for thediagnosis, therapy and monitoring of inflammatory processesand associated diseases. For the evaluation of Relative Riskfor Cardiovascular Disease, a High Sensitivity CRP (HSCRP)should be ordered. Serum or plasma albumin elaina urement (mass/volume)Ordered By: Jake Monreal on 02-16-2022 Albumin [Mass/Vol] 4.1 g/dL 3.2-5.0 [facility] Serum or plasma albumin/glob ulin mass ratioOrdered By: Jake Monreal on 02-16-2022 Albumin/Globulin [Mass ratio] 1.3 {ratio} 0.9-2.4 [facility] Serum or plasma calcium elaina urement (mass/volume)Ordered By: Jake Monreal on 02-16-2022 Calcium [Mass/Vol] 9.4 mg/dL 8.5-10.1 [facility] Serum or plasma creatinine m easurement (mass/volume)Ordered By: Jake Monreal on 02-16-2022 Creatinine [Mass/Vol] 0.89 mg/dL 0.55-1.02 [facility] Comment on above: The validity of the calculated GFR & GFRAA in patients over 70 years has not been determined. Clinical correlation is essential. Serum or plasma urea nitroge n measurement (mass/volume)Ordered By: Jake Monreal on 02-16-2022 Urea nitrogen [Mass/Vol] 15 mg/dL 7-18 [facility] Squamous epithelial cells de tection in urine sediment by light microscopyOrdered By: Jake Monreal on 02-16-2022 Epithelial cells.squamous LM Ql (Urine sed) 0-5 SEEN /hpf 5-10 [facility] Thin prep Papanicolaou smear with manual screeningOrdered By: Jake Monreal on 02-16-2022 Thin prep Papanicolaou smear with manual screening 18 U/L 15-37 [facility] Thin prep Papanicolaou smear with manual screening 1 5-15 [facility] Thin prep Papanicolaou smear with manual screening 208 U/L 84-246 [facility] Urine blood detectionOrdered By: Jake Monreal on 02-16-2022 RBC Ql (U) Negative Negative [facility] RBC Ql (U) 0 SEEN /hpf 0-5 [facility] Urine clarityOrdered By: Marcia Monreal on 02-16-2022 Clarity (U) Sl. Cloudy Clear [facility] Urine color determinationOrd ered By: Jake Monreal on 02-16-2022 Color (U) Yellow Yellow [facility] Urine glucose detectionOrder ed By: Jake Monreal on 02-16-2022 Glucose Ql (U) Normal mg/dl Normal [facility] Urine leukocyte esterase det ection by dipstickOrdered By: Jake Monreal on 02-16-2022 Leukocyte esterase Test strip Ql (U) 100 /ul Negative [facility] Urine pHOrdered By: Jake Ochoa er on 02-16-2022 pH (U) 6.0 [pH] 5.0 - 8.0 [facility] Urine sediment bacteria coun t by microscopy (number/high power field)Ordered By: Jake Monreal on 02-16-2022 Bacteria LM.HPF (Urine sed) [#/Area] 0 /[HPF] None Seen [facility] Urine specific gravity measu rementOrdered By: Jake Monreal on 02-16-2022 Specific gravity (U) [Rel density] 1.015 1.002-1.030 [facility] Urobilinogen Auto test strip Ql (U)Ordered By: Jake Monreal on 02-16-2022 Urobilinogen Ql (U) Normal mg/dl Normal [facility] Absolute lymphocyte counton 09-22-2021 Lymphocytes Auto (Unsp spec) [#/Vol] 1.60 10*3/uL 0.83-4.51 [facility] Work Phone: Basophil percentageon 2021 Amylase [Catalytic activity/Vol] 66 U/L 25-115 [facility] Work Phone: Basophils/100 WBC (Bld) 0.6 % 0-1 [facility] Work Phone: Bilirubin [Mass/Vol] 0.40 mg/dL 0.20-1.00 [facility] Work Phone: Comment on above: For patients on eltr ombopag therapy, use of Dimension [place] TBIL is not recommended. Chloride [Moles/Vol] 107 mmol/L 98-107 [facility] Work Phone: Cholesterol [Mass/Vol] 198 mg/dL <200 [facility] Work Phone: Comment on above: <200 mg/dL Desirable 200-240 mg/dL Borderline >240 mg/dL High Risk Eosinophils/100 WBC (Bld) 3.3 % 0-5 [facility] Work Phone: Glucose [Mass/Vol] 72 mg/dL 74-106 [facility] Work Phone: [phone] Neutrophils (Bld) [#/Vol] 2.5 10*3/uL 2.0-7.7 [facility] Work Phone: Neutrophils/100 WBC (Bld) 52.7 % 47-70 [facility] Work Phone: Potassium [Moles/Vol] 4.1 mmol/L 3.5-5.1 [facility] Work Phone: [phone] Protein [Mass/Vol] 7.1 g/dL 6.4-8.2 [facility] Work Phone: [phone] Sodium [Moles/Vol] 140 mmol/L 136-145 [facility] Work Phone: [phone] Triglyceride [Mass/Vol] 82 mg/dL <199 [facility] Work Phone: Comment on above: The drugs N-Acetylcy steine and Metamizole may falsely depress this assay.Serum Triglycerides Reference Interval Normal <150 mg/dL Borderline high 150 - 199 mg/dL High 200 - 499 mg/dL Very High > or = 500 mg/dL WBC (Bld) [#/Vol] 4.8 10*3/uL 4.4-11.0 [facility] Work Phone: [phone] Blood erythrocytes count (nu mber/volume)on 09-22-2021 RBC (Bld) [#/Vol] 5.08 10*6/uL 4.2-5.4 [facility] Work Phone: [phone] Blood hemoglobin measurement (mass/volume)on 09-22-2021 Hemoglobin (Bld) [Mass/Vol] 13.5 g/dL 12.0-15.0 [facility] Work Phone: Blood lymphocytes/100 leukoc yteson 09-22-2021 Lymphocytes/100 WBC (Bld) 33.4 % 19-41 [facility] Work Phone: Blood monocytes/100 leukocyt eson 09-22-2021 Monocytes/100 WBC (Bld) 9.6 % 0-10 [facility] Work Phone: Blood platelet mean volumeon 09-22-2021 Platelet mean volume (Bld) [Entitic vol] 9.5 fL 6.2-12.0 [facility] Work Phone: Determination of erythrocyte mean corpuscular volume (MCV)on 09-22-2021 MCV (RBC) [Entitic vol] 86.4 fL 81-99 [facility] Work Phone: Hematocrit Auto (Bld) [Volum e fraction]on 09-22-2021 Hematocrit (Bld) [Volume fraction] 43.9 % 37-47 [facility] Work Phone: Laboratory - Chemistry and C hemistry - challengeon 09-22-2021 ALP [Catalytic activity/Vol] 90 U/L 45-117 [facility] Work Phone: ALT [Catalytic activity/Vol] 32 U/L 13-56 [facility] Work Phone: CO2 [Moles/Vol] 31.0 mmol/L 21.0-32.0 [facility] Work Phone: [phone] Globulin (S) [Mass/Vol] 3.3 g/dL 2.2-4.2 [facility] Work Phone: Lipase [Catalytic activity/Vol] 169 U/L 73-393 [facility] Work Phone: Urea nitrogen/Creatinine [Mass ratio] 15.6 mg/mg 10-20 [facility] Work Phone: Laboratory - Hematology and Cell countson 09-22-2021 Erythrocyte distribution width (RBC) [Entitic vol] 40.7 fL 35.1-43.9 [facility] Work Phone: Erythrocyte distribution width (RBC) [Ratio] 13.0 % 11.6-14.6 [facility] Work Phone: Immature granulocytes/100 WBC (Bld) 0.400 % 0.0-0.9 [facility] Work Phone: [phone] Comment on above: IG% - Immature Granu locytes (promyelocytes, myelocytes and metamyelocytes) > 1% indicates that a LEFT SHIFT is Present. MCH (RBC) [Entitic mass] 26.6 pg 27.0-32.0 [facility] Work Phone: [phone] Nucleated RBC/100 WBC (Bld) [Ratio] 0 % 0-5 [facility] Work Phone: [phone] MCHC Auto (RBC) [Mass/Vol]on 09-22-2021 MCHC (RBC) [Mass/Vol] 30.8 g/dL 32-36 [facility] Work Phone: No Panel Informationon 09-22 Estimated GFR (MDRD) Amer 87 mL/min >60 [facility] Work Phone: Comment on above: GFR Calc Estimated GFR (MDRD) Non-Af Amer 72 mL/min >60 [facility] Work Phone: Comment on above: Non- GFR Calc Thyroid Stimulating Hormone (TSH) 1.90 uIU/mL 0.358-3.74 [facility] Work Phone: [phone] Platelets bldon 09-22-2021 Platelets (Bld) [#/Vol] 260 10*3/uL 150-450 [facility] Work Phone: [phone] Serum or plasma albumin elaina urement (mass/volume)on 09-22-2021 Albumin [Mass/Vol] 3.8 g/dL 3.2-5.0 [facility] Work Phone: [phone] Serum or plasma albumin/glob ulin mass ratioon 09-22-2021 Albumin/Globulin [Mass ratio] 1.2 {ratio} 0.9-2.4 [facility] Work Phone: [phone] Serum or plasma calcium elaina urement (mass/volume)on 09-22-2021 Calcium [Mass/Vol] 9.1 mg/dL 8.5-10.1 [facility] Work Phone: Serum or plasma cholesterol in HDL measurement (mass/volume)on 09-22-2021 Cholesterol in HDL [Mass/Vol] 46 mg/dL >40 [facility] Work Phone: Comment on above: The drugs N-Acetylcy steine and Metamizole may falsely depress this assay. Reference Range HDL <40 mg/dL Low HDL Cholesterol HDL >or= 60 mg/dL High HDL Cholesterol Serum or plasma cholesterol in VLDL measurement (mass/volume)on 09-22-2021 Cholesterol in VLDL [Mass/Vol] 16 mg/dL 5-40 [facility] Work Phone: Serum or plasma creatinine m easurement (mass/volume)on 09-22-2021 Creatinine [Mass/Vol] 0.90 mg/dL 0.55-1.02 [facility] Work Phone: Comment on above: The validity of the calculated GFR & GFRAA in patients over 70 years has not been determined. Clinical correlation is essential. Serum or plasma low density lipoprotein (LDL) cholesterol measurement (mass/volume)on 09-22-2021 Cholesterol in LDL [Mass/Vol] 136 mg/dL 0-130 [facility] Work Phone: Serum or plasma urea nitroge n measurement (mass/volume)on 09-22-2021 Urea nitrogen [Mass/Vol] 14 mg/dL 7-18 [facility] Work Phone: Thin prep Papanicolaou smear with manual screeningon 09-22-2021 Thin prep Papanicolaou smear with manual screening 19 U/L 15-37 [facility] Work Phone: Thin prep Papanicolaou smear with manual screening 2 5-15 [facility] Work Phone: ANTI-RIVER HORMon 07-17-2018 ANTI-RIVER HORM < 0.015 Normal () [facility] Comment on above: Result Comment: For assays employing antibodies, the possibility exists for interference by heterophile antibodies in the samples.1 1. Ttaa Rueda Interferences in Immunoassays - still a threat. Clin. Chem. 2000; 46: 7057-8028. Reference Range: Females 41 - 46y: 0.26 - 5.81 Median 0.58 AMH concentrations of >= 1.06 ng/mL is correlated with a better response to ovarian stimulation, produced more retrievable oocytes and higher odds of live according to Cally et al. Fertility and Sterility. 2010: 94:6743-7513. The current AMH test method correlates with the study method with a slope of 0.94. Females at risk of ovarian hyperstimulation syndrome or polycystic ovarian syndrome (PCOS) may exhibit elevated serum AMH concentrations. AMH levels from PCOS patients may be 2 to 5 fold higher than age-appropriate reference interval values. Granulosa cell tumors of the ovary may secrete AMH along with other tumor markers. Elevated AMH is not specific for malignancy, and the assay should not be used exclusively to diagnose or exclude an AMH-secreting ovarian tumor. Performed At: [facility] [address] [place] [id number] Cindy Clifford MD [id number] Performed By: #### L 500.09254, L500.56029, L500.06086, L550.13955, L550.58950, L550.06071, L550.46670 #### [facility] [address] [place] [address] #### [id number] #### [facility] [address] [place] [address] SEX HORMONE BGon 07-16-2018 SEX HORMONE BG 114.2 nmol/L Normal 24.6-122.0 [facility] Comment on above: Result Comment: Perf ormed At: [facility] [address] [place], [place] [id number] Bridget Villar PhD [id number] Performed By: #### L 750.51987 #### [facility] [address] [place] [address] TESTOSTERONEon 07-16-2018 Testosterone mass conc 23 ng/dL Normal 8-48 [facility] Comment on above: Result Comment: Perf ormed At: [facility] [address] [id number] Bridget Villar PhD [id number] Performed By: #### L 500.91818, L500.25636, L500.71595, L550.90230, L550.31432, L550.08594, L550.54686 #### [facility] [address] [place] [address] #### [id number] #### [facility] [address] [address] ESTRADIOLon 07-14-2018 ESTRADIOL 13.0 PG/ML Normal SEE CHART [facility] Comment on above: Result Comment: Fema le Reference Range: Follicular Phase (-12 to -4 days) 19.5 - 144.2 pg/ml Midcycle Phase (-3 to +2 days) 63.9 - 356.7 pg/ml Luteal Phase (+4 to +12 days) 55.8 - 214.2 pg/ml Postmenopausal females 0 - 32.2 pg/ml Performed By: #### L 500.98793, L500.69532, L500.78375, L550.26190, L550.38732, L550.75961, L550.48952 #### [facility] [address] [place] [address] #### L550.54945 #### [facility] [address] [place] [address] FSHon 07-14-2018 FSH 128.1 MIU/ML Normal SEE CHART [facility] Comment on above: Result Comment: Fema le Reference Range: Follicular 2.5 - 10.2 MIU/ML Midcycle 3.4 - 33.4 MIU/ML Luteal 1.5 - 9.1 MIU/ML Less Than 0.3 MIU/ML Postmenopausal 23.0 -116.3 MIU/ML Performed By: #### L 500.64694, L500.16246, L500.67667, L550.71868, L550.86322, L550.26796, L550.01357 #### [facility] [address] [place] [address] #### L550.62369 #### [facility] [address] [place] [address] HCGQon 07-14-2018 HCG Qn 3 MIU/ML Normal less than 3 [facility] Comment on above: Result Comment: REFE LALO COMMENTS Less than 5 mIU/ML NEGATIVE FOR 5-25 mIU/ML BORDERLINE; RETEST IN 48 HOURS, IF INDICATED Greater than 25 mIU/ML POSITIVE FOR WEEKS POST LMP RANGE IN mIU/ML* 3-4 9-130 4-5 75-2600 5-6 [phone] 6-7 [phone] 7-12 [id number] 12-16 [id number] 16-29 [phone] 29-41 [phone] *These ranges are from published literature and may not be appropriate for all cases. When HCG levels are above 4000 mIU/ML, distinction between normal and abnormal is poor. The rate of change (doubling time) may be helpful. (Reference: NCCLS ) Performed By: #### L 500.02031, L500.67824, L500.63384, L550.06529, L550.87423, L550.10667, L550.86293 #### [facility] [address] [place] [address] #### L550.71808 #### [facility] [address] [place] [address] HGB A1C GLYCOHBon 07-14-2018 Hemoglobin A1c/Hemoglobin.total mass fraction (Bld) 5.2 % Normal 4.3-6.0 [facility] Comment on above: Performed By: #### L 550.77360 #### [facility] [address] [place] [address] PROGESTERONEon 07-14-2018 Protein mass conc 0.4 NG/ML Normal SEE CHART [facility] Comment on above: Result Comment: Kriss bowens Reference range: Follicular 0.1 - 1.4 ng/ml Luteal 3.3 - 25.6 ng/ml Mid-luteal 4.4 - 28.0 ng/ml Postmenopausal 0.0 - 0.7 ng/ml : 1st Trimester 11.2 - 90.0 ng/ml 2nd Trimester 25.5 - 89.4 ng/ml 3rd Trimester 48.4 -422.5 ng/ml The presence of DHEA-S (a metabolite of DHEA, a steroid hormone that may be used as part of in vitro fertilization (IVF) protocols to improve ovarian response and IVF treatment outcomes), causes falsely elevated progesterone results around the clinically important decision level of 1 ng/ml of progesterone, on the ADVIA Centaur assay. For patients taking DHEA supplements, an alternate methodology should be used to measure progesterone concentrations. Performed By: #### L 500.16630, L500.75620, L500.31918, L550.96363, L550.89749, L550.46718, L550.22378 #### [facility] [address] [place] [address] #### L550.11252 #### [facility] [address] [place] [id number] T3 FREEon 07-14-2018 T3 free mass conc 2.80 pg/mL Normal 2.18-3.98 [facility] Comment on above: Performed By: #### L 500.76654, L500.32660, L500.36484, L550.67116, L550.88379, L550.48038, L550.15792 #### [facility] [place] [address] #### L550.59754 #### [facility] [address] [place] [address] T4 FREEon 07-14-2018 T4 free mass conc 0.83 ng/dL Normal 0.76-1.46 [facility] Comment on above: Performed By: #### L 500.00867, L500.90446, L500.25748, L550.11512, L550.48613, L550.11984, L550.93640 #### [facility] [place] [address] #### L550.71949 #### [facility] [address] [place] [address] TSHon 07-14-2018 Thyrotropin Qn 2.260 UIU/ML Normal 0.358-3.740 [facility] Comment on above: Result Comment: 3rd generation ultra sensitive TSH Performed By: #### L 500.53028, L500.41584, L500.31637, L550.62103, L550.21829, L550.51122, L550.43105 #### [facility] [address] [place] [address] #### [id number] #### [facility] [address] [place] [address] Vital Signs Date Time Vital Sign Value Performing Clinician Federico tse 08-12-2024 13:09-0400 Body height 162.[address] Bob Tristan MD Work Phone: [facility] 08-12-2024 13:09-0400 Body mass index (BMI) [Ratio] 25.8 kg/m2 Dr. Bob Tristan MD Work Phone: [facility] 08-12-2024 13:09-0400 Body temperature 97.8 [degF] Dr. Bob Tristan MD Work Phone: [facility] 08-12-2024 13:09-0400 Body weight 68.[address] Bob Tristan MD Work Phone: [facility] 08-12-2024 13:09-0400 Diastolic blood pressure 68 mm[Hg] Dr. Bob Tristan MD Work Phone: [facility] 08-12-2024 13:09-0400 Heart rate 83 /min Dr. Bob Tristan MD Work Phone: [facility] 08-12-2024 13:09-0400 Respiratory rate 16 /min Dr. Bob Tristan MD Work Phone: [facility] 08-12-2024 13:09-0400 SaO2% (BldA) [Mass fraction] 95 % Dr. Bob Tristan MD Work Phone: [facility] 08-12-2024 13:09-0400 Systolic blood pressure 98 mm[Hg] Dr. Bob Tristan MD Work Phone: [facility] 07-13-2024 13:29-0400 Body height 162.[address] Bob Tristan MD Work Phone: [facility] 07-13-2024 13:29-0400 Body temperature 97.5 [degF] Dr. Bob Tristan MD Work Phone: [facility] 07-13-2024 13:29-0400 Diastolic blood pressure 71 mm[Hg] Dr. Bob Tristan MD Work Phone: [facility] 07-13-2024 13:29-0400 Heart rate 68 /min Dr. Bob Tristan MD Work Phone: [facility] 07-13-2024 13:29-0400 Respiratory rate 16 /min Dr. Bob Tristan MD Work Phone: [facility] 07-13-2024 13:29-0400 SaO2% (BldA) [Mass fraction] 99 % Dr. Bob Tristan MD Work Phone: [facility] 07-13-2024 13:29-0400 Systolic blood pressure 105 mm[Hg] Dr. Bob Tristan MD Work Phone: [facility] 05-18-2024 13:02-0400 Body temperature 97.7 [degF] Dr. Bob Tristan MD Work Phone: [facility] 05-18-2024 13:02-0400 Diastolic blood pressure 72 mm[Hg] Dr. Bob Tristan MD Work Phone: [facility] 05-18-2024 13:02-0400 Heart rate 65 /min Dr. Bob Tristan MD Work Phone: [facility] 05-18-2024 13:02-0400 Respiratory rate 16 /min Dr. Bob Tristan MD Work Phone: [facility] 05-18-2024 13:02-0400 SaO2% (BldA) [Mass fraction] 98 % Dr. Bob Tristan MD Work Phone: [facility] 05-18-2024 13:02-0400 Systolic blood pressure 105 mm[Hg] Dr. Bob Tristan MD Work Phone: [facility] 03-16-2024 09:01-0500 Body height 162.[address] Bob Tristan MD Work Phone: [facility] 03-16-2024 09:01-0500 Body mass index (BMI) [Ratio] 25.4 kg/m2 Dr. Bob Tristan MD Work Phone: [facility] 03-16-2024 09:01-0500 Body temperature 97.5 [degF] Dr. Bob Tristan MD Work Phone: [facility] 03-16-2024 09:01-0500 Body weight 67.[address] Bob Tristan MD Work Phone: [facility] 03-16-2024 09:01-0500 Diastolic blood pressure 72 mm[Hg] Dr. Bob Tristan MD Work Phone: [facility] 03-16-2024 09:01-0500 Heart rate 67 /min Dr. Bob Tristan MD Work Phone: [facility] 03-16-2024 09:01-0500 Respiratory rate 16 /min Dr. Bob Tristan MD Work Phone: [facility] 03-16-2024 09:01-0500 SaO2% (BldA) [Mass fraction] 98 % Dr. Bob Tristan MD Work Phone: [facility] 03-16-2024 09:01-0500 Systolic blood pressure 107 mm[Hg] Dr. Bob Tristan MD Work Phone: [facility] 03-02-2024 10:24-0500 Body temperature 98.4 [degF] Dr. Bob Tristan MD Work Phone: [facility] 03-02-2024 10:24-0500 Diastolic blood pressure 72 mm[Hg] Dr. Bob Tristan MD Work Phone: [facility] 03-02-2024 10:24-0500 Heart rate 82 /min Dr. Bob Tristan MD Work Phone: [facility] 03-02-2024 10:24-0500 Respiratory rate 12 /min Dr. Bob Tristan MD Work Phone: [facility] 03-02-2024 10:24-0500 SaO2% (BldA) [Mass fraction] 96 % Dr. Bob Tristan MD Work Phone: [facility] 03-02-2024 10:24-0500 Systolic blood pressure 112 mm[Hg] Dr. Bob Tristan MD Work Phone: [facility] 05-29-2023 15:53-0400 Body temperature 97.5 [degF] Dr. Bob Tristan Work Phone: [facility] 05-29-2023 15:53-0400 Diastolic blood pressure 67 mm[Hg] Dr. Bob Tristan Work Phone: [facility] 05-29-2023 15:53-0400 Heart rate 77 /min Dr. Bob Tristan Work Phone: [facility] 05-29-2023 15:53-0400 Respiratory rate 16 /min Dr. Bob Tristan Work Phone: [facility] 05-29-2023 15:53-0400 Systolic blood pressure 97 mm[Hg] Dr. Bob Tristan Work Phone: [facility] 05-29-2023 13:01-0400 Body height 162.[address] Bob Tristan Work Phone: [facility] 05-29-2023 13:01-0400 Body mass index (BMI) [Ratio] 25.7 kg/m2 Dr. Bob Tristan Work Phone: [facility] 05-29-2023 13:01-0400 Body temperature 98 [degF] Dr. Bob Tristan Work Phone: [facility] 05-29-2023 13:01-0400 Body weight 68.[address] Bob rTistan Work Phone: [facility] 05-29-2023 13:01-0400 Diastolic blood pressure 70 mm[Hg] Dr. Bob Tristan Work Phone: [facility] 05-29-2023 13:01-0400 Heart rate 80 /min Dr. Bob Tristan Work Phone: [facility] 05-29-2023 13:01-0400 Respiratory rate 16 /min Dr. Bob Tristan Work Phone: [facility] 05-29-2023 13:01-0400 SaO2% (BldA) [Mass fraction] 99 % Dr. Bob Tristan Work Phone: [facility] 05-29-2023 13:01-0400 Systolic blood pressure 105 mm[Hg] Dr. Bob Tristan Work Phone: [facility] 04-11-2023 13:03-0500 Body height 162.[address] Bob Tristan Work Phone: [facility] 04-11-2023 13:03-0500 Body mass index (BMI) [Ratio] 25.7 kg/m2 Dr. Bob Tristan Work Phone: [facility] 04-11-2023 13:03-0500 Body temperature 98.1 [degF] Dr. Bob Tristan Work Phone: [facility] 04-11-2023 13:03-0500 Body weight 68.[address] Bob Tristan Work Phone: [facility] 04-11-2023 13:03-0500 Diastolic blood pressure 70 mm[Hg] Dr. Bob Tristan Work Phone: [facility] 04-11-2023 13:03-0500 Heart rate 68 /min Dr. Bob Tristan Work Phone: [facility] 04-11-2023 13:03-0500 Respiratory rate 18 /min Dr. Bob Tristan Work Phone: [facility] 04-11-2023 13:03-0500 SaO2% (BldA) [Mass fraction] 97 % Dr. Bob Tristan Work Phone: [facility] 04-11-2023 13:03-0500 Systolic blood pressure 104 mm[Hg] Dr. Bob Tristan Work Phone: [facility] 02-14-2023 13:00-0500 Body height 162.[address] Bob Tristan Work Phone: [facility] 02-14-2023 13:00-0500 Body mass index (BMI) [Ratio] 25.4 kg/m2 Dr. Bob Tristan Work Phone: [facility] 02-14-2023 13:00-0500 Body temperature 97.3 [degF] Dr. Bob Tristan Work Phone: [facility] 02-14-2023 13:00-0500 Body weight 67.[address] Bob Tristan Work Phone: [facility] 02-14-2023 13:00-0500 Diastolic blood pressure 70 mm[Hg] Dr. Bob Tristan Work Phone: [facility] 02-14-2023 13:00-0500 Heart rate 78 /min Dr. Bob Tristan Work Phone: [facility] 02-14-2023 13:00-0500 Respiratory rate 15 /min Dr. Bob Tristan Work Phone: [facility] 02-14-2023 13:00-0500 SaO2% (BldA) [Mass fraction] 99 % Dr. Bob Tristan Work Phone: [facility] 02-14-2023 13:00-0500 Systolic blood pressure 103 mm[Hg] Dr. Bob Tristan Work Phone: [facility] 01-16-2023 07:50-0500 Body temperature 98.5 [degF] Dr. Bob Tristan Work Phone: [facility] 01-16-2023 07:50-0500 Diastolic blood pressure 64 mm[Hg] Dr. Bob Tristan Work Phone: [facility] 01-16-2023 07:50-0500 Heart rate 77 /min Dr. Bob Tristan Work Phone: [facility] 01-16-2023 07:50-0500 SaO2% (BldA) [Mass fraction] 98 % Dr. Bob Tristan Work Phone: [facility] 01-16-2023 07:50-0500 Systolic blood pressure 103 mm[Hg] Dr. Bob Tristan Work Phone: [facility] 01-10-2023 15:07-0500 Body height 162.[address] Bob Tristan Work Phone: [facility] 01-10-2023 15:05-0500 Body mass index (BMI) [Ratio] 24.5 kg/m2 Dr. Bob Tristan Work Phone: [facility] 01-10-2023 15:05-0500 Body temperature 98.1 [degF] Dr. Bob Tristan Work Phone: [facility] 01-10-2023 15:05-0500 Body weight 64.[address] Bob Tristan Work Phone: [facility] 01-10-2023 15:05-0500 Diastolic blood pressure 66 mm[Hg] Dr. Bob Tristan Work Phone: [facility] 01-10-2023 15:05-0500 Heart rate 82 /min Dr. Bob Tristan Work Phone: [facility] 01-10-2023 15:05-0500 Respiratory rate 18 /min Dr. Bob Tristan Work Phone: [facility] 01-10-2023 15:05-0500 SaO2% (BldA) [Mass fraction] 100 % Dr. Bob Tristan Work Phone: [facility] 01-10-2023 15:05-0500 Systolic blood pressure 99 mm[Hg] Dr. Bob Tristan Work Phone: [facility] 12-18-2022 16:23-0400 Body temperature 98 [degF] Dr. Bob Tristan Work Phone: [facility] 12-18-2022 16:23-0400 Diastolic blood pressure 69 mm[Hg] Dr. Bob Tristan Work Phone: [facility] 12-18-2022 16:23-0400 Heart rate 65 /min Dr. Bob Tristan Work Phone: [facility] 12-18-2022 16:23-0400 Respiratory rate 16 /min Dr. Bob Tristan Work Phone: [facility] 12-18-2022 16:23-0400 SaO2% (BldA) [Mass fraction] 100 % Dr. Bob Tristan Work Phone: [facility] 12-18-2022 16:23-0400 Systolic blood pressure 104 mm[Hg] Dr. Bob Tristan Work Phone: [facility] 12-18-2022 13:00-0400 Body height 162.[address] Bob Tristan Work Phone: [facility] 12-18-2022 13:00-0400 Body mass index (BMI) [Ratio] 24.5 kg/m2 Dr. Bob Tristan Work Phone: [facility] 12-18-2022 13:00-0400 Body temperature 97.1 [degF] Dr. Bob rTistan Work Phone: [facility] 12-18-2022 13:00-0400 Body weight 64.[address] Bob Tristan Work Phone: [facility] 12-18-2022 13:00-0400 Diastolic blood pressure 71 mm[Hg] Dr. Bob Tristan Work Phone: [facility] 12-18-2022 13:00-0400 Heart rate 64 /min Dr. Bob Tristan Work Phone: [facility] 12-18-2022 13:00-0400 Respiratory rate 16 /min Dr. Bob Tristan Work Phone: [facility] 12-18-2022 13:00-0400 SaO2% (BldA) [Mass fraction] 99 % Dr. Bob Tristan Work Phone: [facility] 12-18-2022 13:00-0400 Systolic blood pressure 111 mm[Hg] Dr. Bob Tritsan Work Phone: [facility] 10-23-2022 09:58-0400 Body height 162.[address] Bob Tristan Work Phone: [facility] 10-23-2022 09:58-0400 Body mass index (BMI) [Ratio] 23.6 kg/m2 Dr. Bob Tristan Work Phone: [facility] 10-23-2022 09:58-0400 Body temperature 97.7 [degF] Dr. Bob Tristan Work Phone: [facility] 10-23-2022 09:58-0400 Body weight 62.[address] Bob Tristan Work Phone: [facility] 10-23-2022 09:58-0400 Diastolic blood pressure 68 mm[Hg] Dr. Bob Tristan Work Phone: [facility] 10-23-2022 09:58-0400 Heart rate 73 /min Dr. Bob Tristan Work Phone: [facility] 10-23-2022 09:58-0400 Respiratory rate 16 /min Dr. Bob Tristan Work Phone: [facility] 10-23-2022 09:58-0400 SaO2% (BldA) [Mass fraction] 100 % Dr. Bob Tristan Work Phone: [facility] 10-23-2022 09:58-0400 Systolic blood pressure 101 mm[Hg] Dr. Bob Tristan Work Phone: [facility] 10-01-2022 10:23-0400 Body temperature 97.9 [degF] Dr. Bob Tristan Work Phone: [facility] 10-01-2022 10:23-0400 Diastolic blood pressure 68 mm[Hg] Dr. Bob Tristan Work Phone: [facility] 10-01-2022 10:23-0400 Heart rate 75 /min Dr. Bob Tristan Work Phone: [facility] 10-01-2022 10:23-0400 Respiratory rate 16 /min Dr. Bob Tristan Work Phone: [facility] 10-01-2022 10:23-0400 SaO2% (BldA) [Mass fraction] 100 % Dr. Bob Tristan Work Phone: [facility] 10-01-2022 10:23-0400 Systolic blood pressure 96 mm[Hg] Dr. Bob Tristan Work Phone: [facility] 10-01-2022 09:15-0400 Body height 162.[address] Bob Tristan Work Phone: [facility] 10-01-2022 09:15-0400 Body mass index (BMI) [Ratio] 22.6 kg/m2 Dr. Bob Tristan Work Phone: [facility] 10-01-2022 09:15-0400 Body weight 59.[address] Bob Tristan Work Phone: [facility] 08-30-2022 09:20-0400 Body height 162.[address] Bob Tristan Work Phone: [facility] 08-30-2022 09:20-0400 Body mass index (BMI) [Ratio] 21.9 kg/m2 Dr. Bob Tristan Work Phone: [facility] 08-30-2022 09:20-0400 Body weight 58.[address] Bob Tristan Work Phone: [facility] 08-22-2022 13:05-0400 Body temperature 96.4 [degF] Dr. Bob Tristan Work Phone: [facility] 08-22-2022 13:05-0400 Diastolic blood pressure 62 mm[Hg] Dr. Bob Tristan Work Phone: [facility] 08-22-2022 13:05-0400 Heart rate 85 /min Dr. Bob Tristan Work Phone: [facility] 08-22-2022 13:05-0400 Respiratory rate 16 /min Dr. Bob Tristna Work Phone: [facility] 08-22-2022 13:05-0400 SaO2% (BldA) [Mass fraction] 99 % Dr. Bob Tristan Work Phone: [facility] 08-22-2022 13:05-0400 Systolic blood pressure 103 mm[Hg] Dr. Bob Tristan Work Phone: [facility] 08-21-2022 09:41-0400 Body mass index (BMI) [Ratio] 23.1 kg/m2 Dr. Bob Tristan Work Phone: [facility] 08-21-2022 09:41-0400 Body weight 61.[address] Bob Tristan Work Phone: [facility] 08-21-2022 09:31-0400 Body mass index (BMI) [Ratio] 23.1 kg/m2 Dr. Bob Tristan Work Phone: [facility] 08-21-2022 09:31-0400 Body temperature 98.2 [degF] Dr. Bob Tristan Work Phone: [facility] 08-21-2022 09:31-0400 Body weight 61.[address] Bob Tristan Work Phone: [facility] 08-21-2022 09:31-0400 Diastolic blood pressure 68 mm[Hg] Dr. Bob Tristan Work Phone: [facility] 08-21-2022 09:31-0400 Heart rate 69 /min Dr. Bob Tristan Work Phone: [facility] 08-21-2022 09:31-0400 Respiratory rate 16 /min Dr. Bob Tristan Work Phone: [facility] 08-21-2022 09:31-0400 SaO2% (BldA) [Mass fraction] 99 % Dr. Bob Tristan Work Phone: [facility] 08-21-2022 09:31-0400 Systolic blood pressure 99 mm[Hg] Dr. Bob Tristan Work Phone: [facility] 07-25-2022 14:05-0400 Body height 162.[address] Bob Tristan Work Phone: [facility] 07-25-2022 14:05-0400 Body weight 61.[address] Bob Tristan Work Phone: [facility] 07-25-2022 13:14-0400 Body temperature 97.5 [degF] Dr. Bob Tristan Work Phone: [facility] 07-25-2022 13:14-0400 Diastolic blood pressure 66 mm[Hg] Dr. Bob Tristan Work Phone: [facility] 07-25-2022 13:14-0400 Heart rate 69 /min Dr. Bob Tristan Work Phone: [facility] 07-25-2022 13:14-0400 Respiratory rate 16 /min Dr. Bob Tristan Work Phone: [facility] 07-25-2022 13:14-0400 SaO2% (BldA) [Mass fraction] 100 % Dr. Bob Tristan Work Phone: [facility] 07-25-2022 13:14-0400 Systolic blood pressure 102 mm[Hg] Dr. Bob Tristan Work Phone: [facility] 07-25-2022 13:08-0400 Body mass index (BMI) [Ratio] 23.3 kg/m2 Dr. Bob Tristan Work Phone: [facility] 07-24-2022 08:38-0400 Body mass index (BMI) [Ratio] 22.8 kg/m2 Dr. Bob Tristan Work Phone: [facility] 07-24-2022 08:38-0400 Body temperature 97.5 [degF] Dr. Bob Tristan Work Phone: [facility] 07-24-2022 08:38-0400 Body weight 60.[address] Bob Tristan Work Phone: [facility] 07-24-2022 08:38-0400 Diastolic blood pressure 61 mm[Hg] Dr. Bob Tristan Work Phone: [facility] 07-24-2022 08:38-0400 Heart rate 71 /min Dr. Bob Tristan Work Phone: [facility] 07-24-2022 08:38-0400 Respiratory rate 16 /min Dr. Bob Tristan Work Phone: [facility] 07-24-2022 08:38-0400 SaO2% (BldA) [Mass fraction] 100 % Dr. Bob Tristan Work Phone: [facility] 07-24-2022 08:38-0400 Systolic blood pressure 100 mm[Hg] Dr. Bob Tristan Work Phone: [facility] [facility] 06-19-2022 08:34-0400 Body height 162.[address] Bob Tristan Work Phone: [facility] 06-19-2022 08:34-0400 Body mass index (BMI) [Ratio] 22.1 kg/m2 Dr. Bob Tristan Work Phone: [facility] 06-19-2022 08:34-0400 Body weight 58.[address] Bob Tristan Work Phone: [facility] 06-19-2022 08:24-0400 Body mass index (BMI) [Ratio] 22.1 kg/m2 Dr. Bob Tristan Work Phone: [facility] 06-19-2022 08:24-0400 Body temperature 97.1 [degF] Dr. Bob Tristan Work Phone: [facility] 06-19-2022 08:24-0400 Body weight 58.[address] Bob Tristan Work Phone: [facility] 06-19-2022 08:24-0400 Diastolic blood pressure 65 mm[Hg] Dr. Bob Tristan Work Phone: [facility] 06-19-2022 08:24-0400 Heart rate 63 /min Dr. Bob Tristan Work Phone: [facility] 06-19-2022 08:24-0400 Respiratory rate 14 /min Dr. Bob Tristan Work Phone: [facility] 06-19-2022 08:24-0400 SaO2% (BldA) [Mass fraction] 100 % Dr. Bob Tristan Work Phone: [facility] 06-19-2022 08:24-0400 Systolic blood pressure 100 mm[Hg] Dr. Bob Tristan Work Phone: [facility] 05-22-2022 13:42-0400 Body temperature 98.7 [degF] Dr. Bob Tristan Work Phone: [facility] 05-22-2022 13:42-0400 Diastolic blood pressure 54 mm[Hg] Dr. Bob Tristan Work Phone: [facility] 05-22-2022 13:42-0400 Heart rate 74 /min Dr. Bob Tristan Work Phone: [facility] 05-22-2022 13:42-0400 Respiratory rate 16 /min Dr. Bob Tristan Work Phone: [facility] 05-22-2022 13:42-0400 SaO2% (BldA) [Mass fraction] 98 % Dr. Bob Tristan Work Phone: [facility] 05-22-2022 13:42-0400 Systolic blood pressure 90 mm[Hg] Dr. Bob Tristan Work Phone: [facility] 05-21-2022 08:58-0400 Body mass index (BMI) [Ratio] 22 kg/m2 Dr. Bob Tristan Work Phone: [facility] 05-21-2022 08:58-0400 Body temperature 98.4 [degF] Dr. Bob Tristan Work Phone: [facility] 05-21-2022 08:58-0400 Body weight 58.[address] Bob Tristan Work Phone: [facility] 05-21-2022 08:58-0400 Diastolic blood pressure 62 mm[Hg] Dr. Bob Tristan Work Phone: [facility] 05-21-2022 08:58-0400 Heart rate 79 /min Dr. Bob Tristan Work Phone: [facility] 05-21-2022 08:58-0400 Respiratory rate 16 /min Dr. Bob Tristan Work Phone: [facility] 05-21-2022 08:58-0400 SaO2% (BldA) [Mass fraction] 100 % Dr. Bob Tristan Work Phone: [facility] 05-21-2022 08:58-0400 Systolic blood pressure 92 mm[Hg] Dr. Bob Tristan Work Phone: [facility] 04-26-2022 15:38-0500 Body mass index (BMI) [Ratio] 22 kg/m2 Dr. Bob Tristan Work Phone: [facility] 04-26-2022 15:38-0500 Body temperature 98.1 [degF] Dr. Bob Tristan Work Phone: [facility] 04-26-2022 15:38-0500 Body weight 58.[address] Bob Tristan Work Phone: [facility] 04-26-2022 15:38-0500 Diastolic blood pressure 66 mm[Hg] Dr. Bob Tristan Work Phone: [facility] 04-26-2022 15:38-0500 Heart rate 63 /min Dr. Bob Tristan Work Phone: [facility] 04-26-2022 15:38-0500 Respiratory rate 16 /min Dr. Bob Tristan Work Phone: [facility] 04-26-2022 15:38-0500 SaO2% (BldA) [Mass fraction] 100 % Dr. Bob Tristan Work Phone: [facility] 04-26-2022 15:38-0500 Systolic blood pressure 97 mm[Hg] Dr. Bob Tristan Work Phone: [facility] 04-25-2022 13:11-0500 Body temperature 97.4 [degF] Dr. Bob Tristan Work Phone: [facility] 04-25-2022 13:11-0500 Diastolic blood pressure 62 mm[Hg] Dr. Bob Tristan Work Phone: [facility] 04-25-2022 13:11-0500 Heart rate 80 /min Dr. Bob Tristan Work Phone: [facility] 04-25-2022 13:11-0500 Respiratory rate 16 /min Dr. Bob Tristan Work Phone: [facility] 04-25-2022 13:11-0500 SaO2% (BldA) [Mass fraction] 99 % Dr. Bob Tristan Work Phone: [facility] 04-25-2022 13:11-0500 Systolic blood pressure 101 mm[Hg] Dr. Bob Tristan Work Phone: [facility] 04-24-2022 09:30-0500 Body height 162.[address] Bob Tristan Work Phone: [facility] 04-24-2022 09:30-0500 Body mass index (BMI) [Ratio] 23 kg/m2 Dr. Bob Tristan Work Phone: [facility] 04-24-2022 09:30-0500 Body weight 60.[address] Bob Tristan Work Phone: [facility] 04-24-2022 09:05-0500 Body mass index (BMI) [Ratio] 21.7 kg/m2 Dr. Bob Tristan Work Phone: [facility] 04-24-2022 09:05-0500 Body temperature 98.7 [degF] Dr. Bob Tristan Work Phone: [facility] 04-24-2022 09:05-0500 Body weight 57.[address] Bob Tristan Work Phone: [facility] 04-24-2022 09:05-0500 Diastolic blood pressure 69 mm[Hg] Dr. Bob Tristan Work Phone: [facility] 04-24-2022 09:05-0500 Heart rate 72 /min Dr. Bob Tristan Work Phone: [facility] 04-24-2022 09:05-0500 Respiratory rate 16 /min Dr. Bob Tristan Work Phone: [facility] 04-24-2022 09:05-0500 SaO2% (BldA) [Mass fraction] 100 % Dr. Bob Tristan Work Phone: [facility] 04-24-2022 09:05-0500 Systolic blood pressure 101 mm[Hg] Dr. Bob Tristan Work Phone: [facility] 04-10-2022 08:02-0500 Body mass index (BMI) [Ratio] 22.1 kg/m2 Dr. Bob Tristan Work Phone: [facility] 04-10-2022 08:02-0500 Body temperature 98.5 [degF] Dr. Bob Tristan Work Phone: [facility] 04-10-2022 08:02-0500 Body weight 58.[address] Bob Tristan Work Phone: [facility] 04-10-2022 08:02-0500 Diastolic blood pressure 62 mm[Hg] Dr. Bob Tristan Work Phone: [facility] 04-10-2022 08:02-0500 Heart rate 77 /min Dr. Bob Tristan Work Phone: [facility] 04-10-2022 08:02-0500 Respiratory rate 16 /min Dr. Bob Tristan Work Phone: [facility] 04-10-2022 08:02-0500 SaO2% (BldA) [Mass fraction] 99 % Dr. Bob Tristan Work Phone: [facility] 04-10-2022 08:02-0500 Systolic blood pressure 90 mm[Hg] Dr. Bob Tristan Work Phone: [facility] 04-04-2022 17:15-0500 Body height 162.[address] Bob Tristan Work Phone: [facility] 04-04-2022 17:15-0500 Body mass index (BMI) [Ratio] 23.1 kg/m2 Dr. Bob Tristan Work Phone: [facility] 04-04-2022 17:15-0500 Body temperature 99.1 [degF] Dr. Bob Tristan Work Phone: [facility] 04-04-2022 17:15-0500 Body weight 61.[address] Bob Tristan Work Phone: [facility] 04-04-2022 17:15-0500 Diastolic blood pressure 69 mm[Hg] Dr. Bob Tristan Work Phone: [facility] 04-04-2022 17:15-0500 Heart rate 92 /min Dr. Bob Tristan Work Phone: [facility] 04-04-2022 17:15-0500 Respiratory rate 15 /min Dr. Bob Tristan Work Phone: [facility] 04-04-2022 17:15-0500 SaO2% (BldA) [Mass fraction] 97 % Dr. Bob Tristan Work Phone: [facility] 04-04-2022 17:15-0500 Systolic blood pressure 102 mm[Hg] Dr. Bob Tristan Work Phone: [facility] 03-29-2022 15:57-0500 Body temperature 97 [degF] Dr. Bob Tristan Work Phone: [facility] 03-29-2022 15:57-0500 Diastolic blood pressure 57 mm[Hg] Dr. Bob Tristan Work Phone: [facility] 03-29-2022 15:57-0500 Heart rate 66 /min Dr. Bob Tristan Work Phone: [facility] 03-29-2022 15:57-0500 Respiratory rate 16 /min Dr. Bob Tristan Work Phone: [facility] 03-29-2022 15:57-0500 SaO2% (BldA) [Mass fraction] 99 % Dr. Bob Tristan Work Phone: [facility] 03-29-2022 15:57-0500 Systolic blood pressure 94 mm[Hg] Dr. oBb Tristan Work Phone: [facility] 03-27-2022 09:36-0500 Body height 162.[address] Bob Tristan Work Phone: [facility] 03-27-2022 09:36-0500 Body mass index (BMI) [Ratio] 23.6 kg/m2 Dr. Bob Tristan Work Phone: [facility] 03-27-2022 09:36-0500 Body weight 62.[address] Bob Tristan Work Phone: [facility] 03-27-2022 09:12-0500 Body mass index (BMI) [Ratio] 23.6 kg/m2 Dr. Bob Tristan Work Phone: [facility] 03-27-2022 09:12-0500 Body temperature 98.6 [degF] Dr. Bob Tristan Work Phone: [facility] 03-27-2022 09:12-0500 Body weight 62.[address] Bob Tristan Work Phone: [facility] 03-27-2022 09:12-0500 Diastolic blood pressure 70 mm[Hg] Dr. Bob Tristan Work Phone: [facility] 03-27-2022 09:12-0500 Heart rate 76 /min Dr. Bob Tristan Work Phone: [facility] 03-27-2022 09:12-0500 Respiratory rate 16 /min Dr. Bob Tristan Work Phone: [facility] 03-27-2022 09:12-0500 SaO2% (BldA) [Mass fraction] 99 % Dr. Bob Tristan Work Phone: [facility] 03-27-2022 09:12-0500 Systolic blood pressure 104 mm[Hg] Dr. Bob Tristan Work Phone: [facility] 03-23-2022 12:15-0500 Body temperature 97.8 [degF] Dr. Bob Tristan Work Phone: [facility] 03-23-2022 12:15-0500 Diastolic blood pressure 53 mm[Hg] Dr. Bob Tristan Work Phone: [facility] 03-23-2022 12:15-0500 Heart rate 72 /min Dr. Bob Tristan Work Phone: [facility] 03-23-2022 12:15-0500 Respiratory rate 16 /min Dr. Bob Tristan Work Phone: [facility] 03-23-2022 12:15-0500 SaO2% (BldA) [Mass fraction] 95 % Dr. Bob Tristan Work Phone: [facility] 03-23-2022 12:15-0500 Systolic blood pressure 85 mm[Hg] Dr. Bob Tristan Work Phone: [facility] 03-23-2022 09:59-0500 Body height 162.[address] Bob Tristan Work Phone: [facility] 03-23-2022 09:59-0500 Body mass index (BMI) [Ratio] 22.3 kg/m2 Dr. Bob Tristan Work Phone: [facility] 03-23-2022 09:59-0500 Body weight [address] Bob Tristan Work Phone: [facility] 03-15-2022 15:37-0500 Body height 162.[address] Bob Tristan Work Phone: [facility] 03-15-2022 15:37-0500 Body mass index (BMI) [Ratio] 23.2 kg/m2 Dr. Bob Tristan Work Phone: [facility] 03-15-2022 15:37-0500 Body temperature 97.5 [degF] Dr. Bob Tristan Work Phone: [facility] 03-15-2022 15:37-0500 Body weight 61.[address] Bob Tristan Work Phone: [facility] 03-15-2022 15:37-0500 Diastolic blood pressure 61 mm[Hg] Dr. Bob Tristan Work Phone: [facility] 03-15-2022 15:37-0500 Heart rate 79 /min Dr. Bob Tristan Work Phone: [facility] 03-15-2022 15:37-0500 Respiratory rate 16 /min Dr. Bob Tristan Work Phone: [facility] 03-15-2022 15:37-0500 SaO2% (BldA) [Mass fraction] 99 % Dr. Bob Tristan Work Phone: [facility] 03-15-2022 15:37-0500 Systolic blood pressure 94 mm[Hg] Dr. Bob Tristan Work Phone: [facility] 03-14-2022 09:02-0500 Body mass index (BMI) [Ratio] 23.3 kg/m2 Dr. Bob Tristan Work Phone: [facility] 03-14-2022 09:02-0500 Body temperature 97.3 [degF] Dr. Bob Tristan Work Phone: [facility] 03-14-2022 09:02-0500 Body weight 61.[address] Bob Tristan Work Phone: [facility] 03-14-2022 09:02-0500 Diastolic blood pressure 62 mm[Hg] Dr. Bbo Tristan Work Phone: [facility] 03-14-2022 09:02-0500 Heart rate 76 /min Dr. Bob Tristan Work Phone: [facility] 03-14-2022 09:02-0500 Respiratory rate 16 /min Dr. Bob Tristan Work Phone: [facility] 03-14-2022 09:02-0500 SaO2% (BldA) [Mass fraction] 98 % Dr. Bob Tristan Work Phone: [facility] 03-14-2022 09:02-0500 Systolic blood pressure 96 mm[Hg] Dr. Bob Tristan Work Phone: [facility] 03-13-2022 11:23-0500 Body mass index (BMI) [Ratio] 23.2 kg/m2 Dr. Bob Tristan Work Phone: [facility] 03-13-2022 11:23-0500 Body temperature 98.2 [degF] Dr. Bob Tristan Work Phone: [facility] 03-13-2022 11:23-0500 Body weight 61.[address] Bob Tristan Work Phone: [facility] 03-13-2022 11:23-0500 Diastolic blood pressure 62 mm[Hg] Dr. Bob Tristan Work Phone: [facility] 03-13-2022 11:23-0500 Heart rate 88 /min Dr. Bob Tristan Work Phone: [facility] 03-13-2022 11:23-0500 Respiratory rate 16 /min Dr. Bob Tristan Work Phone: [facility] 03-13-2022 11:23-0500 SaO2% (BldA) [Mass fraction] 99 % Dr. Bob Tristan Work Phone: [facility] 03-13-2022 11:23-0500 Systolic blood pressure 94 mm[Hg] Dr. Bob Tristan Work Phone: [facility] 03-08-2022 11:25-0500 Diastolic blood pressure 65 mm[Hg] Dr. Bob Tristan Work Phone: [facility] 03-08-2022 11:25-0500 Heart rate 73 /min Dr. Bob Tristan Work Phone: [facility] 03-08-2022 11:25-0500 Respiratory rate 20 /min Dr. Bob Tristan Work Phone: [facility] 03-08-2022 11:25-0500 SaO2% (BldA) [Mass fraction] 98 % Dr. Bob Tristan Work Phone: [facility] 03-08-2022 11:25-0500 Systolic blood pressure 100 mm[Hg] Dr. Bob Tristan Work Phone: [facility] 03-08-2022 09:58-0500 Inhaled oxygen flow rate 2 L/min Dr. Bob rTistan Work Phone: [facility] 03-08-2022 09:20-0500 Body mass index (BMI) [Ratio] 23.3 kg/m2 Dr. Bob Tristan Work Phone: [facility] 03-08-2022 09:20-0500 Body temperature 99 [degF] Dr. Bob Tristan Work Phone: [facility] 03-08-2022 09:20-0500 Body weight 61.[address] Bob Tristan Work Phone: [facility] 02-28-2022 13:01-0500 Body mass index (BMI) [Ratio] 23.5 kg/m2 Dr. Bob Tristan Work Phone: [facility] 02-28-2022 13:01-0500 Body temperature 98.9 [degF] Dr. Bob Tristan Work Phone: [facility] 02-28-2022 13:01-0500 Body weight 62.[address] Bob Tristan Work Phone: [facility] 02-28-2022 13:01-0500 Diastolic blood pressure 67 mm[Hg] Dr. Bob Tristan Work Phone: [facility] 02-28-2022 13:01-0500 Heart rate 76 /min Dr. Bob Tristan Work Phone: [facility] 02-28-2022 13:01-0500 Respiratory rate 18 /min Dr. Bob Tristan Work Phone: [facility] 02-28-2022 13:01-0500 SaO2% (BldA) [Mass fraction] 99 % Dr. Bob Tristan Work Phone: [facility] 02-28-2022 13:01-0500 Systolic blood pressure 99 mm[Hg] Dr. Bob Tristan Work Phone: [facility] 01-26-2022 15:35-0500 Body height 162.[address] Bob Tristan Work Phone: [facility] Work Phone: 01-26-2022 15:35-0500 Body mass index (BMI) [Ratio] 23 kg/m2 Dr. Bob Tristan Work Phone: [facility] 01-26-2022 15:35-0500 Body temperature 97.5 [degF] Dr. Bob Tristan Work Phone: [facility] 01-26-2022 15:35-0500 Body weight 60.[address] Bob Tristan Work Phone: [facility] 01-26-2022 15:35-0500 Diastolic blood pressure 68 mm[Hg] Dr. Bob Tristan Work Phone: [facility] 01-26-2022 15:35-0500 Heart rate 70 /min Dr. Bob Tristan Work Phone: [facility] 01-26-2022 15:35-0500 Respiratory rate 16 /min Dr. Bob Tristan Work Phone: [facility] 01-26-2022 15:35-0500 SaO2% (BldA) [Mass fraction] 98 % Dr. Bob Tristan Work Phone: [facility] 01-26-2022 15:35-0500 Systolic blood pressure 104 mm[Hg] Dr. Bob Tristan Work Phone: [facility] 09-22-2021 12:55-0400 Body height 162.[address] Bob Tristan Work Phone: [facility] Work Phone: 09-22-2021 12:55-0400 Body mass index (BMI) [Ratio] 23.8 kg/m2 Dr. Bob Tristan Work Phone: [facility] Work Phone: 09-22-2021 12:55-0400 Body temperature 99.5 [degF] Dr. Bob Tristan Work Phone: [facility] Work Phone: 09-22-2021 12:55-0400 Body weight 63.[address] Bob Tristan Work Phone: [facility] Work Phone: 09-22-2021 12:55-0400 Diastolic blood pressure 78 mm[Hg] Dr. Bob Tristan Work Phone: [facility] Work Phone: 09-22-2021 12:55-0400 Heart rate 74 /min Dr. Bob Tristan Work Phone: [facility] Work Phone: 09-22-2021 12:55-0400 Respiratory rate 16 /min Dr. Bob Tristan Work Phone: [facility] Work Phone: 09-22-2021 12:55-0400 SaO2% (BldA) [Mass fraction] 99 % Dr. Bob Tristan Work Phone: [facility] Work Phone: 09-22-2021 12:55-0400 Systolic blood pressure 122 mm[Hg] Dr. Bob Tristan Work Phone: [facility] Work Phone: Encounters Encounter Date Encounter Type Care Provider Facility Start: 09-08-2024 [facility] Start: 08-17-2024 Encounter for genera l adult medical examination without abnormal findings [facility] Start: 08-12-2024 End: 08-12-[address] Bob Tristan MD -[facility] Work Phone: Start: 08-12-2024 End: 08-12-[address] Bob Tristan MD [facility] Start: 08-12-2024 End: 08-12-[address] Bob Tristan MD Work Phone: [facility] Work Phone: Start: 08-12-2024 End: 08-12-2024 ambulatory [facility] Facility:[facility] Start: 07-13-2024 End: 07-13-[address] [place] Christy MD -[facility] Work Phone: Start: 07-13-2024 End: 07-13-[address] Bob Tristan MD Work Phone: [facility] Work Phone: Start: 07-13-[address] Kimberly Christy MD -[facility] Start: 05-18-2024 End: 05-18-[address] West Christy MD -[facility] Work Phone: Start: 05-18-2024 End: 05-18-2024 ambulatory [facility]y Facility:[facility] Start: 05-08-2024 End: 05-08-[address] Bob Tristan MD Work Phone: [facility] Work Phone: Start: 05-08-2024 End: 05-08-[address] [place] Christy MD -[facility] Work Phone: Start: 05-08-2024 End: 05-08-2024 ambulatory [facility] Facility:[facility] Start: 03-16-[address] Kimberly Christy MD -[facility] Start: 03-16-2024 End: 03-16-[address] West Christy MD -[facility] Work Phone: Start: 03-16-2024 End: 03-16-2024 ambulatory W[facility] Christy Facility:[facility] Start: 03-02-2024 End: 03-02-2024 Patient encounter procedure Blade NAIR -[facility] Work Phone: Start: 03-02-2024 End: 03-02-2024 ambulatory Blade NAIR Facility:[facility] Start: 02-05-2024 ambulatory Zuly Araujo NP Facil ity:[facility] Start: 01-15-2024 End: 01-15-2024 ambulatory [facility] Facility:[facility] Start: 01-01-2024 End: 01-01-[address] [facility] Start: 12-27-2023 End: 12-27-2023 ambulatory [facility] Facility:[facility] Start: 06-05-2023 End: 06-05-[address] Bob Tristan Work Phone: [facility] Work Phone: Start: 06-05-2023 End: 06-05-[address] Bob Tristan Work Phone: [facility] Services/Neurology Work Phone: Start: 05-29-[address] Nova Tristan Work Phone: [facility] Start: 05-29-2023 End: 05-29-[address] Bob Tristan Work Phone: [facility] Work Phone: Start: 04-12-2023 End: 04-12-[address] Bob Tristan Work Phone: [facility] Work Phone: Start: 04-12-2023 End: 04-12-[address] Bob Tristan Work Phone: [facility] Work Phone: Start: 04-11-2023 End: 04-11-[address] Bob Tristan Work Phone: [facility] Work Phone: Start: 04-11-[address] Nova Tristan Work Phone: [facility] Start: 04-03-2023 End: 04-03-[address] Bob Tristan Work Phone: [facility] Work Phone: Start: 04-03-2023 End: 04-03-[address] Bob Tristan Work Phone: [facility] Work Phone: Start: 02-14-2023 End: 02-14-[address] Bob Tristan Work Phone: [facility] Work Phone: Start: 02-14-[address] Nova Tristan Work Phone: [facility] Start: 01-16-2023 End: 01-16-[address] Bob Tristan Work Phone: [facility] Work Phone: Start: 01-10-2023 End: 01-10-[address] Bob Tristan Work Phone: [facility] Work Phone: Start: 01-10-2023 End: 01-10-[address] Bob Tristan Work Phone: [facility] Work Phone: Start: 01-09-2023 End: 01-09-[address] Bob Tristan Work Phone: [facility] Work Phone: Start: 01-09-2023 End: 01-09-[address] Bob Tristan Work Phone: [facility]Neu[facility] Work Phone: Start: 12-18-[address] Nova Tristan Work Phone: [facility] Start: 12-18-2022 End: 12-18-[address] Bob Tristan Work Phone: [facility] Work Phone: Start: 12-14-2022 End: 12-14-[address] Bob Tristan Work Phone: [facility] Work Phone: Start: 12-14-2022 End: 12-14-[address] Bob Tristan Work Phone: [facility]-Outpatient [facility] Work Phone: Start: 12-12-2022 End: 12-12-[address] Bob Tristan Work Phone: [facility] Work Phone: Start: 12-12-2022 End: 12-12-[address] Bob Tristan Work Phone: [facility]Neu[facility] Work Phone: Start: 11-09-2022 End: 11-09-[address] Bob Tristan Work Phone: [facility] Work Phone: Start: 10-23-[address] Nova Tristan Work Phone: [facility] Start: 10-23-2022 End: 10-23-[address] Bob Tristan Work Phone: [facility] Work Phone: Start: 10-03-2022 End: 10-03-[address] Bob Tristan Work Phone: [facility] Work Phone: Start: 10-03-2022 End: 10-03-[address] [facility] Start: 10-01-2022 Non-patient / Non-visit Dr. Kvng Tristan Work Phone: [facility] Start: 10-01-2022 End: 10-01-2022 Admission to same day surgery center Dr. Bob Tristan Work Phone: [facility]-Endoscopy Work Phone: Start: 10-01-[address] Nova Tristan Work Phone: [facility] Start: 09-05-2022 End: 09-05-[address] Bob Tristan Work Phone: [facility] Work Phone: Start: 09-05-2022 End: 09-05-[address] [facility] Services/Neurology Work Phone: Start: 08-30-2022 Non-patient / Non-visit Dr. Kvng Tristan Work Phone: [facility] Work Phone: Start: 08-22-[address] Nova Tristan Work Phone: [facility] Start: 08-21-2022 End: 08-21-[address] Bob Tristan Work Phone: [facility] Work Phone: Start: 08-09-2022 End: 08-09-[address] Bob Tristan Work Phone: [facility] Work Phone: Start: 08-09-2022 End: 08-09-[address] [facility] Start: 07-25-[address] Nova Tristan Work Phone: [facility] Start: 07-24-2022 End: 07-24-[address] Bob Tristan Work Phone: [facility] Start: 07-11-2022 End: 07-11-[address] Bob Tristan Work Phone: [facility]-Pulmonary Services/Neurology Start: 06-19-2022 End: 06-19-[address] Bob Tristan Work Phone: [facility] Start: 06-19-[address] Nova Tristan Work Phone: [facility] Start: 06-14-2022 End: 06-14-[address] Bob Tristan Work Phone: [facility]-Pulmonary Services/Neurology Start: 06-13-2022 End: 06-13-[address] Bob Tristan Work Phone: [facility] Work Phone: Start: 06-13-2022 End: 06-13-[address] Bob Tristan Work Phone: [facility] Start: 05-21-2022 End: 05-21-[address] Bob Tristan Work Phone: [facility] Start: 05-16-2022 End: 05-16-[address] Bob Tristan Work Phone: [facility]-Pulmonary Services/Neurology Start: 04-26-2022 End: 04-26-[address] Bbo Tristan Work Phone: [facility] Start: 04-25-[address] Nova Tristan Work Phone: [facility] Start: 04-24-2022 End: 04-24-[address] Bob Tristan Work Phone: [facility] Start: 04-18-2022 End: 04-18-[address] Bob Tristan Work Phone: [facility] Work Phone: Start: 04-18-2022 End: 04-18-[address] Bob Tristan Work Phone: [facility]-Pulmonary Services/Neurology Start: 04-10-2022 End: 04-10-[address] Bob Tristan Work Phone: [facility] Start: 04-04-2022 End: 04-04-2022 Emergency department patient visit Dr. Bob Tristan Work Phone: [facility]-Emergency Department Start: 03-29-[address] Nova Tristan Work Phone: [facility] Start: 03-27-2022 End: 03-27-[address] Bob Tristan Work Phone: [facility] Start: 03-23-2022 Non-patient / Non-visit Dr. Kvng Tristan Work Phone: [facility] Start: 03-23-2022 End: 03-23-2022 Admission to same day surgery center [facility] Tr[facility] Start: 03-23-2022 End: 03-23-[address] Bob Tristan Work Phone: [facility] Work Phone: Start: 03-21-2022 End: 03-21-[address] Bob Tristan Work Phone: [facility] Work Phone: Start: 03-21-2022 End: 03-21-[address] Bob Tristan Work Phone: [facility]-Pulmonary Services/Neurology Start: 03-21-[address] Nova Tristan Work Phone: [facility] Start: 03-15-2022 End: 03-15-[address] Bob Tristan Work Phone: [facility] Start: 03-14-2022 End: 03-14-[address] Bob Tristan Work Phone: [facility] Start: 03-13-2022 End: 03-13-[address] Bob Tristan Work Phone: [facility] Start: 03-08-2022 End: 03-08-[address] Bob Tristan Work Phone: [facility] Work Phone: Start: 03-08-2022 End: 03-08-[address] Bob Tristan Work Phone: [facility] Start: 02-28-[address] Nova Tristan Work Phone: [facility] Start: 02-28-2022 End: 02-28-[address] Bob Tristan Work Phone: [facility] Start: 02-16-2022 End: 02-16-[address] Bob Tristan Work Phone: [facility] Work Phone: Start: 02-16-2022 End: 02-16-[address] Bob Tristan Work Phone: [facility]-Laboratory Start: 02-15-2022 End: 02-15-[address] Bob Tristan Work Phone: [facility] Work Phone: Start: 02-15-2022 End: 02-15-[address] Bob Tristan Work Phone: [facility] Start: 01-26-2022 End: 01-26-[address] Bob Tristan Work Phone: [facility] Start: 12-05-2021 End: 12-05-[address] Bob Tristan Work Phone: [facility] Work Phone: Start: 12-05-2021 End: 12-05-[address] Bob Tristan Work Phone: [facility]-Outpatient Breast Imaging Start: 09-22-2021 End: 09-22-[address] Bob Tristan Work Phone: [facility] Start: 10-21-[address] Bob Tristan Work Phone: [facility] Procedures Date Procedure Procedure Detail Performing Clinician Start: 08-12-2024 Methadone measuremen t, urine Dr. Bob Tristan MD Work Phone: Start: 07-13-[address] Bob Tristan MD Work Phone: Start: 05-08-2024 CT of thorax, abdome n and pelvis with contrast Dr. Bob Tristan MD Work Phone: Start: 05-08-2024 CT of soft tissues o f neck with contrast Dr. Bob Tristan MD Work Phone: Start: 03-16-2024 Measurement of renal function Dr. Bob Tristan MD Work Phone: Comment on above: GFR Calc Start: 04-12-2023 CT of chest and abdomen Dr. Bob Tristan Work Phone: Start: 01-10-2023 Plain chest X-ray Dr. Farheen Tristan Work Phone: Start: 12-14-2022 Screening mammography Tash Tristan Work Phone: Start: 10-16-2022 PET study for locali zation of tumor Dr. Bob Tristan Work Phone: Start: 06-13-2022 CT of chest and abdomen Dr. Bob Tristan Work Phone: Start: 06-13-2022 CT of soft tissues o f neck with contrast Dr. Bob Tristan Work Phone: Start: 04-04-2022 Plain chest X-ray Dr. Farheen Tristan Work Phone: Start: 03-23-2022 Implantation to cardiovascular system Dr. Bob Tristan Work Phone: Start: 03-23-2022 Plain chest X-ray Dr. Farheen Tristan Work Phone: Start: 03-23-2022 Fluoroscopic guidance Tash Tristan Work Phone: Start: 03-21-2022 Positron emission tomography with computed tomography Dr. Bob Tristan Work Phone: Start: 03-08-2022 Biopsy/Inj or Needle Placement Dr. Bob Tristan Work Phone: Start: 02-15-2022 Computed tomography of abdomen and pelvis with contrast Dr. Bob Tristan Work Phone: Start: 12-05-2021 Screening mammography Tash Tristan Work Phone: Bacteria identified in Blood by Culture Dr. Bob Tristan Work Phone: SARS-CoV-2 & FLU Ant igen (Rapid) Dr. Bob Tristan Work Phone: Plan of Treatment Date Care Activity Detail Author Start: 07-13-2024 [facility] Start: 07-13-2024 Vital signs measurements [facility] Start: 05-18-2024 Vital signs measurements [facility] Start: 05-18-2024 [facility] Start: 05-08-2024 Venous catheter care management [facility] Start: 03-16-2024 Vital signs measurements [facility] Start: 01-15-2024 Vital signs measurements [facility] Start: 11-13-2023 Vital signs measurements [facility] Start: 09-18-2023 Vital signs measurements [facility] Start: 07-24-2023 Vital signs measurements [facility] Start: 05-29-2023 Vital signs measurements [facility] Start: 04-12-2023 Venous catheter care management [facility] Start: 04-11-2023 Vital signs measurements [facility] Start: 02-14-2023 Vital signs measurements [facility] Start: 12-18-2022 Vital signs measurements [facility] Start: 12-18-2022 [facility] Start: 10-23-2022 Vital signs measurements [facility] Start: 10-09-2022 PET study for localization of tumor PET/CT Tumor Base -Thigh Subs [facility] Start: 10-01-2022 Colonoscopy flx dx w/collj spec when pfrmd DIAGNOSTIC COLONOSCOPY [facility] Start: 10-01-2022 Venous catheter care management [facility] Start: 10-01-2022 Patient discharge [facility] Start: 08-21-2022 Patient referral [facility] Work Phone: Start: 06-19-2022 [facility] Start: 06-13-2022 Venous catheter care management [facility] Start: 04-04-2022 End: 04-04-2022 Blood culture [facility] Start: 04-04-2022 [facility] Start: 03-23-2022 Anesthesia access central venous circulation ANESTH VASCULAR ACCESS [facility] Start: 03-23-2022 Insj tunneled ctr vad w/subq port age 4 yr/> INSERT TUNNELED CV CATH [facility] Start: 03-23-2022 Patient discharge [facility] Start: 03-13-2022 Patient referral [facility] Work Phone: Start: 03-08-2022 Fine needle aspiration bx w/ct gdn 1st lesion FNA BX W/CT GDN 1ST LES [facility] Start: 03-08-2022 Catheterization of vein [facility] Start: 03-08-2022 Oxygen therapy [facility] Start: 03-08-2022 Patient discharge [facility] Start: 03-08-2022 Vital signs measurements [facility] Start: 03-08-2022 Following clinical pathway protocol [facility] Alanine aminotransfe rase [Enzymatic activity/volume] in Serum or Plasma [facility] Alanine aminotransfe rase [Enzymatic activity/volume] in Serum or Plasma [facility] Albumin [Mass/volume ] in Serum or Plasma [facility] Albumin [Mass/volume ] in Serum or Plasma [facility] Alkaline phosphatase [Enzymatic activity/volume] in Serum or Plasma [facility] Alkaline phosphatase [Enzymatic activity/volume] in Serum or Plasma [facility] Anion gap in Serum or Plasma [facility] Anion gap measurement [facility] Aspartate aminotrans ferase [Enzymatic activity/volume] in Serum or Plasma [facility] Bacteria identified in Blood by Culture Blood Culture [facility] Bilirubin, total measurement [facility] Bilirubin, total measurement [facility] BUN/Creatinine ratio [facility] BUN/Creatinine ratio [facility] Calcium [Mass/volume ] in Serum or Plasma [facility] Calcium [Mass/volume ] in Serum or Plasma [facility] Carbon dioxide, tota l [Moles/volume] in Central venous blood [facility] Carbon dioxide, tota l [Moles/volume] in Serum or Plasma [facility] Cardiovascular stress testing [facility] Work Phone: CBC W Auto Different ial panel - Blood [facility] CBC W Auto Different ial panel - Blood [facility] CBC W Auto Different ial panel - Blood [facility] CBC W Auto Different ial panel - Blood [facility] Chloride [Moles/volu me] in Serum or Plasma [facility] Colonoscopy [facility] Comprehensive metabo lic 1999 panel - Serum or Plasma [facility] Comprehensive metabo lic 1999 panel - Serum or Plasma [facility] Creatinine [Mass/vol ume] in Serum or Plasma [facility] Creatinine [Moles/vo lume] in Serum or Plasma [facility] CT Abdomen and Pelvi s W contrast IV [facility] Drugs identified in Urine by Screen method [facility] Electrocardiographic procedure [facility] Work Phone: Erythrocyte mean cor puscular volume determination [facility] Glucose [Mass/volume ] in Serum or Plasma [facility] Glucose [Mass/volume ] in Serum or Plasma [facility] Hematocrit [Volume F raction] of Blood [facility] Hematocrit [Volume F raction] of Blood [facility] Hemoglobin [Mass/vol ume] in Blood [facility] Hemoglobin [Mass/vol ume] in Blood [facility] Lactate dehydrogenas e measurement [facility] Lactate dehydrogenas e measurement [facility] Lactate dehydrogenas e measurement [facility] Lactate dehydrogenas e measurement [facility] Lactate dehydrogenas e measurement [facility] Leukocytes [#/volume] in Blood [facility] Leukocytes [#/volume] in Blood [facility] Lipid 1996 panel - S joanna or Plasma [facility] Mean corpuscular hem oglobin concentration determination [facility] Mean corpuscular hem oglobin concentration determination [facility] Mean corpuscular hem oglobin determination [facility] Mean corpuscular hem oglobin determination [facility] Measurement of renal function [facility] Measurement of renal function [facility] MG Breast - bilatera l Screening [facility] Neutrophil count [facility] Neutrophil count [facility] Neutrophil percent differential count [facility] Neutrophil percent differential count [facility] Patient Education [facility] Work Phone: Patient referral [facility] Work Phone: Platelets [#/volume] in Blood [facility] Platelets [#/volume] in Blood [facility] Positron emission to mography with computed tomography [facility] Potassium [Moles/vol ume] in Serum or Plasma [facility] Potassium measurement [facility] PT Unspecified body region [facility] Red blood cell count [facility] Red blood cell count [facility] Red cell distributio n width determination [facility] Red cell distributio n width determination [facility] Serum chloride measurement [facility] Sodium [Moles/volume ] in Serum or Plasma [facility] Sodium measurement [facility] Total protein measurement [facility] Total protein measurement [facility] Urate [Mass/volume] in Serum or Plasma [facility] Urea nitrogen [Mass/ volume] in Serum or Plasma [facility] Urea nitrogen [Mass/ volume] in Serum or Plasma [facility] Immunizations Immunization Date Immunization Notes Care Provider Fa [facility] 01-15-2024 influenza, injectabl e, madin wai canine kidney, preservative free Dr. Bob Tristan MD Work Phone: [facility] 12-18-2022 influenza, injectabl e, quadrivalent, preservative free Dr. Bob Tristan Work Phone: [facility] 12-09-2022 Pfizer Covid-19 (Comirnaty) Dr. Bob Tristan Work Phone: [facility] 12-09-[address] Tristan Work Phone: [facility] 03-22-[address] Bob Tristan Work Phone: [facility] 03-16-2022 influenza, injectabl e, quadrivalent, preservative free Dr. Bob Tristan Work Phone: [facility] 03-16-2022 influenza, seasonal, injectable Dr. Bob Tristan Work Phone: [facility] Payers Date Payer Category Payer Unknown [id number] 2022 Self-pay [id number] 2022 Unknown [id number] 2022 Unknown 0 [id number] Private Health Insurance [employer] [id number] Unknown HILDA [id number] Unknown [facility] [id number] Unknown [employer] [place] [id number] Unknown [id number] Unknown [id number] Unknown [id number] Unknown [id number] Unknown [id number] Unknown [id number] Unknown [id number] Unknown [id number] Unknown [id number] Unknown [id number] Unknown [id number] Unknown [id number] Social History Date Type Detail Facility Start: 09-22-2021 End: 01-16-2023 Tobacco smoking status NHIS Unknown if ever smoked [facility] Start: 1975 Sex Assigned At Female [facility] Start: 01-16-2023 Tobacco smoking status NHIS Never smoked tobacco (finding) [facility] Start: 05-17-2024 Sex Female (finding) [facility] NEGATED: Highlighted row [facility] Medical Equipment Procedure Code Equipment Code Equipment Origin al Text Equipment Identifier Dates Insertion, vascular access port ([id number]) Vascular port/catheter ([id number] FDA Start: 03-23-2022 Goals Date Patient Goal Desired Activity /State Functional Status Date Assessment Result Facility 03-08-2022 Functional status Ambulates [facility] Work Phone: Mental Status Date Assessment Result Facility 10-01-2022 Cognitive function Voice/Name [facility] Work Phone: 04-04-2022 Cognitive function Level Of Cons ciousness Awake;Alert;Appropriate [facility] Work Phone: 03-23-2022 Cognitive function Voice/Name [facility] Work Phone: 03-08-2022 Cognitive function Voice/Name [facility] Work Phone: Clinical Notes 02-01-2021 to 07-13-2024 Note Date & Type Note Facility 07-13-2024 Progress note [facility] 07-13-2024 Progress note Note Date/Time July 13, 2024 1:53pm [facility] [address] [place] [id number] OFFICE VISIT Date of Service: 07/13/24 1325 MR#: [id number] Acct: [id number] Name: ELVIRARUTHY Rep #: [id number] : 1975 From: [place] Age/Sex: 48/F [place] [facility] [place]: Signed HPI Subjective Date of Service 07/13/24 Chief Complaint Lymphoma on treatment History of Present Illness 47-year-old female postmenopausal who self palpated a left-sided abdominal mass,painless but with a sense of bloating. February 15, 2022 CT abdomen and pelvis: IMPRESSION: Extensive retroperitoneal and mesenteric lymphadenopathy.? Lymphadenopathy is also seen in the peripancreatic and periportal region. Small amount of free fluid is seen in the cul-de-sac. March 08, 2022 Anterior abdominal mass, CT-guided core biopsy: Consistent with involvement by non-Hodgkin B-cell lymphoma, follicular lymphoma with predominantly diffuse pattern, grade 1/3. ANTIBODY / CLONE RESULT AE1-3 (AE1/AE3/PCK26) negative CD3 (PS1) negative CD5 (SP10) negative CD10 (56C6) positive CD20 (L26) positive CD23 (1B12) negative CD43 (L60) negative CD45 (RP2/18) positive CD79a (11E3) positive BCL-2 (bcl-2/100/D5) positive BCL-6 (AT029N/A8) positive Cyclin D1/BCL-1 (SP4) negative MUM1 (MRQ-43) negative C-MYC (Y69) negative CK8 ([id number]) negative Ki-67 (30-9) positive, low PET/CT March 21, 2022 initial staging: IMPRESSION: 1. ABNORMAL EXAMINATION INDICATIVE OF MALIGNANT-VIABLE NEOPLASM. 2. Increased radiopharmaceutical concentration defined in the anterior mediastinum fulfill quantitative criteria for viable neoplasm. 3. The increase in tracer uptake noted in the right anterior neck involving Level and bilateral axilla soft tissue primarily without fatty hilus formation fulfills quantitative criteria for malignant transformation. 4. Abdominal and pelvic retroperitoneal and mesenteric mass formation, nodular foci demonstrated in the right retrocrural, cardiophrenic border and right external iliac lymph node basins fulfill quantitative criteria for viable neoplasm. 5.? There is visualized in the thoracic infiltration noted in a normal sized spleen. October 16, 2022 PET/CT restaging at the conclusion of treatment: IMPRESSION: 1. NEGATIVE EXAMINATION. There is no definitive quantitative scintigraphic evidence of recurrent/viable neoplasm. 2. There is interim metabolic resolution of all prior defined quantitatively significant hypermetabolic foci. 3. Overall, compared to the prior FDG PET study dated 03/21/22, there is current absence of defined viable neoplastic disease. April 12, 2023 CT chest abdomen and pelvis: IMPRESSION: Stable examination. May 08, 2024 CT chest abdomen and pelvis: IMPRESSION: Stable examination. No acute abnormality is seen. Treatment summary and response: Bendamustine Rituxan March 27-August 21, 2022 (6 cycles). CR Rituxan 2 years maintenance September 2022?June 2024 (12 cycles) PFSH Medical History Encounter for immunotherapy Costochondritis Cough Rib pain Post-menopausal History of chemotherapy Encounter for chemotherapy management Pharyngitis Hemorrhoid Headache Encounter for education Cancer Anxiety Anemia Dietary restriction Gastric reflux Non-smoker Encounter for adjustment and management of vascular access device Follicular lymphoma Encounter for screening for COVID-19 Abnormal uterine bleeding Breast pain, left Preventative health care Generalized anxiety disorder Insomnia Malabsorption Lactose intolerance Surgical History Hx of colonoscopy History of wisdom tooth extraction History of appendectomy Family History Father Hypertension Skin cancer Mother Breast cancer Social History Smoking Status: Never smoker alcohol intake: never substance use type: does not use what type of physical activity do you participate in: running and yoga frequency: 3-4 times per week ROS Constitutional Constitutional: Reports systems reviewed and no addt'l complaints, except as documented; Denies fatigue, fever(s), night sweats or weight loss Eyes Eyes: Reports systems reviewed and no addt'l complaints, except as documented ENT HEENT: Reports systems reviewed and no addt'l complaints, except as documented Cardiovascular Cardiovascular: Reports systems reviewed and no addt'l complaints, except as documented; Denies chest pain with activity or edema Respiratory/Chest Respiratory/Chest: Reports systems reviewed and no addt'l complaints, except as documented; Denies cough or dyspnea on exertion Gastrointestinal Gastrointestinal: Reports systems reviewed and no addt'l complaints, except as documented; Denies abdominal pain, bloating, change in bowel habits, hematochezia or melena Genitourinary Genitourinary: Reports systems reviewed and no addt'l complaints, except as documented; Denies hematuria Musculoskeletal Musculoskeletal: Reports systems reviewed and no addt'l complaints, except as documented; Denies back pain Integumentary Integumentary: Reports systems reviewed and no addt'l complaints, except as documented and rash; Denies new lesions Neurologic Neurologic: Reports systems reviewed and no addt'l complaints, except as documented; Denies focal weakness or paresthesias Psychiatric Psychiatric: Reports systems reviewed and no addt'l complaints, except as documented Endocrine Endocrinology: Reports systems reviewed and no addt'l complaints, except as documented Hematologic/Lymphatic Hematologic/Lymphatic: Reports systems reviewed and no addt'l complaints, exceptas documented; Denies lymphadenopathy Allergic/Immunologic Allergic/Immunologic: Reports systems reviewed and no addt'l complaints, except as documented Intake Vital Signs 05/18/24 13:02 07/13/24 13:25 07/13/24 13:29 Height 5 ft 4 in 5 ft 4 in 5 ft 4 in BP 105/72 105/71 Blood Pressure Location Lt brachial Rt brachial Position Sitting Sitting Respiration 16 16 Pulse 65 68 Pulse Source Monitor Monitor Temp 97.7 F L 97.5 F L Temperature Source Temporal Artery Temporal Artery Pulse Oximetry (%) 98 99 Oxygen Delivery Method room air room air Intake Is patient in pain?: Yes (left arm pain ) Pain scale (1-10): 3 Allergies Sulfa (Sulfonamide Antibiotics) Allergy (Verified 07/13/24 13:28) Hives omeprazole Adverse Reaction (Intermediate, Verified 07/13/24 13:28) VOMITING Medications ?Medication ?Instructions ?Recorded ?Confirmed ?Type NK 07/13/24 07/13/24 History Have you fallen in the past year?: No Central Venous Access Central Venous Access: Yes Port/PICC: Port CBC, CMP, LDH July 13, 2024 reviewed in EMR Exam Physical Exam Narrative ECOG 0 Const alert, oriented x3 and no apparent distress General Appearance: comfortable HEENT normocephalic Face and Sinus: normal facial exam Eyes General Eye: normal appearance of both eyes Neck no lymphadenopathy and no JVD Lymph Lymphatic: no lymphadenopathy noted Resp clear to auscultation bilaterally Cardio regular rate and regular rhythm Jugular Venous Distention: Negative for JVD GI soft to palpation, non-tender and non-distended; Negative for hepatosplenomegaly Back/Spine no thoracic nor lumbar tenderness Extremity no clubbing, cyanosis or edema Skin no rashes or lesions noted Neuro oriented x3, CN's II-XII intact bilaterally, moves all extremities and no focal motor deficits Speech: speech normal Gait (Neuro): normal gait Psych mental status grossly normal Coding Level of Care Code Off vis,est,level 4 Exam Problem Focused Diagnoses 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 Imaging consistent with a clinical stage III S. FLIPI score of 2 (stage IV, involving more than 4 pro areas), intermediate risk group. Started systemic therapy with Bendamustine Rituxan March 27, 2022, tolerated with no grade 3 or 4 toxicities and her disease was in complete remission by PETCT imaging at end of treatment September 2022. Plan: Based on the most recent NCCN guidelines and up-to-date review of initial treatment of follicular lymphoma. Systemic combination chemotherapy immunotherapy is indicated due to high burden bulky disease. 1. Concluded 6 cycles of systemic therapy with Bendamustine Rituxan and on Rituxan maintenance every 8 weeks for 2 years to receive her last cycle June 2024. 2. Stopped pentamadine prophylaxis April 2024 with ALC over 1000. 3. Elective imaging by CT at 12 months (April 2025). 4. Screening mammography up-to-date December 2023. Impression and plan discussed with patient and her . West Christy MD Efficiency Expert, [facility] Divisions of Medical Oncology & Hematology Department of Internal Medicine [place] [id number] This note was generated using a voice recognition system software. Although itwas reviewed by the author prior to finalization, it may still contain incorrectwords, spelling, and punctuation that were not noted when reviewing prior to saving. If a clinically significant typo or inaccurately typed phrase is noted, please notify the author. Clinical Quality Measures Falls Risk Screening/Assistive Devices Have you fallen in the past year?: No 07/13/24 [id number] <Electronically signed by West schultz MD> Date _ West Christy MD Cosign Signature: Date (if applicable) CC: ~ [facility] Work Phone: 1(116) 510-801103-24-2025 Evaluation note* Diagnosis Onset Date Resolution Status Admit Date Follicular lymphoma chronic May 18, 2024 12:15pm Follicular lymphoma chronic June 252024 12:29pm [facility] Work Phone: 1(631) 573-605203-24-2025 Evaluation note* Diagnosis Onset Date Resolution Status Admit Date Follicular lymphoma chronic May 18, 2024 12:15pm Follicular lymphoma chronic June 252024 12:29pm Medication monitoring encounter acut e August 12, 2024 1:00pm Overweight (BMI 25.0-29.9) acute August 12, 2024 1:00pm Preventative health care acute August 12, 2024 1:00pm Follicular lymphoma chronic August 12, 2024 1:00pm Insomnia chronic August 12 1:00pm [facility] Work Phone: 1(248) 220-587203-14-2025 Radiology Diagnostic study note [facility] Imaging Services [address] [place] [id number] Soft Tissue Neck WITH Contrast MR#: [id number] Acct: [id number] Name: RUTHY FELIX Rep #: [id number] : 1975 F 48 From: Ronak Vazquez MD PCP: Dr. Bob Tristan MD Status: R EG CLI Study:Soft Tissue Neck WITH Contrast Date of Exam: 05/08/24 Exam# [id number] Ordering Dr: West Christy MD PROCEDURE: SOFT TISSUE NECK WITH CONTRAST REASON FOR EXAM: F/U LYMPHOMA TECHNIQUE: CT of the soft tissues of the neck from the orbits to the upper mediastinum withintravenous contrast. CONTRAST: 96 cc of Isovue 370. COMPARISON: Comparison is made with prior study dated June 13, 2022. FINDINGS: A right-sided port a catheter is seen with the tip in the superior vena cava. Airway: Midline and patent. Salivary glands: Unremarkable. Lymph nodes: No cervical lymphadenopathy. Thyroid: Unremarkable. Vasculature: Carotid arteries and internal jugular veins are unremarkable. Orbits: Unremarkable at visualized levels. Paranasal sinuses and mastoids: Grossly clear at visualized levels. Lung apices: Clear. Upper mediastinum: Visualized mediastinum is unremarkable. Bones: Unremarkable. CT/Soft Tissue Neck WITH Contrast IMPRESSION: NO ACUTE FINDINGS. Stable examination. One or more dose reduction techniques were used (e.g., Automated exposure control, adjustment of the mA and/or kV according to patient size, use of iterative reconstruction technique). Reading Location: [place] [address] CC: Dr. Bob Tristan MD; Dr. West Christy MD ~ Telecommunications Repairer: Signed [facility]03-14-2025 Radiology Diagnostic study note [facility] Imaging Services [address] [place] [id number] Chest, Abd, Pel w/Contrast MR#: [id number] Acct: [id number] Name: RUTHY FELIX Rep #: [id number] : 1975 F 48 From: Ronak Vazquez MD PCP: Dr. Bob Tristan MD Status: R EG CLI Study:CT Chest, Abd, Pel w/Contrast Date of E xam: 05/08/24 Exam# [id number] Ordering Dr: West Christy MD PROCEDURE: CT CHEST, ABD, PEL W/CONTRAST REASON FOR EXAM: F/U NHL TECHNIQUE: Chest, abdomen and pelvis CT with intravenous contrast. No oral contrast. CONTRAST: 100 cc of Isovue-300. COMPARISON: Comparison is made with prior study dated April 12, 2023. FINDINGS: CT CHEST: Hardware: A right-sided port a catheter is seen with the tip in the superior vena cava. Lymph nodes: No mediastinal hilar or axillary lymphadenopathy. Heart and Vasculature: Normal heart size. No pericardial effusion. Thoracic aorta and pulmonary arteries are unremarkable. Lungs and Airways: The lungs are normally expanded and clear. Pleura: No pleural effusion. No pneumothorax. Bones: Unremarkable. CT ABDOMEN/PELVIS: Liver: Unremarkable. Gallbladder: Unremarkable. Spleen: Unremarkable. Pancreas: Unremarkable. Adrenals: Unremarkable. Kidneys: Unremarkable. Bladder: Unremarkable. Reproductive Organs: Small follicles are seen in the left ovary. Minimal amountof free fluid is seen in the cul-de-sac most likely related to the patient's menstrual cycle. Bowel: Unremarkable. Appendix: Status post appendectomy. Lymph nodes: No suspicious lymph node enlargement. Vasculature: Major vascular structures are unremarkable. Peritoneum / Retroperitoneum: No ascites. No free air. Bones: Unremarkable. CT/CT Chest, Abd, Pel w/Contrast IMPRESSION: Stable examination. No acute abnormality is seen. One or more dose reduction techniques were used (e.g., Automated exposure control, adjustment of the mA and/or kV according to patient size, use of iterative reconstruction technique). Reading Location: [place] [address] CC: Dr. Bob Tristan MD; Dr. West Christy MD ~ Telecommunications Repairer: Signed [facility]01-20-2025 Evaluation note* Diagnosis Onset Date Resolution Status Admit Date Follicular lymphoma chronic 2024 8:03am [facility] Work Phone: 1(572) 889-715201-20-2025 Evaluation note* Diagnosis Onset Date Resolution Status Admit Date Follicular lymphoma chronic Febua 2024 8:03am Follicular lymphoma chronic May 18, 2024 12:15pm Follicular lymphoma chronic June 252024 12:29pm [facility] Work Phone: 1([phone]) 730-127802-08-[address] Hernandez [facility] April 04, 2022 7:40pm Note Date/Time April 04, 2022 5 :35pm [facility] Medical Records Department [address] [place] [address] Emergency Department Summary 04/04/22 MR#: [id number] Acct: [id number] Name: RUTHY FELIX Rep #:[id number] : 1975 46 From: Ricardo Hernandez MD PCP: Dr. Bob Tristan MD Status:R EG ER Location: ED HPI History of Present Illness Chief Complaint: Fever Narrative Narrative: 46-year-old female, recently diagnosed with non-Hodgkin lymphoma, had chemotherapy and Saturday and of last week, approximately 7 and 8 days ago, presents with fever. She states over the last few days she has had runny nose and fatigue, not feeling well. She noticed a fever of 100.8 today. She was told to come to the emergency department by her oncologist, Dr. Christy. She denies any nausea or vomiting. No productive cough, no other symptoms. Shehas not taken Tylenol or an antipyretic as of yet. No dysuria or other symptoms. No nausea or vomiting. [facility] Medical History Abnormal uterine bleeding Anemia Anxiety Breast pain, left Cancer Dietary restriction Encounter for adjustment and management of vascular access device Encounter for education Encounter for screening for COVID-19 Follicular lymphoma Gastric reflux Generalized anxiety disorder Insomnia Lactose intolerance Malabsorption Non-smoker Preventative health detention Medications multivitamin 1 tab PO DAILY 06/24/20 [History Last Taken Unknown] vitamin B complex (B Complex-Vitamin B12 tablet) 1 tab PO DAILY 01/26/22 [History Last Taken Unknown] allopurinol 300 mg tablet 300 mg PO DAILY 14 days #14 tabs 03/14/22 [Rx Last Taken Unknown] lidocaine-prilocaine 2.5 %-2.5 % topical cream 1 applic topical ONCE PRN port acces 30 days #30 grams 03/15/22 [Rx Last Taken Unknown] ondansetron 8 mg disintegrating tablet 8 mg PO Q8H PRN nausea and vomiting #30 tabs 03/15/22 [Rx Last Taken Unknown] pentamidine 300 mg solution for inhalation 300 mg inhalation Q4W pcp [id number] months #1 ea 03/19/22 [Rx Last Taken Unknown] valacyclovir 500 mg tablet 500 mg PO BID 30 days #60 tabs 03/27/22 [Rx Last Taken Unknown] levofloxacin 750 mg tablet 750 mg PO DAILY #7 tabs 04/04/22 [Rx Last Taken Unknown] Allergy/AdvReac Type Severity Reaction Status Date / Time Sulfa (Sulfonamide Allergy Unknown Verified 03/27/22 09:10 Antibiotics) omeprazole AdvReac Intermediate VOMITING Verified 03/27/22 09:10 Family History Father Hypertension Skin cancer Mother Breast cancer Surgical History History of appendectomy History of wisdom tooth extraction Social History Smoking Status: Never smoker alcohol intake: never substance use type: does not use what type of physical activity do you participate in: running and yoga frequency: 3-4 times per week ROS ROS ED ROS Narrative Constitutional: +100.8 ?F fever, no chills. Delays and fatigue. HEENT: No sore throat. No neck pain. No loss of vision. Positive rhinorrhea. Cardiovascular: No chest pain. No palpitations. No pedal edema. Respiratory: No cough, no shortness of breath. Abdominal: No abdominal pain. No nausea. No vomiting. Genitourinary: No dysuria. No hematuria. Musculoskeletal: No myalgias. No arthralgias. Neurologic: No headaches. No dizziness. No lightheadedness. Skin: No rash. No change in color. Psychiatric: No depression. No anxiety. EXAM Physical Exam Narrative Exam Narrative: Afebrile. Vital signs noted. Nontoxic-appearing. HEENT: Normocephalic. Atraumatic. PERRL, EOMI. Neck soft and supple. No pointtenderness or step off. Cardiovascular: Regular rate and rhythm. No murmurs, rubs, or gallops appreciated. Respiratory: No tachypnea. Lungs clear to auscultation bilaterally. Gastrointestinal: Abdomen soft, nontender, with normoactive bowel sounds. No rebound or guarding. Neurological: Awake. Alert. Nonfocal, nonlateralizing. Skin: No rash. Normal color. No pallor. Musculoskeletal: No pedal edema. Full range of motion extremities. Const Vital Signs: 04/04/22 17:15 04/04/22 18:04 Temperature 99.1 F Temperature Source Temporal Pulse Rate 92 Respiratory Rate 15 Respiratory Effort Normal Non-Labored Respiratory Pattern Normal Blood Pressure 102/69 Blood Pressure Mean 80 Pulse Ox 97 Oxygen Delivery Method Room Air MDM MDM MDM Narrative Medical decision making narrative: Neutropenic fever work-up was obtained. I will obtain basic laboratory work including CBC, electrolyte panel, and lactic acid. She does have a medical port. She will be given IV fluids. Additionally, she was swabbed for COVID andinfluenza. She is afebrile here currently with a temperature of 99.1 degrees. I will also obtain a chest x-ray. I reviewed her laboratory work. She does not have neutropenia, but rather a leukocytosis of 30.4. Hemoglobin normal at 12.2, hematocrit 38.5. Platelet count normal at 193. Electrolyte panel is grossly unremarkable with normal sodium of 136 and sodium normal at 3.8. LFTs are normal at 17 and 15. Urinalysis is negative for infection after review. Chest x-ray interpreted by myself shows no evidence of pneumonia. Lactic acid normal at 0.8. I reviewed her respiratory swabs and she is negative for COVID and influenza. She had me look at her right eye because there is a gritty feeling in it she thinks she haspinkeye. She is not losing vision, but there is no evidence of exudate and she has minimal conjunctival injection if any. I do not feel that ophthalmic antibiotics are indicated. She will apply warm compress to her right eye as needed. I discussed the patient with Dr. Sutton with oncology. He states that the patientmost likely receive growth factor which could cause a leukocytosis and febrile illness. Once again, she did not have a fever here and did not take any antipyretics. He stated that she could do nothing more she could be covered with empiric antibiotics in the form of Levaquin. Through shared decision making, patient will perform [id number] for her antibiotics. She was written a prescription for Levaquin, but she will call her oncologist tomorrow to see ifshe should start it or if she is feeling worse she will start it. She has a follow-up appointment next week. I feel she can be discharged safely home with follow-up. Return instructions to the emergency department were reviewed. Patient and her are agreeable to the plan. Disposition is discharged home in stable condition. Lab Data Attestation: I reviewed the patient's lab results. Labs: Laboratory Results - last 24 hr 04/04/22 04/04/22 04/04/22 17:50 18:05 18:05 WBC 30.4 H* RBC 4.51 Hgb 12.2 Hct 38.5 MCV 85.4 MCH 27.1 MCHC 31.7 L RDW Std Deviation 42.3 RDW Coeff of Francisco Javier 13.7 Plt Count 193 MPV 10.1 Neut % (Auto) Not Reportable Absolute Neuts (auto) 24.9 H Absolute Lymphs (auto) 2.43 Total Counted 100 Neutrophils % (Manual) 75 H Band Neutrophils % 7 H Lymphocytes % (Manual) 8 L Monocytes % (Manual) 6 Eosinophils % (Manual) 4 Diff Path Review May foll Sodium 136 Potassium 3.8 Chloride 102 Carbon Dioxide 28.0 Anion Gap 6 BUN 10 Creatinine 0.62 Estim Creat Clear Calc 96.86 Est GFR (MDRD) Af Amer 132 Est GFR (MDRD) Non-Af 109 BUN/Creatinine Ratio 16.1 Glucose 89 Lactic Acid Calcium 8.7 Total Bilirubin 0.30 AST 17 ALT 15 Alkaline Phosphatase 164 H Total Protein 6.8 Albumin 3.6 Globulin 3.2 Albumin/Globulin Ratio 1.1 Urine Color Yellow Urine Clarity Clear Urine pH 7.0 Ur Specific [place] 1.005 Urine Protein Negative Urine Glucose (UA) Normal Urine Ketones Negative Urine Occult Blood Negative Urine Nitrite Negative Urine Bilirubin Negative Urine Urobilinogen Normal Ur Leukocyte Esterase 25 H Urine RBC 0 SEEN Urine WBC 0-5 SEEN Ur Squamous Epith Cells 0-5 SEEN Urine Bacteria 0 SEEN Urine Mucus 0 SEEN 04/04/22 18:05 WBC RBC Hgb Hct MCV MCH MCHC RDW Std Deviation RDW Coeff of Francisco Javier Plt Count MPV Neut % (Auto) Absolute Neuts (auto) Absolute Lymphs (auto) Total Counted Neutrophils % (Manual) Band Neutrophils % Lymphocytes % (Manual) Monocytes % (Manual) Eosinophils % (Manual) Diff Path Review Sodium Potassium Chloride Carbon Dioxide Anion Gap BUN Creatinine Estim Creat Clear Calc Est GFR (MDRD) Af Amer Est GFR (MDRD) Non-Af BUN/Creatinine Ratio Glucose Lactic Acid 0.8 Calcium Total Bilirubin AST ALT Alkaline Phosphatase Total Protein Albumin Globulin Albumin/Globulin Ratio Urine Color Urine Clarity Urine pH Ur Specific [place] Urine Protein Urine Glucose (UA) Urine Ketones Urine Occult Blood Urine Nitrite Urine Bilirubin Urine Urobilinogen Ur Leukocyte Esterase Urine RBC Urine WBC Ur Squamous Epith Cells Urine Bacteria Urine Mucus Discharge Plan Triage Chief Complaint: Fever ED Provider: Ricardo Hernandez Dx/Rx/DC Orders Clinical Impression: Fever, Leukocytosis, Non-Hodgkin lymphoma, URI (upper respiratory infection), Conjunctivitis Instructions: ED Upper Resp Infec Abx Tx, ED Conjunctivitis, Viral, ED Fever Control (Adult) Prescriptions: New levofloxacin 750 mg tablet 750 mg PO DAILY Qty: 7 0RF No Action multivitamin Tablet 1 tab PO DAILY vitamin B complex [B Complex-Vitamin B12] Tablet 1 tab PO DAILY lidocaine-prilocaine 2.5-2.5 % cream 1 applic topical ONCE PRN (Reason: port acces) 30 Days Qty: 30 2RF ondansetron 8 mg tablet,disintegrating 8 mg PO Q8H PRN (Reason: nausea and vomiting) Qty: 30 2RF pentamidine 300 mg recon soln 300 mg inhalation Q4W 360 Days Qty: 1 11RF allopurinol 300 mg tablet 300 mg PO DAILY 14 Days Qty: 14 0RF Rx Instructions: Start within 1 week of scheduled chemotherapy valacyclovir 500 mg Tablet 500 mg PO BID 30 Days Qty: 60 12RF Primary Care Provider: Bob Tristan Referrals: Bob Tristan MD [Primary Care Provider] - West Christy MD [Med Staff - Active Staff] - 1-2 Days if not improving Activity Restrictions/Additional Instructions: Call your oncologist tomorrow to see if they want you to start the antibiotic. Return with sustained high fever, new or worsening symptoms. Disposition Disposition: Home, Self Care What to do if you have Problems For any increased pain, shortness of breath, bleeding, nausea or vomiting, chestpain, or any unexpected problems, contact your Primary Care Provider. Call [facility] ([phone]) or report to the closest Emergency Room. Call 911 if necessary. 04/04/221939 <Electronically signed by Ricardo Hernandez MD> Cosigner Signature (if applicable): CC: Dr. Bob Tristan MD; Dr. West Christy MD ~ Signed [facility] Work Phone: 1(913) 412-956501-27-2023 Procedure [facility] 03-23-2022 History and physical note Author Dr. Kolb [facility] March 23, 2022 9:53am Note Date/Time March 23, 2022 9 :53am [facility] Medical Records Department [address] [place] [address] History & Physical Exam 03/23/22 0953 MR#: [id number] Acct: [id number] Name: RUTHY FELIX Rep #:[id number] : 1975 46 From: Carlos gee MD PCP: Dr. Bob Tristan MD Status:R [facility] Location: [place] [address] History and Physical Date of Admission: 03/23/22 Intake Vital Signs ? 03/14/2308:02 Height 5 ft 4 in Weight: 136 lb 2 oz BMI 23.3 BP 96/62 Blood Pressure Location Rt brachial Position Sitting Respiration 16 Pulse 76 Pulse Source Monitor Temp 97.3 F L Temp Source Temporal Pulse Oximetry (%) 98 Oxygen Delivery Method room air Intake Visit Reasons:?PORT PLACEMENT Chief Complaint: Port placement conslt Is patient in pain?: No Allergies Sulfa (Sulfonamide Antibiotics) Allergy (Verified 03/14/22 09:03) Unknownomeprazole Adverse Reaction (Intermediate, Verified 03/14/22 09:03) VOMITING Medications multivitamin 1 tab PO DAILY 06/24/20 [History Confirmed 03/14/22] vitamin B complex (B Complex-Vitamin B12 tablet) 1 tab PO DAILY 01/26/22 [History Confirmed 03/14/22] allopurinol 300 mg tablet 300 mg PO DAILY 14 days #14 tabs 03/13/22 [Rx Confirmed 03/14/22] PFSH Medical History?(Updated 03/14/22 @ 10:[address] Carlos Kolb MD) Abdominal lymphadenopathy Abnormal uterine bleeding Breast pain, left Encounter for adjustment and management of vascular access device Encounter for screening for COVID-19 Follicular lymphoma Generalized anxiety disorder Insomnia Lactose intolerance Malabsorption Preventative health care Surgical History? History of appendectomy History of wisdom tooth extraction Family History? Father Hypertension Skin cancerMother Breast cancer Social History? Smoking Status:? Never smoker alcohol intake:? never substance use type:? does not use what type of physical activity do you participate in:? running and yoga frequency:? 3-4 times per week HPI HPI HPI: Patient is a 46-year-old female here for port placement for lymphoma. ROS General General: Yes weight change and fatigue; No appetite, colon cancer, breast cancer or weakness HEENT HEENT: No difficulty swallowing, eye injury, eye surgery, swollen glands or hoarseness Endo Endocrine: No thyroid disease, diabetes mellitus, thyroid cancer, Hair loss, heat intolerance or cold intolerance Skin Skin: No rash or changing moles Breast Breast: No left breast lump, right breast lump, nipple discharge, breast pain, abnormal mammogram, abnormal US or breast enlargement Musc Musculoskeletal: No back problems, arthritis, rheumatoid arthritis, gout or joint pain Cardio Cardiovascular: No murmur, pacemaker, heart disease, atrial fibrillation, high blood pressure, heart attack, heart stent, palpitations, shortness of breat withexertion or chest pain Psych Psychiatric: No depression, anxiety or hearing voices Resp Respiratory: No shortness of breath, No sleep apnea, No cough, No COPD, No asthma, No emphysema and No wheezing Gastro Gastrointestinal: Yes abdominal pain, No nausea or vomiting, No diarrhea, No constipation, No blood in stool, No acid reflux, No hemorrhoids, No ulcers, No gallbladder problem and No black,tarry stools [place] Hematologic: No blood thinners, No blood disorders, No bleeding, No anemia and No blood clots Neuro Neurologic: No system reviewed and no additional complaints, except as documented, No as per HPI, No abnormal gait, No abnormal hearing, No abnormal movements, No abnormal speech, No behavioral changes, No burning sensations, No confusion, No convulsions, No disequilibrium, No dizziness, No localized weakness, No frequent falls, No headache(s), No lack of coordination, No loss ofvision, No memory loss, No numbness, No other visual disturbances, No radicular pain, No restless legs, No sensory deficit, No syncope, No tingling, No tremor(s), No weakness and No other Exam Const General: cooperative Orientation: alert and oriented x3 HENMT Head: normal to inspection Neck Neck: normal visual inspection and full ROM Chest Chest palpation & inspection: normal inspection of the chest Resp Effort & Inspection: normal respiratory effort Auscultation: clear to auscultation bilaterally Cardio Rate: regular rate Rhythm: regular rhythm GI Inspection: non-distended Palpation: soft and nontender Skin General: no rashes or lesions noted Neuro General: patient alert and patient oriented x3 Extrem General: full ROM Psych Appearance: grossly normal Mental Status: mental status grossly normal Assessment and Plan Assessment and Plan (1) Encounter for adjustment and management of vascular access device: ?Status:?Acute (2) Follicular lymphoma: ?Status:?Acute Plan Has lymphoma and requires port for treatment.? I discussed right chest port placement with the patient in detail.? I discussed the procedure as well as the risks including but not limited to bleeding, infection, pneumothorax or line infection or DVT.? Patient understands all the risks and is willing to proceed. Carlos Kolb MD Pager: [facility] [address] [place] [address], [address] [place] [address] Office: I have examined the patient and the H&P has been reviewed. There are no clinicalchanges since date of exam. 03/23/22 2666 <Electronically signed by Carlos Kolb MD> Cosigner Signature (if applicable): CC: Dr. Carlos Kolb MD; Dr. Bob Tristan MD~ Signed [facility] Work Phone: [phone]) 700-635712-08-2021 NotePatient Outreach (INTMMN) RUTHY FELIX ([id number]) 1975 F Date Time Provider Department 02/01/21 JAKE SIMMS INTMMMoiz During your visit today, we recorded the following information about you: Allergies As of Date: 02/01/2021 Noted Allergy Reaction NORETHINDRONE-E.ESTRADIOL-IRON 09/24/2017 5 - Intolerance Comments: Abdominal discomfort, possible issues with sleeping. SULFA (SULFONAMIDE ANTIBIOTICS) 04/13/2010 4 - Hives Comments: fever Date Reviewed: 06/04/2018 Reviewed by: Isabelle Seals Ma - Fully Assessed Visit Diagnosis:Encounter for screening mammogram for breast cancer [Z12.31] Order(s):[facility] SCREENING [[id number]] Order #: [id number] FUTURE Prescriptions as of 02/06/2021 - FLUoxetine (PROZAC) 10 mg capsule Take 1 capsule by mouth once daily. - Biotin 800 mcg tab Take 1 tablet by mouth once daily. - multivitamin (DAILY MULTI-VITAMIN) tablet Take 1 tablet by mouth once daily. Meds Comments as of 09/24/2017: Local Pharmacy - [facility]. Problem List As Of Date: 02/01/2021 (None) Encounter Status:Closed by Rayneer PRODUSER on 02/06/21[facility] Discharge summary Author Dr. Kolb [facility] March 23, 2022 12:37pm Note Date/Time March 23, 2022 1 2:36pm [facility] Medical Records Department [address] [place] [address] Instructions for Home/Discharge Instructions 03/23/22 1236 MR#: [id number] Acct: [id number] Name: RUTHY FELIX Rep #:[id number] : 1975 46 From: Carlos gee MD PCP: Dr. Bob Tristan MD [place] [facility] [place] Instructions Procedure Gallbladder Diet Discharge Diet: Light diet - advance as tolerated Activity Discharge Activity: May Not Drive (for 2-3 days or while taking narcotic pain medications.) and - (Do not drive, work heavy equipment or sign legal documents for 24 hours.) May shower in (days): 1 Lifting Restrictions: 20 lbs for 2 weeks Additional Activity Instructions:: Pain medication may cause nausea. You should typically eat light foods as you take your pain medications. Pain medication may also cause constipation. If this is a problem for you, please discuss with your doctor. Dressing / Incision Call your doctor if your incision/area has: Continuous Slow Oozing, Sudden Increased Bleeding, Increased Pain/ Swelling, Increased Redness and Foul Smelling Discharge Call your doctor if you observe: Fever of 101 or Higher Suture Line Care: Avoid Pulling/Pushing and Avoid Pinching/Bending Remove Dressing in: 2 days Additional Dressing/Incision Instructions:: Leave operative bandaids on for 2 days. When you remove dressing, leave Steri-Strips on until your follow-up appointment, or until the Steri-Strips fall off on their own. Follow Up Care Please Follow Up With: Carlos Kolb MD When: Please call to schedule 2 week follow up appointment. [phone] Test Results: Test results from this visit will be discussed in further detail at your follow- up appointment, if applicable. Discharge Plan Admission Attending Provider: Carlos Kolb Primary Care Provider: Bob Tristan Instructions Additional Instructions / Restrictions: Alternating ibuprofen and Tylenol for pain control Discharge Orders/Prescriptions Prescriptions: No Action multivitamin Tablet 1 tab PO DAILY vitamin B complex [B Complex-Vitamin B12] Tablet 1 tab PO DAILY lidocaine-prilocaine 2.5-2.5 % cream 1 applic topical ONCE PRN (Reason: port acces) 30 Days Qty: 30 2RF ondansetron 8 mg tablet,disintegrating 8 mg PO Q8H PRN (Reason: nausea and vomiting) Qty: 30 2RF pentamidine 300 mg recon soln 300 mg inhalation Q4W 360 Days Qty: 1 11RF allopurinol 300 mg tablet 300 mg PO DAILY 14 Days Qty: 14 0RF Rx Instructions: Start within 1 week of scheduled chemotherapy Referrals / Follow Up: Bob Tristan MD [Primary Care Provider] - Disposition Disposition (needs filled in before D/C Order can be placed): Home, Self Care 03/23/22 1237<Electronically signed by Carlos Kolb MD>Carlos Kolb MD CC: Dr. Bob Tristan MD ~ Signed [facility] Work Phone: Evaluation note* Diagnosis Onset Date Resolution Status Exertional chest pain noneac tive Abdominal pain noneactive [facility] Work Phone: Evaluation note* Diagnosis Onset Date Resolution Status Mass of abdomen acute [facility] Work Phone: evaluation note* Diagnosis Onset Date Resolution Status Abdominal lymphadenopathy ac [place] Abdominal lymphadenopathy ac [place] Encounter for adjustment and management of vascular access device acute Follicular lymphoma acute Abdominal lymphadenopathy ac [place] Encounter for education acut e Follicular lymphoma acute [facility] Work Phone: evaluation note* Diagnosis Onset Date Resolution Status Encounter for adjustment and management of vascular access device acute Follicular lymphoma acute Encounter for education acut e Follicular lymphoma acute Follicular lymphoma acute [facility] Work Phone: evaluation note* Diagnosis Onset Date Resolution Status Encounter for adjustment and management of vascular access device acute Follicular lymphoma acute Encounter for education acut e Follicular lymphoma acute Follicular lymphoma acute Follicular lymphoma acute Headache acute Hemorrhoid acute Follicular lymphoma [facility] Work Phone: evaluation note* Diagnosis Onset Date Resolution Status Encounter for adjustment and management of vascular access device acute Follicular lymphoma acute Encounter for education acut e Follicular lymphoma acute Follicular lymphoma acute Follicular lymphoma acute Headache acute Hemorrhoid acute Follicular lymphoma acute Follicular lymphoma acute Pharyngitis acute Follicular lymphoma [facility] Work Phone: evaluation note* Diagnosis Onset Date Resolution Status Follicular lymphoma acute Follicular lymphoma acute Pharyngitis acute Follicular lymphoma acute Encounter for chemotherapy management acute Follicular lymphoma acute Encounter for chemotherapy management acute Follicular lymphoma [facility] Work Phone: evaluation note* Diagnosis Onset Date Resolution Status Follicular lymphoma acute Encounter for chemotherapy management acute Follicular lymphoma acute Encounter for chemotherapy management acute Follicular lymphoma acute Follicular lymphoma [facility] Work Phone: evaluation note* Diagnosis Onset Date Resolution Status Encounter for chemotherapy management acute Follicular lymphoma acute Encounter for chemotherapy management acute Follicular lymphoma acute Follicular lymphoma acute Encounter for screening for malignant neoplasm of colo n acute Follicular lymphoma acute [facility] Work Phone: Evaluation note* Diagnosis Onset Date Resolution Status Follicular lymphoma acute Encounter for screening for malignant neoplasm of colo n acute Follicular lymphoma acute Follicular lymphoma [facility] Work Phone: Evaluation note* Diagnosis Onset Date Resolution Status Follicular lymphoma acute Encounter for screening for malignant neoplasm of colo n acute Follicular lymphoma acute Follicular lymphoma acute Follicular lymphoma [facility] Work Phone: Evaluation note* Diagnosis Onset Date Resolution Status Encounter for screening for malignant neoplasm of colo n acute Follicular lymphoma acute Follicular lymphoma acute Follicular lymphoma acute Costochondritis acute Follicular lymphoma acute [facility] Work Phone: Evaluation note* Diagnosis Onset Date Resolution Status Follicular lymphoma acute Costochondritis acute Follicular lymphoma acute Pharyngitis acute URI (upper respiratory infection) acute Encounter for immunotherapy acute Follicular lymphoma acute [facility] Work Phone: Evaluation note* Diagnosis Onset Date Resolution Status Follicular lymphoma chronic Costochondritis acute Follicular lymphoma chronic Pharyngitis acute URI (upper respiratory infection) acute Encounter for immunotherapy acute Follicular lymphoma chronic Follicular lymphoma [facility] Work Phone: Evaluation note* Diagnosis Onset Date Resolution Status Encounter for immunotherapy acute Follicular lymphoma chronic Follicular lymphoma chronic Follicular lymphoma [facility] Work Phone: Hospital Discharge instructions Additional Instructions Call your oncologist tomorrow to see if they want you to start the antibiotic. Return with sustained high fever, new or worsening symptoms.[facility] Work Phone: Reason for referral (narrative)No reason for referral information availableWSelect [facility] [place] Work Phone: Summary Purpose Family History No Family History Records Found Relationship Condition Age at Onset Recorded Date/T miah father Hypertension Unknown Malignant neoplasm of skin Unknown mother Malignant neoplasm of breast Unknown Advance Directives No Advanced Directives Records Found Advance Directive Response Recorded Date/ Time Living Will No March 19 1:12pm Power of Medical Doctor No March 19, 2022 1:12pm Advance Directive Response Recorded Date/ Time Advance Directives on File No 2022 1:46pm Advance Directives No March 29, 2022 1:46pm Living Will No March 29 1:46pm Power of Medical Doctor No March 29, 2022 1:46pm Advance Directive Response Recorded Date/ Time Advance Directives on File No 2022 1:46pm Advance Directives No March 29, 2022 1:46pm Living Will No April 04 6:03pm Power of Medical Doctor No April 04, 2022 6:03pm Advance Directive Response Recorded Date/ Time Advance Directives on File No April 25, 2022 1:11pm Advance Directives No April 25 1:11pm Living Will No April 25, 2022 1:11pm Power of Medical Doctor No April 25 1:11pm Advance Directive Response Recorded Date/ Time Advance Directives on File No May 22, 2022 1:38pm Advance Directives No May 22, 2 023 1:38pm Living Will No May 22, 2022 1:38pm Power of Medical Doctor No May 22 1:38pm Advance Directive Response Recorded Date/ Time Advance Directives on File No June 272022 1:08pm Advance Directives No July 25 1:08pm Living Will No July 25, 2022 1 :08pm Power of Medical Doctor No July 25, 2022 1:08pm Advance Directive Response Recorded Date/ Time Advance Directives on File No August 21, 2022 10:45am Advance Directives No August 21 10:45am Living Will No August 21, 2022 10:45am Power of Medical Doctor No August 21 10:45am Advance Directive Response Recorded Date/ Time Advance Directives on File No August 21, 2022 10:45am Advance Directives No August 21 10:45am Living Will No September 27, 2022 8:43am Power of Medical Doctor No September 27 8:43am Advance Directive Response Recorded Date/ Time Advance Directives on File No Augus 2022 11:15am Advance Directives No October 23, 2022 11:15am Living Will No October 23 11:15am Power of Medical Doctor No October 23, 2 023 11:15am Advance Directive Response Recorded Date/ Time Advance Directives on File No 2022 1:51pm Advance Directives No December 18, 2022 1:51pm Living Will No December 18 1:51pm Power of Medical Doctor No December 18, 2022 1:51pm Advance Directive Response Recorded Date/ Time Advance Directives on File No Novob er 2022 12:51pm Advance Directives No October 24th, 2023 12:51pm Living Will No December 18 12:51pm Power of Medical Doctor No December 18, 2022 12:51pm Advance Directive Response Recorded Date/ Time Advance Directives on File No Decem 2022 2:38pm Advance Directives No January 2:38pm Living Will No February 14, 2 023 2:38pm Power of Medical Doctor No February 14, 2023 2:38pm Advance Directive Response Recorded Date/ Time Advance Directives on File No Febru 2023 1:48pm Advance Directives No March 1:48pm Living Will No April 11, 2 024 1:48pm Power of Medical Doctor No April 11, 2023 1:48pm Advance Directive Response Recorded Date/ Time Advance Directives on File No May 29, 2023 1:43pm Advance Directives No May 28 1:43pm Living Will No May 29, 2023 1:43pm Power of Medical Doctor No May 28 1:43pm Advance Directive Response Recorded Date/ Time Living Will No July 24, 2023 1 0:18am Do you have a Healthcare Power of Medical Doctor? No July 24, 2023 10:18am Advance Directives on File No 2024 12:02pm Living Will No March 16 12:02pm Do you have a Healthcare Power of Medical Doctor? No March 16, 2024 12:02pm Advance Directives No March 16, 2024 12:02pm Advance Directive Response Recorded Date/ Time Living Will No July 24, 2023 1 0:18am Do you have a Healthcare Power of Medical Doctor? No July 24, 2023 10:18am Advance Directives on File No May 18, 2024 1:52pm Living Will No May 18, 2024 1:52pm Do you have a Healthcare Power of Medical Doctor? No May 18, 2024 1:52pm Advance Directives No May 18 025 1:52pm Advance Directive Response Recorded Date/ Time Advance Directives on File No May 18, 2024 1:52pm Living Will No May 18, 2024 1:52pm Do you have a Healthcare Power of Medical Doctor? No May 18, 2024 1:52pm Advance Directives No May 18 025 1:52pm Chief Complaint and Reason for Visit Chief Complaint ABDOMINAL PAIN EORDERS SCREENING Reason for Visit Exertional chest mary alice n Abdominal pain Chief Complaint SCREENING LUMP IN ABDOMEN LEFT LOWER ABDOMINAL MASS E ORDERS Reason for Visit Mass of abdomen Chief Complaint SCREENING LUMP IN ABDOMEN LEFT LOWER ABDOMINAL MASS E ORDERS NEW-ENLARGED LYMPH NODES NEW START - LABS - [place]/[facility] ABDOMINAL MASS REVIEW BIOPSY RESULTS PORT PLACEMENT CHEMO ED Reason for Visit Abdominal lymphadeno yanique Abdominal lymphadenopathy Encounter for adjustment and management of vascular access device Follicular lymphoma Abdominal lymphadenopathy Encounter for education Follicular lymphoma Chief Complaint SCREENING LUMP IN ABDOMEN LEFT LOWER ABDOMINAL MASS E ORDERS NEW-ENLARGED LYMPH NODES ABDOMINAL MASS REVIEW BIOPSY RESULTS PORT PLACEMENT CHEMO ED FOLLICULAR LYMPHOMA HIGH RISK MEDICATION INS RT VASC PORT INS RT VASC PORT Reason for Visit Abdominal lymphadeno yanique Abdominal lymphadenopathy Encounter for adjustment and management of vascular access device Follicular lymphoma Abdominal lymphadenopathy Encounter for education Follicular lymphoma Chief Complaint SCREENING LUMP IN ABDOMEN LEFT LOWER ABDOMINAL MASS E ORDERS NEW-ENLARGED LYMPH NODES ABDOMINAL MASS REVIEW BIOPSY RESULTS PORT PLACEMENT CHEMO ED HIGH RISK MEDICATION INS RT VASC PORT INS RT VASC PORT NEW START - LABS - [place] FOLLICULAR LYMPHOMA Reason for Visit Encounter for adjust ment and management of vascular access device Follicular lymphoma Encounter for education Follicular lymphoma Follicular lymphoma Chief Complaint LUMP IN ABDOMEN LEFT LOWER ABDOMINAL MASS E ORDERS NEW-ENLARGED LYMPH NODES ABDOMINAL MASS REVIEW BIOPSY RESULTS PORT PLACEMENT CHEMO ED HIGH RISK MEDICATION INS RT VASC PORT INS RT VASC PORT NEW START - LABS - [place] FOLLICULAR LYMPHOMA FEVER Reason for Visit Encounter for adjust ment and management of vascular access device Follicular lymphoma Encounter for education Follicular lymphoma Follicular lymphoma Chief Complaint LUMP IN ABDOMEN LEFT LOWER ABDOMINAL MASS E ORDERS NEW-ENLARGED LYMPH NODES ABDOMINAL MASS REVIEW BIOPSY RESULTS PORT PLACEMENT CHEMO ED HIGH RISK MEDICATION INS RT VASC PORT INS RT VASC PORT NEW START - LABS - [place] FEVER TOX CHECK - LABS HIGH RISK MEDS 4 WKS - LABS - [place] FOLLICULAR LYMPHOMA Reason for Visit Encounter for adjust ment and management of vascular access device Follicular lymphoma Encounter for education Follicular lymphoma Follicular lymphoma Follicular lymphoma Headache Hemorrhoid Follicular lymphoma Chief Complaint NEW-ENLARGED LYMPH N ODES ABDOMINAL MASS REVIEW BIOPSY RESULTS PORT PLACEMENT CHEMO ED HIGH RISK MEDICATION INS RT VASC PORT INS RT VASC PORT NEW START - LABS - [place] FEVER TOX CHECK - LABS HIGH RISK MEDS 4 WKS - LABS - [place] ACUTE NO LABS SORES IN MOUTH HIGH RISK MEDICATIONS 4 WKS - LABS - [place] RESPONSE FOR TREATMENT *IV ONLY* HIGH RISK MEDICATIONS FOLLICULAR LYMPHOMA 4 WKS - LABS - [place] Reason for Visit Encounter for adjust ment and management of vascular access device Follicular lymphoma Encounter for education Follicular lymphoma Follicular lymphoma Follicular lymphoma Headache Hemorrhoid Follicular lymphoma Follicular lymphoma Pharyngitis Follicular lymphoma Chief Complaint HIGH RISK MEDS 4 WKS - LABS - [place] ACUTE NO LABS SORES IN MOUTH HIGH RISK MEDICATIONS 4 WKS - LABS - [place] RESPONSE FOR TREATMENT *IV ONLY* HIGH RISK MEDICATIONS 4 WKS - LABS - [place] HIGH RISK MEDICATIONS 4WKS LABS TX FOLLICULAR LYMPHOMA HIGH RISK MEDICATIONS Reason for Visit Follicular lymphoma Follicular lymphoma Pharyngitis Follicular lymphoma Encounter for chemotherapy management Follicular lymphoma Encounter for chemotherapy management Follicular lymphoma Chief Complaint HIGH RISK MEDICATION S 4 WKS - LABS - [place] RESPONSE FOR TREATMENT *IV ONLY* HIGH RISK MEDICATIONS 4 WKS - LABS - [place] HIGH RISK MEDICATIONS 4WKS LABS TX HIGH RISK MEDICATIONS 4 WKS - LABS - [place] FOLLICULAR LYMPHOMA Amb Documentation HIGH RISK MEDICATIONS Reason for Visit Follicular lymphoma Encounter for chemotherapy management Follicular lymphoma Encounter for chemotherapy management Follicular lymphoma Follicular lymphoma Chief Complaint RESPONSE FOR TREATME NT *IV ONLY* HIGH RISK MEDICATIONS 4 WKS - LABS - [place] HIGH RISK MEDICATIONS 4WKS LABS TX HIGH RISK MEDICATIONS 4 WKS - LABS - [place] Amb Documentation HIGH RISK MEDICATIONS FOLLICULAR LYMPHOMA HIGH RISK MEDICATIONS Reason for Visit Encounter for chemot herapy management Follicular lymphoma Encounter for chemotherapy management Follicular lymphoma Follicular lymphoma Encounter for screening for malignant neoplasm of colon Follicular lymphoma Chief Complaint 4 WKS - LABS - [place]/[facility] Amb Documentation HIGH RISK MEDICATIONS HIGH RISK MEDICATIONS 8 WKS - LABS - [place] - REVIEW PET FOLLICULAR LYMPHOMA HIGH RISK MEDICATIONS HIGH RISK MEDICATIONS SCREENING Reason for Visit Follicular lymphoma Encounter for screening for malignant neoplasm of colon Follicular lymphoma Follicular lymphoma Chief Complaint 4 WKS - LABS - [place]/[facility] Amb Documentation HIGH RISK MEDICATIONS HIGH RISK MEDICATIONS 8 WKS - LABS - [place] - REVIEW PET HIGH RISK MEDICATIONS HIGH RISK MEDICATIONS SCREENING 8WKS LABS [place] FOLLICULAR LYMPHOMA Reason for Visit Follicular lymphoma Encounter for screening for malignant neoplasm of colon Follicular lymphoma Follicular lymphoma Follicular lymphoma Chief Complaint HIGH RISK MEDICATION S 8 WKS - LABS - [place] - REVIEW PET HIGH RISK MEDICATIONS HIGH RISK MEDICATIONS SCREENING 8WKS LABS [place] FOLLICULAR LYMPHOMA HIGH RISK MEDICATIONS FEELS LUMP BELOW STERNUM Reason for Visit Encounter for screen ing for malignant neoplasm of colon Follicular lymphoma Follicular lymphoma Follicular lymphoma Costochondritis Follicular lymphoma Chief Complaint HIGH RISK MEDICATION S SCREENING 8WKS LABS [place] HIGH RISK MEDICATIONS FEELS LUMP BELOW STERNUM SORE THROAT FOLLICULAR LYMPHOMA 8 WKS - LABS - [place] FOLLICULAR LYMPHOMA Reason for Visit Follicular lymphoma Costochondritis Follicular lymphoma Pharyngitis URI (upper respiratory infection) Encounter for immunotherapy Follicular lymphoma Chief Complaint 8WKS LABS [facility] HIGH RISK MEDICATIONS FEELS LUMP BELOW STERNUM SORE THROAT 8 WKS - LABS - [place] FOLLICULAR LYMPHOMA FOLLICULAR LYMPHOMA 8 WKS - LABS - [place] - REVIEW SCANS FOLLICULAR LYMPHOMA SURVEILLANCE Reason for Visit Follicular lymphoma Costochondritis Follicular lymphoma Pharyngitis URI (upper respiratory infection) Encounter for immunotherapy Follicular lymphoma Follicular lymphoma Chief Complaint 8 WKS - LABS - [place] FOLLICULAR LYMPHOMA 8 WKS - LABS - [place] - REVIEW SCANS FOLLICULAR LYMPHOMA SURVEILLANCE 8 WKS - LABS - [place] FOLLICULAR LYMPHOMA PCP PROPHYLAXIS Reason for Visit Encounter for immuno therapy Follicular lymphoma Follicular lymphoma Follicular lymphoma Chief Complaint Admit Date LISA. March 02, 2024 10 :24am 8 WKS - LABS - [place] March 16 8:03am FOLLICULAR LYMPHOMA March 16, 2024 8 :15am LYMPHOMA May 08, 2024 8:0 1am Reason for Visit Admit Date Follicular lymphoma March 16, 2024 8 :03am Chief Complaint Admit Date 8 WKS - LABS - [place] March 16 8:03am LYMPHOMA May 08, 2024 8:0 1am 8 WKS - LABS - [place] - REVIEW SCANS [facility] 2024 12:15pm FOLLICULAR LYMPHOMA July 13, 2024 12:15 pm 8 WKS - LABS - [place] July 13, 2024 12 :29pm Reason for Visit Admit Date Follicular lymphoma March 16, 2024 8 :03am Follicular lymphoma May 18, 2024 12: 15pm Follicular lymphoma July 13, 2024 12:29 pm Chief Complaint Admit Date LYMPHOMA May 08, 2024 8:0 1am 8 WKS - LABS - [place] - REVIEW SCANS [facility] 2024 12:15pm FOLLICULAR LYMPHOMA July 13, 2024 12:15 pm 8 WKS - LABS - [place] July 13, 2024 12 :29pm YEARLY August 12, 2024 1:00 pm Reason for Visit Admit Date Follicular lymphoma May 18, 2024 12: 15pm Follicular lymphoma July 13, 2024 12:29 pm Reason for Visit Admit Date Follicular lymphoma May 18, 2024 12: 15pm Follicular lymphoma July 13, 2024 12:29 pm Medication monitoring encounter July 1:00pm Overweight (BMI 25.0-29.9) August 12 1:00pm Preventative health care August 12, 2024 1:00pm Follicular lymphoma August 12, 2024 1:00 pm Insomnia August 12, 2024 1:00 pm Additional Source Comments INFORMATION SOURCE (unrecogn ized section and content) DATE CREATED AUTHOR 07/30/2018 [facility] DATE CREATED AUTHOR AUTHOR'S ORGANIZ ATION 03/15/2021 [facility] DATE CREATED AUTHOR AUTHOR'S ORGANIZ ATION 12/25/2024 [facility] Goals (unrecognized section and content) Goals may be documented in a n alternate sectionGoals may be documented in an alternate sectionGoals may be documented in an alternate sectionGoals may be documented in an alternate sectionGoals may be documented in an alternate sectionGoals may be documented in an alternate sectionGoals may be documented in an alternate sectionGoals may be documented in an alternate sectionGoals may be documented in an alternate sectionGoals may be documented in an alternate sectionGoals may be documented in an alternate sectionGoals may be documented in an alternate sectionGoals may be documented in an alternate section Care Teams (unrecognized sec tion and content) Team Status: Active Member Role Status Dates Dr. Bob Tristan MD Primary Care Provider Active Team Status: Inactive Member Role Status Dates Dr. Bob Tristan MD Primary Care Provider, Refer ring Provider Active Jake Monreal NP, HOOP FLARING MACHINE OPERATOR HELPER-C Attending Provider Active Team Status: Inactive Member Role Status Dates Dr. Bob Tristan MD Primary Care Provider Active Dr. West Christy MD Attending Provider Active Jake Monreal HOOP FLARING MACHINE OPERATOR HELPER, HOOP FLARING MACHINE OPERATOR HELPER-C Referring Provider Active Team Status: Inactive Member Role Status Dates Dr. Bob Tristan MD Primary Care Provider, Refer ring Provider Active Dr. West Christy MD Attending Provider Active Team Status: Inactive Member Role Status Dates Dr. Bob Tristan MD Primary Care Provider, Refer ring Provider Active Dr. Carlos Kolb MD Attending Provider Active Team Status: Inactive Member Role Status Dates Dr. Bob Tristan MD Primary Care Provider, Refer ring Provider Active Zuly Araujo HOOP FLARING MACHINE OPERATOR HELPER, HOOP FLARING MACHINE OPERATOR HELPER-C Attending Provider Active Team Status: Inactive Member Role Status Dates Dr. Bob Tristan MD Primary Care Provider, Atten ding Provider Active Team Status: Inactive Member Role Status Dates Dr. Bob Tristan MD Primary Care Provider Active Jake Monreal HOOP FLARING MACHINE OPERATOR HELPER, HOOP FLARING MACHINE OPERATOR HELPER-C Attending Provider, Referring Prov ider Active Team Status: Active Member Role Status Dates Dr. Bob Tristan MD Primary Care Provider Active Dr. West Christy MD Attending Provider, Referrin g Provider Active Team Status: Inactive Member Role Status Dates Dr. Bob Tristan MD Primary Care Provider Active Dr. West Christy MD Attending Provider, Referrin g Provider Active Team Status: Active Member Role Status Dates Dr. Bob Tristan MD Primary Care Provider Active Dr. Carlos Kolb MD Attending Pr ovider, Referring Provider, Other Provider Active Team Status: Inactive Member Role Status Dates Dr. Bob Tristan MD Primary Care Provider Active Dr. Carlos Kolb MD Attending Provider, Referr ing Provider Active Team Status: Active Member Role Status Dates Dr. Bob Tristan MD Primary Care Provider Active Zuly Araujo HOOP FLARING MACHINE OPERATOR HELPER, HOOP FLARING MACHINE OPERATOR HELPER-C Attending Provider, Referring Provider Active Team Status: Inactive Member Role Status Dates Dr. Bob Tristan MD Primary Care Provider Active Zuly Araujo HOOP FLARING MACHINE OPERATOR HELPER, HOOP FLARING MACHINE OPERATOR HELPER-C Attending Provider, Referring Provider Active Team Status: Inactive Member Role Status Dates Dr. Bob Tristan MD Primary Care Provider Active Ricardo Hernandez MD Emergency Provider Active Team Status: Inactive Member Role Status Dates Dr. Bob Tristan MD Primary Care Provider Active Ricardo Hernandez MD Attending Provider, Emergency Provid er Active Team Status: Inactive Member Role Status Dates Dr. Bob Tristan MD Primary Care Provider Active Zuly Araujo HOOP FLARING MACHINE OPERATOR HELPER, HOOP FLARING MACHINE OPERATOR HELPER-C Attending Provider Active Team Status: Active Member Role Status Dates Dr. Bob Tristan MD Primary Care Provider Active Zuly Araujo HOOP FLARING MACHINE OPERATOR HELPER, HOOP FLARING MACHINE OPERATOR HELPER-C Attending Provider Active Team Status: Inactive Member Role Status Dates Dr. Bob Tristan MD Primary Care Provider Active Dr. Alexander Sutton MD Attending Provider, Referring Pro vider Active Team Status: Inactive Member Role Status Dates Dr. Bob Tristan MD Primary Care Provider Active Dr. West Christy MD Attending Provider Active Team Status: Active Member Role Status Dates Dr. Bob Tristan MD Primary Care Provider Active Dr. Alexander Sutton MD Attending Provider, Referring Pro vider Active Team Status: Inactive Member Role Status Dates Dr. Bob Tristan MD Primary Care Provider Active Dr. Alexander Sutton MD Attending Provider Active Team Status: Inactive Member Role Status Dates Dr. Bob Tristan MD Primary Care Provider Active Dr. Alexander Sutton MD Other Provider Active Zuly Araujo HOOP FLARING MACHINE OPERATOR HELPER, HOOP FLARING MACHINE OPERATOR HELPER-C Attending Provider, Referring Provider Active Team Status: Active Member Role Status Dates Dr. Bob Tristan MD Primary Care Provider Active [facility] Attending Provider Active Team Status: Active Member Role Status Dates Dr. Bob Tristan MD Primary Care Provider Active Dr. Irma Boggs MD Attending Provi harley, Referring Provider, Other Provider Active Team Status: Inactive Member Role Status Dates Dr. Bob Tristan MD Primary Care Provider Active Dr. Irma Boggs MD Attending Provider, Referring Provider Active Team Status: Inactive Member Role Status Dates Dr. Bob Tristan MD Primary Care Provider, Refer ring Provider Active Malik Griffin HOOP FLARING MACHINE OPERATOR HELPER, HOOP FLARING MACHINE OPERATOR HELPER-C Attending Provider Active Team Status: Inactive Member Role Status Dates Dr. Bob Tristan MD Primary Care Provider Active Start: March 02, 2024 End: March 02, 2024 Dr. Bob Tristan MD Referring Provider Active Start: March 02, 2024 End: March 02, 2024 Blade Iyer PA, PA Attending Provider Active Start: March 02, 2024 End: March 02, 2024 Team Status: Inactive Member Role Status Dates Dr. Bob Tristan MD Primary Care Provider Active Start: March 16, 2024 End: March 16, 2024 Dr. Bob Tristan MD Referring Provider Active Start: March 16, 2024 End: March 16, 2024 Dr. West Christy MD Attending Provider Active Start: March 16, 2024 End: March 16, 2024 Team Status: Active Member Role Status Dates Dr. Bob Tristan MD Primary Care Provider Active Start: March 16, 2024 Dr. West Christy MD Attending Provider Active Start: March 16, 2024 Dr. West Christy MD Referring Provider Active Start: March 16, 2024 Team Status: Inactive Member Role Status Dates Dr. Bob Tristan MD Primary Care Provider Active Start: May 08, 2024 End: May 08, 2024 Dr. West Christy MD Attending Provider Active Start: May 08, 2024 End: May 08, 2024 Dr. West Christy MD Referring Provider Active Start: May 08, 2024 End: May 08, 2024 Team Status: Inactive Member Role Status Dates Dr. Bob Tristan MD Primary Care Provider Active Start: May 18, 2024 End: May 18, 2024 Dr. Bob Tristan MD Referring Provider Active Start: May 18, 2024 End: May 18, 2024 Dr. West Christy MD Attending Provider Active Start: May 18, 2024 End: May 18, 2024 Team Status: Active Member Role Status Dates Dr. Bob Tristan MD Primary Care Provider Active Start: July 13, 2024 Dr. West Christy MD Attending Provider Active Start: July 13, 2024 Dr. West Christy MD Referring Provider Active Start: July 13, 2024 Team Status: Inactive Member Role Status Dates Dr. Bob Tristan MD Primary Care Provider Active Start: July 13, 2024 End: July 13, 2024 Dr. Bob Tristan MD Referring Provider Active Start: July 13, 2024 End: July 13, 2024 Dr. West Christy MD Attending Provider Active Start: July 13, 2024 End: July 13, 2024 Team Status: Inactive Member Role Status Dates Dr. Bob Tristan MD Primary Care Provider Active Start: August 12, 2024 End: August 12, 2024 Dr. Bob Tristan MD Attending Provider Active Start: August 12, 2024 End: August 12, 2024 Dr. Bob Tristan MD Referring Provider Active Start: August 12, 2024 End: August 12, 2024 FOR RECORDS PERTAINING TO PATIENTS WHO ARE [...] BE BASED ON THE PRIMARY CLINICAL RECORDS. [facility] [employer] provides no warranty or guarantee of the accuracy or completeness of information in this document.
== END | disposition home or self-care (01) ==
PROVIDERS: PCP Internal Medicine; Referring Provider Internal Medicine Hematology & Oncology; Visit Provider Internal Medicine Hematology & Oncology
DX: Z12.31 Encounter for screening mammogram for malignant neoplasm of breast (principal)
CPT/HCPCS: 77063; 77067